=== PATIENT | female | born 1970 | race African-American/Black ===

== ENCOUNTER 2016-05-29 14:20 | Inpatient (IN) | payer OTHER ==
[2016-05-29] VITALS (7 sets, daily range): BP systolic 113–132; BP diastolic 62–68
[~2016-05-29] VITALS: Ht 163.8 cm; Wt 113.4 kg
[~2016-05-29 14:20] MED LIST: BUPIVACAINE 0.25% 50 ML VIAL. ONE; BUSP10TA PO; CIPR500T PO; CIPR500T6 PO; DOCU-27 PO; DOCU100C5 PO; HYDR-2666 PO; HYDR-2672 PO; HYDR-2680 PO; HYDR-2762 PO; HYDR-971 PO; HYDR10SY8 PO; HYDR25TA9 PO; IBUP-1060 PO; LEVO500T38 PO; LIDOCAINE 1% 20 ML VIAL. ONE; LOSA1TAB17 PO; LOSA50TA6 PO; SULF1TAB24 PO; TRAM50TA PO; VANCOMYCIN 1GM IVPB FOR OMNI 250 ML IV PRN
[2016-05-29] MEDS ORDERED: IV RINGERS,LACTATED 1000ML 1,000 ML IV SCH ×2 (14:32→18:07)
[2016-05-29] MEDS ORDERED: MIDAZOLAM HCL 2 MG/2 ML VIAL. IV PRN (14:45)
[2016-05-29] MEDS ORDERED: LIDOCAINE 1% 1 ML SYRINGE. ID PRN ×2 (14:45→18:15)
[2016-05-29] MEDS ORDERED: VANCOMYCIN 1GM IVPB FOR OMNI. ONE (15:00)
[2016-05-29] MEDS ORDERED: VANCOMYCIN 1GM IVPB FOR OMNI 250 ML ONE (15:11)
[2016-05-29] MEDS: FENTANYL PF 100 MCG/2 ML VIAL. IV PRN ×7 (15:36→19:11)
[2016-05-29] MEDS ORDERED: FENTANYL PF 100 MCG/2 ML VIAL. ONE (16:28)
[2016-05-29] MEDS ORDERED: ONDANSETRON PF 4 MG/2 ML VIAL. ONE (17:49)
[2016-05-29] MEDS ORDERED: LIDOCAINE 2% PF Vial for OR 5 ML VIAL. ONE (17:49)
[2016-05-29] MEDS ORDERED: DEXAMETHASONE SOD PHOS 20 MG/5 ML VIAL. ONE (17:49)
[2016-05-29] MEDS ORDERED: SEVOFLURANE 31 TO 60 MINUTES. IH ONE (17:49)
[2016-05-29] MEDS ORDERED: PROPOFOL 20 ML IV ONE (17:49)
[2016-05-29] MEDS ORDERED: SEVOFLURANE 61 TO 120 MINUTES. IH ONE (17:51)
[2016-05-29] MEDS ORDERED: MORPHINE SULFATE 2 MG/ML DISP.SYRIN. ONE (18:06)
[2016-05-29] MEDS: MORPHINE SULFATE 2 MG/ML DISP.SYRIN. IV PRN ×5 (18:11→20:42)
[2016-05-29] MEDS: HYDROMORPHONE 2 MG/ML VIAL. IV PRN ×4 (18:15→19:04)
[2016-05-29] MEDS ORDERED: PROCHLORPERAZINE 10 MG/2 ML VIAL. IV PRN (18:15)
[2016-05-29] MEDS ORDERED: FENTANYL PF 100 MCG/2 ML VIAL. IV PRN (18:15)
[2016-05-29] MEDS ORDERED: ONDANSETRON PF 4 MG/2 ML VIAL. IV PRN ×2 (18:15→18:30)
[2016-05-29] MEDS ORDERED: CALCIUM CARBONATE 500 MG TAB.CHEW PO PRN (18:30)
[2016-05-29] MEDS ORDERED: MAGNESIUM HYDROXIDE 2,400 MG/30 ML ORAL.SUSP. PO PRN (18:30)
[2016-05-29] MEDS ORDERED: DIPHENHYDRAMINE 50 MG/ML VIAL IV PRN (18:30)
[2016-05-29] MEDS ORDERED: 0.9 % SODIUM CHLORIDE 10 ML DISP.SYRIN. IV PRN (18:30)
[2016-05-29] MEDS ORDERED: NALOXONE 0.4 MG/ML VIAL. IV PRN (18:30)
[2016-05-29] MEDS ORDERED: ZOLPIDEM 5 MG TABLET. PO PRN (18:30)
[2016-05-29] MEDS ORDERED: DIPHENHYDRAMINE HCL 25 MG CAPSULE PO PRN (18:30)
[2016-05-29] MEDS ORDERED: MAG HYDROX/ALUMINUM HYDROX/SMC 30 ML ORAL.SUSP PO PRN (18:30)
[2016-05-29] MEDS ORDERED: KETOROLAC TROMETHAMINE 30 MG/ML SYRINGE. ONE (18:53)
[2016-05-29] MEDS ORDERED: ACETAMINOPHEN INTRAVENOUS 100 ML IV ONE ×2 (18:53→19:00)
[2016-05-29] MEDS ORDERED: KETOROLAC 15 MG/ML VIAL. IV ONE (19:00)
[2016-05-29] MEDS ORDERED: BUPIVACAINE MPF 0.5% 30 ML VIAL. ONE (19:06)
[2016-05-29] MEDS: IV 1/2 NORMAL SALINE 1,000 ML IV SCH (20:48)
[2016-05-29] MEDS: OXYCODONE IR 5 MG TABLET. PO PRN (21:49)
--- NOTE | 2016-05-29 23:04 | OP ---
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 INDICATIONS: This is a 45-year-old female who has had a ray amputation for nonhealing ulcer beneath the fifth metatarsal head. This was shown to be a squamous cell cancer. Margins were minimal and the patient was noted to have biopsy proven presence of metastatic squamous cell carcinoma in both the femoral lymph node chain and the external iliac chain. Radiation therapy is pending. Unfortunately, in the interval, the patient developed a recurrent soft tissue mass on the lateral aspect adjacent to the fourth toe. Biopsy of this returned squamous cell carcinoma. She returns today for third and fourth toe amputation in an effort to control local recurrence of this cancer. DESCRIPTION OF PROCEDURE: General anesthetic was administered. The patient was prepped and draped in sterile fashion. The area between the third and fourth toe encompassing the soft tissue and tumor were sharply incised. The dissection was carried down on the medial aspect of the third metatarsal shaft. Third and fourth metatarsal shafts were identified proximal and the incision site transected with a bone cutter and the remainder of the soft tissues were then divided removing the third and fourth toe and the soft tissue tumor. Additional bone was removed with a rongeur. Hemostasis achieved with electrocautery. The wound was closed with a running 2-0 nylon suture. Sterile dressings were applied. The patient moved from the operating room to recovery in satisfactory stable condition. ALMA BUSBY MD DR: IDALIA/derek JOB#: [id number] / [id number]
[2016-05-30] VITALS (7 sets, daily range): BP systolic 115–147; BP diastolic 63–83
[2016-05-30] MEDS: HYDROCODONE/APAP 5/325MG TABLET. PO PRN ×6 (01:13→23:34)
[2016-05-30] MEDS: OXYCODONE IR 5 MG TABLET. PO PRN ×5 (04:03→20:12)
[2016-05-30] MEDS ORDERED: VANCOMYCIN 1 GM in IV NORMAL SALINE 250ML 250 ML IV ONE (05:00)
[2016-05-30] MEDS: IV 1/2 NORMAL SALINE 1,000 ML IV SCH (09:46)
--- NOTE | 2016-05-30 13:01 | PDOC2 ---
JOSUE FIGUEROA GIANT TIRE REPAIRER 05/30/16 1301: CONSULT Date of Consult Date of Consult DATE: 05/30/16 TIME: 12:55 Reason for Consult Reason for Consult: postop pain Referring Physician Referring Physician: Dr Skelton Identification/Chief Complaint Chief Complaint toe amputation Source Source: Chart review, Patient History of Present Illness Reason for Visit: Postop from toe amputation related to her squamous cell cancer. She has been having pain and swelling to right groin. On Apr 25, 2016 she underwent right groin lymph node dissection and right iliac lymph node dissection with Dr Corbin Past Medical History Cardiovascular: HTN Pulmonary: No pertinent hx CENTRAL NERVOUS SYSTEM: Other GI: GERD Heme/Onc: No pertinent hx, Cancer Hepatobiliary: No pertinent hx Psych: Anxiety Rheumatologic: No pertinent hx Infectious disease: No pertinent hx Renal/: No pertinent hx Endocrine: No pertinent hx Past Surgical History Past Surgical History: , Other Family History Family History: Cancer, Diabetes, Hypertension Social History ALCOHOL: none Drugs: None Lives: with Family Current Problem List Problem List Problems Medical Problems: (1) Squamous cell carcinoma of right foot Status: Acute Current Medications Current Medications Current Medications Midazolam HCl (Versed) 2 mg PRN 1X PRN IV PRIOR TO PROCEDURE; Start 05/29/16 at 14:45; Stop 05/29/16 at 18:00; Status DC Fentanyl Citrate (Fentanyl 2ml Vial) 25 mcg PRN Q5MIN PRN IV X 2 DOSES FOR PAIN Last administered on 05/29/16t 16:19; Start 05/29/16 at 14:45; Stop at 18:00; Status DC Fentanyl Citrate 50 mcg 50 mcg PRN Q5MIN PRN IV X 2 DOSES FOR PAIN Last administered on 05/29/16t 18:18; Start 05/29/16 at 14:45; Stop 05/29/16 at 20:00 ; Status DC Lactated Ringer's (Iv Lactated Ringers) 1,000 ml @ 125 mls/hr Q8H IV ; Start at 14:32; Stop 05/30/16 at 02:31; Status DC Lidocaine HCl 2 ml 2 ml 1X PRN PRN ID IV START; Start 05/29/16 at 14:45; Stop 05/29/16 at 18:00; Status DC Vancomycin HCl 250 ml @ 250 mls/hr 1X PREOP PRN IV PER PROTOCOL Last administered on 05/29/16 17:02; Start 05/29/16 at 06:00; Stop 05/30/16 at 05:59 ; Status DC Ondansetron HCl (Zofran) 4 mg PRN Q6HRS PRN IV Nausea; Start 05/29/16 at 18:15 ; Stop 05/30/16 at 18:14 Fentanyl Citrate (Fentanyl 2ml Vial) 25 mcg PRN Q5MIN PRN IV MILD PAIN; Start 05/29/16 at 18:15; Stop 05/30/16 at 18:14 Fentanyl Citrate (Fentanyl 2ml Vial) 50 mcg PRN Q5MIN PRN IV MODERATE PAIN Last administered on 05/29/16 19:11; Start 05/29/16 at 18:15; Stop 05/30/16 at 18:14 Morphine Sulfate 1 mg 1 mg PRN Q10MIN PRN IV SEVERE PAIN Last administered on 19:15; Start 05/29/16 at 18:15; Stop 05/30/16 at 18:14 Lactated Ringer's (Iv Lactated Ringers) 1,000 ml @ 30 mls/hr Q24H IV ; Start at 18:07; Stop 05/30/16 at 06:06; Status DC Lidocaine HCl 2 ml 1X PRN PRN ID IV START; Start 05/29/16 at 18:15; Stop at 18:14 Hydromorphone HCl (Dilaudid) 0.5 mg PRN Q10MIN PRN IV SEV PAIN,Second choice Last administered on 05/29/16 19:04; Start 05/29/16 at 18:15; Stop 05/30/16 at 18:14 Prochlorperazine Edisylate 5 mg 5 mg PACU PRN PRN IV NAUSEA; Start 05/29/16 at 18:15; Stop 05/30/16 at 18:14 Vancomycin HCl/ Sodium Chloride (Iv Sodium Chloride 0.9% 250ml) 250 ml @ 250 mls/hr 1X ONCE IV Last administered on 05/30/16 05:15; Start 05/30/16 at 05: 00; Stop 05/30/16 at 05:59; Status DC Oxycodone HCl (Roxicodone) 5 mg PRN Q3HRS PRN PO PAIN Last administered on 05/30 10:54; Start 05/29/16 at 18:30 Al Hydrox/Mg Hydrox/Simethicone (Mylanta Plus Xs) 30 ml PRN Q3HRS PRN PO HEARTBURN / GAS; Start 05/29/16 at 18:30 Calcium Carbonate/ Glycine (Tums) 500 mg PRN Q3HRS PRN PO INDIGESTION; Start at 18:30 Diphenhydramine HCl (Benadryl) 25 mg PRN Q6HRS PRN PO ITCHING; Start 05/29/16 at 18:30 Diphenhydramine HCl (Benadryl) 25 mg PRN Q6HRS PRN IV ITCHING; Start 05/29/16 at 18:30 Zolpidem Tartrate (Ambien) 5 mg PRN QHS PRN PO INSOMNIA; Start 05/29/16 at 18: 30 Naloxone HCl (Narcan) 0.1 mg PRN Q2MIN PRN IV ADMIN; Start 05/29/16 at 18:30 Sodium Chloride 3 ml 3 ml QSHIFT PRN IV AFTER MEDS AND BLOOD DRAWS; Start 05/29 at 18:30 Sodium Chloride (Iv Sodium Chloride 0.45%) 1,000 ml @ 75 mls/hr [id number] IV Last administered on 05/30/16 09:46; Start 05/29/16 at 18:17 Acetaminophen/ Hydrocodone Bitart (Lortab 5/325) 2 tab PRN Q4HRS PRN PO MODERATE PAIN, SEVERE PAIN Last administered on 05/30/16 09:47; Start 05/29/16 at 18:30 Morphine Sulfate 2 mg PRN Q1HR PRN IV PAIN Last administered on 05/29/16 20:42 ; Start 05/29/16 at 18:30 Magnesium Hydroxide (Milk Of Magnesia) 2,400 mg PRN Q12HR PRN PO CONSTIPATION; Start 05/29/16 at 18:30 Ondansetron HCl (Zofran) 4 mg PRN Q6HRS PRN IV NAUESA, 1ST CHOICE; Start at 18:30 Ketorolac Tromethamine 30 mg 30 mg 1X ONCE IV Last administered on 2/20/17at 18:45; Start 05/29/16 at 19:00; Stop 05/29/16 at 19:05; Status DC Acetaminophen (Ofirmev) 100 ml @ 400 mls/hr 1X ONCE IV Last administered on t 19:00; Start 05/29/16 at 19:00; Stop 05/29/16 at 19:14; Status DC Vancomycin HCl 1 gm STK-MED ONCE .ROUTE ; Start 05/29/16 at 15:00; Stop at 08:45; Status DC Bupivacaine HCl (Marcaine 0.25%) 50 ml STK-MED ONCE .ROUTE ; Start 05/29/16 at 13:38; Stop 05/30/16 at 09:55; Status DC Lidocaine HCl 20 ml 20 ml STK-MED ONCE .ROUTE ; Start 05/29/16 at 13:39; Stop at 09:55; Status DC Vancomycin HCl 250 ml @ As Directed STK-MED ONCE .ROUTE ; Start 05/29/16 at 15: 11; Stop 05/30/16 at 09:56; Status DC Fentanyl Citrate (Fentanyl 2ml Vial) 100 mcg STK-MED ONCE .ROUTE ; Start at 16:28; Stop 05/30/16 at 09:58; Status DC Dexamethasone Sodium Phosphate (Decadron) 20 mg STK-MED ONCE .ROUTE ; Start at 17:49; Stop 05/30/16 at 09:59; Status DC Ondansetron HCl 4 mg 4 mg STK-MED ONCE .ROUTE ; Start 05/29/16 at 17:49; Stop at 09:59; Status DC Propofol (Diprivan) 20 ml @ As Directed STK-MED ONCE IV ; Start 05/29/16 at 17: 49; Stop 05/30/16 at 09:59; Status DC Lidocaine HCl (Lidocaine Pf 2% Vial) 5 ml STK-MED ONCE .ROUTE ; Start 05/29/16 at 17:49; Stop 05/30/16 at 09:59; Status DC Sevoflurane (Ultane) 30 ml STK-MED ONCE IH ; Start 05/29/16 at 17:49; Stop 05/30 at 09:59; Status DC Sevoflurane (Ultane) 60 ml STK-MED ONCE IH ; Start 05/29/16 at 17:51; Stop 05/30 at 09:59; Status DC Morphine Sulfate 2 mg 2 mg STK-MED ONCE .ROUTE ; Start 05/29/16 at 18:06; Stop 05/30/16 at 09:59; Status DC Acetaminophen (Ofirmev) 100 ml @ As Directed STK-MED ONCE IV ; Start 05/29/16 at 18:53; Stop 05/30/16 at 09:59; Status DC Ketorolac Tromethamine (Toradol) 30 mg STK-MED ONCE .ROUTE ; Start 05/29/16 at 18:53; Stop 05/30/16 at 09:59; Status DC Bupivacaine HCl (Sensorcaine Mpf 0.5%) 30 ml STK-MED ONCE .ROUTE ; Start at 19:06; Stop 05/30/16 at 10:00; Status DC Active Scripts Active Reported Lortab 10-325 mg Tablet (Hydrocodone/Acetaminophen) 1 Each Tablet 1 Tab PO PRN Q6HRS PRN Losartan-Hctz 100-25 Mg Tab (Losartan/Hydrochlorothiazide) 1 Each Tablet 1 Tab PO DAILY Docusate Sodium 100 Mg Capsule 1 Cap PO DAILY Ibuprofen 800 Mg Tablet 800 Mg PO TID PRN PRN Allergies Allergies: Coded Allergies: amoxicillin (Verified Adverse Reaction, Intermediate, Nausea, 05/29/16) clavulanic acid (Verified Adverse Reaction, Intermediate, Nausea, 05/29/16) ROS General: No: Chills, Other (fevers) PSYCHOLOGICAL ROS: No: Anxiety, Depression Eyes: No Blurry vision, No Double vision HEENT: No: Heacaches, Sore Throat Hematological and Lymphatic: No: Bleeding Problems, Blood Clots Respiratory: No: Cough, Shortness of breath Cardiovascular: No Chest Pain Gastrointestinal: No Nausea, No Vomiting Genitourinary: No Dysuria, No Hematuria Musculoskeletal: No Joint Pain, No Muscle Pain Neurological: Yes Impaired Coord/balance, Yes Numbness/Tingling Skin: Yes Skin Lesion Changes Physical Exam Physical Exam right groin with fluid collection, incision healed, tender on exam General: Alert, Oriented X3, Cooperative, No acute distress HEENT: PERRLA, Mucous membr. moist/pink Lungs: Clear to auscultation, Normal air movement Heart: Regular rate, Normal S1, Normal S2, No murmurs Abdomen: Soft, No tenderness Extremities: Other (right foot wrapped ) Neuro: Strength at 5/5 X4 ext Psych/Mental Status: Mental status NL, Mood NL Vitals VITALS Vital Signs Date Time Temp Pulse Resp B/P Pulse Ox O2 Delivery O2 Flow Rate FiO2 05/30/16 11:24 98.1 58 18 120/63 98 Room Air 98.1 05/30/16 05:20 2.0 Assessment/Plan Assessment/Plan squamous cell cancer s/p lymph node dissection, now with fluid collection will consult IR for us guided aspiration, culture LATASHA OLVERA MD 05/30/16 1306: CONSULT Allergies Allergies: Coded Allergies: amoxicillin (Verified Adverse Reaction, Intermediate, Nausea, 05/29/16) clavulanic acid (Verified Adverse Reaction, Intermediate, Nausea, 05/29/16) Assessment/Plan Assessment/Plan Ruslan Corbin pt seen, interviewed and examined agree with above will await outcome of aspiration will follow Thanks for consult. JOSUE FIGUEROA APRN May 30, 2016 13:01 LATASHA OLVERA MD May 30, 2016 13:06
[2016-05-30] MEDS ORDERED: POTASSIUM CHLORIDE 20 MEQ TABLET.ER. PO ONE (13:30)
[2016-05-30] MEDS: MAGNESIUM SULFATE 2GM 50 ML IV ONE ×2 (14:07→15:23)
--- NOTE | 2016-05-30 14:08 | PDOC ---
PROGRESS NOTES Subjective Subjective "My foot is hurting and so is my right groin. I can't go home like this." Objective Objective Vascular Surgery - POD#1 Ray amp toes 3-4 right foot O: Sitting up on side of bed. States she has been lying down with foot elevated. Holding right groin area. Rt foot: dressing with blood noted coming through. Removed. Incision intact with slow bloody ooze to upper portion of incision. Pressure held then new dressing applied. Palpable DP pulse. Assessment/Plan: 1. Squamous cell carcinoma of right foot - POD#1 Ray amp of toes 3-4. 2. Right groin pain - IR has been consulted for ultrasound-guided aspiration of fluid. Await results of this. 3. Educated patient on need for her to keep right foot elevated and in non- dependent position to control swelling/pain. 4. Work on pain control prior to discharge. 5. Most likely home tomorrow. Vital Signs Date Time Temp Pulse Resp B/P Pulse Ox O2 Delivery O2 Flow Rate FiO2 05/30/16 11:24 98.1 58 18 120/63 98 Room Air 98.1 05/30/16 05:20 2.0 Intake and Output 05/30/16 07:00 Intake Total 3140 ml Balance 3140 ml Intake Oral 1490 ml IV Total 1650 ml # Voids 2 Assessment Assessment Problems Medical Problems: (1) Squamous cell carcinoma of right foot Status: Acute Comment Review of Relevant I have reviewed the following items niki (where applicable) has been applied. Medications Current Medications Midazolam HCl (Versed) 2 mg PRN 1X PRN IV PRIOR TO PROCEDURE; Start 05/29/16 at 14:45; Stop 05/29/16 at 18:00; Status DC Fentanyl Citrate (Fentanyl 2ml Vial) 25 mcg PRN Q5MIN PRN IV X 2 DOSES FOR PAIN Last administered on 05/29/16 16:19; Start 05/29/16 at 14:45; Stop at 18:00; Status DC Fentanyl Citrate 50 mcg 50 mcg PRN Q5MIN PRN IV X 2 DOSES FOR PAIN Last administered on 05/29/16 18:18; Start 05/29/16 at 14:45; Stop 05/29/16 at 20:00 ; Status DC Lactated Ringer's (Iv Lactated Ringers) 1,000 ml @ 125 mls/hr Q8H IV ; Start at 14:32; Stop 05/30/16 at 02:31; Status DC Lidocaine HCl 2 ml 2 ml 1X PRN PRN ID IV START; Start 05/29/16 at 14:45; Stop 05/29/16 at 18:00; Status DC Vancomycin HCl 250 ml @ 250 mls/hr 1X PREOP PRN IV PER PROTOCOL Last administered on 05/29/16 17:02; Start 05/29/16 at 06:00; Stop 05/30/16 at 05:59 ; Status DC Ondansetron HCl (Zofran) 4 mg PRN Q6HRS PRN IV Nausea; Start 05/29/16 at 18:15 ; Stop 05/30/16 at 13:38; Status DC Fentanyl Citrate (Fentanyl 2ml Vial) 25 mcg PRN Q5MIN PRN IV MILD PAIN; Start 05/29/16 at 18:15; Stop 05/30/16 at 18:14 Fentanyl Citrate (Fentanyl 2ml Vial) 50 mcg PRN Q5MIN PRN IV MODERATE PAIN Last administered on 05/29/16 19:11; Start 05/29/16 at 18:15; Stop 05/30/16 at 13:38; Status DC Morphine Sulfate 1 mg 1 mg PRN Q10MIN PRN IV SEVERE PAIN Last administered on 19:15; Start 05/29/16 at 18:15; Stop 05/30/16 at 13:38; Status DC Lactated Ringer's (Iv Lactated Ringers) 1,000 ml @ 30 mls/hr Q24H IV ; Start at 18:07; Stop 05/30/16 at 06:06; Status DC Lidocaine HCl 2 ml 1X PRN PRN ID IV START; Start 05/29/16 at 18:15; Stop at 13:38; Status DC Hydromorphone HCl (Dilaudid) 0.5 mg PRN Q10MIN PRN IV SEV PAIN,Second choice Last administered on 05/29/16 19:04; Start 05/29/16 at 18:15; Stop 05/30/16 at 18:14 Prochlorperazine Edisylate 5 mg 5 mg PACU PRN PRN IV NAUSEA; Start 05/29/16 at 18:15; Stop 05/30/16 at 18:14 Vancomycin HCl/ Sodium Chloride (Iv Sodium Chloride 0.9% 250ml) 250 ml @ 250 mls/hr 1X ONCE IV Last administered on 05/30/16 05:15; Start 05/30/16 at 05: 00; Stop 05/30/16 at 05:59; Status DC Oxycodone HCl (Roxicodone) 5 mg PRN Q3HRS PRN PO PAIN Last administered on 05/30 10:54; Start 05/29/16 at 18:30 Al Hydrox/Mg Hydrox/Simethicone (Mylanta Plus Xs) 30 ml PRN Q3HRS PRN PO HEARTBURN / GAS; Start 05/29/16 at 18:30 Calcium Carbonate/ Glycine (Tums) 500 mg PRN Q3HRS PRN PO INDIGESTION; Start at 18:30 Diphenhydramine HCl (Benadryl) 25 mg PRN Q6HRS PRN PO ITCHING; Start 05/29/16 at 18:30 Diphenhydramine HCl (Benadryl) 25 mg PRN Q6HRS PRN IV ITCHING; Start 05/29/16 at 18:30 Zolpidem Tartrate (Ambien) 5 mg PRN QHS PRN PO INSOMNIA; Start 05/29/16 at 18: 30 Naloxone HCl (Narcan) 0.1 mg PRN Q2MIN PRN IV ADMIN; Start 05/29/16 at 18:30 Sodium Chloride 3 ml 3 ml QSHIFT PRN IV AFTER MEDS AND BLOOD DRAWS; Start 05/29 at 18:30 Sodium Chloride (Iv Sodium Chloride 0.45%) 1,000 ml @ 75 mls/hr [id number] IV Last administered on 05/30/16 09:46; Start 05/29/16 at 18:17 Acetaminophen/ Hydrocodone Bitart (Lortab 5/325) 2 tab PRN Q4HRS PRN PO MODERATE PAIN, SEVERE PAIN Last administered on 05/30/16 09:47; Start 05/29/16 at 18:30 Morphine Sulfate 2 mg PRN Q1HR PRN IV PAIN Last administered on 05/29/16 20:42 ; Start 05/29/16 at 18:30 Magnesium Hydroxide (Milk Of Magnesia) 2,400 mg PRN Q12HR PRN PO CONSTIPATION; Start 05/29/16 at 18:30 Ondansetron HCl (Zofran) 4 mg PRN Q6HRS PRN IV NAUESA, 1ST CHOICE; Start at 18:30 Ketorolac Tromethamine 30 mg 30 mg 1X ONCE IV Last administered on 05/29/16t 18:45; Start 05/29/16 at 19:00; Stop 05/29/16 at 19:05; Status DC Acetaminophen (Ofirmev) 100 ml @ 400 mls/hr 1X ONCE IV Last administered on t 19:00; Start 05/29/16 at 19:00; Stop 05/29/16 at 19:14; Status DC Vancomycin HCl 1 gm STK-MED ONCE .ROUTE ; Start 05/29/16 at 15:00; Stop at 08:45; Status DC Bupivacaine HCl (Marcaine 0.25%) 50 ml STK-MED ONCE .ROUTE ; Start 05/29/16 at 13:38; Stop 05/30/16 at 09:55; Status DC Lidocaine HCl 20 ml 20 ml STK-MED ONCE .ROUTE ; Start 05/29/16 at 13:39; Stop at 09:55; Status DC Vancomycin HCl 250 ml @ As Directed STK-MED ONCE .ROUTE ; Start 05/29/16 at 15: 11; Stop 05/30/16 at 09:56; Status DC Fentanyl Citrate (Fentanyl 2ml Vial) 100 mcg STK-MED ONCE .ROUTE ; Start at 16:28; Stop 05/30/16 at 09:58; Status DC Dexamethasone Sodium Phosphate (Decadron) 20 mg STK-MED ONCE .ROUTE ; Start at 17:49; Stop 05/30/16 at 09:59; Status DC Ondansetron HCl 4 mg 4 mg STK-MED ONCE .ROUTE ; Start 05/29/16 at 17:49; Stop at 09:59; Status DC Propofol (Diprivan) 20 ml @ As Directed STK-MED ONCE IV ; Start 05/29/16 at 17: 49; Stop 05/30/16 at 09:59; Status DC Lidocaine HCl (Lidocaine Pf 2% Vial) 5 ml STK-MED ONCE .ROUTE ; Start 05/29/16 at 17:49; Stop 05/30/16 at 09:59; Status DC Sevoflurane (Ultane) 30 ml STK-MED ONCE IH ; Start 05/29/16 at 17:49; Stop 05/30 at 09:59; Status DC Sevoflurane (Ultane) 60 ml STK-MED ONCE IH ; Start 05/29/16 at 17:51; Stop 05/30 at 09:59; Status DC Morphine Sulfate 2 mg 2 mg STK-MED ONCE .ROUTE ; Start 05/29/16 at 18:06; Stop 05/30/16 at 09:59; Status DC Acetaminophen (Ofirmev) 100 ml @ As Directed STK-MED ONCE IV ; Start 05/29/16 at 18:53; Stop 05/30/16 at 09:59; Status DC Ketorolac Tromethamine (Toradol) 30 mg STK-MED ONCE .ROUTE ; Start 05/29/16 at 18:53; Stop 05/30/16 at 09:59; Status DC Bupivacaine HCl 30 ml 30 ml STK-MED ONCE .ROUTE ; Start 05/29/16 at 19:06; Stop 05/30/16 at 10:00; Status DC Magnesium Sulfate/ Dextrose (Magnesium Sulfate PREMIX 2GM) 50 ml @ 25 mls/hr 1X ONCE IV ; Start 05/30/16 at 14:00; Stop 05/30/16 at 15:59 Potassium Chloride (Klor-Con) 40 meq 1X ONCE PO ; Start 05/30/16 at 13:30; Stop 05/30/16 at 13:35; Status DC Active Scripts Active Reported Lortab 10-325 mg Tablet (Hydrocodone/Acetaminophen) 1 Each Tablet 1 Tab PO PRN Q6HRS PRN Losartan-Hctz 100-25 Mg Tab (Losartan/Hydrochlorothiazide) 1 Each Tablet 1 Tab PO DAILY Docusate Sodium 100 Mg Capsule 1 Cap PO DAILY Ibuprofen 800 Mg Tablet 800 Mg PO TID PRN PRN Vitals/I & O Vital Sign - Last 24 Hours 05/29/16 05/29/16 05/29/16 05/29/16 14:52 15:36 16:01 16:19 Temp 97.2 97.2 Pulse 77 Resp 16 20 20 20 B/P 107/65 Pulse Ox 98 97 98 O2 Delivery Room Air Room Air Room Air O2 Flow Rate 99.0 05/29/16 05/29/16 05/29/16 05/29/16 17:58 17:58 18:11 18:11 Temp 97.2 97.2 Pulse 95 Resp 15 15 15 B/P 160/73 Pulse Ox 99 100 100 O2 Delivery Room Air Room Air Simple Mask Simple Mask O2 Flow Rate 99.0 99.0 10.0 10.0 05/29/16 05/29/16 05/29/16 05/29/16 18:13 18:15 18:18 18:26 Temp 97.2 97.2 Pulse 90 Resp 15 15 15 15 B/P 122/90 Pulse Ox 96 100 94 100 O2 Delivery Simple Mask Simple Mask Simple Mask Simple Mask O2 Flow Rate 10.0 10.0 10.0 10.0 05/29/16 05/29/16 05/29/16 05/29/16 18:26 18:28 18:43 18:50 Temp 97.2 97.2 97.2 97.2 Pulse 97 82 Resp 15 15 15 15 B/P 157/77 148/88 Pulse Ox 100 99 93 100 O2 Delivery Simple Mask Simple Mask Nasal Cannula Nasal Cannula O2 Flow Rate 10.0 10.0 2 2.0 05/29/16 05/29/16 05/29/16 05/29/16 18:51 18:58 19:00 19:04 Temp 97.2 97.2 Pulse 88 Resp 15 15 15 15 B/P 160/68 Pulse Ox 98 98 100 100 O2 Delivery Nasal Cannula Nasal Cannula Nasal Cannula Nasal Cannula O2 Flow Rate 2.0 2.0 2.0 2.0 05/29/16 05/29/16 05/29/16 05/29/16 19:11 19:13 19:15 19:28 Temp 97.2 97.2 97.2 97.2 Pulse 70 71 Resp 12 15 15 15 B/P 176/91 145/68 Pulse Ox 100 97 100 100 O2 Delivery Nasal Cannula Nasal Cannula Nasal Cannula Nasal Cannula O2 Flow Rate 2.0 2.0 2.0 2.0 05/29/16 05/29/16 05/29/16 05/29/16 20:30 20:42 20:45 21:00 Temp 98.1 98.1 Pulse 81 80 81 Resp 20 B/P 127/68 113/62 129/66 Pulse Ox 98 100 100 99 O2 Delivery Room Air O2 Flow Rate 2.0 05/29/16 05/29/16 05/29/16 05/29/16 21:12 21:15 21:45 22:15 Pulse 72 86 61 B/P 132/65 120/63 117/64 Pulse Ox 100 100 100 100 O2 Delivery Room Air O2 Flow Rate 2.0 05/29/16 05/29/16 05/30/16 05/30/16 22:44 23:15 00:15 01:13 Temp 98.6 98.6 Pulse 63 56 Resp 16 B/P 113/65 147/83 Pulse Ox 100 100 100 O2 Delivery Nasal Cannula Nasal Cannula O2 Flow Rate 2.0 2.0 05/30/16 05/30/16 05/30/16 05/30/16 02:13 03:00 04:03 05:00 Temp 98.6 98.6 Pulse 53 Resp 16 B/P 130/83 Pulse Ox 100 100 100 100 O2 Delivery Nasal Cannula Nasal Cannula Nasal Cannula O2 Flow Rate 2.0 2.0 2.0 05/30/16 05/30/16 05/30/16 05/30/16 05:20 07:15 08:04 11:24 Temp 98.1 98.1 98.1 98.1 Pulse 56 58 Resp 17 18 B/P 124/66 120/63 Pulse Ox 100 98 98 O2 Delivery Nasal Cannula Room Air Room Air Room Air O2 Flow Rate 2.0 Intake and Output 05/29/16 05/29/16 05/30/16 15:00 23:00 07:00 Intake Total 1650 ml 1490 ml Balance 1650 ml 1490 ml DIPAK ARZATE APRN May 30, 2016 14:08
[2016-05-30] MEDS: MORPHINE SULFATE 2 MG/ML DISP.SYRIN. IV PRN ×2 (14:23→21:28)
[2016-05-30] MEDS: NICOTINE 14MG PATCH. TD SCH (15:35)
[2016-05-31] MEDS: OXYCODONE IR 5 MG TABLET. PO PRN ×4 (04:08→20:56)
[2016-05-31 04:37] LABS: MAGNESIUM 1.7 mg/dL (1.8-2.4); POTASSIUM 3.5 mmol/L (3.5-5.1)
[2016-05-31] MEDS: HYDROCODONE/APAP 5/325MG TABLET. PO PRN ×5 (05:53→22:33)
[2016-05-31 07:00] VITALS: BP 137/76
[2016-05-31] MEDS: NICOTINE 14MG PATCH. TD SCH (09:11)
[2016-05-31] MEDS: MORPHINE SULFATE 2 MG/ML DISP.SYRIN. IV PRN (09:20)
--- NOTE | 2016-05-31 10:38 | PDOC ---
SURGICAL PROGRESS NOTE Subjective Pt with c/o right foot pain, groin pain, improved Vital Signs Vital Signs Date Time Temp Pulse Resp B/P Pulse Ox O2 Delivery O2 Flow Rate FiO2 05/31/16 10:34 Room Air 05/31/16 07:00 98.2 68 18 137/76 93 98.2 05/31/16 05:53 2.0 I&O Intake and Output 05/31/16 07:00 Intake Total 2190 ml Output Total 1200 ml Balance 990 ml Intake Oral 2190 ml Output Urine Total 1200 ml # Voids 1 General: Alert, Oriented X3, Cooperative, No acute distress Extremities: Other (right groin incision intact, difficult to palpate seroma secondary to body habitus, no obvious infection, mild TTP, right foot dressing c /d/i) Labs Laboratory Tests Test 05/31/16 04:02 Potassium Level 3.5mmol/L (3.5-5.1) Magnesium Level 1.7mg/dL (1.8-2.4) Laboratory Tests Test 05/31/16 04:02 Potassium Level 3.5mmol/L (3.5-5.1) Magnesium Level 1.7mg/dL (1.8-2.4) Problem List Problems Medical Problems: (1) Squamous cell carcinoma of right foot Status: Acute Assessment/Plan right groin lymphocoele d/w pt R/b/A of drainage vs observation significant risk of middle or intermediate [employer] principal drainage given cancer and lymphocoele, as such pt elects to avoid drainage OK to start rad onc from gen surg POV Problems: JAYLEEN GILES MD May 31, 2016 10:38
[2016-05-31 11:06] VITALS: BP 137/73
--- NOTE | 2016-05-31 12:00 | PDOC ---
Provider Note Provider Note 45 yo woman with regionally advanced squamous cell carcinoma of the right 5th toe with groin and pelvic LN involvement. 03/06/16 Underwent right 5th toe ray amputation Squamous cell carcinoma resected with 1 mm margin. 04/25/2016 Underwent right groin and pelvic resection of adenopathy, 4 x 2.[address] and [address] involved. 05/19/2016 Ulcerative mass right lateral foot incision seen. Bx recurrent squamous cell carcinoma. 05/29/[address] 4 x 4.7 seroma, smaller deep 1.3 cm seroma two other ing LN 3.0 cm and 1.5 [address] ex iliac LN 1.5 cm Underwent right 4th and 3rd ray amputation. Doing well post op with foot pain and resolution of groin pain. Impression: Regionally advanced stIV(T2 N2 M0) squamous cell carcinoma of right 5th toe. s/p initial resection now with recurrence also resected. Also s/p right roderick resection now with CT evidence for roderick relapse. Wait path report from re-resection of foot Plan on simulation for treatment of ipsilateral right groin and pelvic radiation. Given speed of relapse seen I would recommend proceeding with radiation now and not pursue additional inguinal or pelvic resection. Plan on simulation tomorrow with treatment to begin next week. DEV WILSON MD May 31, 2016 12:00
--- NOTE | 2016-05-31 12:05 | PDOC ---
SURGICAL PROGRESS NOTE Subjective no complaints Vital Signs Vital Signs Date Time Temp Pulse Resp B/P Pulse Ox O2 Delivery O2 Flow Rate FiO2 05/31/16 11:53 Room Air 05/31/16 11:06 98.8 70 18 137/73 95 98.8 05/31/16 05:53 2.0 I&O Intake and Output 05/31/16 07:00 Intake Total 2190 ml Output Total 1200 ml Balance 990 ml Intake Oral 2190 ml Output Urine Total 1200 ml # Voids 1 Extremities: Other (right lateral foot incision looks fine. , viable skin edges ) Labs Laboratory Tests Test 05/31/16 04:02 Potassium Level 3.5mmol/L (3.5-5.1) Magnesium Level 1.7mg/dL (1.8-2.4) Laboratory Tests Test 05/31/16 04:02 Potassium Level 3.5mmol/L (3.5-5.1) Magnesium Level 1.7mg/dL (1.8-2.4) Problem List Problems Medical Problems: (1) Squamous cell carcinoma of right foot Status: Acute Problems: ZAMZAM BRUMFIELD II, MD May 31, 2016 12:05
[2016-05-31 15:00] VITALS: BP 135/73
[2016-05-31 19:57] VITALS: BP 130/77
[2016-05-31 23:06] VITALS: BP 151/79
--- NOTE | 2016-06-01 01:52 | ACF ---
Admission Forms Criteria PAIN MANAGEMENT [facility] Clinical Indications for Admission to Inpatient Care (Place 'X' for any and all applicable criteria): Hospital admission is needed for appropriate care of the patient because of ANY ONE of the following are present (1)(2)(3)(4)(5): [X]I. Severe pain requiring acute inpatient management as indicated by ALL of the following (2)(5)(10): [X]a) Continuous or frequent (eg, every 2 to 4 hours) parenteral analgesics required [A] [ ]b) Necessity (ie, alternative approaches not effective) for analgesic regimen that can only be performed or initiated in inpatient setting [ ]II. Pain causing debilitation to the point of inability to function or be supported at any other level of care [ ]III. Severe side effects from pain medications as indicated by ANY ONE of the following (12)(13)(14)(15): [ ]a) Uncontrollable seizures [ ]b) Cardiac arrhythmias [ ]c) Severe volume depletion [ ]d) Vomiting that is uncontrollable at any other level of care [ ]e) Altered mental status ([place] coma scale score less than 13) [ ]f) Obstipation with inadequate GI function to maintain nutrition [ ]g) Dehydration that is severe or persistent The original [employer] content created by [employer] has been revised. The portions of the content which have been revised are identified through the use of italic text or in bold, and [facility] has neither reviewed nor approved the modified material. All other unmodified content is copyright [employer]. Please see references footnoted in the original [facility] edition 2016 Admission Criteria Met?: Yes FADY VERNON Jun 01, 2016 01:52
[2016-06-01] MEDS: HYDROCODONE/APAP 5/325MG TABLET. PO PRN ×2 (02:31→06:34)
[2016-06-01 02:58] VITALS: BP 151/79
[2016-06-01] MEDS: OXYCODONE IR 5 MG TABLET. PO PRN ×2 (05:31→08:07)
[2016-06-01 07:16] VITALS: BP 135/77
[2016-06-01] MEDS: NICOTINE 14MG PATCH. TD SCH (08:08)
[2016-06-01] MEDS: HYDROCODONE/APAP 7.5/325MG TABLET. PO PRN ×2 (10:35→14:14)
[2016-06-01 11:02] VITALS: BP 137/81
--- NOTE | 2016-06-01 11:44 | PDOC ---
HENRYJOSUE Olivo NECK CUTTER 06/01/16 1143: SURGICAL PROGRESS NOTE Subjective pain a little better hoping home today Vital Signs Vital Signs Date Time Temp Pulse Resp B/P Pulse Ox O2 Delivery O2 Flow Rate FiO2 06/01/16 11:02 98.5 74 18 137/81 97 Room Air 98.5 06/01/16 06:34 2.0 I&O Intake and Output 06/01/16 07:00 Intake Total 200 ml Output Total 400 ml Balance -200 ml Intake Oral 200 ml Output Urine Total 400 ml # Voids 6 Labs Laboratory Tests Test 05/31/16 04:02 Potassium Level 3.5mmol/L (3.5-5.1) Magnesium Level 1.7mg/dL (1.8-2.4) Problem List Problems Medical Problems: (1) Squamous cell carcinoma of right foot Status: Acute Assessment/Plan no plans for drainage of fluid collection DC when ready Problems: JAYLEEN GILES MD 06/01/16 5963: SURGICAL PROGRESS NOTE Assessment/Plan Pt seen and examined. Agree with Ms. Acuña's note still with groin pain, will adjust pain meds d/w vascular and rad onc observation of groin fluid OK to start rad tx Problems: JOSUE ACUÑA NECK CUTTER Jun 01, 2016 11:43 JAYLEEN GILES MD Jun 01, 2016 17:43
--- NOTE | 2016-06-02 03:23 | CONS ---
DATE OF CONSULTATION: 06/01/2016 REFERRING DOCTOR: Dayo Corbin MD DIAGNOSIS: Initial regionally advanced squamous cell carcinoma of the right fifth toe associated with ipsilateral inguinal and pelvic adenopathy. She underwent fifth toe ray amputation on 03/06/2016. Following this, she had inguinal and pelvic lymph node dissection on 04/25/2016. She had local recurrence along the incisional resection bed of her foot and now has undergone third and fourth ray amputation on 05/29/2016. We were asked to see her regarding postoperative radiation therapy. The patient is a 45-year-old woman who had a chronic callus-like wart growth on the lateral aspect of her right small toe. In 11/2014, she was seen by Dr. Steven Skelton with a wound on the plantar aspect of her right foot. Following this, she ultimately underwent right fifth toe ray amputation on 03/06/2016. At that time, there was moderate to poorly differentiated squamous cell carcinoma, 5.2 x 3.5 cm with a close surgical margin of 0.1 cm. At that time, she was also found to have progressive mass in her right groin and underwent right inguinal and ipsilateral pelvic lymph node dissection on 04/25/2016. At that time, there was a 4 x 2.8 cm inguinal lymph node and 2 of 7 involved iliac lymph nodes. She was seen in followup by Dr. Steven Skelton on 05/19/2016 at which time there was a mass with ulceration involving the distal aspect of her resection bed around the incision site. Tissue removed from this did confirm recurrent squamous cell carcinoma. CT scan of the abdomen and pelvis just prior to surgery revealed postop seroma in the right groin measuring 4 x 4.7 cm, a second smaller seroma as well. There were inguinal lymph nodes measuring 3 cm and 1.5 cm and external iliac lymph node measuring 1.5 cm on my review all consistent with regional relapse of disease within the ipsilateral inguinal and groin regions. Currently, she is convalescing postoperatively. She has pain in her operative site around the right foot. She has no recurrent groin pain at this timet. Physical examination revealed nontender right groin. No discrete masses or palpable adenopathy were noted on my exam. There was generalized fullness beneath her superior thigh-inguinal incision. Right foot was bandaged and well covered postoperatively. In summary, my impression is that of locally recurrent and regionally recurrent stage 4 (T2N2M0) squamous cell carcinoma of the right foot and ipsilateral inguinal and pelvic region. She has just undergone re-resection for local recurrence in her foot and doing well postoperatively. Pathology from this is still in process. 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 At this time, I recommend engaging in inguinal and pelvic radiation therapy as soon as possible. I did not recommend re-resection of this, given its aggressive behavior. At this time, we do not anticipate treating the foot with this final recommendation dependent on the margin assessment from the pathology review of her second foot surgery. I discussed this with the patient and with Dr. Corbin. We anticipate simulation to occur electively on 06/01 with treatment to occur, beginning Sunday on 06/05/2016. Thank you for allowing us to participate in her evaluation and followup. DEV WILSON MD DR: EDEN/derek JOB#: [id number] / [id number] STEVEN Hastings MD, CAROL APRN MTDD
--- NOTE | 2016-06-02 08:37 | PATHOLOGY ---
PATHOLOGY REPORT * * * * * * * * FINAL DIAGNOSIS: Right foot third and fourth toe ray amputation: - RECURRENT INVASIVE SQUAMOUS CELL CARCINOMA, MODERATELY-WELL TO POORLY DIFFERENTIATED, FORMING AN ULCERATED TUMOR MASS OF THE LATERAL ASPECT OF THE SPECIMEN MEASURING UP TO 4.2 CM IN GREATEST DIMENSION, WITH TUMOR INVASION OF SKIN AND SOFT TISSUES OF PLANTAR ASPECT OF FOURTH AND THIRD TOES. - Proximal skin, soft tissue, and bone amputation margins negative for tumor. - Scarring of previous fifth toe amputation site. (JPM:; d/t: 06/01/16) REPORT ELECTRONICALLY SIGNED BY: Carter Harrison M.D. DATE/TIME: 06/02/2016 08:36 * * * * * * * * GROSS PATHOLOGY: The specimen is received in formalin labeled "Eva Ortez, third and fourth toe ray amputation". Received is a partial forefoot amputation consisting of 2 toes with attached tarsals and soft tissue measuring 10.5 x 4.8 x 4.4 cm in greatest dimensions. Both bone margins are jagged in appearance. Both nails are present displaying a light garcia and thickened appearance. On the lateral aspect of the specimen, there is a well-circumscribed, irregular in contour, friable and sams-garcia to red-brown lesion measuring 4.2 x 4.0 cm, which is 1.2 cm from the closest skin margin and 2.7 cm from the proximal soft tissue margin of the specimen. The lesion is also 2.9 cm from the bone margin of the fourth toe. The remainder of the skin is overall dusky sams-garcia to sams-brown and sloughing in appearance. The bone and soft tissue margins are inked black. The third and fourth toes are to discover gross extension of the lesion into the underlying soft tissue. The soft tissue underlying the fourth toe shows invasion by the lesion, which is approximately 0.1 cm from the underlying bone. The lesion continues to extend into the underlying soft tissue on the plantar aspect of the specimen into the soft tissue underneath the third toe; however, it only extends approximately 0.8 cm into the soft tissue underneath the third toe, and is 1.8 cm from the medial aspect of the specimen. The extension of the lesion is 1.1 cm from the closest bone of the third toe. The gross invasion of the lesion measures approximately 3.2 cm from lateral to medial aspects. A1 most proximal margin from lateral area of specimen closest to lesion, en face A2-A3 motor vehicle field representative section from lesion to closest skin margin and soft tissue margin, and divided it proximal and distal aspects A4 proximal bone margin of third toe, en face, following decalcification A5 proximal bone margin of fourth toe, en face, following decalcification A6-A7 full-thickness cross-section of fourth toe show relationship between lesion and bone, following decalcification A8 most medial aspect/margin of specimen, en face (near the third toe margin) A9 motor vehicle field representative section of gross invasion of lesion that is underlying the third toe. Gross photographs are taken. (CAA; 05/31/2016) INITIAL CPT CODE(S): A; 21966, 04375 Professional services performed [place] [facility] [place] [address] Technical services performed by [facility] at [address] [place] [address], [facility] [address], [place] [address]. SPECIMEN(S) RECEIVED: A.3rd and 4th toe ray amputation CLINICAL HISTORY: Recurrent carcinoma right foot PATIENT: EVA ORTEZ /AGE: 3 1970 (Age: 45) PATIENT #: [id number] ALT CASE #: SPECIMEN COLLECTION DATE: 05/29/2016 SPECIMEN RECEIVED DATE: 05/30/2016 [facility] - [address] [place] [address] - PHONE: [phone] * * * END OF REPORT * * *
== END 2016-06-01 14:38 | disposition home or self-care (01) | DRG 580 ==
LOC: SURG 14:20 → 5 SOUTH 18:17
PROC: 0Y6V0Z0 Detachment at Right 4th Toe, Complete, Open Approach (ICD-10-PCS; 2016-05-29)
PROC: 0Y6T0Z0 Detachment at Right 3rd Toe, Complete, Open Approach (ICD-10-PCS; principal; 2016-05-29 15:45)
DX: C44.722 Squamous cell carcinoma of skin of right lower limb, including hip (principal); Z68.41 Body mass index [BMI] 40.0-44.9, adult; I10 Essential (primary) hypertension; K21.9 Gastro-esophageal reflux disease without esophagitis; F41.9 Anxiety disorder, unspecified; Z83.3 Family history of diabetes mellitus; Z82.49 Family history of ischemic heart disease and other diseases of the circulatory system; Z88.1 Allergy status to other antibiotic agents; Z88.8 Allergy status to other drugs, medicaments and biological substances; I89.8 Other specified noninfective disorders of lymphatic vessels and lymph nodes; E66.9 Obesity, unspecified
CPT/HCPCS: 36415; 77290; 77334; 83735; 84132; 88307; 88311; J0131; J1100; J1170; J1200; J1885; J2270; J2405; J2704; J3010; J3370; J3490; J7050; J7060; J7030

== ENCOUNTER 2016-06-11 13:57 | Inpatient (IN) | payer OTHER ==
[~2016-06-11] VITALS: Ht 162.6 cm; Wt 109.8 kg
[~2016-06-11 13:57] MED LIST changes: -BUPIVACAINE 0.25% 50 ML VIAL. ONE; -LIDOCAINE 1% 20 ML VIAL. ONE; -VANCOMYCIN 1GM IVPB FOR OMNI 250 ML IV PRN
[2016-06-11 17:00] VITALS: BP 113/65
[2016-06-11] MEDS ORDERED: MAGNESIUM CITRATE 296 ML SOLUTION. PO PRN (18:00)
[2016-06-11] MEDS: HYDROCODONE/APAP 10/325 TABLET. PO PRN ×2 (18:09→23:05)
[2016-06-11 18:37] LABS: BASO % 0 % (0-3); EOS % 0 % (0-3); HEMOGLOBIN 10.7 g/dL (12.0-15.5); LYMPH # 0.7 x10^3/uL (1.0-4.8); LYMPH % 4 % (24-48); MEAN CORPUSCULAR HEMOGLOBIN 31 pg (25-35); MEAN CORPUSCULAR HGB CONC 33 g/dL (31-37); MEAN CORPUSCULAR VOLUME 94 fL (79-100); MONO % 5 % (0-9); NEUT % 91 % (31-73); PLATELET COUNT 277 x10^3/uL (140-400); RED BLOOD COUNT 3.41 x10^6/uL (3.50-5.40); RED CELL DISTRIBUTION WIDTH 12.9 % (11.5-14.5); WHITE BLOOD COUNT 16.8 x10^3/uL (4.0-11.0)
[2016-06-11 19:00] VITALS: BP 118/68
[2016-06-11] MEDS: IV NORMAL SALINE 1000ML BAG 1,000 ML IV SCH (19:00)
[2016-06-11 19:03] LABS: ALBUMIN 2.4 g/dL (3.4-5.0); ALBUMIN/GLOBULIN RATIO 0.5 (1.0-1.7); CALCIUM 10.3 mg/dL (8.5-10.1); CREATININE 0.8 mg/dL (0.6-1.0); POTASSIUM 3.5 mmol/L (3.5-5.1); TOTAL BILIRUBIN 0.6 mg/dL (0.2-1.0); TOTAL PROTEIN 6.8 g/dL (6.4-8.2)
[2016-06-11 20:37] LABS: PLT ESTIMATE ADEQUATE (ADEQUATE)
[2016-06-11] MEDS: DOCUSATE SODIUM 100 MG CAPSULE PO SCH (21:27)
[2016-06-11] MEDS: POLYETHYLENE GLYCOL 3350 17 GM PACKET. PO SCH (21:28)
[2016-06-11] MEDS: MEROPENEM 1 GM in IV NORMAL SALINE 100ML 100 ML IV SCH (22:21)
[2016-06-11] MEDS: POTASSIUM CHLORIDE 20 MEQ TABLET.ER. PO SCH (22:22)
[2016-06-11] MEDS: ENOXAPARIN 40 MG/0.4 ML DISP.SYRIN. SQ SCH (22:22)
[2016-06-11] MEDS: MORPHINE SULFATE 4 MG/ML DISP.SYRIN. IV PRN (22:22)
[2016-06-11 22:55] VITALS: BP 124/74
[2016-06-11] MEDS: IBUPROFEN 800 MG TABLET. PO PRN (23:04)
[2016-06-12 03:01] VITALS: BP 102/64
[2016-06-12] MEDS: HYDROCODONE/APAP 10/325 TABLET. PO PRN ×5 (03:14→23:01)
[2016-06-12] MEDS: IV NORMAL SALINE 1000ML BAG 1,000 ML IV SCH ×4 (03:23→20:59)
[2016-06-12] MEDS: MORPHINE SULFATE 4 MG/ML DISP.SYRIN. IV PRN ×4 (03:50→23:54)
[2016-06-12] MEDS: MEROPENEM 1 GM in IV NORMAL SALINE 100ML 100 ML IV SCH ×3 (05:38→23:01)
[2016-06-12 07:00] VITALS: BP 114/70
[2016-06-12] MEDS: DOCUSATE SODIUM 100 MG CAPSULE PO SCH ×2 (09:00→21:00)
[2016-06-12] MEDS: POLYETHYLENE GLYCOL 3350 17 GM PACKET. PO SCH ×2 (09:00→21:00)
[2016-06-12] MEDS: ENOXAPARIN 40 MG/0.4 ML DISP.SYRIN. SQ SCH ×2 (09:23→21:01)
[2016-06-12] MEDS: NICOTINE 21MG PATCH. TD SCH (09:23)
[2016-06-12] MEDS: FUROSEMIDE 40 MG/4 ML VIAL IVP SCH ×2 (09:24→15:04)
[2016-06-12] MEDS: LOSARTAN POTASSIUM 50 MG TABLET. PO SCH (09:24)
[2016-06-12] MEDS: POTASSIUM CHLORIDE 20 MEQ TABLET.ER. PO SCH ×3 (09:25→21:00)
[2016-06-12 11:00] VITALS: BP 124/83
--- NOTE | 2016-06-12 11:38 | PDOC ---
Provider Note Provider Note 45 you woman with agressive squamous cell carcinoma of rt foot now admitted for management of hypercalcemia. 02/22 rt 5th toe ray resection for squamous cell carcinoma of rt 5th toe. 04/25 rt ing and pelvic node dissection for metastatic ing and pelvic adenopathy. 05/26 rt 3rd and 4th toe ray resection for local recurrence at margin of previous resection. 06/05/16 began post op radiation to rt ing and pelvis. 5 treatments received through 06/09/16. Seen by Dr Salmeron on 06/09/16 to address addition of chemotherapy . Noted to be hypercalcemic. Admitted to [facility] with admit Ca level of 13.1 on 06/09/16 Ca level on transfer here 06/11 was 10.8 Notes intermittent rt groin pain and progressive rt leg swelling. CT at [facility] 06/11/16 reviewed here: Stable seroma in ant prox thigh. Progressive deep ing and rt pelvic adenopathy. Most consistent with progressive disease. Doubt abscess. PE diffuse right leg swelling extending to ankle, progressed vs exam last week. min tenderness no wrmth. Impression: Progressive squamous cell carcinoma involving rt ing and plevis from skin primary of rt foot. Para-neoplastic hypercalcemia. Will resume radiation today. Anticipate that Dr Salmeron will add sensitizing CDDP. Await bone scan to be done later today. Discussed in detail with patient. DEV WILSON MD Jun 12, 2016 11:38
--- NOTE | 2016-06-12 11:38 | PDOC ---
Infectious Disease Note Vital Sign Vital Signs Vital Signs Date Time Temp Pulse Resp B/P Pulse Ox O2 Delivery O2 Flow Rate FiO2 06/12/16 11:00 98.6 78 20 124/83 96 Room Air 98.6 Labs Lab Laboratory Tests Test 06/11/16 18:05 White Blood Count 16.8x10^3/uL (4.0-11.0) Red Blood Count 3.41x10^6/uL (3.50-5.40) Hemoglobin 10.7g/dL (12.0-15.5) Hematocrit 32.0% (36.0-47.0) Mean Corpuscular Volume 94fL (79-100) Mean Corpuscular Hemoglobin 31pg (25-35) Mean Corpuscular Hemoglobin Concent 33g/dL (31-37) Red Cell Distribution Width 12.9% (11.5-14.5) Platelet Count 277x10^3/uL (140-400) Neutrophils (%) (Auto) 91% (31-73) Lymphocytes (%) (Auto) 4% (24-48) Monocytes (%) (Auto) 5% (0-9) Eosinophils (%) (Auto) 0% (0-3) Basophils (%) (Auto) 0% (0-3) Neutrophils # (Auto) 15.3x10^3uL (1.8-7.7) Lymphocytes # (Auto) 0.7x10^3/uL (1.0-4.8) Monocytes # (Auto) 0.8x10^3/uL (0.0-1.1) Eosinophils # (Auto) 0.0x10^3/uL (0.0-0.7) Basophils # (Auto) 0.0x10^3/uL (0.0-0.2) Segmented Neutrophils % 89% (35-66) Band Neutrophils % 3% (0-9) Lymphocytes % 6% (24-48) Monocytes % 2% (0-10) Platelet Estimate Adequate (ADEQUATE) Sodium Level 133mmol/L (136-145) Potassium Level 3.5mmol/L (3.5-5.1) Chloride Level 94mmol/L (98-107) Carbon Dioxide Level 31mmol/L (21-32) Anion Gap 8 (6-14) Blood Urea Nitrogen 8mg/dL (7-20) Creatinine 0.8mg/dL (0.6-1.0) Estimated GFR (Cockcroft-Gault) 93.0 BUN/Creatinine Ratio 10 (6-20) Glucose Level 105mg/dL (70-99) Calcium Level 10.3mg/dL (8.5-10.1) Total Bilirubin 0.6mg/dL (0.2-1.0) Aspartate Amino Transf (AST/SGOT) 54U/L (15-37) Alanine Aminotransferase (ALT/SGPT) 78U/L (14-59) Alkaline Phosphatase 130U/L (46-116) Total Protein 6.8g/dL (6.4-8.2) Albumin 2.4g/dL (3.4-5.0) Albumin/Globulin Ratio 0.5 (1.0-1.7) Objective Assessment Fever Metastatic sq cell ca Hypercalcemia Rt groin mass/seroma/ ? infection Plan Plan of Care zyvox and meropenem supportive care GAIL Oneill MD Jun 12, 2016 11:38
[2016-06-12] MEDS ORDERED: MORPHINE SULFATE 2 MG/ML DISP.SYRIN. IV ONE (12:45)
--- NOTE | 2016-06-12 12:49 | PDOC ---
Provider Note Provider Note Med Onc 1. Sq cell ca with rt ing mets. 2. Fever - appreciate ID consult. see dictation GUILLAUME MORAN MD Jun 12, 2016 12:49
[2016-06-12] MEDS ORDERED: HYDROMORPHONE 2 MG/ML VIAL. IV ONE (13:15)
[2016-06-12 15:00] VITALS: BP 123/74
--- NOTE | 2016-06-12 17:20 | RAD ---
Attempted bone scan 06/12/2016 Clinical history: Bone pain. Hypercalcemia. 26.0 mCi of technetium 99m MDP were injected intravenously. When the patient was brought back for imaging using the gamma camera, the patient was unable to lie flat due to pain and refused imaging.
--- NOTE | 2016-06-12 17:44 | HP ---
ADMIT DATE: 06/12/2016 HISTORY OF PRESENT ILLNESS: The patient is a 45-year-old -[place] female patient who apparently was diagnosed with squamous cell carcinoma of her right fifth toe that was amputated. Apparently, the tumor has metastasized to the right groin, and she underwent excision of the right groin lymph node. The tumor has recurred also in her third and fourth toes, and they were amputated also and started treatment with radiation therapy. She has received so far about 5 sessions, and last Gaurang, she had lab work done at [facility] which showed her to have hypercalcemia. She was contacted by her treating oncologist and was advised to come to the Emergency Room as she was found to have extremely high calcium at 13.1, probably higher, corrected for albumin. She was admitted to the Intensive Care Unit at where we started her on normal saline initially, and we added pamidronate 60 mg and 500 mL of normal saline and also Lasix 40 mg IV twice a day, and we stopped her hydrochlorothiazide, and her calcium did come down from 13.1 to 10.9. Unfortunately, her white cell count continued to be elevated and continued to have persistent fever, and I did actually pancultured her on admission and sent blood and urine for culture and sensitivity. We started her empirically on IV Zyvox and meropenem as she is allergic to PENICILLIN. Despite treatment with antibiotic for 2 consecutive days, she continued to spike her temperature, and therefore, I did arrange for her to have a CT scan of the abdomen and pelvis as she has some tenderness in her right lower quadrant and did show that the patient has 7.7 cm fluid collection identified in the right groin region extending into the medial thigh region with surrounding capsule that could be an abscess, hematoma, or seroma. This is grossly similar to prior examination. She has a bilobed density measuring 12.1 cm in the cross sectional dimension, putting the inferior fluid collection extending superiorly demonstrating low density in the central portion with peripheral enhancement and surrounding fat stranding extension, extending into the retroperitoneum around the right iliacus muscle with visibilities including inflamed centrally necrotic large lymph node or less likely an abscess. This is best visualized in some series. This has increased compared to prior exam. There is inflammatory fat stranding identified in the right retroperitoneal region, anterior to the right iliacus muscle. The ultrasound of the right groin and retroperitoneum may be helpful for further evaluation. The patient has also moderately inflammatory fat stranding identified in the right groin with subcutaneous tissue that could be postoperative changes or cellulitis. Given the fact that she has all these changes and the fact that she continued to have leukocytosis and continued to be afebrile, a decision was made to transfer her to [facility] to consult Infectious Disease specialist, probably Dr. Loving to at least aspirate some of these fluid and send it for culture and sensitivity and also to consult Dr. Salmeron and Dr. Han as they follow her for her metastatic squamous cell carcinoma. We will obviously continue with IV fluid and IV Lasix to bring her calcium down further. PAST MEDICAL HISTORY: Significant for hypertension, skin cancer that was diagnosed as squamous cell carcinoma that has metastasized to the right groin and required 3 toe amputations and excision of the right inguinal lymph nodes. PAST SURGICAL HISTORY: Significant for amputation of the right fifth toe done on February 15, 2016. She also has a resection of her right inguinal lymph nodes. The cancer recurred in her right foot toes, and she underwent amputation of her right third and fourth toes about 13 days ago. Given the cancer has recurred in both her foot and her right inguinal area, a decision was made to treat her with radiation treatment, and in fact, she has received so far 5 sessions of radiation treatment. ALLERGIES: She is allergic to AUGMENTIN. MEDICATIONS: Her home medications consist of losartan/hydrochlorothiazide 100/25 one tablet once a day. She was also on ibuprofen 800 mg every 6 hours and hydrocodone/APAP 10/325 one and one half tablets every 4 hours. FAMILY HISTORY: She has one brother older and has hypertension. Her father at the age of 62 because of lung cancer. Mother at age of 67 because of massive myocardial infarction. SOCIAL HISTORY: She is single, never , has 2 daughters. She smokes half pack a day, does drink alcohol occasionally. She does not use any drugs. She is currently on disability. REVIEW OF SYSTEMS: The patient denied any blurring of vision, cataract, glaucoma, or macular degeneration. Denied any earache, tinnitus or sensorineural deafness. Denied any nosebleeds, stuffy nose, or postnasal drip. Denied any sore throat, sore tongue, toothache, hoarseness of voice, or difficulty swallowing. She did complain of nausea but no vomiting. She has severe constipation that was treated aggressively. Denied any dysuria, frequency, or hematuria. She did complain of severe pain in her right groin area and is unable to lie flat because of that. PHYSICAL EXAMINATION: GENERAL: When I examined her today, she was resting slightly propped up in bed, in no apparent respiratory distress. She was pale, but no jaundice, cyanosis, or thyromegaly. No jugular venous distention. No limb edema. VITAL SIGNS: Her heart rate was 78, blood pressure 124/83, temperature was 98.6, respiratory rate 20, and oxygen saturation was 96% on room air. HEAD, EYES, EARS, NOSE, AND THROAT: Showed normocephalic, atraumatic. NECK: Supple. HEART: Showed normal first and second sounds with no gallop, rub, or murmur. CHEST: Clear to auscultation. No crepitation or rhonchi. ABDOMEN: Distended, soft, and nontender. No guarding or rigidity. No organomegaly. All hernial orifices are intact. Bowel sounds are normal. She has tenderness mostly in the right groin area. NEUROLOGIC: She was awake, alert, and responding appropriately. Cranial nerves are intact. She moves her upper extremities and left lower extremity to a much greater extent than her right lower extremity. LABORATORY DATA: This morning showed that her white cell count continued to be high at 16,800, hemoglobin 10.7, hematocrit 32, MCV 94, and platelet count 277,000 with a manual differential showed 91% polymorphs, 4% lymphocytes, and 5% monocytes. Her chemistry showed a serum sodium 133, potassium 3.5, chloride 94, bicarbonate 31, anion gap of 8, BUN 8, creatinine 0.8, estimated GFR was 93 mL per minute. Her glucose was 105, calcium was 7.3. Total bilirubin, AST, ALT, and alkaline phosphatase are elevated. Her total protein was 6.8, albumin was 2.4. ASSESSMENT: 1. Hypercalcemia, responding to IV fluid, IV Lasix, and pamidronate. Her calcium this morning is down to 10.3. 2. Hypokalemia, improved. We would continue with calcium supplementation. 3. Leukocytosis and fever. A CT scan of the abdomen showed finding in the right groin area. PLAN: My plan is to consult Dr. Salmeron and Dr. Han, Infectious Disease specialists; and Dr. Loving to at least get some of the fluid and send it for culture and sensitivity to make sure that it is not infected. EVERT WHITE MD DR: JUANCARLOS/derek JOB#: [id number] / [id number]
[2016-06-12 19:00] VITALS: BP 105/58
[2016-06-12] MEDS: IBUPROFEN 800 MG TABLET. PO PRN (19:48)
[2016-06-12 23:00] VITALS: BP 124/70
[2016-06-13 03:00] VITALS: BP 127/74
[2016-06-13] MEDS: HYDROCODONE/APAP 10/325 TABLET. PO PRN ×5 (03:37→22:00)
[2016-06-13] MEDS: MORPHINE SULFATE 4 MG/ML DISP.SYRIN. IV PRN ×6 (04:40→23:21)
[2016-06-13] MEDS: IV NORMAL SALINE 1000ML BAG 1,000 ML IV SCH ×4 (04:41→23:22)
[2016-06-13] MEDS: MEROPENEM 1 GM in IV NORMAL SALINE 100ML 100 ML IV SCH ×3 (05:47→21:49)
[2016-06-13 07:00] VITALS: BP 142/79
--- NOTE | 2016-06-13 08:40 | CONS ---
DATE OF CONSULTATION: 06/12/2016 CONSULTATION REQUESTED BY: Dr. Peña Caballero. 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 She underwent right fifth toe ray amputation on 03/06/2016. This revealed moderate to poorly differentiated squamous cell carcinoma measuring 5.2 x 3.5 cm with a close surgical margin of 0.1 cm. She was noted to have a progressively worsening mass in the right groin and she underwent right inguinal and ipsilateral pelvic lymph node dissection on 04/25/2016. At that time, there was a 4 x 2.8 cm inguinal lymph node and 2 out of 7 lymph nodes were involved with malignancy. She was seen by Dr. Steven Skelton on 05/19/2016 and at that time, a mass was noted with ulceration involving the distal aspect of resection bed around the incision site of the right fifth toe amputation. Biopsy revealed recurrent squamous cell carcinoma. She underwent further resection on 05/29/2016 and this time, she had a third and fourth toe ray amputation with re-excision of the squamous cell carcinoma of the skin on 05/29/[address] Steven Skelton. She underwent a CT scan just prior to the surgery that revealed postoperative seroma in the right groin measuring 4.7 cm and a second smaller seroma. There were inguinal lymph nodes measuring 3 cm and 1.5 cm and external iliac lymph node measuring 1.5 cm, which were all consistent with regional relapse within the ipsilateral inguinal and groin regions. She was started on radiation to the right inguinal region on 06/05/2016. On 06/09/2016, she was noted to have hypercalcemia with a calcium level of more than 13 and hence, she was advised to go to the Emergency Room. She was admitted to [facility]. The patient reports that she received a dose of Aredia. Her calcium has now come down to 10.3 on 06/11/2016. She was transferred to [facility] for continuation of radiation therapy. PAST MEDICAL HISTORY: Hypertension, squamous cell carcinoma as described above. PAST SURGICAL HISTORY: section. FAMILY HISTORY: Positive for diabetes, hypertension and cancer. SOCIAL HISTORY: No smoking or alcohol abuse. REVIEW OF SYSTEMS: A 12-point review of systems was performed. Pertinent positives are mentioned in the history of present illness. Rest of the system review is negative. PHYSICAL EXAMINATION: GENERAL APPEARANCE: The patient is a 45-year-old -Citizen Of [place] female who is in no acute cardiorespiratory distress. VITAL SIGNS: Blood pressure 114/70, temperature 98.1. HEAD: Atraumatic, normocephalic. EYES: No icterus. NECK: Supple. CHEST: Bilaterally symmetrical. HEART: S1, S2 normal. ABDOMEN: Soft, nontender. Abdominal surgical wound is not completely healed. EXTREMITIES: She has evidence of surgery in the right foot. MUSCULOSKELETAL: No joint effusions. PSYCHOLOGIC: Mood and affect are appropriate. LYMPHATICS: There is fullness in the right inguinal region. LABORATORY DATA: WBC 16.8, hemoglobin 10.7, platelet count 277. Sodium 133, potassium 3.5, creatinine 0.8, calcium 10.3, total bilirubin 0.6, AST 54, ALT 78, alkaline phosphatase 130, total protein 6.8, albumin 2.4. IMPRESSION AND PLAN: 1. Squamous cell carcinoma of the skin involving the right foot, status post amputation of the right fifth toe followed by amputation of the right third and fourth toe. She has also completed right inguinal lymph node dissection on 04/25/2016 along with right pelvic lymph node dissection. Her initial surgery for the right fifth toe amputation was on 03/06/2016 and the followup surgery for right third and fourth toe ray amputation was on 05/29/2016. She was started on radiation therapy on 06/05/2016. She has evidence of right inguinal lymph nodes and external iliac lymph nodes. I would also plan to add chemotherapy once the wounds from the surgery are healed. I would plan to initiate treatment. I would anticipate beginning treatment on the week of 06/19/2016. 2. Hypercalcemia. This is concerning for hypercalcemia due to malignancy as this has been an acute onset of hypercalcemia. I will check bone scan to evaluate for bone metastasis. She has evidence of residual disease in the right inguinal and right pelvic region, which I suspect is the etiology of hypercalcemia. The calcium has now improved to 10.3. The patient received Aredia at [facility]. Her calcium was over 13 at that time on 06/09/2016. 3. Right inguinal and pelvic lymphadenopathy due to metastatic disease from squamous cell carcinoma of the skin. I will consult Dr. Han for continuation of radiation therapy. GUILLAUME MORAN MD DR: ELOISE/nts JOB#: [id number] / [id number] PEÑA Parker MD, JAY MD MTDD
--- NOTE | 2016-06-13 08:51 | PDOC ---
PROGRESS NOTES Subjective Subjective c/c - f/u of Squamous cell carcinoma of the skin ROS - c/o pain and swelling RLE Objective Objective Vital Signs Date Time Temp Pulse Resp B/P Pulse Ox O2 Delivery O2 Flow Rate FiO2 06/13/16 07:00 97.7 79 18 142/79 100 Room Air 97.7 Intake and Output 06/13/16 07:00 Intake Total 2741 ml Output Total 2150 ml Balance 591 ml Intake Oral 980 ml IV Total 1761 ml Output Urine Total 2150 ml # Bowel Movements 2 Physical Exam Heart: Normal S1, Normal S2 General: Alert, Oriented X3 Neuro: Normal speech Psych/Mental Status: Mental status NL Assessment Assessment IMPRESSION AND PLAN: 1. Squamous cell carcinoma of the skin involving the right foot, status post amputation of the right fifth toe followed by amputation of the right third and fourth toe. She has also completed right inguinal lymph node dissection on 04/25/2016 along with right pelvic lymph node dissection. Her initial surgery for the right fifth toe amputation was on 03/06/2016 and the followup surgery for right third and fourth toe ray amputation was on 05/29/2016. She was started on radiation therapy on 06/05/2016. She has evidence of right inguinal lymph nodes and external iliac lymph nodes. I would also plan to add chemotherapy once the wounds from the surgery are healed AND FEVER resolved. I would anticipate beginning treatment on the week of 06/19/2016. 2. Hypercalcemia. This is concerning for hypercalcemia due to malignancy as this has been an acute onset of hypercalcemia. She could not lay flat for bone scan to evaluate for bone metastasis. She has evidence of residual disease in the right inguinal and right pelvic region, which I suspect is the etiology of hypercalcemia. The calcium has now improved to 10.3. The patient mentioned that she received Aredia at [facility]. Her calcium was over 13 at that time on 06/09/2016. 3. Right inguinal and pelvic lymphadenopathy due to metastatic disease from squamous cell carcinoma of the skin. I will consult Dr. Han for continuation of radiation therapy. 4. Pedal edema - RLE venous doppler ordered. Comment Review of Relevant I have reviewed the following items niki (where applicable) has been applied. Labs Laboratory Tests Test 06/11/16 18:05 White Blood Count 16.8x10^3/uL (4.0-11.0) Red Blood Count 3.41x10^6/uL (3.50-5.40) Hemoglobin 10.7g/dL (12.0-15.5) Hematocrit 32.0% (36.0-47.0) Mean Corpuscular Volume 94fL (79-100) Mean Corpuscular Hemoglobin 31pg (25-35) Mean Corpuscular Hemoglobin Concent 33g/dL (31-37) Red Cell Distribution Width 12.9% (11.5-14.5) Platelet Count 277x10^3/uL (140-400) Neutrophils (%) (Auto) 91% (31-73) Lymphocytes (%) (Auto) 4% (24-48) Monocytes (%) (Auto) 5% (0-9) Eosinophils (%) (Auto) 0% (0-3) Basophils (%) (Auto) 0% (0-3) Neutrophils # (Auto) 15.3x10^3uL (1.8-7.7) Lymphocytes # (Auto) 0.7x10^3/uL (1.0-4.8) Monocytes # (Auto) 0.8x10^3/uL (0.0-1.1) Eosinophils # (Auto) 0.0x10^3/uL (0.0-0.7) Basophils # (Auto) 0.0x10^3/uL (0.0-0.2) Segmented Neutrophils % 89% (35-66) Band Neutrophils % 3% (0-9) Lymphocytes % 6% (24-48) Monocytes % 2% (0-10) Platelet Estimate Adequate (ADEQUATE) Sodium Level 133mmol/L (136-145) Potassium Level 3.5mmol/L (3.5-5.1) Chloride Level 94mmol/L (98-107) Carbon Dioxide Level 31mmol/L (21-32) Anion Gap 8 (6-14) Blood Urea Nitrogen 8mg/dL (7-20) Creatinine 0.8mg/dL (0.6-1.0) Estimated GFR (Cockcroft-Gault) 93.0 BUN/Creatinine Ratio 10 (6-20) Glucose Level 105mg/dL (70-99) Calcium Level 10.3mg/dL (8.5-10.1) Total Bilirubin 0.6mg/dL (0.2-1.0) Aspartate Amino Transf (AST/SGOT) 54U/L (15-37) Alanine Aminotransferase (ALT/SGPT) 78U/L (14-59) Alkaline Phosphatase 130U/L (46-116) Total Protein 6.8g/dL (6.4-8.2) Albumin 2.4g/dL (3.4-5.0) Albumin/Globulin Ratio 0.5 (1.0-1.7) Medications Current Medications Sodium Chloride (Iv Sodium Chloride 0.9% 1000ml Bag) 1,000 ml @ 150 mls/hr Q6H40M IV Last administered on 06/13/16 04:41; Start 06/11/16 at 19:00 Docusate Sodium (Colace) 100 mg BID PO Last administered on 06/12/16 21:00; Start 06/11/16 at 21:00 Enoxaparin Sodium (Lovenox 40mg Syringe) 40 mg BID SQ Last administered on 21:01; Start 06/11/16 at 21:00 Acetaminophen/ Hydrocodone Bitart (Lortab 10/325) 1.5 tab PRN Q4HRS PRN PO PAIN Last administered on 06/13/16 07:48; Start 06/11/16 at 17:45 Morphine Sulfate 4 mg PRN Q4HRS PRN IV PAIN Last administered on 06/13/16 04:40 ; Start 06/11/16 at 17:45 Furosemide 40 mg 40 mg [id number] IVP Last administered on 06/12/16 15:04; Start 06/12/16 at 09:00 Linezolid (Zyvox Premix) 300 ml @ 300 mls/hr Q12HR IV Last administered on 06/12 21:00; Start 06/11/16 at 21:00 Losartan Potassium 100 mg 100 mg DAILY PO Last administered on 06/12/16 09:24; Start 06/12/16 at 09:00 Meropenem/Sodium Chloride (Merrem/Iv Sodium Chloride 0.9% 100ml) 100 ml @ 200 mls/hr Q8HRS IV Last administered on 06/13/16 05:47; Start 06/11/16 at 19:00 Nicotine (Nicoderm Cq 21mg) 1 patch DAILY TD Last administered on 06/12/16 09: 23; Start 06/12/16 at 09:00 Polyethylene Glycol (miraLAX PACKET) 17 gm BID PO ; Start 06/11/16 at 21:00 Potassium Chloride (Klor-Con) 20 meq TID PO Last administered on 06/12/16 21:00 ; Start 06/11/16 at 21:00 Magnesium Citrate (Citroma) 296 ml PRN 1X PRN PO CONSTIPATION; Start 06/11/16 at 18:00 Ibuprofen (Motrin) 800 mg PRN Q6HRS PRN PO INFLAMMATION Last administered on 19:48; Start 06/11/16 at 18:15 Morphine Sulfate 2 mg 1X ONCE IV Last administered on 06/12/16 12:46; Start at 12:45; Stop 06/12/16 at 12:46; Status DC Hydromorphone HCl (Dilaudid) 2 mg 1X ONCE IV Last administered on 06/12/16 15: 21; Start 06/12/16 at 13:15; Stop 06/12/16 at 13:16; Status DC Active Scripts Active Reported Lortab 10-325 mg Tablet (Hydrocodone/Acetaminophen) 1 Each Tablet 1 Tab PO PRN Q6HRS PRN Losartan-Hctz 100-25 Mg Tab (Losartan/Hydrochlorothiazide) 1 Each Tablet 1 Tab PO DAILY Docusate Sodium 100 Mg Capsule 1 Cap PO DAILY Ibuprofen 800 Mg Tablet 800 Mg PO TID PRN PRN Vitals/I & O Vital Sign - Last 24 Hours 06/12/16 06/12/16 06/12/16 06/12/16 09:24 11:00 15:00 19:00 Temp 98.6 99.5 101.1 98.6 99.5 101.1 Pulse 74 78 82 99 Resp 20 20 18 B/P 114/70 124/83 123/74 105/58 Pulse Ox 96 93 96 O2 Delivery Room Air Room Air Room Air 06/12/16 06/12/16 06/12/16 06/12/16 19:48 19:48 23:00 23:01 Temp 100.6 100.6 Pulse 90 Resp 18 18 18 B/P 124/70 Pulse Ox 93 97 93 O2 Delivery Room Air Room Air Room Air Room Air 3/606/13/16 06/13/16 06/13/16 23:54 03:00 03:37 04:40 Temp 97.5 97.5 Pulse 71 Resp 18 18 20 19 B/P 127/74 Pulse Ox 93 98 93 93 O2 Delivery Room Air Room Air Room Air Room Air 06/13/16 06/13/16 06/13/16 04:40 05:11 07:00 Temp 97.7 97.7 Pulse 79 Resp 19 18 18 B/P 142/79 Pulse Ox 93 93 100 O2 Delivery Room Air Room Air Room Air Intake and Output 06/12/16 06/12/16 06/13/16 15:00 23:00 07:00 Intake Total 800 ml 1941 ml Output Total 850 ml 1300 ml Balance -50 ml 641 ml Nutrition Consultation Dietary Evaluation: Recommendations by RD: Increase Calorie Intake, Protein supplementation Comments: Boost plus when intake <50% of meal - 360kcal and 14g protein Expected Outcomes/Goals: meet >75% est nutr needs Malnutrition Findings: Malnutrition related to morbid: BMI>or equal to 40 Malnutrition related to morbid: Yes Weight Status: Morbidly Obese Fluid Accumulation (Severe): Moderate Fluid Retention GUILLAUME MORAN MD Jun 13, 2016 08:51
[2016-06-13] MEDS: DOCUSATE SODIUM 100 MG CAPSULE PO SCH ×2 (08:55→19:58)
[2016-06-13] MEDS: POTASSIUM CHLORIDE 20 MEQ TABLET.ER. PO SCH ×3 (08:56→19:59)
[2016-06-13] MEDS: LOSARTAN POTASSIUM 50 MG TABLET. PO SCH (08:56)
[2016-06-13] MEDS: ENOXAPARIN 40 MG/0.4 ML DISP.SYRIN. SQ SCH ×2 (08:57→19:58)
[2016-06-13] MEDS: FUROSEMIDE 40 MG/4 ML VIAL IVP SCH ×2 (08:57→15:21)
[2016-06-13] MEDS: NICOTINE 21MG PATCH. TD SCH (08:59)
[2016-06-13] MEDS: POLYETHYLENE GLYCOL 3350 17 GM PACKET. PO SCH ×2 (09:00→21:00)
[2016-06-13 10:05] LABS: HEMATOCRIT 32.6 % (36.0-47.0); MEAN CORPUSCULAR HEMOGLOBIN 31 pg (25-35); MEAN CORPUSCULAR HGB CONC 34 g/dL (31-37); MEAN CORPUSCULAR VOLUME 92 fL (79-100); PLATELET COUNT 265 x10^3/uL (140-400); RED BLOOD COUNT 3.53 x10^6/uL (3.50-5.40); RED CELL DISTRIBUTION WIDTH 13.4 % (11.5-14.5)
[2016-06-13 10:06] LABS: BASO % 0 % (0-3); EOS % 0 % (0-3); LYMPH # 0.3 x10^3/uL (1.0-4.8); LYMPH % 2 % (24-48); MONO % 5 % (0-9); NEUT % 93 % (31-73)
[2016-06-13] MEDS: IBUPROFEN 800 MG TABLET. PO PRN (10:52)
[2016-06-13 11:13] VITALS: BP 140/75
[2016-06-13 11:26] LABS: ALBUMIN 2.2 g/dL (3.4-5.0); ALBUMIN/GLOBULIN RATIO 0.5 (1.0-1.7); CALCIUM 8.8 mg/dL (8.5-10.1); CREATININE 0.7 mg/dL (0.6-1.0); GFR 108.5; POTASSIUM 3.6 mmol/L (3.5-5.1); TOTAL BILIRUBIN 0.5 mg/dL (0.2-1.0); TOTAL PROTEIN 6.7 g/dL (6.4-8.2)
--- NOTE | 2016-06-13 11:29 | PDOC ---
Infectious Disease Note Subjective Subjective pt with more leg swelling ROS ROS no n/v/d/ a lot of pain , could not do radiation Vital Sign Vital Signs Vital Signs Date Time Temp Pulse Resp B/P Pulse Ox O2 Delivery O2 Flow Rate FiO2 06/13/16 11:13 97.7 80 18 140/75 100 Room Air 97.7 Physical Exam PHYSICAL EXAM GENERAL: NAD, Alert HEENT: PERRL, OC/OP NECK: Supple, no JVD, no LN LUNGS: Clear HEART: S1S2, no gallop, no murmur ABD: Soft, NT, no organomegaly, no rebound EXT: No edema, no cyanosis,, rt leg swollen, tender, INTERACTIVE ART DIRECTOR: Alert, oriented x 3, no focal neurologic deficit SKIN: No rash IV: ok Labs Lab Laboratory Tests Test 06/13/16 09:35 White Blood Count 16.0x10^3/uL (4.0-11.0) Red Blood Count 3.53x10^6/uL (3.50-5.40) Hemoglobin 11.0g/dL (12.0-15.5) Hematocrit 32.6% (36.0-47.0) Mean Corpuscular Volume 92fL (79-100) Mean Corpuscular Hemoglobin 31pg (25-35) Mean Corpuscular Hemoglobin Concent 34g/dL (31-37) Red Cell Distribution Width 13.4% (11.5-14.5) Platelet Count 265x10^3/uL (140-400) Neutrophils (%) (Auto) 93% (31-73) Lymphocytes (%) (Auto) 2% (24-48) Monocytes (%) (Auto) 5% (0-9) Eosinophils (%) (Auto) 0% (0-3) Basophils (%) (Auto) 0% (0-3) Neutrophils # (Auto) 14.9x10^3uL (1.8-7.7) Lymphocytes # (Auto) 0.3x10^3/uL (1.0-4.8) Monocytes # (Auto) 0.7x10^3/uL (0.0-1.1) Eosinophils # (Auto) 0.1x10^3/uL (0.0-0.7) Objective Assessment Fever Metastatic sq cell ca Hypercalcemia Rt groin mass/seroma/ ? infection Plan Plan of Care zyvox and meropenem supportive care bc GAIL WILKS MD Jun 13, 2016 11:29
[2016-06-13 14:45] VITALS: BP 142/78
[2016-06-13] MEDS ORDERED: MAG HYDROX/ALUMINUM HYD/SIMETH 30 ML ORAL.SUSP PO PRN (14:45)
[2016-06-13] MEDS: PANTOPRAZOLE 40 MG TABLET. PO SCH (15:19)
[2016-06-13] MEDS: MORPHINE ER 15 MG TABLET.ER PO SCH ×2 (15:20→21:49)
--- NOTE | 2016-06-13 15:33 | RAD ---
Right lower extremity venous duplex study 06/13/2016 Clinical History: Right leg swelling. Technique: Using a combination of real time ultrasound imaging and color-flow and pulse Doppler imaging techniques along with graded compression and augmentation, duplex evaluation of the deep venous system of the right lower extremity was performed. Multiple images were obtained. Findings: There is no sonographic evidence of deep venous thrombosis involving the visualized deep venous structures of the right lower extremity. Ab oval-shaped fluid collection is seen within the right inguinal region which measures 9.7 cm in greatest diameter. This could reflect a seroma or possible hematoma. An abscess is considered less likely but is not excluded. Impression: There is no sonographic evidence of deep venous thrombosis involving the visualized deep venous structures of the right lower extremity.
[2016-06-13] MEDS: ONDANSETRON PF 4 MG/2 ML VIAL. IV PRN (16:23)
[2016-06-13 19:00] VITALS: BP 112/65
[2016-06-13 23:00] VITALS: BP 108/57
[2016-06-14] MEDS: HYDROCODONE/APAP 10/325 TABLET. PO PRN ×5 (02:04→22:25)
[2016-06-14] MEDS: MORPHINE SULFATE 4 MG/ML DISP.SYRIN. IV PRN ×7 (02:48→23:24)
[2016-06-14 03:00] VITALS: BP 98/60
--- NOTE | 2016-06-14 05:10 | PN ---
DATE: 06/13/2016 SUBJECTIVE: The patient is resting slightly propped up in bed, no apparent respiratory distress. She continued to complain of severe pain in her right groin and right foot. Her right lower extremity is markedly swollen and she was seen by Dr. Salmeron who ordered venous Doppler ultrasound. She also complained of heartburn, but denied any other complaint. PHYSICAL EXAMINATION: GENERAL: When I examined her, she looked well and was clearly in no apparent respiratory distress. No pallor, jaundice, cyanosis. No thyromegaly. No jugular venous distension. No limb edema. VITAL SIGNS: Her heart rate was 80, blood pressure 140/75, temperature was 97.7, respiratory rate was 18, and oxygen saturation was 100% on room air. HEAD, EYES, EARS, NOSE AND THROAT: Showed normocephalic, atraumatic. NECK: Supple. HEART: Showed normal first and second heart sounds, with no gallop, rub or murmur. CHEST: Clear to auscultation. No crepitation or rhonchi. ABDOMEN: Distended, soft, nontender, with tenderness mostly in the right groin area. NEUROLOGIC: She is awake, alert, responding appropriately. Cranial nerves intact. She moves upper extremities without difficulty. She is unable to lie flat or move because of severe pain in her right groin area. Her intake was 2700, output was 2150. LABORATORY DATA: This morning showed serum sodium 136, potassium 3.6, chloride 99, bicarbonate 29, anion gap of 8, BUN 10, creatinine was 0.7, estimated GFR was 108 mL per minute. Her glucose 113, calcium was 8.8. Total bilirubin, AST, ____ were normal. Alkaline phosphatase was slightly elevated. Total protein was 6.7, albumin 2.2. White cell count is trending down; today it is 16,000. Hemoglobin 11, hematocrit 33, MCV 92, and platelet count 265,000. ASSESSMENT AND PLAN: 1. Hypercalcemia due to malignancy has responded with IV normal saline, Lasix, as well as Aredia. Today's calcium is down to 8.8. 2. Squamous cell carcinoma involving her right foot: Status post amputation of the right fifth toe, followed amputation of the right third and fourth toes. She also has completed right inguinal lymph node dissection on 04/25/2016 along with right pelvic lymph node dissection. She was started on radiation therapy on 06/05/2016. She has evidence of right inguinal lymph node and extended iliac lymph node involvement. She had an infection the source of which is not very clear; however, she is afebrile, hemodynamically stable. Her white cell count is trending down. She continues to be on meropenem and Zyvox. 3. She has right inguinal and pelvic lymphadenopathy due to metastatic disease from squamous cell carcinoma of the skin. Attempt was made today for her to have more radiation therapy; however, the patient refused. Right lower extremity swelling is concerning for deep venous thrombosis and Doppler ultrasound was ordered. My plan is to start her on MS Contin 50 mg twice a day, and decrease her morphine 4 mg IV every 3 hours. I will repeat all her lab work tomorrow and decide on further management accordingly. EVERT WHITE MD DR: JUANCARLOS/derek JOB#: [id number] / [id number]
[2016-06-14] MEDS: IV NORMAL SALINE 1000ML BAG 1,000 ML IV SCH ×4 (05:56→23:24)
[2016-06-14] MEDS: MEROPENEM 1 GM in IV NORMAL SALINE 100ML 100 ML IV SCH (05:56)
[2016-06-14 06:19] LABS: HEMATOCRIT 29.6 % (36.0-47.0); HEMOGLOBIN 9.8 g/dL (12.0-15.5); RED BLOOD COUNT 3.13 x10^6/uL (3.50-5.40); WHITE BLOOD COUNT 15.4 x10^3/uL (4.0-11.0)
[2016-06-14 06:35] LABS: ALBUMIN/GLOBULIN RATIO 0.6 (1.0-1.7); CREATININE 0.7 mg/dL (0.6-1.0); GFR 108.5; POTASSIUM 4.2 mmol/L (3.5-5.1); TOTAL BILIRUBIN 0.4 mg/dL (0.2-1.0); TOTAL PROTEIN 5.6 g/dL (6.4-8.2)
[2016-06-14 07:15] VITALS: BP 103/58
--- NOTE | 2016-06-14 09:38 | PDOC ---
Infectious Disease Note Subjective Subjective pt with more leg swelling ROS ROS no n/v/d/fever Vital Sign Vital Signs Vital Signs Date Time Temp Pulse Resp B/P Pulse Ox O2 Delivery O2 Flow Rate FiO2 06/14/16 07:15 97.7 99 0 103/58 98 Room Air 97.7 Physical Exam PHYSICAL EXAM GENERAL: NAD, Alert HEENT: PERRL, OC/OP NECK: Supple, no JVD, no LN LUNGS: Clear HEART: S1S2, no gallop, no murmur ABD: Soft, NT, no organomegaly, no rebound EXT: rt leg edema, no cyanosis CIRCULATION MAN: Alert, oriented x 3, no focal neurologic deficit SKIN: No rash IV: ok Labs Lab Laboratory Tests Test 06/14/16 05:45 White Blood Count 15.4x10^3/uL (4.0-11.0) Red Blood Count 3.13x10^6/uL (3.50-5.40) Hemoglobin 9.8g/dL (12.0-15.5) Hematocrit 29.6% (36.0-47.0) Mean Corpuscular Volume 94fL (79-100) Mean Corpuscular Hemoglobin 31pg (25-35) Mean Corpuscular Hemoglobin Concent 33g/dL (31-37) Red Cell Distribution Width 13.0% (11.5-14.5) Platelet Count 241x10^3/uL (140-400) Sodium Level 133mmol/L (136-145) Potassium Level 4.2mmol/L (3.5-5.1) Chloride Level 100mmol/L (98-107) Carbon Dioxide Level 29mmol/L (21-32) Anion Gap 4 (6-14) Blood Urea Nitrogen 6mg/dL (7-20) Creatinine 0.7mg/dL (0.6-1.0) Estimated GFR (Cockcroft-Gault) 108.5 BUN/Creatinine Ratio 9 (6-20) Glucose Level 97mg/dL (70-99) Calcium Level 8.0mg/dL (8.5-10.1) Total Bilirubin 0.4mg/dL (0.2-1.0) Aspartate Amino Transf (AST/SGOT) 33U/L (15-37) Alanine Aminotransferase (ALT/SGPT) 69U/L (14-59) Alkaline Phosphatase 114U/L (46-116) Total Protein 5.6g/dL (6.4-8.2) Albumin 2.0g/dL (3.4-5.0) Albumin/Globulin Ratio 0.6 (1.0-1.7) Objective Assessment Fever, improved Metastatic sq cell ca Hypercalcemia Rt groin mass/seroma/ ? infection Plan Plan of Care d/c zyvox and meropenem supportive care GAIL WILKS MD Jun 14, 2016 09:38
[2016-06-14] MEDS: LOSARTAN POTASSIUM 50 MG TABLET. PO SCH (09:48)
[2016-06-14] MEDS: PANTOPRAZOLE 40 MG TABLET. PO SCH (09:48)
[2016-06-14] MEDS: MORPHINE ER 15 MG TABLET.ER PO SCH ×2 (09:49→20:28)
[2016-06-14] MEDS: DOCUSATE SODIUM 100 MG CAPSULE PO SCH ×2 (09:49→20:29)
[2016-06-14] MEDS: POTASSIUM CHLORIDE 20 MEQ TABLET.ER. PO SCH ×3 (09:49→20:29)
[2016-06-14] MEDS: NICOTINE 21MG PATCH. TD SCH (09:50)
[2016-06-14] MEDS: FUROSEMIDE 40 MG/4 ML VIAL IVP SCH ×2 (09:50→17:29)
[2016-06-14] MEDS: ENOXAPARIN 40 MG/0.4 ML DISP.SYRIN. SQ SCH ×2 (09:50→20:31)
[2016-06-14] MEDS: POLYETHYLENE GLYCOL 3350 17 GM PACKET. PO SCH ×3 (09:50→21:00)
--- NOTE | 2016-06-14 10:51 | PDOC ---
Provider Note Provider Note 45 yo with squamous cell carcinoma of rt foot s/p [id number], local recurrence resected 05/26 rt ing roderick metastasis s/p ing and pelvic dissection 04/25. Began post op radiation to ing and pelvic region 06/05 with 5 treatments thus far. repeat ct scan showed stable ing seroma with progressive ing and pelvic adenopathy. Rt leg edema. Rt LE u/s and doppler showed no occult DVT. Now more comfortable with improved narcotic coverage by Dr Caballero. She understands the significance of the ct and leg swelling likely reflecting disease progression in the rt ing and pelvic region. We will resume radiation today. Dr Salmeron to consider adding sensitizing chemo next week. Reasonable to add lymphedema evaluation and treatment with physical therapy. DEV WILSON MD Jun 14, 2016 10:51
[2016-06-14 11:07] VITALS: BP 122/72
--- NOTE | 2016-06-14 11:37 | CONS ---
DATE OF CONSULTATION: 06/12/2016 REQUESTING PHYSICIAN: Dr. Peña Caballero. REASON FOR CONSULTATION: Fever. HISTORY OF PRESENT ILLNESS: This is a 45-year-old female with history of a squamous cell carcinoma of the right fifth toe, status post amputation, then she had recurrence on the area, so she had third and fourth ray amputation done. The patient also has been found to have metastasis to right groin and pelvic, resection of adenopathy, which is involved as well as seroma and fluid collection in the groin. The patient has been receiving radiation to the groin. The patient has been called to come into the hospital for hypercalcemia. The patient, also then in the hospital noted to have 100.8 temperature, has been started on Zyvox and meropenem and the patient is ready to go for radiation as she has been getting it for 1 week. The patient denies any nausea, vomiting or diarrhea. She did not feel like had fever at home. She is not able to walk with right leg with the pain and not functioning with swelling, does have some lower abdominal pain. Denies any chest pain or shortness of breath. PAST MEDICAL HISTORY: 1. As I mentioned, squamous cell carcinoma of the right fifth toe status post resection, then recurrence, and then third and fourth toe ray amputation done as well as lymph node dissection in the right groin, which was involved and still appears to have a mass there, getting radiation. 2. Hypercalcemia. 3. Obesity. SOCIAL HISTORY: Negative for smoking, alcohol or illicit drug use. ALLERGIES: ALLERGIC TO AMOXICILLIN. CURRENT MEDICATIONS: Reviewed. REVIEW OF SYSTEMS: As per HPI. All other systems reviewed and are negative. PHYSICAL EXAMINATION: GENERAL: Alert, oriented female, not in distress. VITAL SIGNS: Temperature 98.6 with a T-max of 100.8. HEENT: NAD. NECK: Supple, no JVD, no lymphadenopathy. LUNGS: Clear. CARDIOVASCULAR: S1, S2 regular. ABDOMEN: Benign. EXTREMITIES: The right foot postsurgical dressing not open since she is needing to go to radiation, also has indurated mass-like feeling or scar tissue or seroma in the right groin, which is very tender. There is a small open wound on the lower abdomen. The rest of the skin is unremarkable. NEUROLOGIC: She is able to move all the extremities. LABORATORY DATA: White count is 16.8. BUN and creatinine is normal. Calcium is 10.3. I will check whether blood culture at [facility] is done or not. IMPRESSION: 1. Fever. 2. Metastatic squamous cell carcinoma from the foot into the groin. 3. Hypercalcemia. 4. Right groin mass versus seroma versus infection. RECOMMENDATIONS: Recommend continue Zyvox and meropenem, supportive care. We will check the cultures and continue to follow up. Thank you very much Dr. Caballero for giving me the opportunity to participate in this patient's care. GAIL WILKS MD DR: ALMA/derek JOB#: [id number] / [id number]
[2016-06-14] MEDS: ONDANSETRON PF 4 MG/2 ML VIAL. IV PRN (13:04)
[2016-06-14 15:15] VITALS: BP 136/88
[2016-06-14 19:00] VITALS: BP 108/57
[2016-06-14 23:02] VITALS: BP 133/60
[2016-06-15] VITALS (7 sets, daily range): BP systolic 92–124; BP diastolic 47–72
[2016-06-15] MEDS: MORPHINE SULFATE 4 MG/ML DISP.SYRIN. IV PRN ×6 (02:34→20:45)
--- NOTE | 2016-06-15 03:23 | PN ---
DATE: 06/14/2016 SUBJECTIVE: The patient is sitting comfortably in her wheelchair on her way down to radiation therapy. Finally, her pain is well controlled that she will try and start radiation therapy again. Her venous Doppler ultrasound was negative for DVT. She is actually afebrile today and her white cell count has normalized and in fact that it has not normalized yet, but the Infectious Disease has discontinued her antibiotics. PHYSICAL EXAMINATION: GENERAL: When I examined her, she looked well and was clearly in no apparent respiratory distress, slightly pale, but no jaundice, cyanosis or thyromegaly. No jugular venous distention. No limb edema. VITAL SIGNS: Her heart rate was 88, blood pressure 122/72, temperature was 99.6, respiratory rate 20, and oxygen saturation was 97% on room air. HEAD, EYES, EARS, NOSE AND THROAT: Showed normocephalic, atraumatic. NECK: Supple. HEART: Showed normal first and second heart sounds with no gallop, rub or murmur. CHEST: Clear to auscultation. No crepitation or rhonchi. ABDOMEN: Distended, soft, nontender. No guarding or rigidity. No organomegaly. Hernial orifices intact. Bowel sounds normal. NEUROLOGIC: She is more awake, alert, responding appropriately. Cranial nerves intact. She moves her upper extremities without difficulty. She continued to have severe pain in her right groin, is unable to walk. Her intake over the last 24 hours was 2300, output was 3600. LABORATORY DATA: Her lab work this morning showed a white cell count 15,400, hemoglobin 9.8, hematocrit 29, MCV 94 and platelet count 241,000. Her serum sodium was 133, potassium 4.2, chloride 100, bicarbonate 29, anion gap of 4, BUN 6, creatinine 0.7, estimated GFR was 118 mL per minute. Her glucose was 97. Calcium was 8. Total bilirubin, AST, ALT, alkaline phosphatase were normal. Her total protein was 5.6, albumin was 2. ASSESSMENT: 1. Hypercalcemia, most likely due to malignancy, has responded to IV normal saline, Lasix as well as ____. Her calcium today is only 8 mg/dL. 2. 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 She has also completed the right inguinal lymph node dissection on 04/25/2015 along with right pelvic lymph node dissection and she was started on radiation therapy on 06/05/2016 and in fact she has received a total of 5 sessions. She has evidence of right inguinal lymph node and extended iliac lymph node involvement. 3. She has infection, the source of which is not very clear; however, today she is afebrile and hemodynamically stable, although her white cell count is trending down, but not normal yet. Her meropenem and Zyvox were discontinued. 4. She has a right inguinal and pelvic lymphadenopathy due to metastatic disease from squamous cell carcinoma of the skin for which she is going for radiation therapy today. PLAN: My plan is to continue with IV fluid, continue with pain management and continue with radiation therapy as recommended by the oncologist and radiation oncologist. EVERT WHITE MD DR: JUANCARLOS/derek JOB#: [id number] / [id number]
[2016-06-15] MEDS: HYDROCODONE/APAP 10/325 TABLET. PO PRN ×4 (03:40→23:00)
[2016-06-15 06:09] LABS: BASO # 0.1 x10^3/uL (0.0-0.2); BASO % 1 % (0-3); EOS % 0 % (0-3); HEMATOCRIT 27.9 % (36.0-47.0); HEMOGLOBIN 9.4 g/dL (12.0-15.5); LYMPH # 0.5 x10^3/uL (1.0-4.8); LYMPH % 4 % (24-48); MEAN CORPUSCULAR HEMOGLOBIN 31 pg (25-35); MEAN CORPUSCULAR HGB CONC 34 g/dL (31-37); MEAN CORPUSCULAR VOLUME 92 fL (79-100); MONO % 6 % (0-9); NEUT % 90 % (31-73); PLATELET COUNT 237 x10^3/uL (140-400); RED BLOOD COUNT 3.03 x10^6/uL (3.50-5.40); RED CELL DISTRIBUTION WIDTH 13.3 % (11.5-14.5); WHITE BLOOD COUNT 15.5 x10^3/uL (4.0-11.0)
[2016-06-15 06:36] LABS: ALBUMIN 1.9 g/dL (3.4-5.0); ALBUMIN/GLOBULIN RATIO 0.5 (1.0-1.7); CALCIUM 7.3 mg/dL (8.5-10.1); CREATININE 0.6 mg/dL (0.6-1.0); GFR 129.7; POTASSIUM 4.1 mmol/L (3.5-5.1); TOTAL BILIRUBIN 0.4 mg/dL (0.2-1.0); TOTAL PROTEIN 5.5 g/dL (6.4-8.2)
[2016-06-15] MEDS ORDERED: MORPHINE SULFATE 10 MG/ML VIAL. IV ONE (07:00)
[2016-06-15] MEDS: PANTOPRAZOLE 40 MG TABLET. PO SCH (07:25)
[2016-06-15] MEDS: IBUPROFEN 800 MG TABLET. PO PRN (07:27)
[2016-06-15] MEDS: LOSARTAN POTASSIUM 50 MG TABLET. PO SCH (09:00)
--- NOTE | 2016-06-15 09:22 | PDOC ---
PROGRESS NOTES Subjective Subjective c/c -Squamous cell carcinoma of the skin Objective Objective Vital Signs Date Time Temp Pulse Resp B/P Pulse Ox O2 Delivery O2 Flow Rate FiO2 06/15/16 08:25 96 Room Air 06/15/16 07:19 98.8 83 18 98/61 98.8 Intake and Output 06/15/16 07:00 Intake Total 1380 ml Output Total 1800 ml Balance -420 ml Intake Oral 1380 ml Output Urine Total 1800 ml # Voids 4 Physical Exam Heart: Normal S1, Normal S2 General: Alert, Oriented X3 Lungs: Clear to auscultation Psych/Mental Status: Mental status NL Assessment Assessment IMPRESSION AND PLAN: 1. Squamous cell carcinoma of the skin involving the right foot, status post amputation of the right fifth toe followed by amputation of the right third and fourth toe. She has also completed right inguinal lymph node dissection on 04/25/2016 along with right pelvic lymph node dissection. Her initial surgery for the right fifth toe amputation was on 03/06/2016 and the followup surgery for right third and fourth toe ray amputation was on 05/29/2016. She was started on radiation therapy on 06/05/2016. She has evidence of right inguinal lymph nodes and external iliac lymph nodes. I would also plan to add chemotherapy once the wounds from the surgery are healed AND FEVER resolved. I would anticipate beginning treatment on the week of 06/19/2016. 2. Hypercalcemia. This is concerning for hypercalcemia due to malignancy as this has been an acute onset of hypercalcemia. She could not lay flat for bone scan to evaluate for bone metastasis. She has evidence of residual disease in the right inguinal and right pelvic region, which I suspect is the etiology of hypercalcemia. The calcium has now improved to 10.3. The patient mentioned that she received Aredia at [facility]. Her calcium was over 13 at that time on 06/09/2016. 3. Right inguinal and pelvic lymphadenopathy due to metastatic disease from squamous cell carcinoma of the skin. I will consult Dr. Han for continuation of radiation therapy. 4. Pedal edema - RLE venous doppler neg for DVT 06/13/16. Agree to consult PT for lymphedema management. 5. Fever - appreciate ID management. Comment Review of Relevant I have reviewed the following items niki (where applicable) has been applied. Labs Laboratory Tests Test 06/13/16 09:35 06/14/16 05:45 06/15/16 05:40 White Blood Count 16.0x10^3/uL (4.0-11.0) 15.4x10^3/uL (4.0-11.0) 15.5x10^3/uL (4.0-11.0) Red Blood Count 3.53x10^6/uL (3.50-5.40) 3.13x10^6/uL (3.50-5.40) 3.03x10^6/uL (3.50-5.40) Hemoglobin 11.0g/dL (12.0-15.5) 9.8g/dL (12.0-15.5) 9.4g/dL (12.0-15.5) Hematocrit 32.6% (36.0-47.0) 29.6% (36.0-47.0) 27.9% (36.0-47.0) Mean Corpuscular Volume 92fL (79-100) 94fL (79-100) 92fL (79-100) Mean Corpuscular Hemoglobin 31pg (25-35) 31pg (25-35) 31pg (25-35) Mean Corpuscular Hemoglobin Concent 34g/dL (31-37) 33g/dL (31-37) 34g/dL (31-37) Red Cell Distribution Width 13.4% (11.5-14.5) 13.0% (11.5-14.5) 13.3% (11.5-14.5) Platelet Count 265x10^3/uL (140-400) 241x10^3/uL (140-400) 237x10^3/uL (140-400) Neutrophils (%) (Auto) 93% (31-73) 90% (31-73) Lymphocytes (%) (Auto) 2% (24-48) 4% (24-48) Monocytes (%) (Auto) 5% (0-9) 6% (0-9) Eosinophils (%) (Auto) 0% (0-3) 0% (0-3) Basophils (%) (Auto) 0% (0-3) 1% (0-3) Neutrophils # (Auto) 14.9x10^3uL (1.8-7.7) 14.0x10^3uL (1.8-7.7) Lymphocytes # (Auto) 0.3x10^3/uL (1.0-4.8) 0.5x10^3/uL (1.0-4.8) Monocytes # (Auto) 0.7x10^3/uL (0.0-1.1) 0.8x10^3/uL (0.0-1.1) Eosinophils # (Auto) 0.1x10^3/uL (0.0-0.7) 0.0x10^3/uL (0.0-0.7) Sodium Level 136mmol/L (136-145) 133mmol/L (136-145) 136mmol/L (136-145) Potassium Level 3.6mmol/L (3.5-5.1) 4.2mmol/L (3.5-5.1) 4.1mmol/L (3.5-5.1) Chloride Level 99mmol/L (98-107) 100mmol/L (98-107) 99mmol/L (98-107) Carbon Dioxide Level 29mmol/L (21-32) 29mmol/L (21-32) 27mmol/L (21-32) Anion Gap 8 (6-14) 4 (6-14) 10 (6-14) Blood Urea Nitrogen 10mg/dL (7-20) 6mg/dL (7-20) 7mg/dL (7-20) Creatinine 0.7mg/dL (0.6-1.0) 0.7mg/dL (0.6-1.0) 0.6mg/dL (0.6-1.0) Estimated GFR (Cockcroft-Gault) 108.5 108.5 129.7 BUN/Creatinine Ratio 14 (6-20) 9 (6-20) 12 (6-20) Glucose Level 113mg/dL (70-99) 97mg/dL (70-99) 98mg/dL (70-99) Calcium Level 8.8mg/dL (8.5-10.1) 8.0mg/dL (8.5-10.1) 7.3mg/dL (8.5-10.1) Total Bilirubin 0.5mg/dL (0.2-1.0) 0.4mg/dL (0.2-1.0) 0.4mg/dL (0.2-1.0) Aspartate Amino Transf (AST/SGOT) 32U/L (15-37) 33U/L (15-37) 43U/L (15-37) Alanine Aminotransferase (ALT/SGPT) 68U/L (14-59) 69U/L (14-59) 69U/L (14-59) Alkaline Phosphatase 128U/L (46-116) 114U/L (46-116) 113U/L (46-116) Total Protein 6.7g/dL (6.4-8.2) 5.6g/dL (6.4-8.2) 5.5g/dL (6.4-8.2) Albumin 2.2g/dL (3.4-5.0) 2.0g/dL (3.4-5.0) 1.9g/dL (3.4-5.0) Albumin/Globulin Ratio 0.5 (1.0-1.7) 0.6 (1.0-1.7) 0.5 (1.0-1.7) Basophils # (Auto) 0.1x10^3/uL (0.0-0.2) Laboratory Tests Test 06/15/16 05:40 White Blood Count 15.5x10^3/uL (4.0-11.0) Red Blood Count 3.03x10^6/uL (3.50-5.40) Hemoglobin 9.4g/dL (12.0-15.5) Hematocrit 27.9% (36.0-47.0) Mean Corpuscular Volume 92fL (79-100) Mean Corpuscular Hemoglobin 31pg (25-35) Mean Corpuscular Hemoglobin Concent 34g/dL (31-37) Red Cell Distribution Width 13.3% (11.5-14.5) Platelet Count 237x10^3/uL (140-400) Neutrophils (%) (Auto) 90% (31-73) Lymphocytes (%) (Auto) 4% (24-48) Monocytes (%) (Auto) 6% (0-9) Eosinophils (%) (Auto) 0% (0-3) Basophils (%) (Auto) 1% (0-3) Neutrophils # (Auto) 14.0x10^3uL (1.8-7.7) Lymphocytes # (Auto) 0.5x10^3/uL (1.0-4.8) Monocytes # (Auto) 0.8x10^3/uL (0.0-1.1) Eosinophils # (Auto) 0.0x10^3/uL (0.0-0.7) Basophils # (Auto) 0.1x10^3/uL (0.0-0.2) Sodium Level 136mmol/L (136-145) Potassium Level 4.1mmol/L (3.5-5.1) Chloride Level 99mmol/L (98-107) Carbon Dioxide Level 27mmol/L (21-32) Anion Gap 10 (6-14) Blood Urea Nitrogen 7mg/dL (7-20) Creatinine 0.6mg/dL (0.6-1.0) Estimated GFR (Cockcroft-Gault) 129.7 BUN/Creatinine Ratio 12 (6-20) Glucose Level 98mg/dL (70-99) Calcium Level 7.3mg/dL (8.5-10.1) Total Bilirubin 0.4mg/dL (0.2-1.0) Aspartate Amino Transf (AST/SGOT) 43U/L (15-37) Alanine Aminotransferase (ALT/SGPT) 69U/L (14-59) Alkaline Phosphatase 113U/L (46-116) Total Protein 5.5g/dL (6.4-8.2) Albumin 1.9g/dL (3.4-5.0) Albumin/Globulin Ratio 0.5 (1.0-1.7) Medications Current Medications Sodium Chloride (Iv Sodium Chloride 0.9% 1000ml Bag) 1,000 ml @ 150 mls/hr Q6H40M IV Last administered on 06/14/16 23:24; Start 06/11/16 at 19:00 Docusate Sodium (Colace) 100 mg BID PO Last administered on 06/14/16 20:29; Start 06/11/16 at 21:00 Enoxaparin Sodium (Lovenox 40mg Syringe) 40 mg BID SQ Last administered on 20:31; Start 06/11/16 at 21:00 Acetaminophen/ Hydrocodone Bitart (Lortab 10/325) 1.5 tab PRN Q4HRS PRN PO MODERATE PAIN Last administered on 06/15/16 08:25; Start 06/11/16 at 17:45 Morphine Sulfate 4 mg PRN Q4HRS PRN IV PAIN Last administered on 06/13/16 12:04 ; Start 06/11/16 at 17:45; Stop 06/13/16 at 13:40; Status DC Furosemide 40 mg 40 mg [id number] IVP Last administered on 06/14/16 17:29; Start 06/12/16 at 09:00 Linezolid (Zyvox Premix) 300 ml @ 300 mls/hr Q12HR IV Last administered on 06/13 20:00; Start 06/11/16 at 21:00; Stop 06/14/16 at 09:39; Status DC Losartan Potassium 100 mg 100 mg DAILY PO Last administered on 06/14/16 09:48; Start 06/12/16 at 09:00 Meropenem/Sodium Chloride (Merrem/Iv Sodium Chloride 0.9% 100ml) 100 ml @ 200 mls/hr Q8HRS IV Last administered on 06/14/16 05:56; Start 06/11/16 at 19:00; Stop 06/14/16 at 09:39; Status DC Nicotine (Nicoderm Cq 21mg) 1 patch DAILY TD Last administered on 06/14/16 09: 50; Start 06/12/16 at 09:00 Polyethylene Glycol (miraLAX PACKET) 17 gm BID PO Last administered on 09:50; Start 06/11/16 at 21:00 Potassium Chloride (Klor-Con) 20 meq TID PO Last administered on 06/14/16 20:29 ; Start 06/11/16 at 21:00 Magnesium Citrate (Citroma) 296 ml PRN 1X PRN PO CONSTIPATION; Start 06/11/16 at 18:00 Ibuprofen (Motrin) 800 mg PRN Q6HRS PRN PO INFLAMMATION Last administered on 07:27; Start 06/11/16 at 18:15 Morphine Sulfate 2 mg 1X ONCE IV Last administered on 06/12/16 12:46; Start at 12:45; Stop 06/12/16 at 12:46; Status DC Hydromorphone HCl (Dilaudid) 2 mg 1X ONCE IV Last administered on 06/12/16 15: 21; Start 06/12/16 at 13:15; Stop 06/12/16 at 13:16; Status DC Morphine Sulfate 4 mg PRN Q3HRS PRN IV SEVERE PAIN Last administered on 05:38; Start 06/13/16 at 14:45 Morphine Sulfate (Ms Contin) 15 mg BID PO Last administered on 06/14/16 20:28; Start 06/13/16 at 14:00 Ondansetron HCl (Zofran) 4 mg PRN Q4HRS PRN IV NAUSEA/VOMITING Last administered on 06/14/16 13:04; Start 06/13/16 at 14:45 Al Hydroxide/Mg Hydroxide (Mylanta Plus Xs) 30 ml PRN Q2HR PRN PO HEARTBURN / GAS; Start 06/13/16 at 14:45 Pantoprazole Sodium (Protonix) 40 mg DAILYAC PO Last administered on 06/15/16 07:25; Start 06/13/16 at 15:30 Morphine Sulfate 5 mg 1X ONCE IV ; Start 06/15/16 at 07:00; Stop 06/15/16 at 07: 01; Status DC Active Scripts Active Reported Lortab 10-325 mg Tablet (Hydrocodone/Acetaminophen) 1 Each Tablet 1 Tab PO PRN Q6HRS PRN Losartan-Hctz 100-25 Mg Tab (Losartan/Hydrochlorothiazide) 1 Each Tablet 1 Tab PO DAILY Docusate Sodium 100 Mg Capsule 1 Cap PO DAILY Ibuprofen 800 Mg Tablet 800 Mg PO TID PRN PRN Vitals/I & O Vital Sign - Last 24 Hours 06/14/16 06/14/16 06/14/16 06/14/16 09:48 09:49 09:52 11:07 Temp 99.6 99.6 Pulse 99 88 Resp 20 B/P 103/58 122/72 Pulse Ox 98 98 97 O2 Delivery Room Air Room Air Room Air 06/14/16 06/14/16 06/14/16 06/14/16 11:11 13:05 15:15 16:21 Temp 97.0 97.0 Pulse 104 Resp 18 B/P 136/88 Pulse Ox 97 97 96 O2 Delivery Room Air Room Air Room Air Room Air 06/14/16 06/14/16 06/14/16 06/14/16 17:28 19:00 20:19 20:28 Temp 98.2 98.2 Pulse 87 Resp 17 B/P 108/57 Pulse Ox 96 98 96 96 O2 Delivery Room Air Room Air Room Air Room Air 06/14/16 06/14/16 06/14/16 06/15/16 22:25 23:02 23:24 00:00 Temp 98.6 98.6 Pulse 89 Resp 17 B/P 133/60 Pulse Ox 96 98 98 98 O2 Delivery Room Air Room Air Room Air Room Air 06/15/16 06/15/16 06/15/16 06/15/16 02:34 03:00 03:40 04:49 Temp 99.9 99.9 Pulse 83 Resp 18 19 16 15 B/P 124/70 Pulse Ox 98 98 98 98 O2 Delivery Room Air Room Air Room Air Room Air 06/15/16 06/15/16 06/15/16 06/15/16 05:38 06:10 07:19 08:25 Temp 98.8 98.8 Pulse 83 Resp 15 18 B/P 98/61 Pulse Ox 98 98 96 96 O2 Delivery Room Air Room Air Room Air Room Air Intake and Output 06/14/16 06/14/16 06/15/16 15:00 23:00 07:00 Intake Total 600 ml 280 ml 500 ml Output Total 700 ml 1100 ml Balance -100 ml -820 ml 500 ml Nutrition Consultation Dietary Evaluation: Recommendations by RD: Increase Calorie Intake, Protein supplementation Comments: Boost plus when intake <50% of meal - 360kcal and 14g protein Expected Outcomes/Goals: meet >75% est nutr needs Malnutrition Findings: Malnutrition related to morbid: BMI>or equal to 40 Malnutrition related to morbid: Yes Weight Status: Morbidly Obese Fluid Accumulation (Severe): Severe GUILLAUME MORAN MD Jun 15, 2016 09:22
[2016-06-15] MEDS: NICOTINE 21MG PATCH. TD SCH (09:38)
[2016-06-15] MEDS: POLYETHYLENE GLYCOL 3350 17 GM PACKET. PO SCH ×2 (09:38→20:43)
[2016-06-15] MEDS: DOCUSATE SODIUM 100 MG CAPSULE PO SCH ×2 (09:39→20:43)
[2016-06-15] MEDS: MORPHINE ER 15 MG TABLET.ER PO SCH ×2 (09:39→20:43)
[2016-06-15] MEDS: POTASSIUM CHLORIDE 20 MEQ TABLET.ER. PO SCH ×3 (09:39→20:42)
[2016-06-15] MEDS: FUROSEMIDE 40 MG/4 ML VIAL IVP SCH ×2 (09:40→16:53)
[2016-06-15] MEDS: ENOXAPARIN 40 MG/0.4 ML DISP.SYRIN. SQ SCH ×2 (09:42→20:44)
[2016-06-15] MEDS: IV NORMAL SALINE 1000ML BAG 1,000 ML IV SCH ×3 (09:46→23:40)
--- NOTE | 2016-06-15 10:41 | PDOC ---
Infectious Disease Note Subjective Subjective pt with more leg swelling ROS ROS no fever, no n/v/d/ cont pain Vital Sign Vital Signs Vital Signs Date Time Temp Pulse Resp B/P Pulse Ox O2 Delivery O2 Flow Rate FiO2 06/15/16 09:54 Room Air 06/15/16 08:25 96 06/15/16 07:19 98.8 83 18 98/61 98.8 Physical Exam PHYSICAL EXAM GENERAL: NAD, Alert HEENT: PERRL, OC/OP NECK: Supple, no JVD, no LN LUNGS: Clear HEART: S1S2, no gallop, no murmur ABD: Soft, NT, no organomegaly, no rebound EXT: No edema, no cyanosis,, rt leg swollen ASSET RECOVERY SPECIALIST: Alert, oriented x 3, no focal neurologic deficit SKIN: No rash IV: ok Labs Lab Laboratory Tests Test 06/15/16 05:40 White Blood Count 15.5x10^3/uL (4.0-11.0) Red Blood Count 3.03x10^6/uL (3.50-5.40) Hemoglobin 9.4g/dL (12.0-15.5) Hematocrit 27.9% (36.0-47.0) Mean Corpuscular Volume 92fL (79-100) Mean Corpuscular Hemoglobin 31pg (25-35) Mean Corpuscular Hemoglobin Concent 34g/dL (31-37) Red Cell Distribution Width 13.3% (11.5-14.5) Platelet Count 237x10^3/uL (140-400) Neutrophils (%) (Auto) 90% (31-73) Lymphocytes (%) (Auto) 4% (24-48) Monocytes (%) (Auto) 6% (0-9) Eosinophils (%) (Auto) 0% (0-3) Basophils (%) (Auto) 1% (0-3) Neutrophils # (Auto) 14.0x10^3uL (1.8-7.7) Lymphocytes # (Auto) 0.5x10^3/uL (1.0-4.8) Monocytes # (Auto) 0.8x10^3/uL (0.0-1.1) Eosinophils # (Auto) 0.0x10^3/uL (0.0-0.7) Basophils # (Auto) 0.1x10^3/uL (0.0-0.2) Sodium Level 136mmol/L (136-145) Potassium Level 4.1mmol/L (3.5-5.1) Chloride Level 99mmol/L (98-107) Carbon Dioxide Level 27mmol/L (21-32) Anion Gap 10 (6-14) Blood Urea Nitrogen 7mg/dL (7-20) Creatinine 0.6mg/dL (0.6-1.0) Estimated GFR (Cockcroft-Gault) 129.7 BUN/Creatinine Ratio 12 (6-20) Glucose Level 98mg/dL (70-99) Calcium Level 7.3mg/dL (8.5-10.1) Total Bilirubin 0.4mg/dL (0.2-1.0) Aspartate Amino Transf (AST/SGOT) 43U/L (15-37) Alanine Aminotransferase (ALT/SGPT) 69U/L (14-59) Alkaline Phosphatase 113U/L (46-116) Total Protein 5.5g/dL (6.4-8.2) Albumin 1.9g/dL (3.4-5.0) Albumin/Globulin Ratio 0.5 (1.0-1.7) Objective Assessment Fever, improved Metastatic sq cell ca Hypercalcemia Rt groin mass/seroma/ ? infection Plan Plan of Care if febrile then do bc supportive care will s/o , call if questions GAIL WILKS MD Jun 15, 2016 10:41
--- NOTE | 2016-06-15 14:04 | PDOC ---
Provider Note Provider Note She did not successfully lay supine for radiation treatment despite premedication with 4 mg MS04 Now undergoing lymphedema therapy. Impression: Progressive squamous cell carcinoma of foot with progressive inguinal and pelvic roderick disease. will premedicate with increased dose of MS04 IR prior to treatment and try to treat again tomorrow. Dr Salmeron to consider adding chemo next week. DEV Martinez MD Jun 15, 2016 14:04
--- NOTE | 2016-06-15 14:37 | PDOC ---
PROGRESS NOTES Subjective Subjective rt leg swelling Objective Objective Vital Signs Date Time Temp Pulse Resp B/P Pulse Ox O2 Delivery O2 Flow Rate FiO2 06/15/16 14:11 Room Air 06/15/16 11:14 79 16 92/47 99 06/15/16 07:19 98.8 98.8 Intake and Output 06/15/16 07:00 Intake Total 1380 ml Output Total 1800 ml Balance -420 ml Intake Oral 1380 ml Output Urine Total 1800 ml # Voids 4 Physical Exam Heart: Normal S1, Normal S2 General: Alert, Oriented X3 Lungs: Clear to auscultation MUSCULOSKELETAL: Full range of motion without pain Neuro: Normal speech Psych/Mental Status: Mental status NL Assessment Assessment IMPRESSION AND PLAN: Bone scan pending. wbc 15 down on antibiotics. 1. Squamous cell carcinoma of the skin involving the right foot, status post amputation of the right fifth toe followed by amputation of the right third and fourth toe. 2. Hypercalcemia. This is concerning for hypercalcemia due to malignancy as this has been an acute onset of hypercalcemia. 3. Right inguinal and pelvic lymphadenopathy due to metastatic disease from squamous cell carcinoma of the skin. consult Dr. Han for continuation of radiation therapy. 4. Pedal edema - RLE venous doppler neg for DVT 06/13/16. Agree to consult PT for lymphedema management. 5. Fever - appreciate ID management. Problems: Comment Review of Relevant I have reviewed the following items niki (where applicable) has been applied. Labs Laboratory Tests Test 06/15/16 05:40 White Blood Count 15.5x10^3/uL (4.0-11.0) Red Blood Count 3.03x10^6/uL (3.50-5.40) Hemoglobin 9.4g/dL (12.0-15.5) Hematocrit 27.9% (36.0-47.0) Mean Corpuscular Volume 92fL (79-100) Mean Corpuscular Hemoglobin 31pg (25-35) Mean Corpuscular Hemoglobin Concent 34g/dL (31-37) Red Cell Distribution Width 13.3% (11.5-14.5) Platelet Count 237x10^3/uL (140-400) Neutrophils (%) (Auto) 90% (31-73) Lymphocytes (%) (Auto) 4% (24-48) Monocytes (%) (Auto) 6% (0-9) Eosinophils (%) (Auto) 0% (0-3) Basophils (%) (Auto) 1% (0-3) Neutrophils # (Auto) 14.0x10^3uL (1.8-7.7) Lymphocytes # (Auto) 0.5x10^3/uL (1.0-4.8) Monocytes # (Auto) 0.8x10^3/uL (0.0-1.1) Eosinophils # (Auto) 0.0x10^3/uL (0.0-0.7) Basophils # (Auto) 0.1x10^3/uL (0.0-0.2) Sodium Level 136mmol/L (136-145) Potassium Level 4.1mmol/L (3.5-5.1) Chloride Level 99mmol/L (98-107) Carbon Dioxide Level 27mmol/L (21-32) Anion Gap 10 (6-14) Blood Urea Nitrogen 7mg/dL (7-20) Creatinine 0.6mg/dL (0.6-1.0) Estimated GFR (Cockcroft-Gault) 129.7 BUN/Creatinine Ratio 12 (6-20) Glucose Level 98mg/dL (70-99) Calcium Level 7.3mg/dL (8.5-10.1) Total Bilirubin 0.4mg/dL (0.2-1.0) Aspartate Amino Transf (AST/SGOT) 43U/L (15-37) Alanine Aminotransferase (ALT/SGPT) 69U/L (14-59) Alkaline Phosphatase 113U/L (46-116) Total Protein 5.5g/dL (6.4-8.2) Albumin 1.9g/dL (3.4-5.0) Albumin/Globulin Ratio 0.5 (1.0-1.7) Medications Current Medications Morphine Sulfate 5 mg 1X ONCE IV ; Start 06/15/16 at 07:00; Stop 06/15/16 at 07: 01; Status DC Morphine Sulfate 8 mg PRN Q6HRS PRN IV PAIN; Start 06/15/16 at 14:15 Vitals/I & O Vital Sign - Last 24 Hours 06/14/16 06/14/16 06/14/16 06/14/16 15:15 16:21 17:28 19:00 Temp 97.0 98.2 97.0 98.2 Pulse 104 87 Resp 18 18 B/P 136/88 108/57 Pulse Ox 96 96 98 O2 Delivery Room Air Room Air Room Air Room Air 06/14/16 06/14/16 06/14/16 06/14/16 20:19 20:28 22:25 23:02 Temp 98.6 98.6 Pulse 89 Resp B/P 133/60 Pulse Ox 96 96 96 98 O2 Delivery Room Air Room Air Room Air Room Air 06/14/16 06/15/16 06/15/16 06/15/16 23:24 00:00 02:34 03:00 Temp 99.9 99.9 Pulse 83 Resp B/P 124/70 Pulse Ox 98 98 98 98 O2 Delivery Room Air Room Air Room Air 06/15/16 06/15/16 06/15/16 06/15/16 03:40 04:49 05:38 06:10 Resp 16 15 15 15 Pulse Ox 98 98 98 98 O2 Delivery Room Air Room Air 06/15/16 06/15/16 06/15/16 06/15/16 07:19 08:25 09:36 09:39 Temp 98.8 98.8 Pulse 83 Resp 18 B/P 98/61 Pulse Ox 96 96 O2 Delivery Room Air Room Air Room Air Room Air 06/15/16 06/15/16 06/15/16 06/15/16 09:54 11:14 12:54 13:30 Pulse 79 Resp 16 B/P 92/47 Pulse Ox 99 O2 Delivery Room Air Room Air Room Air Room Air 06/15/16 06/15/16 13:30 14:11 O2 Delivery Room Air Room Air Intake and Output 06/14/16 06/14/16 06/15/16 15:00 23:00 07:00 Intake Total 600 ml 280 ml 500 ml Output Total 700 ml 1100 ml Balance -100 ml -820 ml 500 ml Nutrition Consultation Dietary Evaluation: Recommendations by RD: Increase Calorie Intake, Protein supplementation Comments: Boost plus when intake <50% of meal - 360kcal and 14g protein Expected Outcomes/Goals: meet >75% est nutr needs Malnutrition Findings: Malnutrition related to morbid: BMI>or equal to 40 Malnutrition related to morbid: Yes Weight Status: Morbidly Obese Fluid Accumulation (Severe): Severe KODURI,VINAYA K MD Jun 15, 2016 14:37
[2016-06-15] MEDS: ONDANSETRON PF 4 MG/2 ML VIAL. IV PRN (23:07)
[2016-06-16] MEDS: MORPHINE SULFATE 4 MG/ML DISP.SYRIN. IV PRN ×5 (01:47→20:21)
[2016-06-16 03:00] VITALS: BP 125/73
[2016-06-16] MEDS: IV NORMAL SALINE 1000ML BAG 1,000 ML IV SCH ×3 (05:40→20:22)
[2016-06-16 07:00] VITALS: BP 138/79
[2016-06-16] MEDS: LOSARTAN POTASSIUM 50 MG TABLET. PO SCH (08:07)
[2016-06-16] MEDS: DOCUSATE SODIUM 100 MG CAPSULE PO SCH ×2 (08:07→20:23)
[2016-06-16] MEDS: PANTOPRAZOLE 40 MG TABLET. PO SCH (08:07)
[2016-06-16] MEDS: POTASSIUM CHLORIDE 20 MEQ TABLET.ER. PO SCH ×3 (08:08→20:23)
[2016-06-16] MEDS: HYDROCODONE/APAP 10/325 TABLET. PO PRN ×4 (08:08→21:41)
[2016-06-16] MEDS: ENOXAPARIN 40 MG/0.4 ML DISP.SYRIN. SQ SCH ×2 (08:08→20:23)
[2016-06-16] MEDS: MORPHINE ER 15 MG TABLET.ER PO SCH (08:09)
[2016-06-16] MEDS: NICOTINE 21MG PATCH. TD SCH (08:09)
[2016-06-16] MEDS: FUROSEMIDE 40 MG/4 ML VIAL IVP SCH ×2 (08:09→14:44)
[2016-06-16] MEDS: POLYETHYLENE GLYCOL 3350 17 GM PACKET. PO SCH ×2 (08:10→20:24)
--- NOTE | 2016-06-16 08:38 | PDOC ---
PROGRESS NOTES Subjective Subjective c/c - f/u of Stage IV Squamous cell carcinoma of the skin Objective Objective Vital Signs Date Time Temp Pulse Resp B/P Pulse Ox O2 Delivery O2 Flow Rate FiO2 06/16/16 08:09 97 Room Air 06/16/16 08:07 98 138/79 06/16/16 07:00 101.3 18 101.3 Intake and Output 06/16/16 07:00 Intake Total 2180 ml Output Total 1100 ml Balance 1080 ml Intake Oral 2180 ml Output Urine Total 1100 ml # Voids 8 # Bowel Movements 1 Physical Exam Heart: Normal S1, Normal S2 General: Alert, Oriented X3 Lungs: Clear to auscultation Psych/Mental Status: Mental status NL Assessment Assessment IMPRESSION AND PLAN: 1. 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 She has also completed right inguinal lymph node dissection on 04/25/2016 along with right pelvic lymph node dissection. Her initial surgery for the right fifth toe amputation was on 03/06/2016 and the followup surgery for right third and fourth toe ray amputation was on 05/29/2016. She was started on radiation therapy on 06/05/2016. She has evidence of right inguinal lymph nodes and external iliac lymph nodes. I would also plan to add chemotherapy once the wounds from the surgery are healed AND FEVER resolved. I would anticipate beginning treatment on 06/22/16 as outpatient. 2. Hypercalcemia. This is concerning for hypercalcemia due to malignancy as this has been an acute onset of hypercalcemia. She could not lay flat for bone scan to evaluate for bone metastasis. She has evidence of residual disease in the right inguinal and right pelvic region, which I suspect is the etiology of hypercalcemia. The calcium has now improved to 10.3. The patient mentioned that she received Aredia at [facility]. Her calcium was over 13 at that time on 06/09/2016. 3. Right inguinal and pelvic lymphadenopathy due to metastatic disease from squamous cell carcinoma of the skin. I d/w Dr. Han for continuation of radiation therapy. 4. Pedal edema - RLE venous doppler neg for DVT 06/13/16. Agree to consult PT for lymphedema management. I d/w PT. 5. Fever - appreciate ID management. 101.[address] Ramachandran will f/u on Sunday. Comment Review of Relevant I have reviewed the following items niki (where applicable) has been applied. Labs Laboratory Tests Test 06/15/16 05:40 White Blood Count 15.5x10^3/uL (4.0-11.0) Red Blood Count 3.03x10^6/uL (3.50-5.40) Hemoglobin 9.4g/dL (12.0-15.5) Hematocrit 27.9% (36.0-47.0) Mean Corpuscular Volume 92fL (79-100) Mean Corpuscular Hemoglobin 31pg (25-35) Mean Corpuscular Hemoglobin Concent 34g/dL (31-37) Red Cell Distribution Width 13.3% (11.5-14.5) Platelet Count 237x10^3/uL (140-400) Neutrophils (%) (Auto) 90% (31-73) Lymphocytes (%) (Auto) 4% (24-48) Monocytes (%) (Auto) 6% (0-9) Eosinophils (%) (Auto) 0% (0-3) Basophils (%) (Auto) 1% (0-3) Neutrophils # (Auto) 14.0x10^3uL (1.8-7.7) Lymphocytes # (Auto) 0.5x10^3/uL (1.0-4.8) Monocytes # (Auto) 0.8x10^3/uL (0.0-1.1) Eosinophils # (Auto) 0.0x10^3/uL (0.0-0.7) Basophils # (Auto) 0.1x10^3/uL (0.0-0.2) Sodium Level 136mmol/L (136-145) Potassium Level 4.1mmol/L (3.5-5.1) Chloride Level 99mmol/L (98-107) Carbon Dioxide Level 27mmol/L (21-32) Anion Gap 10 (6-14) Blood Urea Nitrogen 7mg/dL (7-20) Creatinine 0.6mg/dL (0.6-1.0) Estimated GFR (Cockcroft-Gault) 129.7 BUN/Creatinine Ratio 12 (6-20) Glucose Level 98mg/dL (70-99) Calcium Level 7.3mg/dL (8.5-10.1) Total Bilirubin 0.4mg/dL (0.2-1.0) Aspartate Amino Transf (AST/SGOT) 43U/L (15-37) Alanine Aminotransferase (ALT/SGPT) 69U/L (14-59) Alkaline Phosphatase 113U/L (46-116) Total Protein 5.5g/dL (6.4-8.2) Albumin 1.9g/dL (3.4-5.0) Albumin/Globulin Ratio 0.5 (1.0-1.7) Medications Current Medications Sodium Chloride (Iv Sodium Chloride 0.9% 1000ml Bag) 1,000 ml @ 150 mls/hr Q6H40M IV Last administered on 06/16/16 08:13; Start 06/11/16 at 19:00 Docusate Sodium (Colace) 100 mg BID PO Last administered on 06/16/16 08:07; Start 06/11/16 at 21:00 Enoxaparin Sodium (Lovenox 40mg Syringe) 40 mg BID SQ Last administered on 06/16 08:08; Start 06/11/16 at 21:00 Acetaminophen/ Hydrocodone Bitart (Lortab 10/325) 1.5 tab PRN Q4HRS PRN PO MODERATE PAIN Last administered on 06/16/16 08:08; Start 06/11/16 at 17:45 Morphine Sulfate 4 mg PRN Q4HRS PRN IV PAIN Last administered on 06/13/16 12:04 ; Start 06/11/16 at 17:45; Stop 06/13/16 at 13:40; Status DC Furosemide 40 mg 40 mg BID92 IVP Last administered on 06/16/16 08:09; Start at 09:00 Linezolid (Zyvox Premix) 300 ml @ 300 mls/hr Q12HR IV Last administered on 06/13 20:00; Start 06/11/16 at 21:00; Stop 06/14/16 at 09:39; Status DC Losartan Potassium 100 mg 100 mg DAILY PO Last administered on 06/16/16 08:07 ; Start 06/12/16 at 09:00 Meropenem/Sodium Chloride (Merrem/Iv Sodium Chloride 0.9% 100ml) 100 ml @ 200 mls/hr Q8HRS IV Last administered on 06/14/16 05:56; Start 06/11/16 at 19:00; Stop 06/14/16 at 09:39; Status DC Nicotine (Nicoderm Cq 21mg) 1 patch DAILY TD Last administered on 06/16/16 08: 09; Start 06/12/16 at 09:00 Polyethylene Glycol (miraLAX PACKET) 17 gm BID PO Last administered on 09:38; Start 06/11/16 at 21:00 Potassium Chloride (Klor-Con) 20 meq TID PO Last administered on 06/16/16 08: 08; Start 06/11/16 at 21:00 Magnesium Citrate (Citroma) 296 ml PRN 1X PRN PO CONSTIPATION Last administered on 06/16/16 00:17; Start 06/11/16 at 18:00 Ibuprofen (Motrin) 800 mg PRN Q6HRS PRN PO INFLAMMATION Last administered on 07:27; Start 06/11/16 at 18:15 Morphine Sulfate 2 mg 1X ONCE IV Last administered on 06/12/16 12:46; Start at 12:45; Stop 06/12/16 at 12:46; Status DC Hydromorphone HCl (Dilaudid) 2 mg 1X ONCE IV Last administered on 06/12/16 15: 21; Start 06/12/16 at 13:15; Stop 06/12/16 at 13:16; Status DC Morphine Sulfate 4 mg PRN Q3HRS PRN IV SEVERE PAIN Last administered on 04:44; Start 06/13/16 at 14:45 Morphine Sulfate (Ms Contin) 15 mg BID PO Last administered on 06/16/16 08:09 ; Start 06/13/16 at 14:00 Ondansetron HCl (Zofran) 4 mg PRN Q4HRS PRN IV NAUSEA/VOMITING Last administered on 06/15/16 23:07; Start 06/13/16 at 14:45 Al Hydroxide/Mg Hydroxide (Mylanta Plus Xs) 30 ml PRN Q2HR PRN PO HEARTBURN / GAS; Start 06/13/16 at 14:45 Pantoprazole Sodium (Protonix) 40 mg DAILYAC PO Last administered on 3/10/17at 08:07; Start 06/13/16 at 15:30 Morphine Sulfate 5 mg 1X ONCE IV ; Start 06/15/16 at 07:00; Stop 06/15/16 at 07: 01; Status DC Morphine Sulfate 8 mg PRN Q6HRS PRN IV PAIN; Start 06/15/16 at 14:15 Active Scripts Active Reported Lortab 10-325 mg Tablet (Hydrocodone/Acetaminophen) 1 Each Tablet 1 Tab PO PRN Q6HRS PRN Losartan-Hctz 100-25 Mg Tab (Losartan/Hydrochlorothiazide) 1 Each Tablet 1 Tab PO DAILY Docusate Sodium 100 Mg Capsule 1 Cap PO DAILY Ibuprofen 800 Mg Tablet 800 Mg PO TID PRN PRN Vitals/I & O Vital Sign - Last 24 Hours 06/15/16 06/15/16 06/15/16 06/15/16 09:36 09:39 09:54 11:14 Pulse 79 Resp 16 B/P 92/47 Pulse Ox 99 O2 Delivery Room Air Room Air Room Air Room Air 06/15/16 06/15/16 06/15/16 06/15/16 12:54 14:11 14:56 16:51 Temp 98.6 98.6 Pulse 74 Resp 18 B/P 110/64 Pulse Ox 97 O2 Delivery Room Air Room Air Room Air Room Air 06/15/16 06/15/16 06/15/16 06/15/16 18:55 20:43 20:45 23:00 Temp 97.9 97.9 Pulse 75 Resp 18 16 17 17 B/P 112/65 Pulse Ox 97 97 97 97 O2 Delivery Room Air Room Air Room Air 06/15/16 06/16/16 06/16/16 06/16/16 23:00 00:02 00:50 01:47 Temp 101.0 101.0 Pulse 96 Resp 20 17 18 18 B/P 117/72 Pulse Ox 98 97 97 97 O2 Delivery Room Air Room Air Room Air 06/16/16 06/16/16 06/16/16 06/16/16 03:00 04:44 05:15 07:00 Temp 99.4 101.3 99.4 101.3 Pulse 88 98 Resp 20 18 19 18 B/P 125/73 138/79 Pulse Ox 99 99 99 97 O2 Delivery Room Air Room Air Room Air Room Air 06/16/16 06/16/1606/16/17 08:07 08:08 08:09 Pulse 98 B/P 138/79 Pulse Ox 97 97 O2 Delivery Room Air Room Air Intake and Output 06/15/16 06/15/16 06/16/16 15:00 23:00 07:00 Intake Total 140 ml 240 ml 1800 ml Output Total 800 ml 300 ml Balance -660 ml 240 ml 1500 ml Nutrition Consultation Dietary Evaluation: Recommendations by RD: Increase Calorie Intake, Protein supplementation Comments: Boost plus when intake <50% of meal - 360kcal and 14g protein Expected Outcomes/Goals: meet >75% est nutr needs Malnutrition Findings: Malnutrition related to morbid: BMI>or equal to 40 Malnutrition related to morbid: Yes Weight Status: Morbidly Obese Fluid Accumulation (Severe): Severe GUILLAUME MORAN MD Jun 16, 2016 08:38
--- NOTE | 2016-06-16 09:34 | PDOC ---
Infectious Disease Note Subjective Subjective started running fever again ROS ROS GEN: Denies fevers, chills, sweats HEENT: Denies blurred vision, sore throat CV: Denies chest pain RESP: Denies shortness of air, cough GI: Denies n/v/d NEURO: Denies confusion, dizziness Vital Sign Vital Signs Vital Signs Date Time Temp Pulse Resp B/P Pulse Ox O2 Delivery O2 Flow Rate FiO2 06/16/16 08:09 97 Room Air 06/16/16 08:07 98 138/79 06/16/16 07:00 101.3 18 101.3 Physical Exam PHYSICAL EXAM GENERAL: NAD, Alert HEENT: PERRL, OC/OP NECK: Supple, no JVD, no LN LUNGS: Clear HEART: S1S2, no gallop, no murmur ABD: Soft, NT, no organomegaly, no rebound EXT: No edema, no cyanosis, rt leg swollen and ulcer CASING TESTER: Alert, oriented x 3, no focal neurologic deficit SKIN: No rash IV: ok Objective Assessment Fever, Metastatic sq cell ca Hypercalcemia Rt groin mass/seroma/ ? infection Plan Plan of Care bc meropenem supportive care GAIL WILKS MD Jun 16, 2016 09:34
[2016-06-16] MEDS: MORPHINE SULFATE 10 MG/ML VIAL. IV PRN (10:07)
[2016-06-16 10:45] VITALS: BP 119/62
[2016-06-16] MEDS: IBUPROFEN 800 MG TABLET. PO PRN ×2 (12:50→20:23)
[2016-06-16] MEDS: MEROPENEM 500 MG in IV NORMAL SALINE 50ML 50 ML IV SCH ×3 (12:57→21:39)
[2016-06-16] MEDS: ONDANSETRON PF 4 MG/2 ML VIAL. IV PRN (14:45)
[2016-06-16 15:12] VITALS: BP 94/49
--- NOTE | 2016-06-16 15:20 | PDOC ---
Provider Note Provider Note Pain management is still a challenge. Premedicated with doubling of narcotics to 8 mg MSO4 prior to treatment and she still had severe stretching pain in right groin which precluded positioning for radiation treatment. Discussed with Dr Caballero. He will increase base dose of MS Contin from 15 to 30 mg BID. Anticipate resuming radiation on Sunday06/19/2016 along with concurrent chemotherapy at that time. DEV WILSON MD Jun 16, 2016 15:20
[2016-06-16 19:00] VITALS: BP 90/47
[2016-06-16] MEDS: MORPHINE ER 30 MG TABLET.ER PO SCH (20:23)
--- NOTE | 2016-06-16 22:50 | PN ---
DATE: 06/16/2016 SUBJECTIVE: The patient is resting, slightly propped up in bed, in no apparent distress. She is complaining of pain in her right groin and right foot, although her pain is much better controlled according to her. Fortunately, she spiked a temperature this morning up to 101. She was seen in follow up by Dr. aLkhani and he ordered blood cultures and start her on meropenem. She wants to go home, but I advised her that I would not recommend that for ____ time being given that she has fever and she will be back in the hospital ____ PHYSICAL EXAMINATION: GENERAL: When I examined her this morning, she looked well and was clearly in no apparent respiratory distress, pale, but no jaundice, cyanosis, or thyromegaly. No jugular venous distension. No lower limb edema. VITAL SIGNS: Her heart rate was 98, blood pressure 138/79, temperature was 101.3, respiratory rate was 18 and oxygen saturation was 97%. HEAD, EYES, EARS, NOSE AND THROAT: Showed normocephalic, atraumatic. NECK: Supple. HEART: Showed normal first and second sounds. No gallop, rub or murmur. CHEST: Clear to auscultation. No crepitation or rhonchi. ABDOMEN: Distended, soft, nontender, but tenderness mostly in the right lower quadrant and right groin area. NEUROLOGIC: She was awake, alert, responding appropriately. Cranial nerves intact. She moves upper extremities and left lower extremities to much greater extent than the right lower extremities. She has severe pain in the right groin and right foot. Her intake over the last 24 hours was 1400, output was 1800. LABORATORY DATA: Showed a white cell count of 15,500, hemoglobin 9.4, hematocrit 28, MCV 92, and platelet count 237,000. Her chemistry showed a serum sodium 136, potassium 4.1, chloride 99, bicarbonate 27, anion gap of 10, BUN 7, creatinine 0.6, estimated GFR was 129 mL per minute. Her glucose 98, calcium was 7.3. Total bilirubin and alkaline phosphatase normal. AST, ALT slightly elevated. Her total protein was 5.5, albumin was 1.9. ASSESSMENT: 1. Hypercalcemia, most likely due to malignancy has responded to IV normal saline and Lasix as well as pamidronate. Her calcium today is down to 7.3 mg/dL. 2. Squamous cell carcinoma involving the right foot, status post amputation of her third, fourth and fifth toes. She has also completed the right inguinal lymph node dissection on 04/25/2016 along with right pelvic lymph node dissection and she was started on radiation therapy on 06/05/2016. In fact, she has received a total of 8 sessions. She has evidence of right inguinal lymph node and external iliac lymph node involvement. 3. She has spiked a temperature again and she is pancultured, was started again on IV meropenem. I did explain to her that I would not recommend that she should go home and probably she already has fever and was already started on antibiotic again, I would repeat all her lab works tomorrow. EVERT WHITE MD DR: JUANCARLOS/derek JOB#: [id number] / [id number]
[2016-06-16 23:00] VITALS: BP 90/48
[2016-06-17] MEDS: MORPHINE SULFATE 4 MG/ML DISP.SYRIN. IV PRN ×7 (00:54→23:28)
[2016-06-17] MEDS: HYDROCODONE/APAP 10/325 TABLET. PO PRN ×5 (01:57→21:55)
[2016-06-17 03:00] VITALS: BP 94/57
[2016-06-17] MEDS: IBUPROFEN 800 MG TABLET. PO PRN ×4 (04:12→23:01)
[2016-06-17] MEDS: IV NORMAL SALINE 1000ML BAG 1,000 ML IV SCH ×4 (04:12→20:28)
[2016-06-17] MEDS: MEROPENEM 500 MG in IV NORMAL SALINE 50ML 50 ML IV SCH ×3 (06:19→20:26)
[2016-06-17 07:00] VITALS: BP 99/53
[2016-06-17 07:35] LABS: BASO % 0 % (0-3); EOS % 1 % (0-3); HEMATOCRIT 27.3 % (36.0-47.0); HEMOGLOBIN 9.2 g/dL (12.0-15.5); LYMPH # 0.6 x10^3/uL (1.0-4.8); LYMPH % 6 % (24-48); MEAN CORPUSCULAR HEMOGLOBIN 32 pg (25-35); MEAN CORPUSCULAR HGB CONC 34 g/dL (31-37); MEAN CORPUSCULAR VOLUME 95 fL (79-100); MONO % 7 % (0-9); NEUT % 86 % (31-73); PLATELET COUNT 209 x10^3/uL (140-400); RED BLOOD COUNT 2.89 x10^6/uL (3.50-5.40); RED CELL DISTRIBUTION WIDTH 13.5 % (11.5-14.5); WHITE BLOOD COUNT 10.7 x10^3/uL (4.0-11.0)
[2016-06-17 07:52] LABS: ALBUMIN 1.7 g/dL (3.4-5.0); ALBUMIN/GLOBULIN RATIO 0.4 (1.0-1.7); CREATININE 0.6 mg/dL (0.6-1.0); GFR 129.7; POTASSIUM 4.1 mmol/L (3.5-5.1); TOTAL BILIRUBIN 0.3 mg/dL (0.2-1.0); TOTAL PROTEIN 5.8 g/dL (6.4-8.2)
[2016-06-17] MEDS: POTASSIUM CHLORIDE 20 MEQ TABLET.ER. PO SCH ×3 (08:12→20:27)
[2016-06-17] MEDS: PANTOPRAZOLE 40 MG TABLET. PO SCH (08:12)
[2016-06-17] MEDS: POLYETHYLENE GLYCOL 3350 17 GM PACKET. PO SCH ×2 (08:12→20:28)
[2016-06-17] MEDS: DOCUSATE SODIUM 100 MG CAPSULE PO SCH ×2 (08:12→20:27)
[2016-06-17] MEDS: NICOTINE 21MG PATCH. TD SCH (08:13)
[2016-06-17] MEDS: ENOXAPARIN 40 MG/0.4 ML DISP.SYRIN. SQ SCH ×2 (08:13→20:26)
[2016-06-17] MEDS: FUROSEMIDE 40 MG/4 ML VIAL IVP SCH (09:00)
[2016-06-17] MEDS: MORPHINE ER 30 MG TABLET.ER PO SCH ×2 (09:12→20:28)
[2016-06-17] MEDS: LOSARTAN POTASSIUM 50 MG TABLET. PO SCH (09:13)
[2016-06-17 11:00] VITALS: BP 94/61
--- NOTE | 2016-06-17 12:01 | PDOC ---
Infectious Disease Note Subjective Subjective Comfortable at the moment Appetite improved No fever last 24 hours ROS ROS GEN: Denies chills, sweats HEENT: Denies sore throat CV: Denies chest pain RESP: Denies shortness of air, cough GI: Denies n/v/d Vital Sign Vital Signs Vital Signs Date Time Temp Pulse Resp B/P Pulse Ox O2 Delivery O2 Flow Rate FiO2 06/17/16 11:11 18 100 Room Air 06/17/16 09:13 63 99/53 06/17/16 07:00 97.3 97.3 Physical Exam PHYSICAL EXAM GENERAL: In chair, relaxed appearance, NAD HEENT: PERRL, OC/OP clear NECK: Supple, no JVD, no LN LUNGS: Clear HEART: S1S2, no gallop, no murmur ABD: Soft, NT, BS present EXT: BLE trace edema. Right foot bandaged. GENERAL MAINTENANCE MECHANIC: Alert, oriented x 3, no focal neurologic deficit SKIN: No rash. Lower-abdominal dressing dry. IV: ok Labs Lab Laboratory Tests Test 06/17/16 06:51 06/17/16 06:52 Sodium Level 136mmol/L (136-145) Potassium Level 4.1mmol/L (3.5-5.1) Chloride Level 103mmol/L (98-107) Carbon Dioxide Level 27mmol/L (21-32) Anion Gap 6 (6-14) Blood Urea Nitrogen 7mg/dL (7-20) Creatinine 0.6mg/dL (0.6-1.0) Estimated GFR (Cockcroft-Gault) 129.7 BUN/Creatinine Ratio 12 (6-20) Glucose Level 99mg/dL (70-99) Calcium Level 7.0mg/dL (8.5-10.1) Total Bilirubin 0.3mg/dL (0.2-1.0) Aspartate Amino Transf (AST/SGOT) 49U/L (15-37) Alanine Aminotransferase (ALT/SGPT) 78U/L (14-59) Alkaline Phosphatase 108U/L (46-116) Total Protein 5.8g/dL (6.4-8.2) Albumin 1.7g/dL (3.4-5.0) Albumin/Globulin Ratio 0.4 (1.0-1.7) White Blood Count 10.7x10^3/uL (4.0-11.0) Red Blood Count 2.89x10^6/uL (3.50-5.40) Hemoglobin 9.2g/dL (12.0-15.5) Hematocrit 27.3% (36.0-47.0) Mean Corpuscular Volume 95fL (79-100) Mean Corpuscular Hemoglobin 32pg (25-35) Mean Corpuscular Hemoglobin Concent 34g/dL (31-37) Red Cell Distribution Width 13.5% (11.5-14.5) Platelet Count 209x10^3/uL (140-400) Neutrophils (%) (Auto) 86% (31-73) Lymphocytes (%) (Auto) 6% (24-48) Monocytes (%) (Auto) 7% (0-9) Eosinophils (%) (Auto) 1% (0-3) Basophils (%) (Auto) 0% (0-3) Neutrophils # (Auto) 9.2x10^3uL (1.8-7.7) Lymphocytes # (Auto) 0.6x10^3/uL (1.0-4.8) Monocytes # (Auto) 0.8x10^3/uL (0.0-1.1) Eosinophils # (Auto) 0.1x10^3/uL (0.0-0.7) Basophils # (Auto) 0.0x10^3/uL (0.0-0.2) Micro BLOOD CULTURE Preliminary NO GROWTH AFTER 1 DAY Objective Assessment Fever, better ? tumor vs ID Metastatic sq cell ca Hypercalcemia Rt groin mass/seroma/ ? infection Plan Plan of Care Cont meropenem BC NGTD Supportive care Attending Co-Sign Attending Co-Sign The patient was seen and interviewed as well as examined at the bedside. The chart was reviewed. The case was discussed. Agree with the plan of care. SHELBI CAVAZOS APRN Jun 17, 2016 12:01 NANCY LOWERY MD Jun 17, 2016 14:16
[2016-06-17 15:00] VITALS: BP 101/57
[2016-06-17 19:00] VITALS: BP 120/62
[2016-06-17 22:31] VITALS: BP 117/72
--- NOTE | 2016-06-17 23:56 | PN ---
DATE: 06/17/2016 SUBJECTIVE: The patient is resting comfortably in her recliner in no apparent distress. On questioning her, she stated that her pain is much better controlled now. Denied any chills, rigors or fever. PHYSICAL EXAMINATION: GENERAL: When I examined her, she looked well and was clearly in no apparent respiratory distress, pale, but no jaundice, cyanosis or thyromegaly. No jugular venous distention. No limb edema. VITAL SIGNS: Heart rate was 63, blood pressure was 99/50, temperature was 97.3, respiratory rate 20, and oxygen saturation was 100% on room air. The rest of clinical examination is unremarkable, has not really changed. Her intake over the last 24 hours was 2200, output was 1100. LABORATORY DATA: As of this morning showed a serum sodium 136, potassium 4.1, chloride 103, bicarbonate 27, anion gap of 6, BUN 7, creatinine 0.6, estimated GFR was 129 mL per minute. Her glucose was 99, calcium was 7. Total bilirubin, AST, ALT, alkaline phosphatase were normal. Total protein was 5.8, albumin was 1.7. Her white cell count is down to 10,700, hemoglobin 9.2, hematocrit 27.3, MCV 95 and platelet count of 209,000. ASSESSMENT: 1. Hypercalcemia, most likely due to malignancy that has responded very well to IV normal saline, Lasix as well as pamidronate. Her calcium today is down to 7 mg/dL. 2. Squamous cell carcinoma involving the right foot, status post amputation of her third, fourth and fifth toes. She has also completed a right inguinal lymph node dissection on 04/25/2016 along with right pelvic lymph node dissection and she was started on radiation therapy on 06/05/2016. She has so far received 8 sessions of radiation therapy. 3. She has spiked her temperature again and she was pancultured and was started again on IV meropenem. Today her white cell count is down, she is afebrile. PLAN: My plan is to discontinue the IV Lasix. Continue with IV fluids for now, hold her blood pressure medication and I will also cut down her hydrocodone . EVERT WHITE MD DR: JUANCARLOS/derek JOB#: [id number] / [id number]
[2016-06-18 03:00] VITALS: BP 97/49
[2016-06-18] MEDS: HYDROCODONE/APAP 10/325 TABLET. PO PRN ×5 (03:02→22:57)
[2016-06-18] MEDS: MORPHINE SULFATE 4 MG/ML DISP.SYRIN. IV PRN ×6 (03:32→19:54)
[2016-06-18] MEDS: IV NORMAL SALINE 1000ML BAG 1,000 ML IV SCH ×3 (04:20→17:35)
[2016-06-18 05:23] LABS: HEMATOCRIT 27.9 % (36.0-47.0); HEMOGLOBIN 9.2 g/dL (12.0-15.5); RED BLOOD COUNT 2.94 x10^6/uL (3.50-5.40); RED CELL DISTRIBUTION WIDTH 13.5 % (11.5-14.5); WHITE BLOOD COUNT 12.4 x10^3/uL (4.0-11.0)
[2016-06-18 05:44] LABS: CALCIUM 7.2 mg/dL (8.5-10.1); CREATININE 0.5 mg/dL (0.6-1.0); POTASSIUM 4.8 mmol/L (3.5-5.1)
[2016-06-18] MEDS: MEROPENEM 500 MG in IV NORMAL SALINE 50ML 50 ML IV SCH ×3 (06:05→22:56)
[2016-06-18 07:00] VITALS: BP 105/63
[2016-06-18] MEDS: POLYETHYLENE GLYCOL 3350 17 GM PACKET. PO SCH ×2 (08:00→20:49)
[2016-06-18] MEDS: PANTOPRAZOLE 40 MG TABLET. PO SCH (08:01)
[2016-06-18] MEDS: POTASSIUM CHLORIDE 20 MEQ TABLET.ER. PO SCH ×4 (08:01→20:48)
[2016-06-18] MEDS: DOCUSATE SODIUM 100 MG CAPSULE PO SCH ×2 (08:01→20:48)
[2016-06-18] MEDS: ENOXAPARIN 40 MG/0.4 ML DISP.SYRIN. SQ SCH ×2 (08:02→20:49)
[2016-06-18] MEDS: MORPHINE ER 30 MG TABLET.ER PO SCH ×2 (08:02→20:48)
[2016-06-18] MEDS: NICOTINE 21MG PATCH. TD SCH (08:03)
[2016-06-18 11:04] VITALS: BP 109/68
[2016-06-18] MEDS: LORAZEPAM 0.5 MG TABLET. PO PRN ×2 (14:30→20:48)
[2016-06-18] MEDS: ACETAMINOPHEN 325 MG TABLET. PO PRN (14:30)
[2016-06-18 14:55] VITALS: BP 123/68
[2016-06-18 19:00] VITALS: BP 129/74
[2016-06-18] MEDS: IBUPROFEN 800 MG TABLET. PO PRN (21:18)
[2016-06-18 23:00] VITALS: BP 96/58
--- NOTE | 2016-06-18 23:48 | PN ---
DATE: 06/18/2016 SUBJECTIVE: The patient is resting, slightly propped up in her recliner, sleeping comfortably. On questioning her, she continue to complain of pain in her groin and right foot. She continued to have also low-grade fever, spiked her temperature this morning to 100 Fahrenheit. PHYSICAL EXAMINATION: GENERAL: When I examined her, she looked pale, but no jaundice, cyanosis, or thyromegaly. No jugular distension. Right lower extremity more swollen than left. VITAL SIGNS: Her heart rate was 74, blood pressure was 109/68, temperature was 100, respiratory rate was 18 and oxygen saturation was 97% on room air. HEAD, EYES, EARS, NOSE AND THROAT: Showed normocephalic, atraumatic. NECK: Supple. HEART: Showed normal first and second heart sounds with no gallop, rub or murmur. CHEST: Clear to auscultation. No crepitation or rhonchi. ABDOMEN: Distended, soft, nontender. No guarding or rigidity. No organomegaly. Hernial orifices intact. Bowel sounds normal. NEUROLOGIC: She is sleepy, but arousable. Cranial nerves intact. She moves upper extremities and left lower extremities without difficulty. Her intake was 2800, output was 4300. LABORATORY DATA: Serum sodium was 138, potassium 4.8, chloride 104, bicarbonate is 26, anion gap of 8, BUN 6, creatinine 0.5, estimated GFR was 116 mL per minute. Her glucose was 100. Calcium was 7.2. White cell count was 12,400, hemoglobin 9.2, hematocrit 28, MCV 95 and platelet count 248,000. ASSESSMENT: 1. Malignant hypercalcemia responded very well to IV normal saline, Lasix as well as pamidronate. Her calcium is down to 7.2 mg/dL. 2. Squamous cell carcinoma of the right foot, status post amputation of the right third, fourth and fifth toes. 3. She has also completed inguinal lymph node ____ dissection on 04/25/2016 along with right pelvic lymph node dissection. 4. She has started radiation therapy on 06/05/2016 and so far she has received eight session of radiation therapy. 5. She did spike her temperature and was pancultured and was started back on IV meropenem, so far the blood cultures are still negative. PLAN: To continue with IV fluid, IV antibiotic and pain medication as well as DVT prophylaxis. She is scheduled for radiation therapy tomorrow. EVERT WHITE MD DR: JUANCARLOS/derek JOB#: [id number] / [id number]
[2016-06-19] MEDS: IV NORMAL SALINE 1000ML BAG 1,000 ML IV SCH ×4 (00:35→20:20)
[2016-06-19] MEDS: MORPHINE SULFATE 4 MG/ML DISP.SYRIN. IV PRN ×5 (01:02→18:10)
[2016-06-19 03:00] VITALS: BP 118/69
[2016-06-19] MEDS: HYDROCODONE/APAP 10/325 TABLET. PO PRN ×6 (03:33→23:49)
[2016-06-19] MEDS: PANTOPRAZOLE 40 MG TABLET. PO SCH (05:24)
[2016-06-19] MEDS: MEROPENEM 500 MG in IV NORMAL SALINE 50ML 50 ML IV SCH ×2 (05:26→15:08)
[2016-06-19 06:13] LABS: CALCIUM 7.2 mg/dL (8.5-10.1); CREATININE 0.6 mg/dL (0.6-1.0); GFR 129.7; POTASSIUM 4.7 mmol/L (3.5-5.1)
[2016-06-19 07:00] VITALS: BP 121/72
[2016-06-19] MEDS: POLYETHYLENE GLYCOL 3350 17 GM PACKET. PO SCH ×2 (08:09→21:17)
[2016-06-19] MEDS: MORPHINE ER 30 MG TABLET.ER PO SCH ×2 (08:09→21:18)
[2016-06-19] MEDS: ACETAMINOPHEN 325 MG TABLET. PO PRN (08:09)
[2016-06-19] MEDS: DOCUSATE SODIUM 100 MG CAPSULE PO SCH ×2 (08:09→21:17)
[2016-06-19] MEDS: POTASSIUM CHLORIDE 20 MEQ TABLET.ER. PO SCH ×4 (08:09→21:19)
[2016-06-19] MEDS: NICOTINE 21MG PATCH. TD SCH (08:10)
[2016-06-19] MEDS: ENOXAPARIN 40 MG/0.4 ML DISP.SYRIN. SQ SCH ×2 (08:12→21:18)
[2016-06-19] MEDS: LORAZEPAM 0.5 MG TABLET. PO PRN ×2 (09:05→16:10)
--- NOTE | 2016-06-19 09:12 | PDOC ---
Subjective: Subjective: Onc f/u- SCC Pt with ongoing pain but feels she can manage at home. States she anticipates DC tomorrow. Fevers intermittently continue to occur, but not changes overall. No severe SOB, CP. Objective: Vital Signs: Vital Signs Date Time Temp Pulse Resp B/P Pulse Ox O2 Delivery O2 Flow Rate FiO2 06/19/16 09:05 Room Air 06/19/16 07:00 101.1 85 18 121/72 100 101.1 Physical Exam: General: Alert, Oriented X3, Cooperative, No acute distress Lungs: Normal air movement Musculoskeletal: Other (diffuse pain with movement but feels this is stable, manageable) Psych/Mental Status: Mental status NL, Mood NL Labs/Imaging: Cx neg Assessment/Plan A/P: 1. 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 Planning to add chemo later this week. 2. Malignant hypercalcemia s/p IVF, lasix, pamidronate- Resolved 3. Fever- Seems malignant, infectious w/u neg D/W Dr. Han- plan to resume RT this week. Had plans to teach about chemo in clinic on 06/21, and start weekly cisplatin on 06/22. If pt not DC'ed, will attempt to give as inpt but easier if able to give in clinic. Ok to DC from onc standpoint if ok with w/ others. TITI SHERMAN DO Jun 19, 2016 09:12
[2016-06-19 10:57] VITALS: BP 123/63
[2016-06-19] MEDS: IBUPROFEN 800 MG TABLET. PO PRN (10:57)
--- NOTE | 2016-06-19 12:21 | PDOC ---
Infectious Disease Note Subjective Subjective Comfortable at the moment Appetite improved No fever last 24 hours ROS ROS GEN: Denies fevers, chills, sweats HEENT: Denies blurred vision, sore throat CV: Denies chest pain RESP: Denies shortness of air, cough GI: Denies n/v/d NEURO: Denies confusion, dizziness MSK: Denies weakness, joint pain/swelling Vital Sign Vital Signs Vital Signs Date Time Temp Pulse Resp B/P Pulse Ox O2 Delivery O2 Flow Rate FiO2 06/19/16 10:57 101.1 87 18 123/63 100 Room Air 101.1 Physical Exam PHYSICAL EXAM GENERAL: In chair, relaxed appearance, NAD HEENT: PERRL, OC/OP clear NECK: Supple, no JVD, no LN LUNGS: Clear HEART: S1S2, no gallop, no murmur ABD: Soft, NT, BS present EXT: BLE trace edema.right groin with induration/tender. Foot wound with moist with some mild drainage. No warmth REJECT OPENER: Alert, oriented x 3, no focal neurologic deficit SKIN: No rash. IV: ok Labs Lab Laboratory Tests Test 06/19/16 05:25 Sodium Level 138mmol/L (136-145) Potassium Level 4.7mmol/L (3.5-5.1) Chloride Level 105mmol/L (98-107) Carbon Dioxide Level 25mmol/L (21-32) Anion Gap 8 (6-14) Blood Urea Nitrogen 5mg/dL (7-20) Creatinine 0.6mg/dL (0.6-1.0) Estimated GFR (Cockcroft-Gault) 129.7 Glucose Level 91mg/dL (70-99) Calcium Level 7.2mg/dL (8.5-10.1) Objective Assessment Fever, ? tumor vs ID Metastatic sq cell ca Hypercalcemia Rt groin mass/seroma/ ? infection Right foot s/p toe amp Plan Plan of Care Cont meropenem Add fluconazole/Doxy XRT today F/u labs Supportive care NANCY LOWERY MD Jun 19, 2016 12:21
[2016-06-19] MEDS: FLUCONAZOLE 100 MG TABLET. PO SCH (12:27)
[2016-06-19] MEDS: DOXYCYCLINE HYCLATE 100 MG TABLET PO SCH ×2 (12:27→21:17)
[2016-06-19] MEDS: MORPHINE SULFATE 10 MG/ML VIAL. IV PRN (12:34)
[2016-06-19 14:50] VITALS: BP 95/51
[2016-06-19 19:00] VITALS: BP 123/63
[2016-06-19 23:00] VITALS: BP 132/72
--- NOTE | 2016-06-20 01:12 | PN ---
DATE: 06/19/2016 SUBJECTIVE: The patient is resting slightly propped up in bed, in her recliner, in no apparent distress. She denied any complaints; however, her temperature is slightly high up to 101.1. [place] [address]. So far her blood cultures are negative. PHYSICAL EXAMINATION: GENERAL: When I examined her, she looked well and was clearly in no apparent respiratory distress, pale, no jaundice, cyanosis or thyromegaly. No jugular venous distention. No limb edema. VITAL SIGNS: Her heart rate was 87, blood pressure 123/63, temperature 101.1, respiratory rate was 18 and oxygen saturation was 100%. HEAD, EYES, EARS, NOSE AND THROAT: Showed normocephalic, atraumatic. NECK: Supple. HEART: Showed normal first and second sounds. No gallop, rub or murmur. CHEST: Clear to auscultation. No crepitation or rhonchi. ABDOMEN: Distended, tenderness mostly in the right lower quadrant. NEUROLOGIC: She is awake, alert, responding appropriately. Cranial nerves intact. She moves upper extremities and left lower extremity to much great extent than her right lower extremity. Her intake over the last 24 hours was 2550, output was 2100. LABORATORY DATA: White cell count was 12,400, hemoglobin 9.2, hematocrit 27.9, MCV 95 and platelet count 248,000. Her serum sodium was 138, potassium 4.7, chloride 105, bicarbonate 25, anion gap of 8, BUN 5, creatinine 0.6, estimated GFR was 129. Her glucose was 91 and calcium was 7.2. ASSESSMENT AND PLAN: 1. 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 She has right inguinal and pelvic lymph node dissection. She was started on radiation therapy on 06/05/2016 with a plan to start chemotherapy. 2. Malignant hypercalcemia, status post IV fluid, Lasix and pamidronate, this has resolved. 3. Fever, either malignancy of the tumor related or infectious and her blood cultures are so far negative. EVERT WHITE MD DR: JUANCARLOS/derek JOB#: [id number] / [id number]
[2016-06-20] MEDS: IBUPROFEN 800 MG TABLET. PO PRN ×3 (01:47→14:31)
[2016-06-20] MEDS: LORAZEPAM 0.5 MG TABLET. PO PRN ×3 (01:47→14:30)
[2016-06-20] MEDS: MORPHINE SULFATE 4 MG/ML DISP.SYRIN. IV PRN ×5 (02:05→14:31)
[2016-06-20] MEDS: MEROPENEM 500 MG in IV NORMAL SALINE 50ML 50 ML IV SCH ×3 (02:06→08:22)
[2016-06-20 03:00] VITALS: BP 123/49
[2016-06-20] MEDS: IV NORMAL SALINE 1000ML BAG 1,000 ML IV SCH ×2 (04:25→08:23)
[2016-06-20 04:42] LABS: BASO % 0 % (0-3); EOS % 0 % (0-3); HEMATOCRIT 27.1 % (36.0-47.0); HEMOGLOBIN 9.1 g/dL (12.0-15.5); LYMPH # 0.7 x10^3/uL (1.0-4.8); LYMPH % 5 % (24-48); MEAN CORPUSCULAR HEMOGLOBIN 32 pg (25-35); MEAN CORPUSCULAR HGB CONC 34 g/dL (31-37); MEAN CORPUSCULAR VOLUME 94 fL (79-100); MONO % 5 % (0-9); NEUT % 90 % (31-73); PLATELET COUNT 274 x10^3/uL (140-400); RED BLOOD COUNT 2.89 x10^6/uL (3.50-5.40); RED CELL DISTRIBUTION WIDTH 13.6 % (11.5-14.5); WHITE BLOOD COUNT 13.9 x10^3/uL (4.0-11.0)
[2016-06-20 04:50] LABS: CALCIUM 8.1 mg/dL (8.5-10.1); CREATININE 0.5 mg/dL (0.6-1.0); POTASSIUM 4.5 mmol/L (3.5-5.1)
[2016-06-20] MEDS: HYDROCODONE/APAP 10/325 TABLET. PO PRN ×3 (05:36→14:31)
[2016-06-20 07:00] VITALS: BP 114/70
[2016-06-20] MEDS: DOXYCYCLINE HYCLATE 100 MG TABLET PO SCH (08:07)
[2016-06-20] MEDS: FLUCONAZOLE 100 MG TABLET. PO SCH (08:07)
[2016-06-20] MEDS: ENOXAPARIN 40 MG/0.4 ML DISP.SYRIN. SQ SCH (08:07)
[2016-06-20] MEDS: DOCUSATE SODIUM 100 MG CAPSULE PO SCH (08:07)
[2016-06-20] MEDS: MORPHINE ER 30 MG TABLET.ER PO SCH (08:08)
[2016-06-20] MEDS: POTASSIUM CHLORIDE 20 MEQ TABLET.ER. PO SCH ×2 (08:08→14:31)
[2016-06-20] MEDS: PANTOPRAZOLE 40 MG TABLET. PO SCH (08:09)
[2016-06-20] MEDS: NICOTINE 21MG PATCH. TD SCH (08:10)
[2016-06-20] MEDS: POLYETHYLENE GLYCOL 3350 17 GM PACKET. PO SCH (09:00)
--- NOTE | 2016-06-20 10:03 | PDOC ---
Infectious Disease Note Subjective Subjective Comfortable at the moment Appetite improved Wanting to go home ROS ROS GEN: Denies fevers, chills, sweats HEENT: Denies blurred vision, sore throat CV: Denies chest pain RESP: Denies shortness of air, cough GI: Denies n/v/d NEURO: Denies confusion, dizziness MSK: Denies weakness, joint pain/swelling Vital Sign Vital Signs Vital Signs Date Time Temp Pulse Resp B/P Pulse Ox O2 Delivery O2 Flow Rate FiO2 06/20/16 08:47 Room Air 06/20/16 07:00 98.6 78 18 114/70 99 98.6 Physical Exam PHYSICAL EXAM GENERAL: NAD, Alert HEENT: PERRL, OC/OP -clear NECK: Supple, no JVD, no LN LUNGS: Clear HEART: S1S2, no gallop, no murmur ABD: Soft, NT, no organomegaly, no rebound EXT: No edema, no cyanosis. foot dressed RADIO REPORTER: Alert, oriented x 3, no focal neurologic deficit SKIN: No rash IV: ok Labs Lab Laboratory Tests Test 06/20/16 03:15 White Blood Count 13.9x10^3/uL (4.0-11.0) Red Blood Count 2.89x10^6/uL (3.50-5.40) Hemoglobin 9.1g/dL (12.0-15.5) Hematocrit 27.1% (36.0-47.0) Mean Corpuscular Volume 94fL (79-100) Mean Corpuscular Hemoglobin 32pg (25-35) Mean Corpuscular Hemoglobin Concent 34g/dL (31-37) Red Cell Distribution Width 13.6% (11.5-14.5) Platelet Count 274x10^3/uL (140-400) Neutrophils (%) (Auto) 90% (31-73) Lymphocytes (%) (Auto) 5% (24-48) Monocytes (%) (Auto) 5% (0-9) Eosinophils (%) (Auto) 0% (0-3) Basophils (%) (Auto) 0% (0-3) Neutrophils # (Auto) 12.4x10^3uL (1.8-7.7) Lymphocytes # (Auto) 0.7x10^3/uL (1.0-4.8) Monocytes # (Auto) 0.7x10^3/uL (0.0-1.1) Eosinophils # (Auto) 0.1x10^3/uL (0.0-0.7) Basophils # (Auto) 0.0x10^3/uL (0.0-0.2) Sodium Level 134mmol/L (136-145) Potassium Level 4.5mmol/L (3.5-5.1) Chloride Level 100mmol/L (98-107) Carbon Dioxide Level 25mmol/L (21-32) Anion Gap 9 (6-14) Blood Urea Nitrogen 6mg/dL (7-20) Creatinine 0.5mg/dL (0.6-1.0) Estimated GFR (Cockcroft-Gault) 160.0 Glucose Level 95mg/dL (70-99) Calcium Level 8.1mg/dL (8.5-10.1) Objective Assessment Fever, ? tumor vs ID vs post radiation. clinically well aside from fever which she doesn't even feel Metastatic sq cell ca s/p XRT 06/19 Hypercalcemia Rt groin mass/seroma/ ? infection Right foot s/p toe amp wound moist but clean Plan Plan of Care Discont meropenem Ok to d/c home on Flagyl/Levoflox/Doxy/fluconzole for 7 days Can F/u ID office next week NANCY LOWERY MD Jun 20, 2016 10:03
[2016-06-20] MEDS ORDERED: METRONIDAZOLE 500 MG TABLET. PO SCH (10:30)
[2016-06-20] MEDS ORDERED: LEVOFLOXACIN 500 MG TABLET PO SCH (10:30)
--- NOTE | 2016-06-20 10:31 | PDOC ---
Subjective: Subjective: Onc f/u- SCC Pt reports to me that she is to be DC'ed today. D/w Dr. Caballero; she likely cannot manage at home. Ongoing pain is stable. She says she has a lot of family support. Objective: Vital Signs: Vital Signs Date Time Temp Pulse Resp B/P Pulse Ox O2 Delivery O2 Flow Rate FiO2 06/20/16 10:03 Room Air 06/20/16 07:00 98.6 78 18 114/70 99 98.6 Physical Exam: General: Alert, Oriented X3, Cooperative, No acute distress Lungs: Other (no resp distress) Musculoskeletal: Other (LE edema unchanged, dressings in place) Psych/Mental Status: Mental status NL, Mood NL Assessment/Plan A/P: 1. Stage IV Squamous cell carcinoma of the skin involving the right foot s/p amputation, right inguinal and pelvic lymph node dissection, RT started 06/05, restarted yesterday. Orders for cisplatin written for tomorrow and d/w pharmacy. Unsure if can get a chemo-certified nurse. Pt wants to DC, also has appt for chemo scheduled in our clinic later this week. 2. Malignant hypercalcemia s/p IVF, lasix, pamidronate- Resolved 3. Fever, continues- Seems malignant, pt stable. Will Dc on po abx per ID note. D/W Dr. Caballero. If remains admitted will try to give chemo per nursing staffing abilities on Sun/ . Otherwise can receive in clinic. TITI SHERMAN DO Jun 20, 2016 10:31
[2016-06-20 10:49] VITALS: BP 130/57
[2016-06-20] MEDS ORDERED: POLY17PO5 PO (12:11)
[2016-06-20] MEDS ORDERED: LEVO500T38 PO (12:11)
[2016-06-20] MEDS ORDERED: PANT40TA3 PO (12:11)
[2016-06-20] MEDS ORDERED: FLUC200T PO (12:11)
[2016-06-20] MEDS ORDERED: DOXY100C2 PO (12:11)
[2016-06-20] MEDS ORDERED: METR500T PO (12:11)
[2016-06-20 12:18] LABS: PLT ESTIMATE ADEQUATE (ADEQUATE)
[2016-06-20] MEDS: MORPHINE SULFATE 10 MG/ML VIAL. IV PRN (12:37)
[2016-06-20 15:04] VITALS: BP 125/62
--- NOTE | 2016-06-20 21:56 | DS ---
DATE OF DISCHARGE: 06/20/2016 HISTORY OF PRESENT ILLNESS: The patient is a 45-year-old -[place]ian female patient with stage IV squamous cell carcinoma that started in her right foot, whom I have seen initially at [facility] with malignant hypercalcemia treated with IV fluids, Lasix and pamidronate and did very well. However, she continued to spike the temperature and was treated with IV antibiotics. It was difficult to know whether the fever is because of the infection or because of the malignant squamous cell carcinoma and has had received multiple courses of antibiotics. All her cultures are so far negative. She started her radiation therapy on 06/05/2016 and so far received a total of 9 sessions of radiation therapy with a plan to add chemotherapy. The patient is stable to be discharged, her antibiotics were switched to be given orally. PHYSICAL EXAMINATION: GENERAL: When I examined her this afternoon, she looked well and was clearly in no apparent respiratory distress, pale, no jaundice, cyanosis, or thyromegaly. No jugular venous distention. No lower limb edema. FAMILY HISTORY: Also for culture and sensitivity. REVIEW OF SYSTEMS: HDL Kanu distended stool for culture. PHYSICAL EXAMINATION: VITAL SIGNS: Her heart rate was 86, blood pressure 130/57, temperature was 98.8, respiratory rate was 18 and oxygen saturation was 99%. HEAD, EYES, EARS, NOSE AND THROAT: Normocephalic and atraumatic. NECK: Supple. HEART: ____ first and second heart sounds with no gallop, rub or murmur. CHEST: Clear to auscultation. No crepitation or rhonchi. ABDOMEN: Distended, soft with tenderness mostly in the right groin area and no guarding or rigidity. No organomegaly. Hernial orifices intact. Bowel sounds normal. NEUROLOGIC: She is awake, alert, responding appropriately. Cranial nerves are intact. She is able to transfer from bed to wheelchair and vice versa with assistance. She has been recommended home health and/or transfer to a [facility] facility, but she refused and wants to go home. She has a scooter at home and her transportation to and from the clinic is arranged already. LABORATORY DATA: Her lab work this morning showed a white cell count of 13,900, hemoglobin 9.1, hematocrit 27.1, MCV 94 and platelet count 274,000. Her serum sodium was 134, potassium 4.5, chloride 100, bicarbonate 25, anion gap of 9, BUN 6, creatinine 0.5, estimated GFR was 160 mL per minute, glucose was 95 and calcium was 8.1. DISCHARGE MEDICATIONS: The patient will be discharged home to continue on following medications: Levofloxacin 500 mg once a day for 7 days, metronidazole 500 mg twice a day for 7 days, doxycycline 100 mg p.o. b.i.d. for 7 days, and fluconazole 200 mg once a day for 7 days. She will be also on lorazepam 0.5 mg every 6 hours as needed for anxiety, hydrocodone 5/325 one tablet every 4 hours as needed, morphine sulfate extended release 30 mg p.o. b.i.d., Protonix 40 mg once a day, Zofran 4 mg ODT every 4 hours as needed, MiraLax 17 g twice a day, docusate sodium 100 mg p.o. b.i.d., ibuprofen 800 mg every 6 hours, magnesium citrate once every 72 hours. FINAL DISCHARGE DIAGNOSES: 1. 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 2. Right inguinal and pelvic lymph node dissection. 3. Started radiotherapy on 06/05/2016. 4. Malignant hypercalcemia, status post IV fluids, Lasix and pamidronate, resolved. 5. Fever continues most likely due to malignancy, so far all her blood cultures were negative. The patient will be discharged to receive her chemotherapy as an outpatient. EVERT WHITE MD DR: JUANCARLOS/derek JOB#: [id number] / [id number]
[2016-06-21] MEDS ORDERED: ONDA-35 PO (13:14)
== END 2016-06-20 16:05 | disposition home or self-care (01) | DRG 871 ==
LOC: 1 WEST ICU 16:57 → 5 SOUTH 17:01
PROVIDERS: ADMIT Internal Medicine; ATTEND Internal Medicine
DX: A41.9 Sepsis, unspecified organism (principal); E43 Unspecified severe protein-calorie malnutrition; Z68.41 Body mass index [BMI] 40.0-44.9, adult; C77.4 Secondary and unspecified malignant neoplasm of inguinal and lower limb lymph nodes; E83.52 Hypercalcemia; E87.6 Hypokalemia; F17.210 Nicotine dependence, cigarettes, uncomplicated; I10 Essential (primary) hypertension; I89.0 Lymphedema, not elsewhere classified; C44.92 Squamous cell carcinoma of skin, unspecified; E66.9 Obesity, unspecified; Z80.1 Family history of malignant neoplasm of trachea, bronchus and lung; Z82.49 Family history of ischemic heart disease and other diseases of the circulatory system; Z83.3 Family history of diabetes mellitus; Z85.828 Personal history of other malignant neoplasm of skin; Z88.0 Allergy status to penicillin; Z89.421 Acquired absence of other right toe(s); Z88.1 Allergy status to other antibiotic agents; Z88.5 Allergy status to narcotic agent
CPT/HCPCS: 36415; 77412; 80048; 80053; 85007; 85027; 87040; 93971; 96374; A9503; J1170; J1650; J1940; J2020; J2185; J2270; J2405; J7030; 97110; 97530

== ENCOUNTER 2016-06-21 09:10 | Inpatient (IN) | payer OTHER ==
[~2016-06-21] VITALS: Ht 162.6 cm; Wt 121.1 kg
[~2016-06-21 09:10] MED LIST changes: +DOXY100C2 PO; +FLUC200T PO; +METR500T PO; +PANT40TA3 PO; +POLY17PO5 PO
--- NOTE | 2016-06-21 09:26 | PHYS DOC ---
Adult General HPI HPI Patient is a 45 year old female who presents with right leg swelling. She states she has a history of squamous cell cancer in her right leg and just got discharged yesterday and overnight her right leg became swollen and painful. She denies any shortness of breath, nausea vomiting or chest pain. She states she was supposed to set up her first round of chemotherapy today. She presented via EMS. Review of Systems Review of Systems Constitutional: Denies fever or chills [] Eyes: Denies change in visual acuity, redness, or eye pain [] HENT: Denies nasal congestion or sore throat [] Respiratory: Denies cough or shortness of breath [] Cardiovascular: No additional information not addressed in HPI [] GI: Denies abdominal pain, nausea, vomiting, bloody stools or diarrhea [] : Denies dysuria or hematuria [] Musculoskeletal: Denies back pain or joint pain [] Integument: Denies rash or skin lesions [] Neurologic: Denies headache, focal weakness or sensory changes [] Endocrine: Denies polyuria or polydipsia [] Current Medications Current Medications Current Medications Medications (Trade) Dose Ordered Sig/[facility] Start Time Stop Time Status Last Admin Dose Admin Morphine Sulfate 4 mg 1X ONCE 06/21/16 09:45 06/21/16 09:50 DC Allergies Allergies Allergies Coded Allergies Type Severity Reaction Last Updated Verified amoxicillin Adverse Reaction Intermediate Nausea 05/29/16 Yes clavulanic acid Adverse Reaction Intermediate Nausea 05/29/16 Yes Physical Exam Physical Exam Constitutional: Well developed, well nourished, no acute distress, non-toxic appearance. [] HENT: Normocephalic, atraumatic, bilateral external ears normal, oropharynx moist, no oral exudates, nose normal. [] Eyes: PERRLA, EOMI, conjunctiva normal, no discharge. [] Neck: Normal range of motion, no tenderness, supple, no stridor. [] Cardiovascular:Heart rate regular rhythm, no murmur [] Lungs & Thorax: Bilateral breath sounds clear to auscultation [] Abdomen: Bowel sounds normal, soft, no tenderness, no masses, no pulsatile masses. [] Skin: Warm, dry, no erythema, no rash. [] Back: No tenderness, no CVA tenderness. [] Extremities: Tender to palpation throughout the right lower show any, no cyanosis, no clubbing, ROM intact, 3+ edema right lower extremity. [] Neurologic: Alert and oriented X 3, normal motor function, normal sensory function, no focal deficits noted. [] Psychologic: Affect normal, judgement normal, mood normal. [] Current Patient Data Vital Signs Vital Signs Date Time Temp Pulse Resp B/P Pulse Ox O2 Delivery O2 Flow Rate FiO2 06/21/16 10:23 20 98 Room Air 06/21/16 09:13 98.5 75 136/61 98.5 Lab Values Laboratory Tests Test 06/21/16 10:05 White Blood Count 16.5x10^3/uL (4.0-11.0) H Red Blood Count 3.14x10^6/uL (3.50-5.40) L Hemoglobin 9.7g/dL (12.0-15.5) L Hematocrit 28.8% (36.0-47.0) L Mean Corpuscular Volume 92fL (79-100) Mean Corpuscular Hemoglobin 31pg (25-35) Mean Corpuscular Hemoglobin Concent 34g/dL (31-37) Red Cell Distribution Width 13.5% (11.5-14.5) Platelet Count 347x10^3/uL (140-400) Neutrophils (%) (Auto) 91% (31-73) H Lymphocytes (%) (Auto) 3% (24-48) L Monocytes (%) (Auto) 5% (0-9) Eosinophils (%) (Auto) 0% (0-3) Basophils (%) (Auto) 1% (0-3) Neutrophils # (Auto) 15.1x10^3uL (1.8-7.7) H Lymphocytes # (Auto) 0.5x10^3/uL (1.0-4.8) L Monocytes # (Auto) 0.8x10^3/uL (0.0-1.1) Eosinophils # (Auto) 0.0x10^3/uL (0.0-0.7) Basophils # (Auto) 0.1x10^3/uL (0.0-0.2) Platelet Estimate Pending Prothrombin Time 15.1SEC (11.7-14.0) H Prothrombin Time INR 1.3 (0.8-1.1) H PTT 34SEC (24-38) Sodium Level 143mmol/L (136-145) Potassium Level 3.9mmol/L (3.5-5.1) Chloride Level 104mmol/L (98-107) Carbon Dioxide Level 27mmol/L (21-32) Anion Gap 12 (6-14) Blood Urea Nitrogen 27mg/dL (7-20) H Creatinine 1.1mg/dL (0.6-1.0) H Estimated GFR (Cockcroft-Gault) 64.4 BUN/Creatinine Ratio 25 (6-20) H Glucose Level 123mg/dL (70-99) H Calcium Level 9.1mg/dL (8.5-10.1) Total Bilirubin 0.5mg/dL (0.2-1.0) Aspartate Amino Transferase (AST) 22U/L (15-37) Alanine Aminotransferase (ALT) 29U/L (14-59) Alkaline Phosphatase 71U/L (46-116) Total Protein 7.2g/dL (6.4-8.2) Albumin 3.8g/dL (3.4-5.0) Albumin/Globulin Ratio 1.1 (1.0-1.7) Laboratory Tests 06/21/16 10:05 Laboratory Tests 06/21/16 10:05 EKG EKG [] Radiology/Procedures Radiology/Procedures [] Impressions: Right lower show any swelling Course & Med Decision Making Course & Med Decision Making Pertinent Labs and Imaging studies reviewed. (See chart for details) Patient presents with worsening swelling of the right leg she does have dorsal pedis pulses are intact by Doppler. During the course of her being evaluated in the emergency department Dr. Andres wanted her to be directly readmitted to his service. I did speak with Dr. Viveros with vascular surgery regarding the ultrasound/DVT/arterial studies. He recommended Dr. Obrien the consult in addition. Patient is in stable condition this time and agreed with the plan. Dragon Disclaimer Dragon Disclaimer This electronic medical record was generated, in whole or in part, using a voice recognition dictation system. Departure Departure Impression: Primary Impression: Leg swelling Disposition: ADMITTED INPATIENT Admitting Physician: Peña Caballero Referrals: ADIS HARDIN APRN (PCP) LANE MERLOS MD Jun 21, 2016 09:26
[2016-06-21] MEDS ORDERED: MORPHINE SULFATE 4 MG/ML DISP.SYRIN. IV ONE (09:30)
[2016-06-21] MEDS ORDERED: MORPHINE SULFATE 4 MG/ML DISP.SYRIN. IM ONE (09:45)
[2016-06-21 10:23] LABS: HEMOGLOBIN 9.7 g/dL (12.0-15.5); RED BLOOD COUNT 3.14 x10^6/uL (3.50-5.40); WHITE BLOOD COUNT 16.5 x10^3/uL (4.0-11.0)
[2016-06-21 10:24] LABS: BASO # 0.1 x10^3/uL (0.0-0.2); BASO % 1 % (0-3); EOS % 0 % (0-3); HEMATOCRIT 28.8 % (36.0-47.0); LYMPH # 0.5 x10^3/uL (1.0-4.8); LYMPH % 3 % (24-48); MEAN CORPUSCULAR HEMOGLOBIN 31 pg (25-35); MEAN CORPUSCULAR HGB CONC 34 g/dL (31-37); MEAN CORPUSCULAR VOLUME 92 fL (79-100); MONO % 5 % (0-9); NEUT % 91 % (31-73); PLATELET COUNT 347 x10^3/uL (140-400); RED CELL DISTRIBUTION WIDTH 13.5 % (11.5-14.5)
[2016-06-21 10:34] LABS: INR 1.3 (0.8-1.1); PROTHROMBIN TIME PATIENT 15.1 SEC (11.7-14.0)
[2016-06-21 10:50] LABS: CALCIUM 9.1 mg/dL (8.5-10.1); CREATININE 1.1 mg/dL (0.6-1.0); GFR 64.4; POTASSIUM 3.9 mmol/L (3.5-5.1)
[2016-06-21 10:58] LABS: ALBUMIN 3.8 g/dL (3.4-5.0); ALBUMIN/GLOBULIN RATIO 1.1 (1.0-1.7); TOTAL BILIRUBIN 0.5 mg/dL (0.2-1.0); TOTAL PROTEIN 7.2 g/dL (6.4-8.2)
--- NOTE | 2016-06-21 11:25 | RAD ---
Right lower extremity venous ultrasound, 06/21/2016: History: Leg edema, tenderness Duplex evaluation of the major veins in the right lower extremity was attempted including grayscale, color-flow and spectral Doppler analysis. The exam was limited by the size of the patient's leg and the patient's inability to tolerate compression maneuvers. At the right groin level there is a 10 x 9 x 4 cm mass demonstrating sonographic characteristics suggestive of a cystic structure containing a small amount of debris. This is likely a postsurgical seroma or hematoma. A similar appearance was present on the study of 06/13/2016. There is an adjacent heterogeneous mass measuring approximately 6 cm in diameter. This mass demonstrates solid, vascular components. Given the patient's history this probably represents residual or recurrent tumor. A hematoma or partially thrombosed pseudoaneurysm or less likely possibilities. Color flow could not be demonstrated within the right femoral vein at the groin level. The patient could not tolerate compression of this vein or good distal augmentation. Venous thrombosis at this level is suspected. There is demonstrable blood flow in the femoral vein in the inferior aspect of the right thigh and in the popliteal vein. Patent posterior tibial veins are evident in the right calf. IMPRESSION: 1. Suboptimal exam as described above. Lack of blood flow in the right common femoral vein suggests thrombosis, although this could be on a technical basis. 2. Unchanged cystic-appearing mass at the right groin compatible with a seroma or hematoma. 3. Adjacent heterogeneous right groin mass raising the possibility of residual or recurrent tumor.
[2016-06-21 12:06] LABS: PLT ESTIMATE ADEQUATE (ADEQUATE)
[2016-06-21] MEDS ORDERED: MORPHINE SULFATE 10 MG/ML VIAL. IV ONE (12:30)
[2016-06-21] MEDS ORDERED: ONDA-35 PO (13:14)
[2016-06-21] MEDS: DOCUSATE SODIUM 100 MG CAPSULE PO SCH (14:00)
--- NOTE | 2016-06-21 14:04 | ACF ---
Admission Forms Criteria PAIN MANAGEMENT [facility] Clinical Indications for Admission to Inpatient Care (Place 'X' for any and all applicable criteria): Hospital admission is needed for appropriate care of the patient because of ANY ONE of the following are present (1)(2)(3)(4)(5): [X]I. Severe pain requiring acute inpatient management as indicated by ALL of the following (2)(5)(10): [X]a) Continuous or frequent (eg, every 2 to 4 hours) parenteral analgesics required [A] [X]b) Necessity (ie, alternative approaches not effective) for analgesic regimen that can only be performed or initiated in inpatient setting [ ]II. Pain causing debilitation to the point of inability to function or be supported at any other level of care [ ]III. Severe side effects from pain medications as indicated by ANY ONE of the following (12)(13)(14)(15): [ ]a) Uncontrollable seizures [ ]b) Cardiac arrhythmias [ ]c) Severe volume depletion [ ]d) Vomiting that is uncontrollable at any other level of care [ ]e) Altered mental status (Dominique coma scale score less than 13) [ ]f) Obstipation with inadequate GI function to maintain nutrition [ ]g) Dehydration that is severe or persistent The original [employer] content created by [employer] has been revised. The portions of the content which have been revised are identified through the use of italic text or in bold, and [employer] has neither reviewed nor approved the modified material. All other unmodified content is copyright [employer]. Please see references footnoted in the original [employer] edition 2016 Admission Criteria Met?: Yes LONDON LOYD Jun 21, 2016 14:04
[2016-06-21] MEDS: POLYETHYLENE GLYCOL 3350 17 GM PACKET. PO SCH ×2 (14:09→21:20)
[2016-06-21] MEDS: HYDROCODONE/APAP 10/325 TABLET. PO PRN ×3 (14:10→22:44)
[2016-06-21] MEDS: MORPHINE ER 30 MG TABLET.ER PO SCH ×2 (14:10→21:22)
[2016-06-21] MEDS: LEVOFLOXACIN 500 MG TABLET PO SCH (14:10)
[2016-06-21] MEDS: PANTOPRAZOLE 40 MG TABLET. PO SCH (14:11)
[2016-06-21] MEDS: DOXYCYCLINE HYCLATE 100 MG TABLET PO SCH ×2 (14:11→21:20)
[2016-06-21] MEDS: METRONIDAZOLE 500 MG TABLET. PO SCH ×2 (14:11→21:20)
[2016-06-21] MEDS: FLUCONAZOLE 100 MG TABLET. PO SCH (14:11)
--- NOTE | 2016-06-21 14:56 | PDOC ---
Provider Note Provider Note Onc consult dictated- [id number] SCC of skin with pelvic recurrence- On RT, will add weekly cisplatin which was planned as outpt. Port requested. D/W charge nurse so chemo-certified nurse can be obtained. Hope to begin tomorrow PM. RLE swelling, cannot r/o thrombus. Heparin gtt ordered for before procedure tomorrow. Can transition to po anticoagulants afterwards if remains stable. TITI SHERMAN DO Jun 21, 2016 14:56
[2016-06-21] MEDS ORDERED: HEPARIN 25,000UTS/500ML PREMIX 500 ML IV PRN (15:00)
[2016-06-21] MEDS ORDERED: HEPARIN for IV BOLUS 10,000 UNIT/10 ML VIAL. IV PRN (15:45)
[2016-06-21] MEDS: MORPHINE SULFATE 4 MG/ML DISP.SYRIN. IV PRN ×4 (15:55→22:43)
[2016-06-21] MEDS: NICOTINE 14MG PATCH. TD SCH (16:33)
[2016-06-21] MEDS: HEPARIN 25,000UTS/500ML PREMIX 500 ML IV PRN (16:55)
[2016-06-21 19:00] VITALS: BP 105/52
--- NOTE | 2016-06-21 21:04 | HP ---
ADMIT DATE: 06/21/2016 HISTORY OF PRESENT ILLNESS: The patient is a 45-year-old -[place] female patient who was discharged yesterday after a prolonged stay in [facility] and eventually [facility]. 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 Apparently, the tumor spread to the right inguinal lymph nodes, and she underwent resection of the right inguinal lymph node and eventually amputation of her third and fourth right toes. She started radiation therapy on 06/05/2016, and she was admitted to [facility] after lab work done here at [facility] showed that she has marked hypercalcemia of malignancy that we treated with IV fluid, Lasix, and pamidronate. She was treated with radiation therapy, and she spiked a temperature, so she was treated with multiple antibiotics, and as of yesterday, she was discharged home to continue on doxycycline, fluconazole, levofloxacin, and Flagyl. This morning, she called me from home stating that her right leg is more swollen and more painful today, and she will not be able to stay at home, and she came back here and was admitted through the Emergency Room where she was evaluated. Doppler ultrasound was inconclusive; however, arterial Doppler ultrasound showed that there is suboptimal exam as described, lack of blood flow in the right common femoral vein suggestive of thrombosis. This could be on technical basis, unchanged cystic-appearing mass in the right groin compatible with a seroma or hematoma, adjacent heterogenous right groin mass raising the possibility of residual or recurrent tumor. There was also monophasic flow in the right lower extremity arteries, and we consulted the vascular surgeon for evaluation and treatment. PAST MEDICAL HISTORY: Significant for hypertension, skin cancer that was diagnosed as squamous cell carcinoma that metastasized to the right groin and required 3 toe amputations and excision of the right inguinal lymph node. PAST SURGICAL HISTORY: Significant for amputation of the right fifth toe done on 02/15/2016. She also had resection of her right inguinal lymph nodes. The cancer recurred in her right foot toes, and she underwent amputation of the right third and fourth toes about 13 days prior to admission to [facility]. Given the cancer has recurred in her foot and her right inguinal area, decision was made to treat her with radiation treatment, and she has received a total of about 8 to 9 radiation treatments so far. She was supposed to get her chemotherapy today for the first time. ALLERGIES: She is allergic to AUGMENTIN. MEDICATIONS: She was discharged yesterday on Flagyl 500 mg twice a day, fluconazole 200 mg once a day, doxycycline 100 mg twice a day for 7 days, and levofloxacin 500 mg once a day for 7 days. She was also discharged on MS Contin 30 mg p.o. twice a day, hydrocodone 10/325 one tablet every 4 hours as well as MiraLax and Colace. FAMILY HISTORY: She has one brother older, and has hypertension. Her father at the age of 62 because of lung cancer. Mother at age of 67 because of massive myocardial infarction. SOCIAL HISTORY: She is single, never , has 2 daughters. She smokes half a pack a day. She drinks alcohol occasionally. She does not use any drugs. She is currently on disability. REVIEW OF SYSTEMS: As per history of present illness. PHYSICAL EXAMINATION: GENERAL: On examining her, she looked well and was clearly in no apparent respiratory distress. Slightly pale, but no jaundiced, cyanosis, or thyromegaly. No jugular venous distention. No limb edema. VITAL SIGNS: Her heart rate was 75, blood pressure 136/61, temperature was 98.5, respiratory rate was 20, and oxygen saturation was 98%. HEAD, EYES, EARS, NOSE, AND THROAT: Showed normocephalic, atraumatic. NECK: Supple. HEART: Showed normal first and second heart sounds with no gallop, rub, or murmur. CHEST: Clear to auscultation. No crepitation or rhonchi. ABDOMEN: Distended, soft, and nontender. No guarding or rigidity. No organomegaly. Hernial orifices are intact. Bowel sounds are normal. NEUROLOGIC: She was awake, alert, and responding appropriately. Cranial nerves are intact. She moves upper extremities without difficulty as well as left lower extremity. Her right lower extremity is markedly swollen. She has wounds in her right foot and also marked tenderness in the right inguinal area. LABORATORY DATA: Today showed a white cell count of 16,500, hemoglobin 10, hematocrit 30, MCV 92, and platelet count of 347,000 with normal manual differential. Serum sodium was 143, potassium 3.9, chloride 104, bicarbonate 27, and anion gap of 12. Her BUN was 27, creatinine 1.1, and estimated GFR was 64 mL per minute, her glucose was 123, and calcium was 9.1. Total bilirubin, AST, ALT, alkaline phosphatase were normal. Her total protein was 7.2, albumin was 3.8. Her prothrombin time was 15.1, INR 1.3, and PTT was 34. IMPRESSION: 1. 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 2. She has inguinal and pelvic lymph node dissection. 3. She is status post radiotherapy that was started on 06/05/2016. 4. Malignant hypercalcemia. It has resolved after treatment with IV fluids, Lasix, and pamidronate. She has fever that continues most likely due to malignancy. So far, all her blood cultures are negative. She was discharged on 4 antibiotics yesterday. She is back now because of severe swelling and worsening pain in her right leg. We will consult Dr. Bueno, the vascular surgeon, Dr. Han, and Dr. Argelia Ramachandran. EVERT WHITE MD DR: JUANCARLOS/derek JOB#: [id number] / [id number]
[2016-06-21] MEDS: NYSTATIN TOPICAL POWDER 15GM BOTTLE. TP SCH (21:22)
[2016-06-21 23:00] VITALS: BP 120/63
[2016-06-21] MEDS: HEPARIN for IV BOLUS 10,000 UNIT/10 ML VIAL. IV PRN (23:38)
[2016-06-22] VITALS (13 sets, daily range): BP systolic 109–150; BP diastolic 52–71
[2016-06-22] MEDS: MORPHINE SULFATE 4 MG/ML DISP.SYRIN. IV PRN ×3 (02:22→07:59)
--- NOTE | 2016-06-22 04:18 | CONS ---
DATE OF CONSULTATION: 06/21/2016 ONCOLOGY CONSULT NOTE REFERRING PROVIDER: Peña Caballero M.D. REASON FOR CONSULTATION: Squamous cell carcinoma. HISTORY OF PRESENT ILLNESS: The patient is a 45-year-old female who has been found to have squamous cell carcinoma of the skin involving the right fifth toe with ipsilateral inguinal and pelvic adenopathy. She has undergone toe amputation followed by worsening adenopathy in her right groin with a pelvic lymph node dissection in 04/2016. At that time, 2/7 lymph nodes were involved by malignancy. She was found to have recurrence at the resection bed in her foot. She underwent re-resection with additional toe amputations at that time again confirming recurrent squamous cell carcinoma. She continues to have adenopathy confirming recurrent inguinal disease as well. She was started on radiation 06/05, but on 06/09/2016, found to have hypercalcemia with the calcium of 13, with medical treatment for that, calcium did improve. She has been admitted for reinitiation of the radiation and we had planned to add weekly cisplatin chemotherapy as well. Yesterday, she was very insistent on returning home and we would have done outpatient chemotherapy; however, she returned overnight with worsening right lower extremity swelling and pain. She has also had uncontrolled pain. PAST MEDICAL HISTORY: Hypertension, squamous cell carcinoma as above. PAST SURGICAL HISTORY: , toe amputations, pelvic lymph node dissections. FAMILY HISTORY: Positive for diabetes, hypertension and some cancers. SOCIAL HISTORY: No tobacco or alcohol. She does have some supportive family members as well. ALLERGIES: AUGMENTIN. CURRENT MEDICATIONS: Fluconazole, doxycycline, MiraLax, Protonix, Flagyl, Levaquin, Colace, MS Contin, ibuprofen, Lortab. REVIEW OF SYSTEMS: Ten point review of systems completed and unremarkable with the exception of fatigue, constipation, right lower extremity swelling and associated increased pain. PHYSICAL EXAMINATION: VITAL SIGNS: Temperature 98.6, pulse 80, respiratory rate 20, blood pressure 131/67 and 98% O2 on room air. GENERAL: She is alert and oriented. She is fatigued. Her performance status is very poor, but it was at the admission as well. She is not in any distress. HEENT: Extraocular muscles are intact. Sclerae are without icterus. Mucous membranes are moist. CARDIOVASCULAR: Heart is regular in rhythm and rate. LUNGS: Clear to auscultation bilaterally. ABDOMEN: Obese, soft, no tenderness. EXTREMITIES: 3+ lower extremity edema in her right lower extremity, 1+ in the left lower extremity, status post multiple toe amputations on the right side as well. IMAGING AND LABORATORY DATA: CBC, CMP are unchanged from yesterday, WBC 16.5 with neutrophil predominance, hemoglobin 9.7, platelets 347, creatinine 1.1. Duplex scan of the right lower extremity followed by right lower extremity ultrasound cannot definitively rule out a lower extremity thrombus, but the study was technically limited. ASSESSMENT AND PLAN: The patient is a 45-year-old female with the following medical problems: 1. Recurrent squamous cell carcinoma of the skin of her foot with pelvic adenopathy confirmed also to be cancer. She has been restarted on radiation and we will now add concurrent weekly cisplatin to boost the fact that the radiation as well. I have written chemotherapy orders and discussed this with the nursing education consultant. I discussed with the patient potential side effects including but not limited to fatigue, nausea, vomiting, diarrhea, constipation, myelosuppression, increasing her risk for infection and potential need for transfusion, ototoxicity, nephropathy even involving potential renal failure, and neuropathy. We will need a port for safe chemotherapy administration and I have requested this as well. 2. Possible right lower extremity blood clot. Some of her swelling could certainly be related to the significant cancer associated adenopathy; however, as we cannot definitively rule out a blood clot, her swelling is acute, and she is at high risk for clots with obesity, immobility, and active malignancy, I think we need to start anticoagulation. I have ordered a heparin drip, which can be safely discontinued just before her port placement and then restart it afterwards. If she remains stable, we can transition her to some anticoagulants after procedures are completed. Thank you again for alerting us of her admission. I have discussed this with Dr. Han as well. TITI SHERMAN DO DR: SHEELA/derek JOB#: [id number] / [id number]
[2016-06-22] MEDS: HEPARIN 25,000UTS/500ML PREMIX 500 ML IV PRN ×2 (05:40→21:20)
[2016-06-22 05:55] LABS: BASO # 0.1 x10^3/uL (0.0-0.2); BASO % 0 % (0-3); EOS % 0 % (0-3); HEMATOCRIT 28.4 % (36.0-47.0); HEMOGLOBIN 9.5 g/dL (12.0-15.5); LYMPH # 0.8 x10^3/uL (1.0-4.8); LYMPH % 4 % (24-48); MEAN CORPUSCULAR HEMOGLOBIN 31 pg (25-35); MEAN CORPUSCULAR HGB CONC 34 g/dL (31-37); MEAN CORPUSCULAR VOLUME 91 fL (79-100); MONO % 6 % (0-9); NEUT % 90 % (31-73); PLATELET COUNT 375 x10^3/uL (140-400); RED BLOOD COUNT 3.12 x10^6/uL (3.50-5.40); RED CELL DISTRIBUTION WIDTH 13.5 % (11.5-14.5); WHITE BLOOD COUNT 18.4 x10^3/uL (4.0-11.0)
[2016-06-22] MEDS: HYDROCODONE/APAP 10/325 TABLET. PO PRN ×4 (06:05→22:44)
[2016-06-22] MEDS: HEPARIN for IV BOLUS 10,000 UNIT/10 ML VIAL. IV PRN (06:39)
--- NOTE | 2016-06-22 07:31 | PDOC ---
Provider Note Provider Note Vascular Surgery Consult 45 year old female with a history of squamous cell cancer who recently underwent partial right foot amputation and right groin lymph node resection. She has right leg swelling which is likely in part secondary to lymphedema from the lymph node dissection. Also the right leg venous duplex can't rule out a DVT. With her history of active cancer, recent surgery and symptoms of right leg swelling I agree with full anticoagulation. Recommend compression therapy with stockings to the right leg in the future when the foot is healed. ANA BOYER MD Jun 22, 2016 07:31
[2016-06-22] MEDS: NICOTINE 14MG PATCH. TD SCH (07:53)
[2016-06-22] MEDS: MORPHINE ER 30 MG TABLET.ER PO SCH ×2 (07:54→21:07)
[2016-06-22] MEDS: NYSTATIN TOPICAL POWDER 15GM BOTTLE. TP SCH ×2 (07:59→22:10)
[2016-06-22] MEDS: POLYETHYLENE GLYCOL 3350 17 GM PACKET. PO SCH ×3 (09:00→21:07)
[2016-06-22] MEDS: DOXYCYCLINE HYCLATE 100 MG TABLET PO SCH ×2 (09:00→21:06)
[2016-06-22] MEDS: PANTOPRAZOLE 40 MG TABLET. PO SCH (09:00)
[2016-06-22] MEDS ORDERED: MORPHINE SULFATE 10 MG/ML VIAL. IV ONE (09:00)
--- NOTE | 2016-06-22 10:33 | PDOC ---
Subjective: Subjective: Onc f/u- SCC, Possible DVT RLE Pt with no changes overnight. Still with RLE swelling and pain. Planning for port today. Objective: Vital Signs: Vital Signs Date Time Temp Pulse Resp B/P Pulse Ox O2 Delivery O2 Flow Rate FiO2 06/22/16 09:45 16 94 Room Air 06/22/16 03:00 101.8 85 109/52 101.8 Physical Exam: Extremities: Other (3+ RLE edmea, surgical dressings in place.) General: Alert, Oriented X3, Cooperative, No acute distress Lungs: Other (no resp distress) Psych/Mental Status: Mental status NL, Mood NL Assessment/Plan A/P: 1. 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 Planning to add weekly cisplatin to boost radiation. Port to be placed today; will give chemo tomorrow AM. 2. Possible RLE DVT- High risk due to cancer, obesity, immobility. On heparin gtt; can be transitioned to eliquis tomorrow after procedures are completed. 3. Recent fevers- Thought to be malignant in nature; infectious w/u has been neg. TITI SHERMAN DO Jun 22, 2016 10:33
[2016-06-22] MEDS ORDERED: HEPARIN PF 500 UNIT/5 ML DISP.SYRIN. IV ONE ×2 (10:42→12:15)
[2016-06-22] MEDS ORDERED: VANCOMYCIN 1GM IVPB FOR OMNI 250 ML ONE (10:43)
[2016-06-22] MEDS ORDERED: LIDOCAINE 1%/EPI 1:100,000 20 ML VIAL. ONE ×2 (10:43→11:53)
[2016-06-22] MEDS ORDERED: FENTANYL PF 250 MCG/5 ML VIAL. ONE (11:20)
[2016-06-22] MEDS ORDERED: MIDAZOLAM HCL/PF 5 MG/5 ML VIAL ONE (11:20)
[2016-06-22] MEDS ORDERED: CLINDAMYCIN 600MG PREMIX 50 ML IV ONE ×2 (11:30→12:15)
[2016-06-22] MEDS ORDERED: FENTANYL PF 100 MCG/2 ML VIAL. ONE (11:54)
[2016-06-22] MEDS ORDERED: VANCOMYCIN 1GM IVPB FOR OMNI 250 ML IRR ONE (12:15)
[2016-06-22] MEDS ORDERED: FENTANYL PF 250 MCG/5 ML VIAL. IV ONE (12:15)
[2016-06-22] MEDS ORDERED: LIDOCAINE 1%/EPI 1:100,000 20 ML VIAL. IJ ONE (12:15)
[2016-06-22] MEDS ORDERED: MIDAZOLAM HCL/PF 5 MG/5 ML VIAL IV ONE (12:15)
[2016-06-22] MEDS ORDERED: FENTANYL PF 100 MCG/2 ML VIAL. IV ONE (12:15)
--- NOTE | 2016-06-22 12:23 | PDOC ---
MODERATE SEDATION ASSESSMENT RISKS/ALTERNATIVES Risks/Alternatives Risks and alternatives of this type of sedation and procedure discussed with: RISK/ALTERNATIVES: Patient H & P ON CHART H & P H & P on chart and reviewed for co-morbid conditions and appropriate labs. H&P ON CHART: Yes STATUS PREG STATUS ASSESSED: Yes MEDS/ALLERGIES REVIEWED Meds/Allergies Reviewed Medications and Allergies including time and route of recently administered narcotics and sedatives. MEDS/ALLERGIES REVIEWED: Yes ASA RATING ASA RATING: III AIRWAY ASSESSMENT Airway Assessment Airway patency, oral function limitations, presence of caps, crowns, dentures, partials, and ability to extend neck assessed. AIRWAY ASSESSMENT: Yes MALLAMPATI SCORE MALLAMPATI SCORE: III PRE-SEDATION ASSESSMENT PRE-SEDATION ASSESSMENT: Yes SHOSHANA CARLTON MD Jun 22, 2016 12:23
--- NOTE | 2016-06-22 12:27 | PDOC ---
Exam Community Development Aide Community Development Aide Fabienne Packer Operator Automatic Packer Operator Automatic B Cates Pre-Procedure Diagnosis Pre-Procedure Diagnosis 45 YO female with rt foot squamous cell carcinoma, metastatic to right inguinal/ external iliac nodes. Power Port insertion requested for chemotx by oncology. Post-Procedure Diagnosis Post-Procedure Diagnosis Same Procedure Performed Procedure Performed Sono/fluoro guided Power Port insertion Type of Anesthesia Type of Anesthesia Local + Mod sedation Estimated Blood Loss EBL: Minimal Drain/Tubes Drains/Tubes Right IJ 8F tunneled Power Port. Condition of Patient Condition of Patient Stable. No apparent complication. Disposition Disposition From IR return to [facility] for recovery. F/u with Dr Caballero and Dr Ramachandran. OK to use Power Port. Full report to follow. SHOSHANA CARLTON MD Jun 22, 2016 12:27
[2016-06-22] MEDS: METRONIDAZOLE 500 MG TABLET. PO SCH ×2 (13:08→21:06)
[2016-06-22] MEDS: LEVOFLOXACIN 500 MG TABLET PO SCH (13:08)
[2016-06-22] MEDS: FLUCONAZOLE 100 MG TABLET. PO SCH (13:08)
[2016-06-22] MEDS: DOCUSATE SODIUM 100 MG CAPSULE PO SCH (13:08)
[2016-06-22] MEDS: MORPHINE SULFATE 2 MG/ML DISP.SYRIN. IV PRN ×4 (15:08→22:07)
[2016-06-22] MEDS ORDERED: WARFARIN 7.5 MG TABLET. PO ONE (19:13)
[2016-06-22] MEDS ORDERED: HEPARIN for IV BOLUS 10,000 UNIT/10 ML VIAL. IV PRN ×2 (19:15)
[2016-06-22] MEDS ORDERED: HEPARIN 25,000UTS/500ML PREMIX 500 ML IV PRN (19:15)
[2016-06-22] MEDS: IBUPROFEN 800 MG TABLET. PO PRN (21:10)
[2016-06-23] VITALS (8 sets, daily range): BP systolic 103–127; BP diastolic 49–92
--- NOTE | 2016-06-23 00:40 | CONS ---
DATE OF CONSULTATION: 06/22/2016 REFERRING PHYSICIAN: Dr. Caballero. HISTORY OF PRESENT ILLNESS: The patient is known to us and she was initially seen in consultation on 04/07/2016. The patient is 45 years old now. She gives a history of noticing a growth on the lateral aspect of the toes on the right foot. This was all diagnosed almost a year and then the patient was finally seen by Dr. Steven Skelton when she had presented with a wound on the plantar aspect of the right foot. She was initially under the care of guest experience representative, Dr. Anne. She was under the wound care program at that time. The patient finally underwent resection on 03/06/2016, by Dr. Skelton at [facility]. The final pathology of this resection was squamous cell carcinoma. This was moderately well to poorly differentiated. The lesion was ulcerated and measured 5.2 x 3.5 cm initially and as per pathology, there was a 0.1 cm clean margin. The patient also had noticed some nodule from the right inguinal region. This was subsequently diagnosed with a CT scan, which revealed a right inguinal and right pelvic and iliac lymphadenopathy. The iliac lymph nodes were positive 2/5 lymph node and the inguinal was 1/1 positive. The rest of the lymph node did show reactive lymphoid hyperplasia. The pathology finally was a [id number] squamous cell carcinoma of the right fifth toe. She was subsequently seen in this department for adjuvant radiation treatment. She subsequently also had a recurrence in the right plantar area laterally, which was biopsied on 05/19/2016 and revealed a recurrent lesion of squamous cell carcinoma. PAST MEDICAL AND FAMILY HISTORY: Unchanged. On presentation for the initial palliative radiation, the patient was quite awake, oriented x 3, very pleasant. She weighed 250 pounds. Blood pressure and pulse within normal limits. Oxygen saturation at room air was 98%. The examination of the extremities revealed edema of the right foot and ankle. The right groin wound was well healing on this presentation. She was having some induration and pain in the right groin area. There were no masses felt on this consultation, which was on 05/26/2016. IMPRESSION: A 45-year-old lady with a [id number] differentiated squamous cell carcinoma of the right lateral aspect of the foot, status post excision followed by workup for the inguinal and pelvic lymphadenopathy and they were found positive as stated above. The patient elected to undergo adjuvant radiation treatment. The patient was simulated on 06/05/2016 up with a plan to deliver 4000 cGy in 20 fractions at a daily rate of 200 cGy per fraction and followed by ____ boost. The patient was initiated on treatment and has been not very regular in attending the treatment. She had been admitted to the [facility] for pain control, wound care and lymphedema of the right lower extremity. Other than that, the patient has been made to understand that this adjuvant radiation treatment is very necessary to prevent a local recurrence. The patient was also seen by the medical oncologist, Dr. Salmeron. The patient has a plan for putting a port for chemo today. IDALIA BOWLES MD DR: ROOSEVELT/derek JOB#: [id number] / [id number] STEVEN Hastings MD, AHMED MD
--- NOTE | 2016-06-23 00:52 | PN ---
DATE: 06/22/2016 SUBJECTIVE: The patient is resting slightly propped up in bed, in no apparent distress. On questioning her, she continued to complain of pain in her right groin and right foot. She has had radiation treatment done today and has had a Port-A-Cath placed by Dr. Loving. She was seen apparently by the Vascular Surgery team and they recommended full anticoagulation. PHYSICAL EXAMINATION: GENERAL: When I examined her this afternoon, she looked well and was clearly in no apparent respiratory distress ____ pale, jaundice, cyanosis, or thyromegaly. No jugular venous distention. No limb edema. VITAL SIGNS: Her heart rate was 95, blood pressure 133/67, temperature was 98.6, respiratory rate was 16 and oxygen saturation was 100% on 2 liters of oxygen. The rest of clinical examination is still stable, has not really changed. LABORATORY DATA: Her lab work this morning showed a white cell count of 18,400, hemoglobin 9.5, hematocrit 28, MCV 91, and platelet count of 375,000. Her chemistry showed that her serum sodium was 143, potassium 3.9, chloride 104, bicarbonate 27, anion gap of 1, estimated GFR was 64 mL per minute. Her glucose 123, calcium was 9.1. Total bilirubin, AST, ALT, alkaline phosphatase were normal. Total protein 7.2, albumin 3.8. PLAN: My plan is to continue with her current plan of management, continue with antibiotics orally as recommended by Infectious Disease specialist, continue with pain management and we will decide on further management accordingly. I will consult physical and occupational therapy. She would receive her first dose of chemotherapy tomorrow. EVERT WHITE MD DR: JUANCARLOS/derek JOB#: [id number] / [id number]
[2016-06-23] MEDS: MORPHINE SULFATE 2 MG/ML DISP.SYRIN. IV PRN ×6 (00:53→22:28)
[2016-06-23] MEDS: HYDROCODONE/APAP 10/325 TABLET. PO PRN ×4 (03:59→19:47)
[2016-06-23 04:33] LABS: INR 1.5 (0.8-1.1); PROTHROMBIN TIME PATIENT 16.8 SEC (11.7-14.0)
--- NOTE | 2016-06-23 04:39 | PN ---
DATE: The patient is a 45-year-old lady with a diagnosis of moderately to poorly differentiated squamous cell carcinoma of the lateral aspect of the right foot ____ status post resection and now she is also status post inguinal and pelvic lymph node dissection. The inguinal and iliac lymph nodes were positive. The patient was further ____ for the control of the local disease. She was started on treatment planning on 05/26/2016. As of now, she received treatment on a very irregular basis and this was secondary to her increased pain when lying down on the treatment table in our department. She was in the hospital and was discharged on 06/19/2016 and was readmitted through the Emergency Room on 06/20/2016 with a complaint of increasing edema of the right lower extremity and also pain. She is currently in room [address] Caballero. Attempts were made to start the treatment again and she was brought down on 06/21/2016 after receiving 8 mg of morphine sulfate prior to the treatment. Despite this medication, the patient had severe pain and had to return to her room 508 because of the pain and did not receive the treatment. Subsequently, the IV morphine today was increased to 10 mg and she was brought down and received her treatment and she has been made aware that she is not receiving regular treatment and it is very important for the control of the local disease and the patient will try her best. So, the current plan is to give 10 mg of IV morphine sulfate for the treatment followed by radiation. IDALIA BOWLES MD DR: ROOSEVELT/derek JOB#: [id number] / [id number]
[2016-06-23 05:00] LABS: ALBUMIN 1.7 g/dL (3.4-5.0); ALBUMIN/GLOBULIN RATIO 0.4 (1.0-1.7); CALCIUM 9.2 mg/dL (8.5-10.1); CREATININE 0.5 mg/dL (0.6-1.0); POTASSIUM 4.2 mmol/L (3.5-5.1); TOTAL BILIRUBIN 0.6 mg/dL (0.2-1.0); TOTAL PROTEIN 6.2 g/dL (6.4-8.2)
--- NOTE | 2016-06-23 07:31 | RAD ---
Ultrasound and fluoroscopy guided right IJ power port insertion Indication: 45-year-old female with metastatic squamous cell carcinoma. Power Port insertion has been requested by oncology for chemotherapy. Fluoroscopy time: 1.1 minutes Kerma-area product: 3 Gycm2 Moderate sedation: 62 minutes moderate sedation was provided utilizing a total of 5 mg Versed and 300 mcg fentanyl, IV. The patient was appropriately monitored by a qualified independent observer throughout the course of moderate sedation. Antibiotic: A single dose of Clindamycin was administered within 1 hour of the procedure start time. Cephalosporin was withheld due to allergy. Sterility: All elements of maximal sterile barrier technique, including the use of a cap, mask, sterile gown, sterile gloves, large sterile sheet, appropriate hand hygiene, and 2% chlorhexidine for cutaneous antisepsis (or acceptable alternative antiseptic per current guidelines) were utilized. Procedure: Informed consent was obtained from the patient. He was placed supine on the angiography table. Preliminary ultrasound examination of right neck revealed wide patency of right internal jugular vein, which was documented with a single hard copy ultrasound image. Right neck and upper chest were then prepped and draped in the usual sterile fashion, utilizing all elements of maximal sterile barrier technique, as described above. Moderate sedation was provided with IV Versed and fentanyl. 600 mg clindamycin was given IV, prophylactically. Using aseptic technique and local anesthesia, a small skin incision was made lateral to right internal jugular vein, just above clavicle. Using aseptic technique, local anesthesia, direct ultrasound guidance, and the micropuncture system, successful percutaneous entry was achieved into right internal jugular vein. The right IJ venostomy tract was then dilated and the 8 Macedonian catheter from a Bard power port system was easily advanced centrally through an 8.5 Macedonian peel-away sheath, and was positioned with this tip at the level of upper right atrium utilizing fluoroscopic guidance. A skin site suitable for placement of the power port body was then selected and marked along upper anterior aspect of right chest, overlying anterior aspect of right second rib. Using aseptic technique and local anesthesia, a horizontally oriented skin incision was made in this location. A subcutaneous chest wall pocket was then created and was packed with vancomycin soaked gauze. A subcutaneous tunnel was then fashioned between the chest wall pocket and the initial supraclavicular incision. The 8 Macedonian power port catheter was then pulled through the subcutaneous tunnel from superior to inferior, utilizing the tunneling device provided. The catheter was then trimmed to an appropriate length and was connected to the power port body, which had been previously flushed with, and soaked in, vancomycin solution. The vancomycin soaked gauze was then removed from the chest wall pocket, which was then copiously irrigated with vancomycin solution. The power port body was then easily introduced into the chest wall pocket and was secured in place utilizing two 2-0 Vicryl sutures. The power port was then accessed utilizing a Helms needle, was documented to flush and aspirate normally, and was packed with heparinized saline. The chest incision was then closed with 2-0 Vicryl, 4-0 Vicryl, Steri-Strips, and sterile dressing. The small supraclavicular incision was closed with 4-0 Vicryl, Steri-Strips, and sterile dressing. Patient tolerated the procedure well without apparent complication. Satisfactory position of the power port was confirmed with a single fluoroscopic spot image. Impression: Successful, uneventful ultrasound and fluoroscopy guided placement of right IJ 8 Macedonian tunneled power port, as described.
[2016-06-23] MEDS ORDERED: MORPHINE SULFATE 10 MG/ML VIAL. IV ONE (09:00)
[2016-06-23] MEDS ORDERED: CISPLATIN IV ONE (09:30)
[2016-06-23] MEDS ORDERED: NORMAL SALINE IV ONE (09:30)
[2016-06-23] MEDS: POLYETHYLENE GLYCOL 3350 17 GM PACKET. PO SCH ×2 (09:42→21:00)
[2016-06-23] MEDS: NICOTINE 14MG PATCH. TD SCH (09:42)
[2016-06-23] MEDS: MORPHINE ER 30 MG TABLET.ER PO SCH ×2 (09:42→21:55)
[2016-06-23] MEDS: DOXYCYCLINE HYCLATE 100 MG TABLET PO SCH ×2 (09:43→21:54)
[2016-06-23] MEDS: PANTOPRAZOLE 40 MG TABLET. PO SCH (09:43)
[2016-06-23] MEDS: FLUCONAZOLE 100 MG TABLET. PO SCH (09:43)
[2016-06-23] MEDS: LEVOFLOXACIN 500 MG TABLET PO SCH (09:43)
[2016-06-23] MEDS: NYSTATIN TOPICAL POWDER 15GM BOTTLE. TP SCH ×2 (09:43→21:55)
[2016-06-23] MEDS: METRONIDAZOLE 500 MG TABLET. PO SCH ×2 (09:43→21:54)
[2016-06-23] MEDS: DOCUSATE SODIUM 100 MG CAPSULE PO SCH (09:43)
[2016-06-23] MEDS: HEPARIN 25,000UTS/500ML PREMIX 500 ML IV PRN (10:08)
[2016-06-23] MEDS ORDERED: IV NORMAL SALINE 1000ML BAG 1,000 ML IV SCH ×2 (11:00→14:30)
--- NOTE | 2016-06-23 12:30 | PDOC ---
Subjective: Subjective: Onc f/u- SCC foot, pelvic nodes No changed. Anxious for chemo. RLE Pain controlled. RLE swelling better. Objective: Vital Signs: Vital Signs Date Time Temp Pulse Resp B/P Pulse Ox O2 Delivery O2 Flow Rate FiO2 06/23/16 12:01 Room Air 06/23/16 11:00 98.4 86 18 103/57 97 98.4 06/23/16 04:59 2.0 Physical Exam: Extremities: Other (2+ RLE swelling, improved) General: Alert, Oriented X3, Cooperative, No acute distress Musculoskeletal: Other (RLE dressings C/D/I) Psych/Mental Status: Mental status NL, Mood NL Assessment/Plan A/P: 1. 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 Planning to add weekly cisplatin to boost radiation, beginning this PM. Antiemetics will be given with chemo, also prn meds added. 2. Possible RLE DVT- High risk due to cancer, obesity, immobility, smoking. DC' ed heparin gtt. Started eliquis 10 mg bid x 1 wk then 5 mg bid likely indefinitely with ongoing malignancy. 3. Fevers- Thought to be malignant in nature; infectious w/u has been neg. They continue but she does not look ill. If she is DC'ed to SNF, Dr. Salmeron will f/u with weekly chemo again next Sun. Dr. Joel is covering this weekend if any acute issues arise. Dr. Salmeron will return Sunday. TITI SHERMAN DO Jun 23, 2016 12:30
--- NOTE | 2016-06-23 14:59 | PDOC2 ---
PALLIATIVE CARE Palliative Care Note Palliative Care Consult requested by Dr. Caballero to address goals of care/pain control Patient alert. Sitting up in chair. Chemotherapy just finished. Pain rated 3 mostly groin area. Increased pain in foot and groin with movement Diagnosis: SCC of foot with recurrent pelvic adenopathy--receiving radiation and chemotherapy Patient is followed by [facility] at home; Patient's goal is to continue with aggressive treatment. Discussed option of palliative home health in place of [facility] with hope of improved pain management. She is in agreement if insurance will pay for those services. Patient receiving MS Contin 30mg po BID with Loritab 10mg/325 for breakthrough pain. Patient may benefit more from short acting (Roxonal) since pain increase primarily from movement. Patient states she is anxious/ Ativan may be beneficial Discussed Hospice-- may be appropriate for her when the goal is comfort care and no longer seeking aggressive treatment. Patient has received 7 doses of 2mg each of IV Morphine since admission last pm. MS Contin could be increased to 45mg BID with Roxonal 5 mg po for breakthrough pain. Ativan 0.5mg po every 6 hours prn for anxiety. Kobe CEDILLO informed of patient wishes for Palliative Home Health if insurance would pay for this. LEYLA STOKES Jun 23, 2016 14:58
[2016-06-23] MEDS ORDERED: ANTI-COAG MONITOR BY PHARMACY. MC PRN (15:00)
[2016-06-23] MEDS: ONDANSETRON PF 4 MG/2 ML VIAL. IV PRN ×2 (16:24→22:28)
[2016-06-23] MEDS: APIXABAN 5 MG TABLET. PO SCH ×2 (16:30→21:54)
[2016-06-23] MEDS: PROCHLORPERAZINE 5 MG TABLET. PO PRN (19:47)
[2016-06-24] MEDS: MORPHINE SULFATE 2 MG/ML DISP.SYRIN. IV PRN ×5 (01:11→14:59)
[2016-06-24 03:00] VITALS: BP 123/70
[2016-06-24] MEDS: PROCHLORPERAZINE 5 MG TABLET. PO PRN (03:28)
[2016-06-24] MEDS: IBUPROFEN 800 MG TABLET. PO PRN ×2 (03:29→12:05)
--- NOTE | 2016-06-24 06:55 | PN ---
DATE: 06/23/2016 SUBJECTIVE: The patient is resting, slightly propped up in her recliner in no apparent distress and apparently, she went down today for radiation therapy, but the machine broke and therefore, the plan is for her to have chemotherapy today. When I had questioned her, she is still continuing to complain of pain in her right lower extremity with swelling as well as constipation. According to her, she is able to move around and will be able to go home. Stated that she was seen by the physical and occupational therapist, although I did not see any notes here. PHYSICAL EXAMINATION: GENERAL: When I examined her, she looked well and was clearly in no apparent respiratory distress, pale, but no jaundice, cyanosis or thyromegaly. No jugular venous distention. No limb edema. VITAL SIGNS: Her heart rate was 86, blood pressure 103/57, temperature was 98.4, respiratory rate was 18 and oxygen saturation was 97%. The rest of clinical examination is stable. EXTREMITIES: She has the wounds in her right foot and her right lower extremity is markedly swollen. Her intake over the last 24 hours was 1800, output was 1600. LABORATORY DATA: As of this morning, her white cell count was 18,400, hemoglobin 9.5, hematocrit 28, MCV 91 and platelet count 375,000. Her chemistry showed serum sodium 134, potassium 4.2, chloride 97, bicarbonate 29, anion gap of 8, BUN 8, creatinine 0.5, estimated GFR was 160 mL per minute. Her glucose was 107, calcium was 9.2. Total bilirubin, AST, ALT, alkaline phosphatase were normal. Her total protein was 6.2, albumin was 1.7. Her prothrombin time was 16.8, INR 1.5. ASSESSMENT AND PLAN: She is now on apixaban 10 mg twice a day. We will continue with antibiotic treatment as recommended by the Infectious Disease specialist, continue with anticoagulation, continue with physical and occupational therapy. The patient will be either discharged home with home health and/or go to an inpatient rehab center. EVERT WHITE MD DR: JUANCARLOS/derek JOB#: [id number] / [id number]
[2016-06-24 07:00] VITALS: BP 120/63
[2016-06-24] MEDS: ONDANSETRON PF 4 MG/2 ML VIAL. IV PRN (08:29)
[2016-06-24] MEDS: PANTOPRAZOLE 40 MG TABLET. PO SCH (08:30)
[2016-06-24] MEDS: NICOTINE 14MG PATCH. TD SCH (08:30)
[2016-06-24] MEDS: LEVOFLOXACIN 500 MG TABLET PO SCH (08:30)
[2016-06-24] MEDS: FLUCONAZOLE 100 MG TABLET. PO SCH (08:30)
[2016-06-24] MEDS: DOCUSATE SODIUM 100 MG CAPSULE PO SCH (08:30)
[2016-06-24] MEDS: DOXYCYCLINE HYCLATE 100 MG TABLET PO SCH (08:30)
[2016-06-24] MEDS: APIXABAN 5 MG TABLET. PO SCH (08:30)
[2016-06-24] MEDS: METRONIDAZOLE 500 MG TABLET. PO SCH (08:30)
[2016-06-24] MEDS: MORPHINE ER 30 MG TABLET.ER PO SCH (08:31)
[2016-06-24] MEDS: HYDROCODONE/APAP 10/325 TABLET. PO PRN ×2 (08:57→16:00)
[2016-06-24] MEDS: POLYETHYLENE GLYCOL 3350 17 GM PACKET. PO SCH (09:00)
[2016-06-24] MEDS: NYSTATIN TOPICAL POWDER 15GM BOTTLE. TP SCH (09:00)
[2016-06-24 09:26] LABS: INR 2.5 (0.8-1.1); PROTHROMBIN TIME PATIENT 25.4 SEC (11.7-14.0)
[2016-06-24 11:00] VITALS: BP 107/65
[2016-06-24] MEDS ORDERED: HEPARIN PF 500 UNIT/5 ML DISP.SYRIN. IV ONE (14:00)
[2016-06-24 15:00] VITALS: BP 112/71
--- NOTE | 2016-06-24 21:17 | DS ---
DATE OF DISCHARGE: 06/24/2016 HOSPITAL COURSE: The patient is a 45-year-old -[place] female patient, who was admitted with a complaint of marked pain and swelling of her right lower extremity. She did have Doppler ultrasound of the right lower extremity, which showed that there is a poor blood flow and she was treated basically prophylactically started on apixaban. She received her chemotherapy and received also radiation treatment and a decision was made to discharge her home with home health. PHYSICAL EXAMINATION: GENERAL: When I examined her today, she looked well and was clearly in no apparent respiratory distress, pale, but no jaundice, cyanosis, or thyromegaly. No jugular venous distention. No limb edema. VITAL SIGNS: Her heart rate was 93, blood pressure was 123/70, temperature was 102.2, respiratory rate was 18 and oxygen saturation was 99%. HEAD, EYES, EARS, NOSE AND THROAT: Showed normocephalic, atraumatic. NECK: Supple. HEART: Showed normal first and second heart sounds with no gallop, rub or murmur. CHEST: Clear to auscultation. No crepitation or rhonchi. ABDOMEN: Distended, soft, nontender. No guarding or rigidity. No organomegaly. Hernial orifices intact. Bowel sounds normal. NEUROLOGIC: She is awake, alert, responding appropriately. Cranial nerves intact. She moves extremities without difficulty. She ambulates without assistance or assistive devices. LABORATORY DATA: Her chemistry showed that her serum sodium was 134, potassium 4.2, chloride 97, bicarbonate 29, anion gap of 8, BUN 8, creatinine 0.5, estimated GFR was 160 mL per minute. Her glucose was 107, calcium was 9.2. Total bilirubin, AST, ALT, alkaline phosphatase were normal. Her total protein was 6.2, albumin was 1.7. ____ showed a white cell count of 18,000, hemoglobin 9.5, hematocrit 28, MCV 91, and platelet count of 375,000. FINAL DISCHARGE DIAGNOSES: 1. Squamous cell carcinoma of the right foot with recurrent pelvic adenopathy on radiation. She did receive cisplatin to postradiation started yesterday. 2. Possible right lower extremity deep venous thrombosis. HISTORY OF PRESENT ILLNESS: The patient is at high risk due to cancer, obesity, immobility, smoking. Her heparin drip was discontinued. She was started on Eliquis 10 mg b.i.d. for 1 week, then 5 mg b.i.d., likely indefinitely with ongoing malignancy, fever thought to be due to malignancy in nature as infectious workup has so far been negative. She continued to be febrile. However, she does not look ill. She is hemodynamically stable and she continues to be on 4 antibiotics as prescribed by the Infectious Disease including fluconazole 200 mg once a day, doxycycline 100 mg p.o. b.i.d., metronidazole 500 mg p.o. b.i.d. and levofloxacin 500 mg once a day. MEDICATIONS: She will be discharged on the following medications: Colace 100 mg once a day, doxycycline 100 mg twice a day for 7 days, fluconazole 200 mg once a day, ibuprofen 800 mg 3 times a day as needed, levofloxacin 500 mg once a day for 7 days, Flagyl 500 mg twice a day, Zofran 4 mg tablet every 4 hours as needed for nausea and vomiting, Protonix 40 mg once a day, polyethylene glycol 17 grams twice a day. She was discharged also on morphine sulfate extended release 30 mg twice a day. She was also on oxycodone 10 mg every 4 hours. EVERT WHITE MD DR: JUANCARLOS/derek JOB#: [id number] / [id number]
[2016-06-26] MEDS ORDERED: MORPHINE SULFATE 10 MG/ML VIAL. IV SCH (09:00)
== END 2016-06-24 17:53 | disposition home health service (06) | DRG 287 ==
LOC: ER 09:10 → 5 NORTH 10:40
PROVIDERS: ADMIT Internal Medicine; ATTEND Internal Medicine
PROC: B2141ZZ Fluoroscopy of Right Heart using Low Osmolar Contrast (ICD-10-PCS; principal; 2016-06-23)
PROC: 02H633Z Insertion of Infusion Device into Right Atrium, Percutaneous Approach (ICD-10-PCS; 2016-06-23)
PROC: B244YZZ Ultrasonography of Right Heart using Other Contrast (ICD-10-PCS; 2016-06-23)
DX: I82.401 Acute embolism and thrombosis of unspecified deep veins of right lower extremity (principal); Z68.42 Body mass index [BMI] 45.0-49.9, adult; Z79.82 Long term (current) use of aspirin; C44.92 Squamous cell carcinoma of skin, unspecified; E83.52 Hypercalcemia; F17.210 Nicotine dependence, cigarettes, uncomplicated; F41.9 Anxiety disorder, unspecified; I10 Essential (primary) hypertension; I89.0 Lymphedema, not elsewhere classified; K59.00 Constipation, unspecified; Z51.5 Encounter for palliative care; Z79.01 Long term (current) use of anticoagulants; Z80.1 Family history of malignant neoplasm of trachea, bronchus and lung; Z82.49 Family history of ischemic heart disease and other diseases of the circulatory system; Z83.3 Family history of diabetes mellitus; Z85.828 Personal history of other malignant neoplasm of skin; Z89.429 Acquired absence of other toe(s), unspecified side; Z92.3 Personal history of irradiation; Z88.1 Allergy status to other antibiotic agents; Z88.0 Allergy status to penicillin; Z79.899 Other long term (current) drug therapy
CPT/HCPCS: 36415; 36561; 76937; 77001; 77412; 80053; 83880; 85007; 85027; 85520; 85610; 85730; 93926; 93971; 96374; 99406; C1751; C1892; J2250; J2270; J2405; J3010; J3370; J3490; J7030; J7050; Q0164; 99285-25

== ENCOUNTER → 2016-08-08 | Outpatient (CLI) | payer OTHER ==
[~2016-08-08] MED LIST changes: +CONTRAST GIVEN MC PRN; +HEPARIN PF 500 UNIT/5 ML DISP.SYRIN. IV ONE; +IOHEXOL 240 MG/ML 50ML VIAL. PO ONE; +IOHEXOL 300 MG/ML 75 ML VIAL IV ONE; +ONDA-35 PO; +POLY17PO29 PO; -POLY17PO5 PO
--- NOTE | 2016-08-08 13:21 | RAD ---
Indication pelvic adenopathy. Right groin pain. Axial images to the abdomen and pelvis were obtained. Both IV and oral contrast were administered. Approximately 75 cc of Omnipaque 300 was administered intravenously. Note is made of a previous examination 03/31/2016. The history of squamous cell carcinoma involving the right foot has been provided. Imaging through the lung bases demonstrates a 3 to 4 mm pulmonary nodule in the right lower lobe, new relative to the scan 03/31/2016. This would be very suspect for metastatic disease given the clinical history. The liver and spleen appear unremarkable and the gallbladder appears grossly normal. The adrenal glands and kidneys appear normal. No pancreatic abnormality is seen. There is no significant adenopathy seen in the abdomen. In the pelvis there is a soft tissue mass, probably reflecting adenopathy, anterior to the right psoas muscle and invading the muscle. There are enlarged necrotic nodes seen along the external iliac chain. The largest in the pelvis measures approximately 4 cm. Additional significant adenopathy is seen in the right groin. Again these nodes are likely necrotic. The largest measures 5.3 cm. Adenopathy has progressed relative to the referenced CT examination several months ago. There is diffuse soft tissue swelling of the soft tissues of the visualized right pelvis and upper leg compatible with some obstructive component. IMPRESSION: New nodule, highly suspect for metastatic disease, at the right lung base. Marked adenopathy in the right upper pelvis, adjacent to the psoas muscle and incorporating same.. Marked adenopathy in the right pelvis and groin with an associated obstructive component PQRS Compliance Statement: One or more of the following individualized dose reduction techniques were utilized for this examination: 1. Automated exposure control 2. Adjustment of the mA and/or kV according to patient size 3. Use of iterative reconstruction technique
== END | disposition home or self-care (01) ==
LOC: CT 10:50
PROVIDERS: ATTEND Radiology Radiation Oncology
DX: R59.0 Localized enlarged lymph nodes (principal); R10.31 Right lower quadrant pain
CPT/HCPCS: 74177; Q9966; Q9967

== ENCOUNTER 2016-08-29 16:58 | Inpatient (IN) | payer MEDICARE, OTHER ==
[~2016-08-29] VITALS: Ht 162.6 cm; Wt 112.9 kg
[~2016-08-29 16:58] MED LIST changes: +APIX2.5T PO; -CONTRAST GIVEN MC PRN; +DOCU-109 PO; -DOCU-27 PO; +DOCU100C28 PO; -DOCU100C5 PO; -HEPARIN PF 500 UNIT/5 ML DISP.SYRIN. IV ONE; -HYDR-2666 PO; -HYDR-2672 PO; +HYDR-2758 PO; +HYDR-2766 PO; +HYDR10SY16 PO; -HYDR10SY8 PO; -IOHEXOL 240 MG/ML 50ML VIAL. PO ONE; -IOHEXOL 300 MG/ML 75 ML VIAL IV ONE; -LEVO500T38 PO; +LEVO500T59 PO; +LORA0.5T PO; +MAGN400T3 PO; +MORP100S3 PO; +MORP15TA3 PO; +MORP30CA14 PO; -ONDA-35 PO; +ONDA4TAB11 PO; +PROC10TA2 PO
[2016-08-29] MEDS ORDERED: IV NORMAL SALINE 1000ML BAG 1,000 ML IV SCH (17:33)
[2016-08-29] MEDS ORDERED: ONDANSETRON PF 4 MG/2 ML VIAL. IV ONE (17:45)
[2016-08-29] MEDS ORDERED: FAMOTIDINE 20 MG/2 ML VIAL IVP ONE (17:45)
--- NOTE | 2016-08-29 17:58 | EKG ---
[facility] [address] [place] [address] Test Date: 2016-08-29 Test Time: 17:18:14 Pat Name: MELONIE ORTEZ Department: Room: Gender: Female Mental Health Clinician: : [id number] Requested By: CHRIS SANCHEZ Order Number: [id number] Reading MD: Jolene Luevano Measurements Intervals [place] Rate: 91 P: 44 MO: 180 QRS: 9 QRSD: 74 T: 11 QT: 312 QTc: 385 Interpretive Statements SINUS RHYTHM LEFT ATRIAL ABNORMALITY Electronically Signed On 09-03-2016 14:18:51 CDT by Jolene Luevano
[2016-08-29 18:05] LABS: BASO # 0.1 x10^3/uL (0.0-0.2); BASO % 1 % (0-3); EOS % 0 % (0-3); HEMATOCRIT 24.5 % (36.0-47.0); HEMOGLOBIN 8.6 g/dL (12.0-15.5); LYMPH # 0.6 x10^3/uL (1.0-4.8); LYMPH % 4 % (24-48); MEAN CORPUSCULAR HEMOGLOBIN 31 pg (25-35); MEAN CORPUSCULAR HGB CONC 35 g/dL (31-37); MEAN CORPUSCULAR VOLUME 89 fL (79-100); MONO % 4 % (0-9); NEUT % 91 % (31-73); PLATELET COUNT 252 x10^3/uL (140-400); RED BLOOD COUNT 2.74 x10^6/uL (3.50-5.40); RED CELL DISTRIBUTION WIDTH 19.1 % (11.5-14.5); WHITE BLOOD COUNT 17.8 x10^3/uL (4.0-11.0)
[2016-08-29] MEDS: HYDROmorphone 2 MG/ML VIAL IV/SQ PRN ×3 (18:10→21:47)
[2016-08-29 18:26] LABS: ANISOCYTOSIS SLIGHT; PLT ESTIMATE ADEQUATE (ADEQUATE); TOXIC GRANULATION MOD
[2016-08-29 18:31] LABS: ALBUMIN 2.5 g/dL (3.4-5.0); ALBUMIN/GLOBULIN RATIO 0.5 (1.0-1.7); CREATININE 1.7 mg/dL (0.6-1.0); GFR 38.8; MAGNESIUM 1.9 mg/dL (1.8-2.4); POTASSIUM 4.3 mmol/L (3.5-5.1); TOTAL BILIRUBIN 0.7 mg/dL (0.2-1.0); TOTAL PROTEIN 7.2 g/dL (6.4-8.2)
[2016-08-29 18:33] LABS: CALCIUM 13.3 mg/dL (8.5-10.1)
--- NOTE | 2016-08-29 18:43 | PHYS DOC ---
Past Medical History Past Medical History: Hypertension, Other Additional Past Medical Histor: CA R)foot Past Surgical History: , Other Additional Past Surgical Histo: R)3,4,&5th toes amputated ,Ovarian cyst and Cyst removed from tailbone. Alcohol Use: None Drug Use: None Adult General Chief Complaint Chief Complaint: GROIN PAIN HPI HPI Patient is a 46 year old female who presents with complaint of groin and back pain. Patient however was sent to the emergency department from the office of Dr. Salmeron due to abnormal blood work. Patient has history of metastatic squamous cell cancer currently undergoing chemotherapy treatment under the care of Dr. Salmeron. Patient also has received radiation treatment with Dr. Han. Patient states her last chemotherapy treatment was on August 04, 2016. The patient states that while having routine blood work done she was found to have a critically low sodium level and a critically high calcium level. The patient was thus sent here for further evaluation. Patient does admit that she has been having increasing lethargy and decreased energy. Patient has not displayed any altered mental status and family states that she has not had any witnessed seizures at home. Patient states that her pain is currently 7 out of 10. Patient has been dealing with this pain for the past few weeks and she states that Dr. Salmeron is concerned that there has been spread of cancer cells to this area and thus causing her pain. Review of Systems Review of Systems Constitutional: Generalized weakness, denies fevers [] Eyes: Denies change in visual acuity, redness, or eye pain [] HENT: Denies nasal congestion or sore throat [] Respiratory: Shortness of breath [] Cardiovascular: Denies chest pain [] GI: Denies abdominal pain, nausea, vomiting, bloody stools or diarrhea [] : Groin pain [] Musculoskeletal: Back pain [] Integument: Denies rash or skin lesions [] Neurologic: Denies headache, focal weakness or sensory changes [] Current Medications Current Medications Current Medications Medications (Trade) Dose Ordered Sig/Lilliana Start Time Stop Time Status Last Admin Dose Admin Famotidine (Pepcid) 20 mg 1X ONCE 08/29/16 17:45 08/29/16 17:46 DC 08/29/16 18:10 20 MG Hydromorphone HCl (Dilaudid) 1 mg PRN Q15MIN PRN 08/29/16 17:45 08/30/16 17:44 08/29/16 19:53 1 MG Ondansetron HCl (Zofran) 4 mg 1X ONCE 08/29/16 17:45 08/29/16 17:46 DC 08/29/16 18:09 4 MG Pamidronate Disodium 60 mg/ Sodium Chloride 250 ml @ 83.333 mls/ hr 1X ONCE 08/29/16 19:30 08/29/16 22:29 Sodium Chloride 1,000 ml @ 150 mls/hr [id number] 08/29/16 19:30 Allergies Allergies Allergies Coded Allergies Type Severity Reaction Last Updated Verified No Known Medication Allergies Allergy Unknown 08/29/16 Yes amoxicillin Adverse Reaction Intermediate Nausea 08/29/16 Yes clavulanic acid Adverse Reaction Intermediate Nausea 08/29/16 Yes Physical Exam Physical Exam Constitutional: Alert, afebrile, appears in mild to moderate discomfort. [] HENT: Normocephalic, atraumatic, bilateral external ears normal, oropharynx moist, no oral exudates, nose normal. [] Eyes: PERRLA, EOMI, conjunctiva normal, no discharge. [] Neck: Normal range of motion, no tenderness, supple, no stridor. [] Cardiovascular:Heart rate regular rhythm, no murmur [] Lungs & Thorax: Bilateral breath sounds clear to auscultation [] Abdomen: Bowel sounds normal, soft, no tenderness, no masses, no pulsatile masses. [] Skin: Warm, dry, no erythema, no rash. [] Back: Right lower lumbar paraspinous muscle tenderness to palpation, no CVA tenderness. [] Extremities: Right foot dressings clean and dry and intact, no cyanosis, no clubbing, ROM intact, 2+ pedal edema bilaterally. [] Neurologic: Alert and oriented X 3, normal motor function, normal sensory function, no focal deficits noted. [] Current Patient Data Vital Signs Vital Signs Date Time Temp Pulse Resp B/P (MAP) Pulse Ox O2 Delivery O2 Flow Rate FiO2 08/29/16 19:53 16 Room Air 08/29/16 18:16 86 193/88 (123) 97 08/29/16 17:15 98.9 98.9 Lab Values Laboratory Tests Test 08/29/16 17:55 08/29/16 18:55 White Blood Count 17.8 x10^3/uL (4.0-11.0) H Red Blood Count 2.74 x10^6/uL (3.50-5.40) L Hemoglobin 8.6 g/dL (12.0-15.5) L Hematocrit 24.5 % (36.0-47.0) L Mean Corpuscular Volume 89 fL (79-100) Mean Corpuscular Hemoglobin 31 pg (25-35) Mean Corpuscular Hemoglobin Concent 35 g/dL (31-37) Red Cell Distribution Width 19.1 % (11.5-14.5) H Platelet Count 252 x10^3/uL (140-400) Neutrophils (%) (Auto) 91 % (31-73) H Lymphocytes (%) (Auto) 4 % (24-48) L Monocytes (%) (Auto) 4 % (0-9) Eosinophils (%) (Auto) 0 % (0-3) Basophils (%) (Auto) 1 % (0-3) Neutrophils # (Auto) 16.3 x10^3uL (1.8-7.7) H Lymphocytes # (Auto) 0.6 x10^3/uL (1.0-4.8) L Monocytes # (Auto) 0.8 x10^3/uL (0.0-1.1) Eosinophils # (Auto) 0.0 x10^3/uL (0.0-0.7) Basophils # (Auto) 0.1 x10^3/uL (0.0-0.2) Segmented Neutrophils % 84 % (35-66) H Band Neutrophils % 7 % (0-9) Lymphocytes % 5 % (24-48) L Monocytes % 4 % (0-10) Toxic Granulation Mod Platelet Estimate Adequate (ADEQUATE) Anisocytosis Slight Sodium Level 121 mmol/L (136-145) L Potassium Level 4.3 mmol/L (3.5-5.1) Chloride Level 84 mmol/L (98-107) L Carbon Dioxide Level 31 mmol/L (21-32) Anion Gap 6 (6-14) Blood Urea Nitrogen 20 mg/dL (7-20) Creatinine 1.7 mg/dL (0.6-1.0) H Estimated GFR (Cockcroft-Gault) 38.8 BUN/Creatinine Ratio 12 (6-20) Glucose Level 91 mg/dL (70-99) Calcium Level 13.3 mg/dL (8.5-10.1) *H Magnesium Level 1.9 mg/dL (1.8-2.4) Total Bilirubin 0.7 mg/dL (0.2-1.0) Aspartate Amino Transferase (AST) 36 U/L (15-37) Alanine Aminotransferase (ALT) 63 U/L (14-59) H Alkaline Phosphatase 157 U/L (46-116) H Total Protein 7.2 g/dL (6.4-8.2) Albumin 2.5 g/dL (3.4-5.0) L Albumin/Globulin Ratio 0.5 (1.0-1.7) L Urine Collection Type Unknown Urine Color Yellow Urine Clarity Clear Urine pH 7.5 Urine Specific [place] 1.010 Urine Protein Negative mg/dL (NEG-TRACE) Urine Glucose (UA) Negative mg/dL (NEG) Urine Ketones (Stick) Negative mg/dL (NEG) Urine Blood Trace (NEG) Urine Nitrite Negative (NEG) Urine Bilirubin Negative (NEG) Urine Urobilinogen Dipstick 0.2 mg/dL (0.2 mg/dL) Urine Leukocyte Esterase Moderate (NEG) Urine RBC Rare /HPF (0-2) Urine WBC 11-20 /HPF (0-4) Urine Squamous Epithelial Cells Mod /LPF Urine Bacteria Few /HPF (0-FEW) Laboratory Tests 08/29/16 17:55 Laboratory Tests 08/29/16 17:55 EKG EKG Interpreted by me: Heart rate 91, sinus rhythm, normal intervals, normal axis, nonspecific T-wave inversion in lead 3, no acute ST elevations or depressions [] Radiology/Procedures Radiology/Procedures Not performed [] Course & Med Decision Making Course & Med Decision Making Pertinent Labs and Imaging studies reviewed. (See chart for details) Patient's lab work confirmed critically high potassium level and significantly decreased sodium level. Patient's pain was treated with IV Dilaudid. I spoke with Dr. Joel who is on-call for Dr. Salmeron. He agreed with initiation of pamidronate for treatment of hypercalcemia which appears to be due to malignancy. Patient will continue on IV fluids for treatment of hyponatremia and renal insufficiency. I spoke with Dr. Lemus who accepted care patient in hospital. Dragon Disclaimer Dragon Disclaimer This electronic medical record was generated, in whole or in part, using a voice recognition dictation system. Departure Departure Impression: Primary Impression: Hypercalcemia Additional Impressions: Hyponatremia Metastatic squamous cell carcinoma Renal insufficiency Severe protein-calorie malnutrition Disposition: 09 ADMITTED INPATIENT Admitting Physician: Susan Lemus Condition: GUARDED Referrals: ADIS HARDIN APRN (PCP) Problem Qualifiers CHRIS SANCHEZ MD August 29, 2016 18:43
[2016-08-29 19:04] LABS: BILIRUBIN,URINE NEGATIVE (NEG); GLUCOSE,URINE NEGATIVE (NEG); NITRITE,URINE NEGATIVE (NEG); PH,URINE 7.5; PROTEIN,URINE NEGATIVE (NEG-TRACE); UROBILINOGEN,URINE 0.2 mg/dL (0.2 mg/dL)
[2016-08-29 19:13] LABS: BACTERIA,URINE FEW /HPF (0-FEW); RBC,URINE RARE /HPF (0-2); SQUAMOUS EPITHELIAL CELL,UR MOD /LPF
[2016-08-29] MEDS ORDERED: PAMIDRONATE 60 MG in IV NORMAL SALINE 250ML 250 ML IV ONE (19:30)
[2016-08-29] MEDS ORDERED: ONDANSETRON PF 4 MG/2 ML VIAL. IV PRN (20:30)
[2016-08-29] MEDS ORDERED: ACETAMINOPHEN 325 MG TABLET. PO PRN (20:30)
[2016-08-29] MEDS: IV NORMAL SALINE 1000ML BAG 1,000 ML IV SCH ×2 (21:36→23:41)
--- NOTE | 2016-08-29 23:11 | ACF ---
Admission Forms Criteria HYPONATREMIA; HYPERNATREMIA; HYPOKALEMIA; HYPERKALEMIA; HYPOCALCEMIA; HYPERCALCEMIA Clinical Indications for Inpatient Care (Place 'X' for any and all applicable criteria): Ongoing inpatient care may be indicated for ANY ONE of the following [G](1)(2)(3 )(5): [X]I. Hyponatremia with ANY ONE of the following: [X ]a) Sodium less than 130 mEq/L (mmol/L) (new) (6)(22) [ ]b) Sodium less than 135 mEq/L (mmol/L) with ANY ONE of the following: [ ]i) Severe medical etiology requiring inpatient management (eg, heart failure, hypovolemia) [ ]ii) Altered mental status [ ]iii) Seizures [ ]II. Hypernatremia with ANY ONE of the following: [ ]a) Sodium greater than 155 mEq/L (mmol/L) [ ]b) Sodium greater than 150 mEq/L (mmol/L) with ANY ONE of the following: [ ] i) Altered mental status [ ]ii) Seizures [ ]iii) Severe medical etiology (eg, hypovolemia, diabetes insipidus) [ ]iv) Severe weakness [ ]v) Severe medical etiology (eg, hemolysis, infection, drug overdose) [ ]III. Hypokalemia with ANY ONE of the following: [ ]a) Potassium less than 2.5 mEq/L (mmol/L) despite outpatient and emergency treatment [ ]b) Potassium less than 3.0 mEq/L (mmol/L) with ANY ONE of the following: [ ]i) Weakness [ ]ii) Cardiac abnormality (eg, arrhythmia, conduction disturbance) [ ]iii) Cardiac ischemia [ ]iv) Ileus [ ]v) Ongoing medical cause requiring inpatient management. ( e.g., acute renal wasting, SIADH) [ ]vi) Other severe symptoms [ ] IV. Hyperkalemia with ANY ONE of the following: [ ]a) Potassium greater than 6.5 mEq/L (mmol/L) [ ]b) Potassium greater than 5 mEq/L (mmol/L) with ANY ONE of the following: [ ]i) Severe ECG findings [H] [ ]ii) Acute worsening of renal failure (creatinine greater than 2.5 mg/dL (221 micromoles/L) or significant elevation for age and size) [ ] V. Hypocalcemia with ANY ONE of the following: [ ]a) Calcium less than 7 mg/dL (1.75 mmol/L) despite outpatient and emergency treatment(19) [ ]b) Calcium less than 8 mg/dL (2 mmol/L) with significant symptoms or findings; examples include: [ ]i) Cardiac abnormality (eg, arrhythmia or conduction disturbance) [ ]ii) Altered mental status [ ]iii) Seizures [ ]iv) Breathing difficulty [ ]v) Muscle spasms [ ]. Hypercalcemia with ANY ONE of the following: [ ]a) Calcium greater than 14 mg/dL (3.5 mmol/L) [ ]b) Calcium greater than 12 mg/dL (3 mmol/L) with ANY ONE of the following: [ ]i) Significant dehydration or hypovolemia as indicated by ANY ONE of the following(2): [ ]1. Clinically significant dehydration as indicated by ANY ONE of the following: [ ]A. Acute loss of weight from baseline (5% of body weight in adults, 9% in pediatric patients) [ ]B. Hemodynamic instability [ ]C. Acute renal failure [ ]D. Serum sodium greater than 150 mEq/L (mmol/L) [ ]2) Dehydration that is persistent indicated by ALL of the following: [ ]A. Oral rehydration therapy not tolerated or insufficient to adequately correct dehydration [ ]B. Appropriate intravenous treatment (eg, fluids ) does not readily correct dehydration ie, after 12 to 24 hours of treatment) [ ]ii) Significant symptoms or findings; examples include: [ ]1) Altered mental status [ ]2) Cardiac abnormality (eg, arrhythmia, conduction disturbance) [ ]3) Cardiac abnormality (eg, arrhythmia, conduction disturbance) The original [facility] content created by [facility] has been revised. The portions of the content which have been revised are identified through the use of italic text or in bold, and [facility] has neither reviewed nor approved the modified material. All other unmodified content is copyright [facility] Please see references footnoted in the original [facility] edition 2016 Admission Criteria Met?: Yes JACQUELINE BURLESON August 29, 2016 23:11
[2016-08-29 23:49] VITALS: BP 199/90
[2016-08-29 23:50] VITALS: BP 199/90
[2016-08-29] MEDS: MORPHINE ER 15 MG TABLET.ER PO SCH (23:58)
[2016-08-29] MEDS: HYDROcodone/APAP 7.5/325MG 1 TAB TABLET PO PRN (23:58)
[2016-08-29] MEDS: MORPHINE ER 30 MG TABLET.ER PO SCH (23:59)
[2016-08-30] VITALS (7 sets, daily range): BP systolic 173–192; BP diastolic 81–94
[2016-08-30] MEDS ORDERED: MORPHINE ER 30 MG TABLET.ER PO SCH
[2016-08-30] MEDS: MORPHINE SULFATE 20 MG/ML CONC SOLUTION. SL PRN ×6 (02:36→23:15)
[2016-08-30] MEDS: IV NORMAL SALINE 1000ML BAG 1,000 ML IV SCH ×3 (05:06→21:10)
[2016-08-30 05:12] LABS: BASO % 0 % (0-3); EOS % 0 % (0-3); HEMATOCRIT 23.1 % (36.0-47.0); HEMOGLOBIN 8.1 g/dL (12.0-15.5); LYMPH # 0.6 x10^3/uL (1.0-4.8); LYMPH % 3 % (24-48); MEAN CORPUSCULAR HEMOGLOBIN 31 pg (25-35); MEAN CORPUSCULAR HGB CONC 35 g/dL (31-37); MEAN CORPUSCULAR VOLUME 89 fL (79-100); MONO % 5 % (0-9); NEUT % 92 % (31-73); PLATELET COUNT 235 x10^3/uL (140-400); RED BLOOD COUNT 2.59 x10^6/uL (3.50-5.40); RED CELL DISTRIBUTION WIDTH 19.1 % (11.5-14.5); WHITE BLOOD COUNT 17.5 x10^3/uL (4.0-11.0)
[2016-08-30 05:14] LABS: CREATININE 1.7 mg/dL (0.6-1.0); GFR 38.8; POTASSIUM 4.3 mmol/L (3.5-5.1)
[2016-08-30 05:23] LABS: CALCIUM 12.1 mg/dL (8.5-10.1)
[2016-08-30] MEDS: HYDROcodone/APAP 7.5/325MG 1 TAB TABLET PO PRN ×5 (05:57→21:17)
[2016-08-30] MEDS: NICOTINE 21MG PATCH. TD SCH (07:51)
[2016-08-30] MEDS: MORPHINE ER 15 MG TABLET.ER PO SCH ×2 (07:51→12:03)
[2016-08-30] MEDS ORDERED: FURO40TA4 PO (08:50)
[2016-08-30] MEDS ORDERED: POTA20TA84 PO (08:50)
[2016-08-30] MEDS ORDERED: ONDA8TAB14 PO (08:50)
--- NOTE | 2016-08-30 08:55 | PDOC ---
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 Hoping to give keytruda in future as outpt, approval pending. Malignant hypercalcemia- Bone scan ordered if able to lay flat. S/p LAKESHA gonzalez. Dr. Salmeron will return tomorrow. TITI SHERMAN DO August 30, 2016 08:54
[2016-08-30] MEDS ORDERED: MORPHINE SULFATE 30 MG PO SCH (09:00)
[2016-08-30] MEDS ORDERED: MORPHINE ER 15 MG TABLET.ER PO SCH (09:00)
[2016-08-30] MEDS: METOPROLOL TART IMMED RELEASE 25 MG TABLET. PO SCH ×2 (10:13→21:13)
[2016-08-30] MEDS: MORPHINE ER 30 MG TABLET.ER PO SCH (12:00)
--- NOTE | 2016-08-30 14:50 | RAD ---
Radionuclide bone scan, canceled study, 08/30/2016: History: Squamous cell cancer The patient was injected IV with 20 mCi of technetium 99m MDP. She was unable to tolerate laying on the table for imaging due to severe pain. The exam therefore could not be performed at this time.
[2016-08-30] MEDS: amLODIPine BESYLATE 10 MG TABLET PO SCH (17:45)
--- NOTE | 2016-08-30 17:49 | HP ---
ADMIT DATE: 08/30/2016 CHIEF COMPLAINT: Groin pain. HISTORY OF PRESENT ILLNESS: The patient is a pleasant 46-year-old female who presents with groin pain. It radiates to the back. She also has pain in her foot. Apparently, she has had a partial foot amputation for squamous cell carcinoma. She does follow up with Dr. Salmeron. She apparently saw Dr. Salmeron and had some abnormal blood work. It should be noted that her squamous cell carcinoma is metastatic to the groin. She has been undergoing chemotherapy. Her last chemotherapy was in July of this year. Today, her sodium was quite low at 121, and she has leukocytosis. I have discussed the case with the ER physician. We are going to admit the patient, give her some IV normal saline, antibiotics, and wound care, and consult her oncologist and surgeon. PAST MEDICAL HISTORY: Squamous cell carcinoma of the foot. She has had a partial foot amputation, hypertension, , and ovarian cyst. ALLERGIES: AUGMENTIN. FAMILY HISTORY: Coronary artery disease. SOCIAL HISTORY: She does not drink, smoke, or take drugs. MEDICATIONS: Reviewed. Please refer to the MRAD. REVIEW OF SYSTEMS: GENERAL: No history of weight change, weakness, or fevers. SKIN: No bruising, hair changes, or rashes. EYES: No blurred, double, or loss of vision. NOSE AND THROAT: No history of nosebleeds, hoarseness, or sore throat. HEART: No history of palpitations, chest pain, or shortness of breath on exertion. LUNGS: Denies cough, hemoptysis, wheezing, or shortness of breath. GASTROINTESTINAL: Denies changes in appetite, nausea, vomiting, diarrhea, or constipation. GENITOURINARY: No history of frequency, urgency, hesitancy, or nocturia. NEUROLOGIC: Denies history of numbness, tingling, tremor, or weakness. PSYCHIATRIC: No history of panic, anxiety, or depression. ENDOCRINE: No history of heat or cold intolerance, polyuria, or polydipsia. EXTREMITIES: She complains of groin pain. PHYSICAL EXAMINATION: VITAL SIGNS: Temperature afebrile, pulse 67, respirations 18, and blood pressure 144/90. GENERAL: She is alert, cooperative. HEART: Normal S1, S2. LUNGS: Clear. ABDOMEN: Soft, positive bowel sounds, slightly tender. EXTREMITIES: The right foot has impressive open wound. Please see the pictures. She basically has a partial foot amputation. ENDOCRINE: No thyromegaly. LYMPHATICS: No cervical nodes. HEMATOPOIETIC: No bruising. LABORATORY DATA: White count 17, hemoglobin 8, and platelets 252. Electrolytes: Sodium 121, potassium 4.3, chloride 84, bicarbonate 31, BUN 20, creatinine 1.7, glucose 91, and her calcium is critically high at 13.3. ASSESSMENT AND PLAN: Critical hyperkalemia in a middle-aged female who has hyponatremia, leukocytosis, anemia, and severe metastatic squamous cell cancer from the foot to the groin. She received a recent chemotherapy as well. The patient has been admitted. We will give her IV antibiotics, IV normal saline, and IV Aredia. Wound Care nurse to evaluate and treat. Physical Therapy and Occupational Therapy. Resume home medicines, frequent labs. We consulted Vascular Surgery as well. PROGNOSIS: Guarded. DAVIDE WILLAMS DO DR: ELISSA/derek JOB#: [id number] / [id number]
[2016-08-30] MEDS: DOCUSATE SODIUM 100 MG CAPSULE. PO SCH (18:17)
--- NOTE | 2016-08-30 19:07 | PDOC2 ---
CONSULT Date of Consult Date of Consult DATE: 08/30/16 TIME: 19:04 Past Medical History Cardiovascular: HTN Pulmonary: No pertinent hx CENTRAL NERVOUS SYSTEM: Other GI: GERD Heme/Onc: No pertinent hx, Cancer Hepatobiliary: No pertinent hx Psych: Anxiety Musculoskeletal: Other Rheumatologic: No pertinent hx Infectious disease: No pertinent hx Renal/: No pertinent hx Endocrine: No pertinent hx Past Surgical History Past Surgical History: , Other Family History Family History: Cancer, Diabetes, Hypertension Social History ALCOHOL: none Drugs: None Lives: with Family Current Problem List Problem List Problems Medical Problems: (1) Metastatic squamous cell carcinoma Status: Acute (2) Renal insufficiency Status: Acute (3) Severe protein-calorie malnutrition Status: Acute Current Medications Current Medications Current Medications Hydromorphone HCl (Dilaudid) 1 mg PRN Q15MIN PRN IV/SQ PAIN GREATER THAN 3/10 Last administered on 08/29/16 21:47; Start 08/29/16 at 17:45; Stop 08/30/16 at 17:44; Status DC Sodium Chloride 1,000 ml @ 1,000 mls/hr Q1H IV Last administered on 08/29/16 18:09; Start 08/29/16 at 17:33; Stop 08/29/16 at 18:32; Status DC Ondansetron HCl (Zofran) 4 mg 1X ONCE IV Last administered on 08/29/16 18:09 ; Start 08/29/16 at 17:45; Stop 08/29/16 at 17:46; Status DC Famotidine (Pepcid) 20 mg 1X ONCE IVP Last administered on 08/29/16 18:10; Start 08/29/16 at 17:45; Stop 08/29/16 at 17:46; Status DC Pamidronate Disodium 60 mg/ Sodium Chloride 250 ml @ 83.333 mls/ hr 1X ONCE IV Last administered on 08/29/16 21:37; Start 08/29/16 at 19:30; Stop at 22:29; Status DC Sodium Chloride 1,000 ml @ 150 mls/hr Q6H40M IV Last administered on 10:07; Start 08/29/16 at 19:30 Ondansetron HCl (Zofran) 4 mg PRN Q8HRS PRN IV NAUSEA/VOMITING; Start 08/29/16 at 20:30; Stop 08/30/16 at 20:29 Acetaminophen (Tylenol) 650 mg PRN Q4HRS PRN PO FEVER; Start 08/29/16 at 20:30 ; Stop 08/30/16 at 20:29 Acetaminophen/ Hydrocodone Bitart (Lortab 7.5/325) 1 tab PRN Q6HRS PRN PO PAIN Last administered on 08/30/16 05:57; Start 08/29/16 at 23:45; Stop 08/30/16 at 07:08; Status DC Morphine Sulfate (Roxanol Conc) 10 mg PRN Q2HRS PRN SL MODERATE PAIN WHILE AWAKE Last administered on 08/30/16 14:25; Start 08/29/16 at 23:45 Morphine Sulfate (Ms Contin) 15 mg BID PO ; Start 08/30/16 at 09:00; Stop at 09:00; Status DC Non-Formulary Medication 30 mg Q12HR PO ; Start 08/30/16 at 09:00; Stop at 09:00; Status DC Morphine Sulfate (Ms Contin) 15 mg BID PO Last administered on 08/30/16 12:03 ; Start 08/30/16 at 00:00 Morphine Sulfate (Ms Contin) 30 mg Q12HR PO ; Start 08/30/16 at 00:00; Stop at 00:00; Status DC Morphine Sulfate (Ms Contin) 30 mg Q12H PO Last administered on 08/30/16 12:00 ; Start 08/30/16 at 00:00 Acetaminophen/ Hydrocodone Bitart (Lortab 7.5/325) 1 tab PRN Q4HRS PRN PO PAIN Last administered on 08/30/16 16:44; Start 08/30/16 at 07:07 Nicotine (Nicoderm Cq 21mg) 1 patch DAILY TD Last administered on 08/30/16 07: 51; Start 08/30/16 at 09:00 Levofloxacin/ Dextrose 50 ml @ 50 mls/hr Q24H IV Last administered on 10:13; Start 08/30/16 at 10:00 Metoprolol Tartrate (Lopressor) 25 mg BID PO Last administered on 08/30/16 10: 13; Start 08/30/16 at 10:00 Amlodipine Besylate (Norvasc) 10 mg DAILY PO Last administered on 08/30/16 17: 45; Start 08/30/16 at 16:30 Docusate Sodium (Colace) 100 mg DAILY PO ; Start 08/31/16 at 09:00; Stop at 09:00; Status DC Docusate Sodium (Colace) 100 mg DAILY PO Last administered on 08/30/16 18:17; Start 08/30/16 at 18:15 Apixaban (Eliquis) 2.5 mg BID PO ; Start 08/30/16 at 21:00 Lorazepam (Ativan) 0.5 mg PRN Q6HRS PRN PO ANXIETY; Start 08/30/16 at 18:45 Magnesium Oxide (Magnesium Oxide) 400 mg TID PO ; Start 08/30/16 at 21:00 Pantoprazole Sodium (Protonix) 40 mg DAILYAC PO ; Start 08/31/16 at 07:30 Ondansetron HCl (Zofran Odt) 4 mg PRN Q8HRS PRN PO NAUSEA/VOMITING; Start 08/30 at 18:45 Prochlorperazine Maleate (Compazine) 10 mg PRN Q6HRS PRN PO NAUSEA; Start 08/30 at 18:45 Losartan Potassium (Cozaar) 100 mg DAILY PO ; Start 08/31/16 at 09:00 Active Scripts Active Protonix (Pantoprazole Sodium) 40 Mg Tablet.dr 1 Tab PO DAILY Reported K-Tab ER (Potassium Chloride) 20 Meq Tablet.er 20 Meq PO DAILY Furosemide 40 Mg Tablet 40 Mg PO DAILY Ondansetron Hcl 8 Mg Tablet 8 Mg PO PRN Q8HRS PRN Lorazepam 0.5 Mg Tablet 1 Tab PO PRN Q6HRS PRN Prochlorperazine Maleate 10 Mg Tablet 10 Mg PO PRN Q6-8HRS PRN Magnesium Oxide 400 Mg Tablet 400 Mg PO TID Morphine Sulfate Er (Morphine Sulfate) 15 Mg Tablet.er 1 Tab PO BID Morphine Sulfate Er (Morphine Sulfate) 30 Mg Cap.er.pel 30 Mg PO Q12HR Morphine Sulfate 100 Mg/5 Ml Solution 10 Mg PO PRN Q2-4HRS PRN Eliquis (Apixaban) 2.5 Mg Tablet 2.5 Mg PO BIDAFTMEAL Hydrocodone-Apap 7.5-325 (Hydrocodone Bit/Acetaminophen) 1 Each Tablet 1 Tab PO PRN Q6HRS PRN Losartan-Hctz 100-25 Mg Tab (Losartan/Hydrochlorothiazide) 1 Each Tablet 1 Tab PO DAILY Docusate Sodium 100 Mg Capsule 1 Cap PO DAILY Allergies Allergies: Coded Allergies: amoxicillin (Verified Adverse Reaction, Intermediate, Nausea, 08/29/16) clavulanic acid (Verified Adverse Reaction, Intermediate, Nausea, 08/29/16) Vitals VITALS Vital Signs Date Time Temp Pulse Resp B/P (MAP) Pulse Ox O2 Delivery O2 Flow Rate FiO2 08/30/16 17:45 72 179/81 08/30/16 17:44 18 98 Room Air 08/30/16 15:23 98.1 98.1 Labs Labs Laboratory Tests Test 08/29/16 17:55 08/29/16 18:55 08/30/16 02:40 08/30/16 04:12 White Blood Count 17.8 x10^3/uL (4.0-11.0) 17.5 x10^3/uL (4.0-11.0) Red Blood Count 2.74 x10^6/uL (3.50-5.40) 2.59 x10^6/uL (3.50-5.40) Hemoglobin 8.6 g/dL (12.0-15.5) 8.1 g/dL (12.0-15.5) Hematocrit 24.5 % (36.0-47.0) 23.1 % (36.0-47.0) Mean Corpuscular Volume 89 fL (79-100) 89 fL (79-100) Mean Corpuscular Hemoglobin 31 pg (25-35) 31 pg (25-35) Mean Corpuscular Hemoglobin Concent 35 g/dL (31-37) 35 g/dL (31-37) Red Cell Distribution Width 19.1 % (11.5-14.5) 19.1 % (11.5-14.5) Platelet Count 252 x10^3/uL (140-400) 235 x10^3/uL (140-400) Neutrophils (%) (Auto) 91 % (31-73) 92 % (31-73) Lymphocytes (%) (Auto) 4 % (24-48) 3 % (24-48) Monocytes (%) (Auto) 4 % (0-9) 5 % (0-9) Eosinophils (%) (Auto) 0 % (0-3) 0 % (0-3) Basophils (%) (Auto) 1 % (0-3) 0 % (0-3) Neutrophils # (Auto) 16.3 x10^3uL (1.8-7.7) 16.0 x10^3uL (1.8-7.7) Lymphocytes # (Auto) 0.6 x10^3/uL (1.0-4.8) 0.6 x10^3/uL (1.0-4.8) Monocytes # (Auto) 0.8 x10^3/uL (0.0-1.1) 0.9 x10^3/uL (0.0-1.1) Eosinophils # (Auto) 0.0 x10^3/uL (0.0-0.7) 0.0 x10^3/uL (0.0-0.7) Basophils # (Auto) 0.1 x10^3/uL (0.0-0.2) 0.0 x10^3/uL (0.0-0.2) Segmented Neutrophils % 84 % (35-66) Band Neutrophils % 7 % (0-9) Lymphocytes % 5 % (24-48) Monocytes % 4 % (0-10) Toxic Granulation Mod Platelet Estimate Adequate (ADEQUATE) Anisocytosis Slight Sodium Level 121 mmol/L (136-145) 124 mmol/L (136-145) Potassium Level 4.3 mmol/L (3.5-5.1) 4.3 mmol/L (3.5-5.1) Chloride Level 84 mmol/L (98-107) 88 mmol/L (98-107) Carbon Dioxide Level 31 mmol/L (21-32) 28 mmol/L (21-32) Anion Gap 6 (6-14) 8 (6-14) Blood Urea Nitrogen 20 mg/dL (7-20) 19 mg/dL (7-20) Creatinine 1.7 mg/dL (0.6-1.0) 1.7 mg/dL (0.6-1.0) Estimated GFR (Cockcroft-Gault) 38.8 38.8 BUN/Creatinine Ratio 12 (6-20) Glucose Level 91 mg/dL (70-99) 84 mg/dL (70-99) Calcium Level 13.3 mg/dL (8.5-10.1) 12.1 mg/dL (8.5-10.1) Magnesium Level 1.9 mg/dL (1.8-2.4) Total Bilirubin 0.7 mg/dL (0.2-1.0) Aspartate Amino Transf (AST/SGOT) 36 U/L (15-37) Alanine Aminotransferase (ALT/SGPT) 63 U/L (14-59) Alkaline Phosphatase 157 U/L (46-116) Total Protein 7.2 g/dL (6.4-8.2) Albumin 2.5 g/dL (3.4-5.0) Albumin/Globulin Ratio 0.5 (1.0-1.7) Urine Collection Type Unknown Urine Color Yellow Urine Clarity Clear Urine pH 7.5 Urine Specific Toney 1.010 Urine Protein Negative mg/dL (NEG-TRACE) Urine Glucose (UA) Negative mg/dL (NEG) Urine Ketones (Stick) Negative mg/dL (NEG) Urine Blood Trace (NEG) Urine Nitrite Negative (NEG) Urine Bilirubin Negative (NEG) Urine Urobilinogen Dipstick 0.2 mg/dL (0.2 mg/dL) Urine Leukocyte Esterase Moderate (NEG) Urine RBC Rare /HPF (0-2) Urine WBC 11-20 /HPF (0-4) Urine Squamous Epithelial Cells Mod /LPF Urine Bacteria Few /HPF (0-FEW) Nasal Screen MRSA (PCR) Negative (Negative) Laboratory Tests Test 08/30/16 02:40 08/30/16 04:12 Nasal Screen MRSA (PCR) Negative (Negative) White Blood Count 17.5 x10^3/uL (4.0-11.0) Red Blood Count 2.59 x10^6/uL (3.50-5.40) Hemoglobin 8.1 g/dL (12.0-15.5) Hematocrit 23.1 % (36.0-47.0) Mean Corpuscular Volume 89 fL (79-100) Mean Corpuscular Hemoglobin 31 pg (25-35) Mean Corpuscular Hemoglobin Concent 35 g/dL (31-37) Red Cell Distribution Width 19.1 % (11.5-14.5) Platelet Count 235 x10^3/uL (140-400) Neutrophils (%) (Auto) 92 % (31-73) Lymphocytes (%) (Auto) 3 % (24-48) Monocytes (%) (Auto) 5 % (0-9) Eosinophils (%) (Auto) 0 % (0-3) Basophils (%) (Auto) 0 % (0-3) Neutrophils # (Auto) 16.0 x10^3uL (1.8-7.7) Lymphocytes # (Auto) 0.6 x10^3/uL (1.0-4.8) Monocytes # (Auto) 0.9 x10^3/uL (0.0-1.1) Eosinophils # (Auto) 0.0 x10^3/uL (0.0-0.7) Basophils # (Auto) 0.0 x10^3/uL (0.0-0.2) Sodium Level 124 mmol/L (136-145) Potassium Level 4.3 mmol/L (3.5-5.1) Chloride Level 88 mmol/L (98-107) Carbon Dioxide Level 28 mmol/L (21-32) Anion Gap 8 (6-14) Blood Urea Nitrogen 19 mg/dL (7-20) Creatinine 1.7 mg/dL (0.6-1.0) Estimated GFR (Cockcroft-Gault) 38.8 Glucose Level 84 mg/dL (70-99) Calcium Level 12.1 mg/dL (8.5-10.1) Assessment/Plan Assessment/Plan Vascular consult dictated Imp: 1. wound right lateral foot status post lateral foot amputation 2. squamous cancer with metastasis to groin 3. bilateral lower extremity edema Pt receiving eloquis. Rec: debridement of right lateral foot wound tomorrow in the O.R. Pt is opposed to further amputation. ZAMZAM BRUMFIELD II, MD August 30, 2016 19:07
[2016-08-30] MEDS: APIXABAN 2.5 MG TABLET. PO SCH (21:00)
[2016-08-30] MEDS: MAGNESIUM OXIDE 400 MG TABLET PO SCH (21:11)
[2016-08-30] MEDS: LORazepam 0.5 MG TABLET PO PRN (22:22)
[2016-08-31] VITALS (10 sets, daily range): BP systolic 139–214; BP diastolic 72–103
[2016-08-31] MEDS: MORPHINE ER 30 MG TABLET.ER PO SCH ×2 (00:13→12:00)
--- NOTE | 2016-08-31 03:45 | CONS ---
DATE OF CONSULTATION: 08/30/2016 REFERRING PROVIDER: Matilda Lemus M.D. REASON FOR CONSULTATION: Squamous cell carcinoma of the foot. HISTORY OF PRESENT ILLNESS: The patient is a 46-year-old female who is treated by my colleague, Dr. 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 However, on scans on 08/08/2016, she was found to have progressive disease. Dr. Salmeron had hoped to start her on pembrolizumab; however, we are waiting for approval for this and she has not yet received it. She has had ongoing electrolyte issues, managed as an outpatient, but yesterday, her sodium was noticed to have dropped to 121, calcium 13.3. Her creatinine and CBC remained relatively unchanged. She has ongoing neutrophilia with WBC of 17.5, increased ANC, hemoglobin remains around 8, baseline creatinine of 1.6. She said she was having some fatigue and constipation, but otherwise, no symptoms. She does have ongoing pain in her right groin where the cancer is known to have reoccurred. Overall, she believes her pain is managed well at home. She has had transportation issues, and therefore, a requested bone scan has not yet been completed. PAST MEDICAL HISTORY: Hypertension, squamous cell carcinoma. PAST SURGICAL HISTORY: , toe amputations, pelvic lymph node dissection. FAMILY HISTORY: Diabetes, hypertension, some malignancies. SOCIAL HISTORY: No tobacco or alcohol. She has supportive family members as well, but has transportation issues. REVIEW OF SYSTEMS: Ten-point review of systems completed and unremarkable with the exception of fatigue, constipation and ongoing pain in her groin and foot. PHYSICAL EXAMINATION: VITAL SIGNS: Temperature 98.7, pulse 102, respiratory rate 18, blood pressure 192/88, O2 97% on room air. GENERAL: She is alert and oriented, in no distress, appears to be at her baseline functional status at this time. HEENT: Extraocular muscles are intact. Mucous membranes are moist. CARDIOVASCULAR: Heart is regular in rhythm and rate. LUNGS: Clear to auscultation bilaterally. ABDOMEN: Soft, nontender, obese. EXTREMITIES: Chronic 2+ edema in the left lower extremity, 3+ chronically in the right lower extremity. She has pain with any palpation of her right leg chronically as well. NEUROLOGIC: No focal deficits. IMAGING AND LABORATORY DATA: Pertinent findings reviewed as above. I have reviewed outside oncology note, CT of abdomen/pelvis and outside labs as well. ASSESSMENT AND PLAN: The patient is a 46-year-old female with the following medical problems: 1. 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 No further radiation is possible. Dr. Salmeron would like to start pembrolizumab with her as an outpatient as soon as we can obtain approval. I will order a bone scan as we had planned as an outpatient. Hopefully, she is able to lay flat and have adequate pain control for this. 2. Hypercalcemia, malignant, an ongoing issue for her as well. Aredia was given in the Emergency Room. She remains on aggressive fluids as well. Thank you for allowing us to participate in her care. Dr. Salmeron will return tomorrow. TITI SHERMAN DO DR: SHEELA/derek JOB#: [id number] / [id number] I
[2016-08-31] MEDS: IV NORMAL SALINE 1000ML BAG 1,000 ML IV SCH ×3 (03:55→18:10)
[2016-08-31] MEDS: HYDROcodone/APAP 7.5/325MG 1 TAB TABLET PO PRN ×4 (05:54→21:05)
[2016-08-31] MEDS: APIXABAN 2.5 MG TABLET. PO SCH ×2 (09:00→21:00)
[2016-08-31] MEDS ORDERED: DOCUSATE SODIUM 100 MG CAPSULE. PO SCH (09:00)
[2016-08-31] MEDS: METOPROLOL TART IMMED RELEASE 25 MG TABLET. PO SCH ×2 (09:00→17:35)
[2016-08-31] MEDS: MORPHINE ER 15 MG TABLET.ER PO SCH ×2 (09:00→20:57)
[2016-08-31] MEDS: MAGNESIUM OXIDE 400 MG TABLET PO SCH ×3 (09:00→20:57)
[2016-08-31] MEDS ORDERED: IV RINGERS,LACTATED 1000ML 1,000 ML IV SCH (09:48)
[2016-08-31] MEDS ORDERED: LIDOCAINE 1% 1 ML SYRINGE. ID PRN (10:00)
[2016-08-31] MEDS ORDERED: fentaNYL PF VIAL 100 MCG/2 ML VIAL IV PRN (10:00)
[2016-08-31] MEDS ORDERED: PROCHLORPERAZINE 10 MG/2 ML VIAL. IV PRN (10:00)
[2016-08-31] MEDS ORDERED: HYDROmorphone 2 MG/ML VIAL IV PRN (10:00)
[2016-08-31] MEDS: NICOTINE 21MG PATCH. TD SCH (10:49)
--- NOTE | 2016-08-31 12:38 | PDOC ---
PROGRESS NOTES Chief Complaint Chief Complaint 1. 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 Hypercalcemia of malignancy 3. Hyponatremia 4. Anemia of CKD 5. Leukocytosis 6. GNR UTI History of Present Illness History of Present Illness Still no appetite CA remains at 12 NA 124, no signif change from admit IVF NS at 150cc.hr Urine cx shows GNR WBC 17 PLAN: cont rocephin, Await sensitivities Involve renal re hyponat and hypercalcemia BMP and ca again matthew, Nutrition on board Monitor leukocytosis, (17), no fevers - cbc matthew Vitals Vitals Vital Signs Date Time Temp Pulse Resp B/P (MAP) Pulse Ox O2 Delivery O2 Flow Rate FiO2 08/31/16 11:00 99.1 82 18 139/72 (94) 96 Room Air 99.1 Physical Exam General: Oriented X3, Cooperative, Other (weak looking) Heart: Regular rate, Normal S1 Lungs: Clear Abdomen: Normal bowel sounds, Soft Extremities: No clubbing, No cyanosis Skin: No rashes, No breakdown Review of Systems Review of Systems weak, no appetite, no cp, soa Assessment and Plan Assessmemt and Plan Problems Medical Problems: (1) Metastatic squamous cell carcinoma Status: Acute (2) Renal insufficiency Status: Acute (3) Severe protein-calorie malnutrition Status: Acute Problems: Comment Review of Relevant I have reviewed the following items niki (where applicable) has been applied. Labs Laboratory Tests Test 08/29/16 17:55 08/29/16 18:55 08/30/16 02:40 08/30/16 04:12 White Blood Count 17.8 x10^3/uL (4.0-11.0) 17.5 x10^3/uL (4.0-11.0) Red Blood Count 2.74 x10^6/uL (3.50-5.40) 2.59 x10^6/uL (3.50-5.40) Hemoglobin 8.6 g/dL (12.0-15.5) 8.1 g/dL (12.0-15.5) Hematocrit 24.5 % (36.0-47.0) 23.1 % (36.0-47.0) Mean Corpuscular Volume 89 fL (79-100) 89 fL (79-100) Mean Corpuscular Hemoglobin 31 pg (25-35) 31 pg (25-35) Mean Corpuscular Hemoglobin Concent 35 g/dL (31-37) 35 g/dL (31-37) Red Cell Distribution Width 19.1 % (11.5-14.5) 19.1 % (11.5-14.5) Platelet Count 252 x10^3/uL (140-400) 235 x10^3/uL (140-400) Neutrophils (%) (Auto) 91 % (31-73) 92 % (31-73) Lymphocytes (%) (Auto) 4 % (24-48) 3 % (24-48) Monocytes (%) (Auto) 4 % (0-9) 5 % (0-9) Eosinophils (%) (Auto) 0 % (0-3) 0 % (0-3) Basophils (%) (Auto) 1 % (0-3) 0 % (0-3) Neutrophils # (Auto) 16.3 x10^3uL (1.8-7.7) 16.0 x10^3uL (1.8-7.7) Lymphocytes # (Auto) 0.6 x10^3/uL (1.0-4.8) 0.6 x10^3/uL (1.0-4.8) Monocytes # (Auto) 0.8 x10^3/uL (0.0-1.1) 0.9 x10^3/uL (0.0-1.1) Eosinophils # (Auto) 0.0 x10^3/uL (0.0-0.7) 0.0 x10^3/uL (0.0-0.7) Basophils # (Auto) 0.1 x10^3/uL (0.0-0.2) 0.0 x10^3/uL (0.0-0.2) Segmented Neutrophils % 84 % (35-66) Band Neutrophils % 7 % (0-9) Lymphocytes % 5 % (24-48) Monocytes % 4 % (0-10) Toxic Granulation Mod Platelet Estimate Adequate (ADEQUATE) Anisocytosis Slight Sodium Level 121 mmol/L (136-145) 124 mmol/L (136-145) Potassium Level 4.3 mmol/L (3.5-5.1) 4.3 mmol/L (3.5-5.1) Chloride Level 84 mmol/L (98-107) 88 mmol/L (98-107) Carbon Dioxide Level 31 mmol/L (21-32) 28 mmol/L (21-32) Anion Gap 6 (6-14) 8 (6-14) Blood Urea Nitrogen 20 mg/dL (7-20) 19 mg/dL (7-20) Creatinine 1.7 mg/dL (0.6-1.0) 1.7 mg/dL (0.6-1.0) Estimated GFR (Cockcroft-Gault) 38.8 38.8 BUN/Creatinine Ratio 12 (6-20) Glucose Level 91 mg/dL (70-99) 84 mg/dL (70-99) Calcium Level 13.3 mg/dL (8.5-10.1) 12.1 mg/dL (8.5-10.1) Magnesium Level 1.9 mg/dL (1.8-2.4) Total Bilirubin 0.7 mg/dL (0.2-1.0) Aspartate Amino Transf (AST/SGOT) 36 U/L (15-37) Alanine Aminotransferase (ALT/SGPT) 63 U/L (14-59) Alkaline Phosphatase 157 U/L (46-116) Total Protein 7.2 g/dL (6.4-8.2) Albumin 2.5 g/dL (3.4-5.0) Albumin/Globulin Ratio 0.5 (1.0-1.7) Urine Collection Type Unknown Urine Color Yellow Urine Clarity Clear Urine pH 7.5 Urine Specific [place] 1.010 Urine Protein Negative mg/dL (NEG-TRACE) Urine Glucose (UA) Negative mg/dL (NEG) Urine Ketones (Stick) Negative mg/dL (NEG) Urine Blood Trace (NEG) Urine Nitrite Negative (NEG) Urine Bilirubin Negative (NEG) Urine Urobilinogen Dipstick 0.2 mg/dL (0.2 mg/dL) Urine Leukocyte Esterase Moderate (NEG) Urine RBC Rare /HPF (0-2) Urine WBC 11-20 /HPF (0-4) Urine Squamous Epithelial Cells Mod /LPF Urine Bacteria Few /HPF (0-FEW) Nasal Screen MRSA (PCR) Negative (Negative) Microbiology 08/29/16 Urine Culture - Preliminary, Resulted 08/29/16 Urine Culture Result 1 (KEVIN) - Preliminary, Resulted Medications Current Medications Hydromorphone HCl (Dilaudid) 1 mg PRN Q15MIN PRN IV/SQ PAIN GREATER THAN 3/10 Last administered on 08/29/16 21:47; Start 08/29/16 at 17:45; Stop 08/30/16 at 17:44; Status DC Sodium Chloride 1,000 ml @ 1,000 mls/hr Q1H IV Last administered on 08/29/16 18:09; Start 08/29/16 at 17:33; Stop 08/29/16 at 18:32; Status DC Ondansetron HCl (Zofran) 4 mg 1X ONCE IV Last administered on 08/29/16 18:09 ; Start 08/29/16 at 17:45; Stop 08/29/16 at 17:46; Status DC Famotidine (Pepcid) 20 mg 1X ONCE IVP Last administered on 08/29/16 18:10; Start 08/29/16 at 17:45; Stop 08/29/16 at 17:46; Status DC Pamidronate Disodium 60 mg/ Sodium Chloride 250 ml @ 83.333 mls/ hr 1X ONCE IV Last administered on 08/29/16 21:37; Start 08/29/16 at 19:30; Stop at 22:29; Status DC Sodium Chloride 1,000 ml @ 150 mls/hr Q6H40M IV Last administered on 03:55; Start 08/29/16 at 19:30 Ondansetron HCl (Zofran) 4 mg PRN Q8HRS PRN IV NAUSEA/VOMITING; Start 08/29/16 at 20:30; Stop 08/30/16 at 20:29; Status DC Acetaminophen (Tylenol) 650 mg PRN Q4HRS PRN PO FEVER; Start 08/29/16 at 20:30 ; Stop 08/30/16 at 20:29; Status DC Acetaminophen/ Hydrocodone Bitart (Lortab 7.5/325) 1 tab PRN Q6HRS PRN PO PAIN Last administered on 08/30/16 05:57; Start 08/29/16 at 23:45; Stop 08/30/16 at 07:08; Status DC Morphine Sulfate (Roxanol Conc) 10 mg PRN Q2HRS PRN SL MODERATE PAIN WHILE AWAKE Last administered on 08/30/16 23:15; Start 08/29/16 at 23:45 Morphine Sulfate (Ms Contin) 15 mg BID PO ; Start 08/30/16 at 09:00; Stop at 09:00; Status DC Non-Formulary Medication 30 mg Q12HR PO ; Start 08/30/16 at 09:00; Stop at 09:00; Status DC Morphine Sulfate (Ms Contin) 15 mg BID PO Last administered on 08/30/16 12:03 ; Start 08/30/16 at 00:00 Morphine Sulfate (Ms Contin) 30 mg Q12HR PO ; Start 08/30/16 at 00:00; Stop at 00:00; Status DC Morphine Sulfate (Ms Contin) 30 mg Q12H PO Last administered on 08/31/16 00:13 ; Start 08/30/16 at 00:00 Acetaminophen/ Hydrocodone Bitart (Lortab 7.5/325) 1 tab PRN Q4HRS PRN PO PAIN Last administered on 08/31/16 10:40; Start 08/30/16 at 07:07 Nicotine (Nicoderm Cq 21mg) 1 patch DAILY TD Last administered on 08/31/16 10: 49; Start 08/30/16 at 09:00 Levofloxacin/ Dextrose 50 ml @ 50 mls/hr Q24H IV Last administered on 10:13; Start 08/30/16 at 10:00 Metoprolol Tartrate (Lopressor) 25 mg BID PO Last administered on 08/30/16 21: 13; Start 08/30/16 at 10:00 Amlodipine Besylate (Norvasc) 10 mg DAILY PO Last administered on 08/30/16 17: 45; Start 08/30/16 at 16:30 Docusate Sodium (Colace) 100 mg DAILY PO ; Start 08/31/16 at 09:00; Stop at 09:00; Status DC Docusate Sodium (Colace) 100 mg DAILY PO Last administered on 08/30/16 18:17; Start 08/30/16 at 18:15 Apixaban (Eliquis) 2.5 mg BID PO ; Start 08/30/16 at 21:00 Lorazepam (Ativan) 0.5 mg PRN Q6HRS PRN PO ANXIETY Last administered on 22:22; Start 08/30/16 at 18:45 Magnesium Oxide (Magnesium Oxide) 400 mg TID PO Last administered on 08/30/16 21:11; Start 08/30/16 at 21:00 Pantoprazole Sodium (Protonix) 40 mg DAILYAC PO ; Start 08/31/16 at 07:30 Ondansetron HCl (Zofran Odt) 4 mg PRN Q8HRS PRN PO NAUSEA/VOMITING; Start 08/30 at 18:45 Prochlorperazine Maleate (Compazine) 10 mg PRN Q6HRS PRN PO NAUSEA; Start 08/30 at 18:45 Losartan Potassium (Cozaar) 100 mg DAILY PO ; Start 08/31/16 at 09:00 Fentanyl Citrate (Fentanyl 2ml Vial) 25 mcg PRN Q5MIN PRN IV MILD PAIN; Start 08/31/16 at 10:00; Stop 09/01/16 at 09:59 Fentanyl Citrate (Fentanyl 2ml Vial) 50 mcg PRN Q5MIN PRN IV MODERATE PAIN; Start 08/31/16 at 10:00; Stop 09/01/16 at 09:59 Morphine Sulfate 1 mg PRN Q10MIN PRN IV SEVERE PAIN; Start 08/31/16 at 10:00; Stop 09/01/16 at 09:59 Ringer's Solution 1,000 ml @ 30 mls/hr Q24H IV ; Start 08/31/16 at 09:48; Stop 08/31/16 at 21:47 Lidocaine HCl 2 ml PRN 1X PRN ID PRIOR TO IV START; Start 08/31/16 at 10:00; Stop 09/01/16 at 09:59 Hydromorphone HCl (Dilaudid) 0.5 mg PRN Q10MIN PRN IV SEV PAIN, Second choice; Start 08/31/16 at 10:00; Stop 09/01/16 at 09:59 Prochlorperazine Edisylate (Compazine) 5 mg PACU PRN PRN IV NAUSEA, MRX1; Start 08/31/16 at 10:00; Stop 09/01/16 at 09:59 Active Scripts Active Protonix (Pantoprazole Sodium) 40 Mg Tablet.dr 1 Tab PO DAILY Reported K-Tab ER (Potassium Chloride) 20 Meq Tablet.er 20 Meq PO DAILY Furosemide 40 Mg Tablet 40 Mg PO DAILY Ondansetron Hcl 8 Mg Tablet 8 Mg PO PRN Q8HRS PRN Lorazepam 0.5 Mg Tablet 1 Tab PO PRN Q6HRS PRN Prochlorperazine Maleate 10 Mg Tablet 10 Mg PO PRN Q6-8HRS PRN Magnesium Oxide 400 Mg Tablet 400 Mg PO TID Morphine Sulfate Er (Morphine Sulfate) 15 Mg Tablet.er 1 Tab PO BID Morphine Sulfate Er (Morphine Sulfate) 30 Mg Cap.er.pel 30 Mg PO Q12HR Morphine Sulfate 100 Mg/5 Ml Solution 10 Mg PO PRN Q2-4HRS PRN Eliquis (Apixaban) 2.5 Mg Tablet 2.5 Mg PO BIDAFTMEAL Hydrocodone-Apap 7.5-325 (Hydrocodone Bit/Acetaminophen) 1 Each Tablet 1 Tab PO PRN Q6HRS PRN Losartan-Hctz 100-25 Mg Tab (Losartan/Hydrochlorothiazide) 1 Each Tablet 1 Tab PO DAILY Docusate Sodium 100 Mg Capsule 1 Cap PO DAILY Vitals/I & O Vital Sign - Last 24 Hours 08/30/16 08/30/16 08/30/16 08/30/16 14:25 15:23 16:00 16:44 Temp 98.1 98.1 Pulse 72 Resp 16 20 18 18 B/P (MAP) 179/81 (113) Pulse Ox 97 98 98 98 O2 Delivery Room Air Room Air Room Air Room Air 08/30/16 08/30/16 08/30/16 08/30/16 17:45 19:00 19:00 20:00 Temp 98.1 98.1 Pulse 72 80 Resp 18 20 B/P (MAP) 179/81 181/85 (117) Pulse Ox 98 98 96 O2 Delivery Room Air Room Air Room Air 08/30/16 08/30/16 08/30/16 08/30/16 20:00 21:13 21:17 23:00 Temp 98.1 98.1 Pulse 82 87 Resp 20 18 B/P (MAP) 182/83 187/93 (124) Pulse Ox 98 96 O2 Delivery Room Air Room Air Room Air 08/30/16 08/31/16 08/31/16 08/31/16 23:15 00:13 00:15 03:00 Temp 97.9 97.9 Pulse 77 Resp 20 20 20 18 B/P (MAP) 182/89 (120) Pulse Ox 98 98 96 O2 Delivery Room Air Room Air Room Air 08/31/16 08/31/16 08/31/16 08/31/16 04:13 05:54 06:54 07:00 Temp 99.3 99.3 Resp 18 18 20 Pulse Ox 96 96 96 O2 Delivery Room Air Room Air Room Air 08/31/16 08/31/16 08/31/16 08/31/16 07:00 08:05 10:40 11:00 Temp 99.1 99.1 99.1 99.1 Pulse 79 82 Resp 19 20 18 B/P (MAP) 168/87 (114) 139/72 (94) Pulse Ox 97 93 96 O2 Delivery Room Air Room Air Room Air Room Air Intake and Output 08/30/16 08/30/16 08/31/16 15:00 23:00 07:00 Intake Total 1000 ml Output Total 1650 ml 2350 ml Balance -1650 ml -1350 ml JIGAR RICO MD August 31, 2016 12:38
[2016-08-31] MEDS ORDERED: MIDAZOLAM HCL/PF 2 MG/2 ML VIAL. ONE (13:14)
[2016-08-31] MEDS ORDERED: SEVOFLURANE 61 TO 120 MINUTES. IH ONE (13:14)
[2016-08-31] MEDS ORDERED: fentaNYL PF VIAL 100 MCG/2 ML VIAL ONE (13:14)
[2016-08-31] MEDS ORDERED: DEXAMETHASONE SOD PHOS 20 MG/5 ML VIAL. ONE (13:18)
[2016-08-31] MEDS ORDERED: ONDANSETRON PF 4 MG/2 ML VIAL. ONE (13:18)
[2016-08-31] MEDS ORDERED: PROPOFOL 20 ML IV ONE (13:18)
[2016-08-31] MEDS ORDERED: LIDOCAINE 2% PF Vial for OR 5 ML VIAL. ONE (13:19)
[2016-08-31] MEDS: ANTI-COAG MONITOR BY PHARMACY. MC PRN (14:22)
--- NOTE | 2016-08-31 15:00 | PDOC ---
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 ROS - no fever Objective Objective Vital Signs Date Time Temp Pulse Resp B/P (MAP) Pulse Ox O2 Delivery O2 Flow Rate FiO2 08/31/16 13:30 98.1 92 12 178/84 97 Room Air 98.1 Intake and Output 08/31/16 07:00 Intake Total 1000 ml Output Total 4000 ml Balance -3000 ml IV Total 1000 ml Output Urine Total 4000 ml # Voids 1 Physical Exam Heart: Normal S1, Normal S2 General: Alert, Oriented X3 Lungs: Clear to auscultation Assessment Assessment Problems Medical Problems: (1) Metastatic squamous cell carcinoma Status: Acute (2) Renal insufficiency Status: Acute (3) Severe protein-calorie malnutrition Status: Acute ASSESSMENT AND PLAN: The patient is a 46-year-old female with the following medical problems: 1. 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 No further radiation is possible. I would like to start pembrolizumab as an outpatient as soon as we can obtain approval. She could not tolerate a bone scan. 2. Hypercalcemia, malignant, an ongoing issue for her as well. Aredia was given in the Emergency Room. She remains on aggressive fluids as well. Consult nephrology. 3. Hyponatremia - consult nephrology. 4. Renal failure Comment Review of Relevant I have reviewed the following items niki (where applicable) has been applied. Labs Laboratory Tests Test 08/29/16 17:55 08/29/16 18:55 08/30/16 02:40 08/30/16 04:12 White Blood Count 17.8 x10^3/uL (4.0-11.0) 17.5 x10^3/uL (4.0-11.0) Red Blood Count 2.74 x10^6/uL (3.50-5.40) 2.59 x10^6/uL (3.50-5.40) Hemoglobin 8.6 g/dL (12.0-15.5) 8.1 g/dL (12.0-15.5) Hematocrit 24.5 % (36.0-47.0) 23.1 % (36.0-47.0) Mean Corpuscular Volume 89 fL (79-100) 89 fL (79-100) Mean Corpuscular Hemoglobin 31 pg (25-35) 31 pg (25-35) Mean Corpuscular Hemoglobin Concent 35 g/dL (31-37) 35 g/dL (31-37) Red Cell Distribution Width 19.1 % (11.5-14.5) 19.1 % (11.5-14.5) Platelet Count 252 x10^3/uL (140-400) 235 x10^3/uL (140-400) Neutrophils (%) (Auto) 91 % (31-73) 92 % (31-73) Lymphocytes (%) (Auto) 4 % (24-48) 3 % (24-48) Monocytes (%) (Auto) 4 % (0-9) 5 % (0-9) Eosinophils (%) (Auto) 0 % (0-3) 0 % (0-3) Basophils (%) (Auto) 1 % (0-3) 0 % (0-3) Neutrophils # (Auto) 16.3 x10^3uL (1.8-7.7) 16.0 x10^3uL (1.8-7.7) Lymphocytes # (Auto) 0.6 x10^3/uL (1.0-4.8) 0.6 x10^3/uL (1.0-4.8) Monocytes # (Auto) 0.8 x10^3/uL (0.0-1.1) 0.9 x10^3/uL (0.0-1.1) Eosinophils # (Auto) 0.0 x10^3/uL (0.0-0.7) 0.0 x10^3/uL (0.0-0.7) Basophils # (Auto) 0.1 x10^3/uL (0.0-0.2) 0.0 x10^3/uL (0.0-0.2) Segmented Neutrophils % 84 % (35-66) Band Neutrophils % 7 % (0-9) Lymphocytes % 5 % (24-48) Monocytes % 4 % (0-10) Toxic Granulation Mod Platelet Estimate Adequate (ADEQUATE) Anisocytosis Slight Sodium Level 121 mmol/L (136-145) 124 mmol/L (136-145) Potassium Level 4.3 mmol/L (3.5-5.1) 4.3 mmol/L (3.5-5.1) Chloride Level 84 mmol/L (98-107) 88 mmol/L (98-107) Carbon Dioxide Level 31 mmol/L (21-32) 28 mmol/L (21-32) Anion Gap 6 (6-14) 8 (6-14) Blood Urea Nitrogen 20 mg/dL (7-20) 19 mg/dL (7-20) Creatinine 1.7 mg/dL (0.6-1.0) 1.7 mg/dL (0.6-1.0) Estimated GFR (Cockcroft-Gault) 38.8 38.8 BUN/Creatinine Ratio 12 (6-20) Glucose Level 91 mg/dL (70-99) 84 mg/dL (70-99) Calcium Level 13.3 mg/dL (8.5-10.1) 12.1 mg/dL (8.5-10.1) Magnesium Level 1.9 mg/dL (1.8-2.4) Total Bilirubin 0.7 mg/dL (0.2-1.0) Aspartate Amino Transf (AST/SGOT) 36 U/L (15-37) Alanine Aminotransferase (ALT/SGPT) 63 U/L (14-59) Alkaline Phosphatase 157 U/L (46-116) Total Protein 7.2 g/dL (6.4-8.2) Albumin 2.5 g/dL (3.4-5.0) Albumin/Globulin Ratio 0.5 (1.0-1.7) Urine Collection Type Unknown Urine Color Yellow Urine Clarity Clear Urine pH 7.5 Urine Specific [place] 1.010 Urine Protein Negative mg/dL (NEG-TRACE) Urine Glucose (UA) Negative mg/dL (NEG) Urine Ketones (Stick) Negative mg/dL (NEG) Urine Blood Trace (NEG) Urine Nitrite Negative (NEG) Urine Bilirubin Negative (NEG) Urine Urobilinogen Dipstick 0.2 mg/dL (0.2 mg/dL) Urine Leukocyte Esterase Moderate (NEG) Urine RBC Rare /HPF (0-2) Urine WBC 11-20 /HPF (0-4) Urine Squamous Epithelial Cells Mod /LPF Urine Bacteria Few /HPF (0-FEW) Nasal Screen MRSA (PCR) Negative (Negative) Microbiology 08/29/16 Urine Culture - Final, Complete 08/29/16 Urine Culture Result 1 (EKVIN) - Final, Complete 08/29/16 Antimicrobic Susceptibility - Final, Complete Medications Current Medications Hydromorphone HCl (Dilaudid) 1 mg PRN Q15MIN PRN IV/SQ PAIN GREATER THAN 3/10 Last administered on 08/29/16 21:47; Start 08/29/16 at 17:45; Stop 08/30/16 at 17:44; Status DC Sodium Chloride 1,000 ml @ 1,000 mls/hr Q1H IV Last administered on 08/29/16 18:09; Start 08/29/16 at 17:33; Stop 08/29/16 at 18:32; Status DC Ondansetron HCl (Zofran) 4 mg 1X ONCE IV Last administered on 08/29/16 18:09 ; Start 08/29/16 at 17:45; Stop 08/29/16 at 17:46; Status DC Famotidine (Pepcid) 20 mg 1X ONCE IVP Last administered on 08/29/16 18:10; Start 08/29/16 at 17:45; Stop 08/29/16 at 17:46; Status DC Pamidronate Disodium 60 mg/ Sodium Chloride 250 ml @ 83.333 mls/ hr 1X ONCE IV Last administered on 08/29/16 21:37; Start 08/29/16 at 19:30; Stop at 22:29; Status DC Sodium Chloride 1,000 ml @ 150 mls/hr Q6H40M IV Last administered on 03:55; Start 08/29/16 at 19:30 Ondansetron HCl (Zofran) 4 mg PRN Q8HRS PRN IV NAUSEA/VOMITING; Start 08/29/16 at 20:30; Stop 08/30/16 at 20:29; Status DC Acetaminophen (Tylenol) 650 mg PRN Q4HRS PRN PO FEVER; Start 08/29/16 at 20:30 ; Stop 08/30/16 at 20:29; Status DC Acetaminophen/ Hydrocodone Bitart (Lortab 7.5/325) 1 tab PRN Q6HRS PRN PO PAIN Last administered on 08/30/16 05:57; Start 08/29/16 at 23:45; Stop 08/30/16 at 07:08; Status DC Morphine Sulfate (Roxanol Conc) 10 mg PRN Q2HRS PRN SL MODERATE PAIN WHILE AWAKE Last administered on 08/30/16 23:15; Start 08/29/16 at 23:45 Morphine Sulfate (Ms Contin) 15 mg BID PO ; Start 08/30/16 at 09:00; Stop at 09:00; Status DC Non-Formulary Medication 30 mg Q12HR PO ; Start 08/30/16 at 09:00; Stop at 09:00; Status DC Morphine Sulfate (Ms Contin) 15 mg BID PO Last administered on 08/30/16 12:03 ; Start 08/30/16 at 00:00 Morphine Sulfate (Ms Contin) 30 mg Q12HR PO ; Start 08/30/16 at 00:00; Stop at 00:00; Status DC Morphine Sulfate (Ms Contin) 30 mg Q12H PO Last administered on 08/31/16 00:13 ; Start 08/30/16 at 00:00 Acetaminophen/ Hydrocodone Bitart (Lortab 7.5/325) 1 tab PRN Q4HRS PRN PO PAIN Last administered on 08/31/16 10:40; Start 08/30/16 at 07:07 Nicotine (Nicoderm Cq 21mg) 1 patch DAILY TD Last administered on 08/31/16 10: 49; Start 08/30/16 at 09:00 Levofloxacin/ Dextrose 50 ml @ 50 mls/hr Q24H IV Last administered on 10:13; Start 08/30/16 at 10:00; Stop 08/31/16 at 13:47; Status DC Metoprolol Tartrate (Lopressor) 25 mg BID PO Last administered on 08/30/16 21: 13; Start 08/30/16 at 10:00 Amlodipine Besylate (Norvasc) 10 mg DAILY PO Last administered on 08/30/16 17: 45; Start 08/30/16 at 16:30 Docusate Sodium (Colace) 100 mg DAILY PO ; Start 08/31/16 at 09:00; Stop at 09:00; Status DC Docusate Sodium (Colace) 100 mg DAILY PO Last administered on 08/30/16 18:17; Start 08/30/16 at 18:15 Apixaban (Eliquis) 2.5 mg BID PO ; Start 08/30/16 at 21:00 Lorazepam (Ativan) 0.5 mg PRN Q6HRS PRN PO ANXIETY Last administered on 22:22; Start 08/30/16 at 18:45 Magnesium Oxide (Magnesium Oxide) 400 mg TID PO Last administered on 08/30/16 21:11; Start 08/30/16 at 21:00 Pantoprazole Sodium (Protonix) 40 mg DAILYAC PO ; Start 08/31/16 at 07:30 Ondansetron HCl (Zofran Odt) 4 mg PRN Q8HRS PRN PO NAUSEA/VOMITING; Start 08/30 at 18:45 Prochlorperazine Maleate (Compazine) 10 mg PRN Q6HRS PRN PO NAUSEA; Start 08/30 at 18:45 Losartan Potassium (Cozaar) 100 mg DAILY PO ; Start 08/31/16 at 09:00 Fentanyl Citrate (Fentanyl 2ml Vial) 25 mcg PRN Q5MIN PRN IV MILD PAIN; Start 08/31/16 at 10:00; Stop 09/01/16 at 09:59 Fentanyl Citrate (Fentanyl 2ml Vial) 50 mcg PRN Q5MIN PRN IV MODERATE PAIN; Start 08/31/16 at 10:00; Stop 09/01/16 at 09:59 Morphine Sulfate 1 mg PRN Q10MIN PRN IV SEVERE PAIN; Start 08/31/16 at 10:00; Stop 09/01/16 at 09:59 Ringer's Solution 1,000 ml @ 30 mls/hr Q24H IV Last administered on 08/31/16 13:33; Start 08/31/16 at 09:48; Stop 08/31/16 at 21:47 Lidocaine HCl 2 ml PRN 1X PRN ID PRIOR TO IV START; Start 08/31/16 at 10:00; Stop 09/01/16 at 09:59 Hydromorphone HCl (Dilaudid) 0.5 mg PRN Q10MIN PRN IV SEV PAIN, Second choice; Start 08/31/16 at 10:00; Stop 09/01/16 at 09:59 Prochlorperazine Edisylate (Compazine) 5 mg PACU PRN PRN IV NAUSEA, MRX1; Start 08/31/16 at 10:00; Stop 09/01/16 at 09:59 Sevoflurane (Ultane) 60 ml STK-MED ONCE IH ; Start 08/31/16 at 13:14; Stop 08/31 at 13:15; Status DC Midazolam HCl (Versed) 2 mg STK-MED ONCE .ROUTE ; Start 08/31/16 at 13:14; Stop 08/31/16 at 13:15; Status DC Fentanyl Citrate (Fentanyl 2ml Vial) 100 mcg STK-MED ONCE .ROUTE ; Start at 13:14; Stop 08/31/16 at 13:15; Status DC Propofol 20 ml @ As Directed STK-MED ONCE IV ; Start 08/31/16 at 13:18; Stop at 13:19; Status DC Ondansetron HCl (Zofran) 4 mg STK-MED ONCE .ROUTE ; Start 08/31/16 at 13:18; Stop 08/31/16 at 13:19; Status DC Dexamethasone Sodium Phosphate (Decadron) 20 mg STK-MED ONCE .ROUTE ; Start at 13:18; Stop 08/31/16 at 13:19; Status DC Lidocaine HCl (Lidocaine Pf 2% Vial) 5 ml STK-MED ONCE .ROUTE ; Start 08/31/16 at 13:19; Stop 08/31/16 at 13:20; Status DC Info (Anti-Coagulation Monitoring By Pharmacy) 1 each PRN DAILY PRN MC SEE COMMENTS Last administered on 08/31/16t 14:22; Start 08/31/16 at 13:45 Ceftriaxone Sodium 1 gm/ Sodium Chloride 50 ml @ 100 mls/hr Q24H IV ; Start at 14:00 Ceftriaxone Sodium 50 ml @ As Directed STK-MED ONCE IV ; Start 08/31/16 at 14:20 ; Stop 08/31/16 at 14:21; Status DC Active Scripts Active Protonix (Pantoprazole Sodium) 40 Mg Tablet. 1 Tab PO DAILY Reported K-Tab ER (Potassium Chloride) 20 Meq Tablet.er 20 Meq PO DAILY Furosemide 40 Mg Tablet 40 Mg PO DAILY Ondansetron Hcl 8 Mg Tablet 8 Mg PO PRN Q8HRS PRN Lorazepam 0.5 Mg Tablet 1 Tab PO PRN Q6HRS PRN Prochlorperazine Maleate 10 Mg Tablet 10 Mg PO PRN Q6-8HRS PRN Magnesium Oxide 400 Mg Tablet 400 Mg PO TID Morphine Sulfate Er (Morphine Sulfate) 15 Mg Tablet.er 1 Tab PO BID Morphine Sulfate Er (Morphine Sulfate) 30 Mg Cap.er.pel 30 Mg PO Q12HR Morphine Sulfate 100 Mg/5 Ml Solution 10 Mg PO PRN Q2-4HRS PRN Eliquis (Apixaban) 2.5 Mg Tablet 2.5 Mg PO BIDAFTMEAL Hydrocodone-Apap 7.5-325 (Hydrocodone Bit/Acetaminophen) 1 Each Tablet 1 Tab PO PRN Q6HRS PRN Losartan-Hctz 100-25 Mg Tab (Losartan/Hydrochlorothiazide) 1 Each Tablet 1 Tab PO DAILY Docusate Sodium 100 Mg Capsule 1 Cap PO DAILY Vitals/I & O Vital Sign - Last 24 Hours 08/30/16 08/30/16 08/30/16 08/30/16 15:23 16:00 16:44 17:45 Temp 98.1 98.1 Pulse 72 72 Resp 20 18 18 B/P (MAP) 179/81 (113) 179/81 Pulse Ox 98 98 98 O2 Delivery Room Air Room Air Room Air 08/30/16 08/30/16 08/30/16 08/30/16 19:00 19:00 20:00 20:00 Temp 98.1 98.1 Pulse 80 Resp 18 20 B/P (MAP) 181/85 (117) Pulse Ox 98 98 96 O2 Delivery Room Air Room Air Room Air Room Air 08/30/16 08/30/16 08/30/16 08/30/16 21:13 21:17 23:00 23:15 Temp 98.1 98.1 Pulse 82 87 Resp 20 18 20 B/P (MAP) 182/83 187/93 (124) Pulse Ox 98 96 98 O2 Delivery Room Air Room Air Room Air 08/31/16 08/31/16 08/31/16 08/31/16 00:13 00:15 03:00 04:13 Temp 97.9 97.9 Pulse 77 Resp 20 20 18 18 B/P (MAP) 182/89 (120) Pulse Ox 98 96 96 O2 Delivery Room Air Room Air Room Air 08/31/16 08/31/16 08/31/16 08/31/16 05:54 06:54 07:00 07:00 Temp 99.3 99.1 99.3 99.1 Pulse 79 Resp 18 20 19 B/P (MAP) 168/87 (114) Pulse Ox 96 96 97 O2 Delivery Room Air Room Air Room Air 08/31/16 08/31/16 08/31/16 08/31/16 08:05 10:40 11:00 13:30 Temp 99.1 98.1 99.1 98.1 Pulse 82 92 Resp 20 18 12 B/P (MAP) 139/72 (94) 178/84 Pulse Ox 93 96 97 O2 Delivery Room Air Room Air Room Air Room Air Intake and Output 08/30/16 08/30/16 08/31/16 15:00 23:00 07:00 Intake Total 1000 ml Output Total 1650 ml 2350 ml Balance -1650 ml -1350 ml GULILAUME MORAN MD August 31, 2016 15:00
[2016-08-31] MEDS ORDERED: LIDOCAINE 1%/EPI 1:100,000 20 ML VIAL. ONE (15:14)
--- NOTE | 2016-08-31 15:25 | PDOC ---
BRIEF OPERATIVE NOTE Date: August 31, 2016 Pre-Op Diagnosis Wound right lateral foot, s/p amputation Post-Op Diagnosis same Procedure Performed Debridement right lateral foot wound Surgeon Dr. [employer] Margarito Sullivan Anesthesia Type: General Blood Loss 5cc Findings Wound [id number] Complications none MARGARITO SULLIVAN [employer] August 31, 2016 15:25
[2016-08-31] MEDS: fentaNYL PF VIAL 100 MCG/2 ML VIAL IV PRN ×4 (15:42→16:21)
[2016-08-31] MEDS: MORPHINE SULFATE 2 MG/ML DISP.SYRIN. IV PRN ×2 (15:54→16:07)
[2016-08-31] MEDS: LOSARTAN POTASSIUM 50 MG TABLET. PO SCH (17:34)
[2016-08-31] MEDS: amLODIPine BESYLATE 10 MG TABLET PO SCH (17:34)
[2016-08-31] MEDS: DOCUSATE SODIUM 100 MG CAPSULE. PO SCH (17:35)
[2016-08-31] MEDS: PANTOPRAZOLE 40 MG TABLET.DR. PO SCH (17:35)
--- NOTE | 2016-08-31 18:16 | CONS ---
DATE OF CONSULTATION: 08/30/2016 VASCULAR SURGERY CONSULT CLINICAL HISTORY: This is a 46-year-old female who was admitted for evaluation of pain in the right leg with radiation to the back. 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 She has undergone some biopsy of this and subsequently underwent radiation and chemotherapy. She has a wound over the lateral aspect of the right foot, which has been managed by [facility]. He saw her last and thought things look pretty good. 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 She has a history of hypertension and ovarian cyst. ALLERGIES: AUGMENTIN. SOCIAL HISTORY: She is a nonsmoker. MEDICATIONS: Reviewed. REVIEW OF SYSTEMS: A 12-point review of systems is negative other than what was mentioned in the history. PHYSICAL EXAMINATION: The patient has bilateral edematous lower extremities with some induration in the right calf. She has amputation of the lateral 3 toes, which is open. There is some granulation tissue present, but there is fair amount of yellow exudate. There does not appear to be an abscess and there does not appear to be any deep tracts. She has arterial flow by Doppler in the right foot. IMPRESSION: 1. Squamous cancer of the foot with metastasis to the groin. 2. Arterial insufficiency of the right leg, but with Doppler flow. PLAN: Discussed options with the patient. I recommend surgical debridement in the operating room, as I do not think she would tolerate it at the bedside. She has a vehement way opposed to further amputation of the forefoot; therefore, we will do a conservative, but rather aggressive local debridement of the tissues. The operation risks and benefits were explained. ZAMZAM BRUMFIELD MD DR: SAMUEL/derek JOB#: [id number] / [id number]
--- NOTE | 2016-08-31 21:30 | OP ---
DATE OF SURGERY: 08/30/2016 PREOPERATIVE DIAGNOSIS: Right plantar wound with exudate. POSTOPERATIVE DIAGNOSIS: Right plantar wound with exudate. OPERATION PERFORMED: Full-thickness debridement of the right plantar wound measuring 5 x 15 cm, excisional subcutaneous only. SURGEON: Zamzam Alicia M.D. RN COMPLEX CARE: [facility] [place] ANESTHESIA: General. DESCRIPTION OF PROCEDURE: The right foot was prepped and draped. There she had a previous amputation of her lateral three toes and a plantar wound. [facility] and is healing fairly well, but there is a fair amount of adherent exudate, which needs to be creamed off in the operating room. After prep and drape, a rongeur was used to excise the wound exudate and areas of necrotic tissue. The wound bled extremely well. A moistened plain 4 x 4 with 1% lidocaine with epinephrine ____ was used to cover the wound, covered by Xeroform gauze, dry 4 x 4s, Kerlix and an Patrice wrap. The patient tolerated the procedure well and was taken to the recovery room in satisfactory condition. ZAMZAM ALICIA MD DR: SAMUEL/derek JOB#: [id number] / [id number]
[2016-08-31] MEDS: MORPHINE SULFATE 20 MG/ML CONC SOLUTION. SL PRN (22:45)
[2016-09-01] MEDS: IV NORMAL SALINE 1000ML BAG 1,000 ML IV SCH ×4 (00:50→23:00)
[2016-09-01] MEDS: HYDROcodone/APAP 7.5/325MG 1 TAB TABLET PO PRN ×6 (02:22→23:00)
[2016-09-01] MEDS: MORPHINE SULFATE 20 MG/ML CONC SOLUTION. SL PRN ×5 (03:45→20:57)
[2016-09-01 05:51] LABS: CALCIUM 10.5 mg/dL (8.5-10.1); CREATININE 1.5 mg/dL (0.6-1.0); GFR 44.8; POTASSIUM 4.1 mmol/L (3.5-5.1)
[2016-09-01 07:00] VITALS: BP 178/86
[2016-09-01] MEDS ORDERED: DOCUSATE SODIUM 100 MG CAPSULE. PO PRN (07:30)
[2016-09-01] MEDS ORDERED: POLYETHYLENE GLYCOL 3350 17 GM PACKET. PO PRN (07:30)
[2016-09-01] MEDS ORDERED: MAGNESIUM HYDROXIDE 2,400 MG/30 ML ORAL.SUSP. PO PRN (07:30)
[2016-09-01] MEDS: NICOTINE 21MG PATCH. TD SCH (07:42)
[2016-09-01] MEDS: ONDANSETRON ODT 4 MG TAB.RAPDIS. PO PRN (07:43)
[2016-09-01] MEDS: PANTOPRAZOLE 40 MG TABLET.DR. PO SCH (07:52)
[2016-09-01] MEDS: MORPHINE ER 15 MG TABLET.ER PO SCH ×2 (07:53→20:53)
[2016-09-01] MEDS: MAGNESIUM OXIDE 400 MG TABLET PO SCH ×3 (09:18→20:51)
[2016-09-01] MEDS: amLODIPine BESYLATE 10 MG TABLET PO SCH (09:19)
[2016-09-01] MEDS: DOCUSATE SODIUM 100 MG CAPSULE. PO SCH (09:19)
[2016-09-01] MEDS: LOSARTAN POTASSIUM 50 MG TABLET. PO SCH (09:19)
[2016-09-01] MEDS: APIXABAN 2.5 MG TABLET. PO SCH ×2 (09:19→20:51)
[2016-09-01] MEDS: METOPROLOL TART IMMED RELEASE 25 MG TABLET. PO SCH ×2 (09:20→20:51)
[2016-09-01 11:00] VITALS: BP 157/90
--- NOTE | 2016-09-01 11:28 | PDOC ---
PROGRESS NOTES Chief Complaint Chief Complaint 1. 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 Hypercalcemia of malignancy 3. Hyponatremia 4. Anemia of CKD 5. Leukocytosis 6. GNR UTI History of Present Illness History of Present Illness Still no appetite CA better now 10 (was 12)- NS at 150cc Unable to do bone scan - so much pain HAd I and D yesterday by vasc sx - thoughts about Wound vac NA 120s, better Urine cx shows GNR WBC 17 PLAN: RE do bone scan (I re ordered) Add morphine IV and ativan IV Conscious sedation if needed to get bone scan done Recheck CBC - no labs today (WBC 17) Dw RN and vasc sx Thoughts of wound vac - will hold off pending bone scan COnt iVF Nutrition consult REnal panel daily Vitals Vitals Vital Signs Date Time Temp Pulse Resp B/P (MAP) Pulse Ox O2 Delivery O2 Flow Rate FiO2 09/01/16 11:07 97 Room Air 2.0 09/01/16 11:00 98.2 79 16 157/90 (112) 98.2 Physical Exam General: Alert, Oriented X3 Heart: Normal S1, Normal S2 Lungs: Clear Abdomen: Normal bowel sounds, Soft Extremities: No clubbing, No cyanosis Skin: No rashes, No breakdown Labs LABS Laboratory Tests Test 09/01/16 04:25 Sodium Level 128 mmol/L (136-145) Potassium Level 4.1 mmol/L (3.5-5.1) Chloride Level 91 mmol/L (98-107) Carbon Dioxide Level 28 mmol/L (21-32) Anion Gap 9 (6-14) Blood Urea Nitrogen 16 mg/dL (7-20) Creatinine 1.5 mg/dL (0.6-1.0) Estimated GFR (Cockcroft-Gault) 44.8 Glucose Level 86 mg/dL (70-99) Calcium Level 10.5 mg/dL (8.5-10.1) Review of Systems Review of Systems weak, pain, no cp, soa, diarrhea Assessment and Plan Assessmemt and Plan Problems Medical Problems: (1) Metastatic squamous cell carcinoma Status: Acute (2) Renal insufficiency Status: Acute (3) Severe protein-calorie malnutrition Status: Acute Problems: Comment Review of Relevant I have reviewed the following items niki (where applicable) has been applied. Labs Laboratory Tests Test 09/01/16 04:25 Sodium Level 128 mmol/L (136-145) Potassium Level 4.1 mmol/L (3.5-5.1) Chloride Level 91 mmol/L (98-107) Carbon Dioxide Level 28 mmol/L (21-32) Anion Gap 9 (6-14) Blood Urea Nitrogen 16 mg/dL (7-20) Creatinine 1.5 mg/dL (0.6-1.0) Estimated GFR (Cockcroft-Gault) 44.8 Glucose Level 86 mg/dL (70-99) Calcium Level 10.5 mg/dL (8.5-10.1) Laboratory Tests Test 09/01/16 04:25 Sodium Level 128 mmol/L (136-145) Potassium Level 4.1 mmol/L (3.5-5.1) Chloride Level 91 mmol/L (98-107) Carbon Dioxide Level 28 mmol/L (21-32) Anion Gap 9 (6-14) Blood Urea Nitrogen 16 mg/dL (7-20) Creatinine 1.5 mg/dL (0.6-1.0) Estimated GFR (Cockcroft-Gault) 44.8 Glucose Level 86 mg/dL (70-99) Calcium Level 10.5 mg/dL (8.5-10.1) Microbiology 08/29/16 Urine Culture - Final, Complete 08/29/16 Urine Culture Result 1 (KEVIN) - Final, Complete 08/29/16 Antimicrobic Susceptibility - Final, Complete Medications Current Medications Hydromorphone HCl (Dilaudid) 1 mg PRN Q15MIN PRN IV/SQ PAIN GREATER THAN 3/10 Last administered on 08/29/16 21:47; Start 08/29/16 at 17:45; Stop 08/30/16 at 17:44; Status DC Sodium Chloride 1,000 ml @ 1,000 mls/hr Q1H IV Last administered on 08/29/16 18:09; Start 08/29/16 at 17:33; Stop 08/29/16 at 18:32; Status DC Ondansetron HCl (Zofran) 4 mg 1X ONCE IV Last administered on 08/29/16 18:09 ; Start 08/29/16 at 17:45; Stop 08/29/16 at 17:46; Status DC Famotidine (Pepcid) 20 mg 1X ONCE IVP Last administered on 08/29/16 18:10; Start 08/29/16 at 17:45; Stop 08/29/16 at 17:46; Status DC Pamidronate Disodium 60 mg/ Sodium Chloride 250 ml @ 83.333 mls/ hr 1X ONCE IV Last administered on 08/29/16 21:37; Start 08/29/16 at 19:30; Stop at 22:29; Status DC Sodium Chloride 1,000 ml @ 150 mls/hr Q6H40M IV Last administered on 10:09; Start 08/29/16 at 19:30 Ondansetron HCl (Zofran) 4 mg PRN Q8HRS PRN IV NAUSEA/VOMITING; Start 08/29/16 at 20:30; Stop 08/30/16 at 20:29; Status DC Acetaminophen (Tylenol) 650 mg PRN Q4HRS PRN PO FEVER; Start 08/29/16 at 20:30 ; Stop 08/30/16 at 20:29; Status DC Acetaminophen/ Hydrocodone Bitart (Lortab 7.5/325) 1 tab PRN Q6HRS PRN PO PAIN Last administered on 08/30/16 05:57; Start 08/29/16 at 23:45; Stop 08/30/16 at 07:08; Status DC Morphine Sulfate (Roxanol Conc) 10 mg PRN Q2HRS PRN SL MODERATE PAIN WHILE AWAKE Last administered on 09/01/16 09:36; Start 08/29/16 at 23:45 Morphine Sulfate (Ms Contin) 15 mg BID PO ; Start 08/30/16 at 09:00; Stop at 09:00; Status DC Non-Formulary Medication 30 mg Q12HR PO ; Start 08/30/16 at 09:00; Stop at 09:00; Status DC Morphine Sulfate (Ms Contin) 15 mg BID PO Last administered on 09/01/16 07:53 ; Start 08/30/16 at 00:00 Morphine Sulfate (Ms Contin) 30 mg Q12HR PO ; Start 08/30/16 at 00:00; Stop at 00:00; Status DC Morphine Sulfate (Ms Contin) 30 mg Q12H PO Last administered on 08/31/16 00:13 ; Start 08/30/16 at 00:00 Acetaminophen/ Hydrocodone Bitart (Lortab 7.5/325) 1 tab PRN Q4HRS PRN PO PAIN Last administered on 09/01/16 10:07; Start 08/30/16 at 07:07 Nicotine (Nicoderm Cq 21mg) 1 patch DAILY TD Last administered on 09/01/16 07: 42; Start 08/30/16 at 09:00 Levofloxacin/ Dextrose 50 ml @ 50 mls/hr Q24H IV Last administered on 10:13; Start 08/30/16 at 10:00; Stop 08/31/16 at 13:47; Status DC Metoprolol Tartrate (Lopressor) 25 mg BID PO Last administered on 09/01/16 09: 20; Start 08/30/16 at 10:00 Amlodipine Besylate (Norvasc) 10 mg DAILY PO Last administered on 09/01/16 09: 19; Start 08/30/16 at 16:30 Docusate Sodium (Colace) 100 mg DAILY PO ; Start 08/31/16 at 09:00; Stop at 09:00; Status DC Docusate Sodium (Colace) 100 mg DAILY PO Last administered on 09/01/16 09:19; Start 08/30/16 at 18:15 Apixaban (Eliquis) 2.5 mg BID PO Last administered on 09/01/16 09:19; Start at 21:00 Lorazepam (Ativan) 0.5 mg PRN Q6HRS PRN PO ANXIETY Last administered on 22:22; Start 08/30/16 at 18:45 Magnesium Oxide (Magnesium Oxide) 400 mg TID PO Last administered on 09/01/16 09:18; Start 08/30/16 at 21:00 Pantoprazole Sodium (Protonix) 40 mg DAILYAC PO Last administered on 09/01/16 07:52; Start 08/31/16 at 07:30 Ondansetron HCl (Zofran Odt) 4 mg PRN Q8HRS PRN PO NAUSEA/VOMITING Last administered on 09/01/16 07:43; Start 08/30/16 at 18:45 Prochlorperazine Maleate (Compazine) 10 mg PRN Q6HRS PRN PO NAUSEA; Start 08/30 at 18:45 Losartan Potassium (Cozaar) 100 mg DAILY PO Last administered on 09/01/16 09: 19; Start 08/31/16 at 09:00 Fentanyl Citrate (Fentanyl 2ml Vial) 25 mcg PRN Q5MIN PRN IV MILD PAIN; Start 08/31/16 at 10:00; Stop 09/01/16 at 09:37; Status DC Fentanyl Citrate (Fentanyl 2ml Vial) 50 mcg PRN Q5MIN PRN IV MODERATE PAIN Last administered on 08/31/16 16:21; Start 08/31/16 at 10:00; Stop 09/01/16 at 09:37; Status DC Morphine Sulfate 1 mg PRN Q10MIN PRN IV SEVERE PAIN Last administered on 16:07; Start 08/31/16 at 10:00; Stop 09/01/16 at 09:37; Status DC Ringer's Solution 1,000 ml @ 30 mls/hr Q24H IV Last administered on 08/31/16 13:33; Start 08/31/16 at 09:48; Stop 08/31/16 at 21:47; Status DC Lidocaine HCl 2 ml PRN 1X PRN ID PRIOR TO IV START; Start 08/31/16 at 10:00; Stop 09/01/16 at 09:59; Status DC Hydromorphone HCl (Dilaudid) 0.5 mg PRN Q10MIN PRN IV SEV PAIN, Second choice Last administered on 08/31/16 16:26; Start 08/31/16 at 10:00; Stop 09/01/16 at 09:37; Status DC Prochlorperazine Edisylate (Compazine) 5 mg PACU PRN PRN IV NAUSEA, MRX1; Start 08/31/16 at 10:00; Stop 09/01/16 at 09:37; Status DC Sevoflurane (Ultane) 60 ml STK-MED ONCE IH ; Start 08/31/16 at 13:14; Stop 08/31 at 13:15; Status DC Midazolam HCl (Versed) 2 mg STK-MED ONCE .ROUTE ; Start 08/31/16 at 13:14; Stop 08/31/16 at 13:15; Status DC Fentanyl Citrate (Fentanyl 2ml Vial) 100 mcg STK-MED ONCE .ROUTE ; Start at 13:14; Stop 08/31/16 at 13:15; Status DC Propofol 20 ml @ As Directed STK-MED ONCE IV ; Start 08/31/16 at 13:18; Stop at 13:19; Status DC Ondansetron HCl (Zofran) 4 mg STK-MED ONCE .ROUTE ; Start 08/31/16 at 13:18; Stop 08/31/16 at 13:19; Status DC Dexamethasone Sodium Phosphate (Decadron) 20 mg STK-MED ONCE .ROUTE ; Start at 13:18; Stop 08/31/16 at 13:19; Status DC Lidocaine HCl (Lidocaine Pf 2% Vial) 5 ml STK-MED ONCE .ROUTE ; Start 08/31/16 at 13:19; Stop 08/31/16 at 13:20; Status DC Info (Anti-Coagulation Monitoring By Pharmacy) 1 each PRN DAILY PRN MC SEE COMMENTS Last administered on 08/31/16 14:22; Start 08/31/16 at 13:45 Ceftriaxone Sodium 1 gm/ Sodium Chloride 50 ml @ 100 mls/hr Q24H IV Last administered on 08/31/16 17:35; Start 08/31/16 at 14:00 Ceftriaxone Sodium 50 ml @ As Directed STK-MED ONCE IV ; Start 08/31/16 at 14:20 ; Stop 08/31/16 at 14:21; Status DC Lidocaine/ Epinephrine (Xylocaine 1%-Epi 1:100,000) 20 ml STK-MED ONCE .ROUTE Last administered on 08/31/16 15:18; Start 08/31/16 at 15:14; Stop 08/31/16 at 15:15; Status DC Magnesium Hydroxide (Milk Of Magnesia) 2,400 mg PRN DAILY PRN PO CONSTIPATION Last administered on 09/01/16 07:43; Start 09/01/16 at 07:30 Polyethylene Glycol (miraLAX PACKET) 17 gm PRN BID PRN PO CONSTIPATION Last administered on 09/01/16 07:43; Start 09/01/16 at 07:30 Docusate Sodium (Colace) 100 mg PRN DAILY PRN PO CONSTIPATION; Start 09/01/16 at 07:30 Active Scripts Active Protonix (Pantoprazole Sodium) 40 Mg Tablet. 1 Tab PO DAILY Reported K-Tab ER (Potassium Chloride) 20 Meq Tablet.er 20 Meq PO DAILY Furosemide 40 Mg Tablet 40 Mg PO DAILY Ondansetron Hcl 8 Mg Tablet 8 Mg PO PRN Q8HRS PRN Lorazepam 0.5 Mg Tablet 1 Tab PO PRN Q6HRS PRN Prochlorperazine Maleate 10 Mg Tablet 10 Mg PO PRN Q6-8HRS PRN Magnesium Oxide 400 Mg Tablet 400 Mg PO TID Morphine Sulfate Er (Morphine Sulfate) 15 Mg Tablet.er 1 Tab PO BID Morphine Sulfate Er (Morphine Sulfate) 30 Mg Cap.er.pel 30 Mg PO Q12HR Morphine Sulfate 100 Mg/5 Ml Solution 10 Mg PO PRN Q2-4HRS PRN Eliquis (Apixaban) 2.5 Mg Tablet 2.5 Mg PO BIDAFTMEAL Hydrocodone-Apap 7.5-325 (Hydrocodone Bit/Acetaminophen) 1 Each Tablet 1 Tab PO PRN Q6HRS PRN Losartan-Hctz 100-25 Mg Tab (Losartan/Hydrochlorothiazide) 1 Each Tablet 1 Tab PO DAILY Docusate Sodium 100 Mg Capsule 1 Cap PO DAILY Vitals/I & O Vital Sign - Last 24 Hours 08/31/16 08/31/16 08/31/16 08/31/16 13:30 15:26 15:41 15:42 Temp 98.1 100.4 98.1 100.4 Pulse 92 89 91 Resp 12 16 21 16 B/P (MAP) 178/84 178/93 174/88 Pulse Ox 97 98 93 96 O2 Delivery Room Air Simple Mask Room Air Simple Mask O2 Flow Rate 10 10.0 08/31/16 08/31/16 08/31/16 08/31/16 15:54 15:56 16:00 16:02 Pulse 90 Resp 16 18 20 B/P (MAP) 182/88 Pulse Ox 96 96 O2 Delivery Room Air Nasal Cannula Nasal Cannula Room Air O2 Flow Rate 2 2 08/31/16 08/31/16 08/31/16 08/31/16 16:07 16:11 16:16 16:21 Pulse 90 Resp 13 18 18 18 B/P (MAP) 182/88 Pulse Ox 96 97 97 O2 Delivery Nasal Cannula Nasal Cannula Nasal Cannula Nasal Cannula O2 Flow Rate 2 2.0 2.0 08/31/16 08/31/16 08/31/16 08/31/16 16:26 16:26 16:41 17:00 Temp 98.8 98.8 Pulse 88 87 93 Resp 18 18 19 B/P (MAP) 180/92 173/82 194/91 (125) Pulse Ox 97 97 98 96 O2 Delivery Nasal Cannula Nasal Cannula Nasal Cannula Room Air O2 Flow Rate 2.0 2.0 2 08/31/16 08/31/16 08/31/16 08/31/16 17:15 17:30 17:33 17:34 Temp 98.8 98.8 Pulse 89 87 87 Resp 19 18 20 B/P (MAP) 202/93 (129) 193/96 (128) 173/82 Pulse Ox 96 92 94 O2 Delivery Room Air Room Air Room Air 08/31/16 08/31/16 08/31/16 08/31/16 17:34 17:35 17:45 18:15 Pulse 87 87 84 90 Resp 18 9 B/P (MAP) 173/82 173/82 200/95 (130) 214/103 (140) Pulse Ox 97 97 O2 Delivery Room Air Room Air 08/31/16 08/31/16 08/31/16 08/31/16 18:45 20:57 21:05 22:30 Temp 98.8 98.8 Pulse 76 Resp 9 20 20 20 B/P (MAP) 184/85 (118) Pulse Ox 99 O2 Delivery Room Air 08/31/16 08/31/16 09/01/16 09/01/16 22:45 23:00 02:22 03:45 Temp 100.4 100.4 Pulse 76 Resp 20 18 20 20 B/P (MAP) 161/84 (109) Pulse Ox 97 O2 Delivery Room Air Room Air Room Air 09/01/16 09/01/16 09/01/16 09/01/16 04:45 05:49 07:00 07:41 Temp 100.4 100.4 Pulse 88 Resp 20 20 18 14 B/P (MAP) 178/86 (116) Pulse Ox 96 O2 Delivery Room Air Room Air 09/01/16 09/01/16 09/01/16 09/01/16 07:50 07:51 07:51 07:53 Pulse Ox 97 97 97 97 O2 Delivery Nasal Cannula Nasal Cannula Nasal Cannula Nasal Cannula O2 Flow Rate 2.0 2.0 2.0 2.0 09/01/16 09/01/16 09/01/16 09/01/16 08:00 09:19 09:19 09:20 Pulse 88 88 88 B/P (MAP) 178/86 178/86 178/86 O2 Delivery Room Air O2 Flow Rate 2.0 09/01/16 09/01/16 09/01/16 09/01/16 09:36 10:07 10:36 11:00 Temp 98.2 98.2 Pulse 79 Resp 16 B/P (MAP) 157/90 (112) Pulse Ox 97 97 97 98 O2 Delivery Nasal Cannula Nasal Cannula Room Air Room Air O2 Flow Rate 2.0 2.0 2.0 09/01/16 11:07 Pulse Ox 97 O2 Delivery Room Air O2 Flow Rate 2.0 Intake and Output 08/31/16 08/31/16 09/01/16 15:00 23:00 07:00 Intake Total 250 ml Output Total 700 ml 800 ml Balance -700 ml 250 ml -800 ml JIGAR RICO MD September 01, 2016 11:28
--- NOTE | 2016-09-01 11:41 | PDOC2 ---
CONSULT Date of Consult Date of Consult DATE: 09/01/16 TIME: 11:35 Reason for Consult Reason for Consult: HIGH CA, LOW NA AND JUSTIN Referring Physician Referring Physician: NIMISHA Identification/Chief Complaint Chief Complaint RIGHT FOOT PAIN Source Source: Chart review, Patient History of Present Illness Reason for Visit: THIS IS A 46 YR OLD WITH RIGHT FOOT PAIN. SHE HAS A KNOW DX OF RIGHT FOOT SQUAMOUS CELL CANCER WITH METS. SHE IS NOTED TO HAVE HYPONATREMIA, HYPERCALCEMIA AND JUSTIN WITH A CR OF 1.5. STATES HER APPETITE HAS BEEN POOR WELL. NO NSAID. NO FREQUENT UTI HX. NO HX OF ANY KIDNEY OR BLADDER SURGERIES HEMATURIA DYSURIA OR FREQUENCY NOTED Past Medical History Cardiovascular: HTN Pulmonary: No pertinent hx CENTRAL NERVOUS SYSTEM: Other GI: GERD Heme/Onc: No pertinent hx, Cancer Hepatobiliary: No pertinent hx Psych: Anxiety Musculoskeletal: Other Rheumatologic: No pertinent hx Infectious disease: No pertinent hx Renal/: No pertinent hx Endocrine: No pertinent hx Past Surgical History Past Surgical History: , Other Family History Family History: Cancer, Diabetes, Hypertension Social History ALCOHOL: none Drugs: None Lives: with Family Current Problem List Problem List Problems Medical Problems: (1) Metastatic squamous cell carcinoma Status: Acute (2) Renal insufficiency Status: Acute (3) Severe protein-calorie malnutrition Status: Acute Current Medications Current Medications Current Medications Hydromorphone HCl (Dilaudid) 1 mg PRN Q15MIN PRN IV/SQ PAIN GREATER THAN 3/10 Last administered on 08/29/16 21:47; Start 08/29/16 at 17:45; Stop 08/30/16 at 17:44; Status DC Sodium Chloride 1,000 ml @ 1,000 mls/hr Q1H IV Last administered on 08/29/16 18:09; Start 08/29/16 at 17:33; Stop 08/29/16 at 18:32; Status DC Ondansetron HCl (Zofran) 4 mg 1X ONCE IV Last administered on 08/29/16 18:09 ; Start 08/29/16 at 17:45; Stop 08/29/16 at 17:46; Status DC Famotidine (Pepcid) 20 mg 1X ONCE IVP Last administered on 08/29/16 18:10; Start 08/29/16 at 17:45; Stop 08/29/16 at 17:46; Status DC Pamidronate Disodium 60 mg/ Sodium Chloride 250 ml @ 83.333 mls/ hr 1X ONCE IV Last administered on 08/29/16 21:37; Start 08/29/16 at 19:30; Stop at 22:29; Status DC Sodium Chloride 1,000 ml @ 150 mls/hr Q6H40M IV Last administered on 10:09; Start 08/29/16 at 19:30 Ondansetron HCl (Zofran) 4 mg PRN Q8HRS PRN IV NAUSEA/VOMITING; Start 08/29/16 at 20:30; Stop 08/30/16 at 20:29; Status DC Acetaminophen (Tylenol) 650 mg PRN Q4HRS PRN PO FEVER; Start 08/29/16 at 20:30 ; Stop 08/30/16 at 20:29; Status DC Acetaminophen/ Hydrocodone Bitart (Lortab 7.5/325) 1 tab PRN Q6HRS PRN PO PAIN Last administered on 08/30/16 05:57; Start 08/29/16 at 23:45; Stop 08/30/16 at 07:08; Status DC Morphine Sulfate (Roxanol Conc) 10 mg PRN Q2HRS PRN SL MODERATE PAIN WHILE AWAKE Last administered on 09/01/16 09:36; Start 08/29/16 at 23:45 Morphine Sulfate (Ms Contin) 15 mg BID PO ; Start 08/30/16 at 09:00; Stop at 09:00; Status DC Non-Formulary Medication 30 mg Q12HR PO ; Start 08/30/16 at 09:00; Stop at 09:00; Status DC Morphine Sulfate (Ms Contin) 15 mg BID PO Last administered on 09/01/16 07:53 ; Start 08/30/16 at 00:00 Morphine Sulfate (Ms Contin) 30 mg Q12HR PO ; Start 08/30/16 at 00:00; Stop at 00:00; Status DC Morphine Sulfate (Ms Contin) 30 mg Q12H PO Last administered on 08/31/16 00:13 ; Start 08/30/16 at 00:00 Acetaminophen/ Hydrocodone Bitart (Lortab 7.5/325) 1 tab PRN Q4HRS PRN PO PAIN Last administered on 09/01/16 10:07; Start 08/30/16 at 07:07 Nicotine (Nicoderm Cq 21mg) 1 patch DAILY TD Last administered on 09/01/16 07: 42; Start 08/30/16 at 09:00 Levofloxacin/ Dextrose 50 ml @ 50 mls/hr Q24H IV Last administered on 10:13; Start 08/30/16 at 10:00; Stop 08/31/16 at 13:47; Status DC Metoprolol Tartrate (Lopressor) 25 mg BID PO Last administered on 09/01/16 09: 20; Start 08/30/16 at 10:00 Amlodipine Besylate (Norvasc) 10 mg DAILY PO Last administered on 09/01/16 09: 19; Start 08/30/16 at 16:30 Docusate Sodium (Colace) 100 mg DAILY PO ; Start 08/31/16 at 09:00; Stop at 09:00; Status DC Docusate Sodium (Colace) 100 mg DAILY PO Last administered on 09/01/16 09:19; Start 08/30/16 at 18:15 Apixaban (Eliquis) 2.5 mg BID PO Last administered on 09/01/16 09:19; Start at 21:00 Lorazepam (Ativan) 0.5 mg PRN Q6HRS PRN PO ANXIETY Last administered on 22:22; Start 08/30/16 at 18:45 Magnesium Oxide (Magnesium Oxide) 400 mg TID PO Last administered on 09/01/16 09:18; Start 08/30/16 at 21:00 Pantoprazole Sodium (Protonix) 40 mg DAILYAC PO Last administered on 09/01/16 07:52; Start 08/31/16 at 07:30 Ondansetron HCl (Zofran Odt) 4 mg PRN Q8HRS PRN PO NAUSEA/VOMITING Last administered on 09/01/16 07:43; Start 08/30/16 at 18:45 Prochlorperazine Maleate (Compazine) 10 mg PRN Q6HRS PRN PO NAUSEA; Start 08/30 at 18:45 Losartan Potassium (Cozaar) 100 mg DAILY PO Last administered on 09/01/16 09: 19; Start 08/31/16 at 09:00 Fentanyl Citrate (Fentanyl 2ml Vial) 25 mcg PRN Q5MIN PRN IV MILD PAIN; Start 08/31/16 at 10:00; Stop 09/01/16 at 09:37; Status DC Fentanyl Citrate (Fentanyl 2ml Vial) 50 mcg PRN Q5MIN PRN IV MODERATE PAIN Last administered on 08/31/16 16:21; Start 08/31/16 at 10:00; Stop 09/01/16 at 09:37; Status DC Morphine Sulfate 1 mg PRN Q10MIN PRN IV SEVERE PAIN Last administered on 16:07; Start 08/31/16 at 10:00; Stop 09/01/16 at 09:37; Status DC Ringer's Solution 1,000 ml @ 30 mls/hr Q24H IV Last administered on 08/31/16 13:33; Start 08/31/16 at 09:48; Stop 08/31/16 at 21:47; Status DC Lidocaine HCl 2 ml PRN 1X PRN ID PRIOR TO IV START; Start 08/31/16 at 10:00; Stop 09/01/16 at 09:59; Status DC Hydromorphone HCl (Dilaudid) 0.5 mg PRN Q10MIN PRN IV SEV PAIN, Second choice Last administered on 08/31/16 16:26; Start 08/31/16 at 10:00; Stop 09/01/16 at 09:37; Status DC Prochlorperazine Edisylate (Compazine) 5 mg PACU PRN PRN IV NAUSEA, MRX1; Start 08/31/16 at 10:00; Stop 09/01/16 at 09:37; Status DC Sevoflurane (Ultane) 60 ml STK-MED ONCE IH ; Start 08/31/16 at 13:14; Stop 08/31 at 13:15; Status DC Midazolam HCl (Versed) 2 mg STK-MED ONCE .ROUTE ; Start 08/31/16 at 13:14; Stop 08/31/16 at 13:15; Status DC Fentanyl Citrate (Fentanyl 2ml Vial) 100 mcg STK-MED ONCE .ROUTE ; Start at 13:14; Stop 08/31/16 at 13:15; Status DC Propofol 20 ml @ As Directed STK-MED ONCE IV ; Start 08/31/16 at 13:18; Stop at 13:19; Status DC Ondansetron HCl (Zofran) 4 mg STK-MED ONCE .ROUTE ; Start 08/31/16 at 13:18; Stop 08/31/16 at 13:19; Status DC Dexamethasone Sodium Phosphate (Decadron) 20 mg STK-MED ONCE .ROUTE ; Start at 13:18; Stop 08/31/16 at 13:19; Status DC Lidocaine HCl (Lidocaine Pf 2% Vial) 5 ml STK-MED ONCE .ROUTE ; Start 08/31/16 at 13:19; Stop 08/31/16 at 13:20; Status DC Info (Anti-Coagulation Monitoring By Pharmacy) 1 each PRN DAILY PRN MC SEE COMMENTS Last administered on 08/31/16 14:22; Start 08/31/16 at 13:45 Ceftriaxone Sodium 1 gm/ Sodium Chloride 50 ml @ 100 mls/hr Q24H IV Last administered on 08/31/16 17:35; Start 08/31/16 at 14:00 Ceftriaxone Sodium 50 ml @ As Directed STK-MED ONCE IV ; Start 08/31/16 at 14:20 ; Stop 08/31/16 at 14:21; Status DC Lidocaine/ Epinephrine (Xylocaine 1%-Epi 1:100,000) 20 ml STK-MED ONCE .ROUTE Last administered on 08/31/16 15:18; Start 08/31/16 at 15:14; Stop 08/31/16 at 15:15; Status DC Magnesium Hydroxide (Milk Of Magnesia) 2,400 mg PRN DAILY PRN PO CONSTIPATION Last administered on 09/01/16 07:43; Start 09/01/16 at 07:30 Polyethylene Glycol (miraLAX PACKET) 17 gm PRN BID PRN PO CONSTIPATION Last administered on 09/01/16 07:43; Start 09/01/16 at 07:30 Docusate Sodium (Colace) 100 mg PRN DAILY PRN PO CONSTIPATION; Start 09/01/16 at 07:30 Morphine Sulfate 2 mg PRN Q2HR PRN IV PAIN; Start 09/01/16 at 11:30 Lorazepam (Ativan) 2 mg PRN Q4HRS PRN IV ANXIETY / AGITATION; Start 09/01/16 at 11:30 Active Scripts Active Protonix (Pantoprazole Sodium) 40 Mg Tablet.dr 1 Tab PO DAILY Reported K-Tab ER (Potassium Chloride) 20 Meq Tablet.er 20 Meq PO DAILY Furosemide 40 Mg Tablet 40 Mg PO DAILY Ondansetron Hcl 8 Mg Tablet 8 Mg PO PRN Q8HRS PRN Lorazepam 0.5 Mg Tablet 1 Tab PO PRN Q6HRS PRN Prochlorperazine Maleate 10 Mg Tablet 10 Mg PO PRN Q6-8HRS PRN Magnesium Oxide 400 Mg Tablet 400 Mg PO TID Morphine Sulfate Er (Morphine Sulfate) 15 Mg Tablet.er 1 Tab PO BID Morphine Sulfate Er (Morphine Sulfate) 30 Mg Cap.er.pel 30 Mg PO Q12HR Morphine Sulfate 100 Mg/5 Ml Solution 10 Mg PO PRN Q2-4HRS PRN Eliquis (Apixaban) 2.5 Mg Tablet 2.5 Mg PO BIDAFTMEAL Hydrocodone-Apap 7.5-325 (Hydrocodone Bit/Acetaminophen) 1 Each Tablet 1 Tab PO PRN Q6HRS PRN Losartan-Hctz 100-25 Mg Tab (Losartan/Hydrochlorothiazide) 1 Each Tablet 1 Tab PO DAILY Docusate Sodium 100 Mg Capsule 1 Cap PO DAILY Allergies Allergies: Coded Allergies: amoxicillin (Verified Adverse Reaction, Intermediate, Nausea, 08/31/16) clavulanic acid (Verified Adverse Reaction, Intermediate, Nausea, 08/31/16) ROS General: YES: Fatigue, Malaise, Appetite PSYCHOLOGICAL ROS: YES: Anxiety, Depression Eyes: Yes Decreased vision HEENT: YES: Heacaches Respiratory: YES: Cough Musculoskeletal: Yes Joint Stiffness, Yes Muscle Pain, Yes Muscular Weakness Neurological: Yes Weakness Skin: Yes Dry Skin Physical Exam General: Alert, Oriented X3, Cooperative, No acute distress HEENT: Atraumatic, PERRLA Lungs: Clear to auscultation, Normal air movement Heart: Regular rate, Normal S1, Normal S2, No murmurs Abdomen: Normal bowel sounds, Soft, No tenderness Extremities: No edema, Other (RIGHT FOOT WOUND WITH DRESSING AND MINIMAL DRAINAGE) Neuro: Normal speech, Cranial nerves 3-12 NL Psych/Mental Status: Mental status NL, Mood NL MUSCULOSKELETAL: No swelling Vitals VITALS Vital Signs Date Time Temp Pulse Resp B/P (MAP) Pulse Ox O2 Delivery O2 Flow Rate FiO2 09/01/16 11:07 97 Room Air 2.0 09/01/16 11:00 98.2 79 16 157/90 (112) 98.2 Labs Labs Laboratory Tests Test 09/01/16 04:25 Sodium Level 128 mmol/L (136-145) Potassium Level 4.1 mmol/L (3.5-5.1) Chloride Level 91 mmol/L (98-107) Carbon Dioxide Level 28 mmol/L (21-32) Anion Gap 9 (6-14) Blood Urea Nitrogen 16 mg/dL (7-20) Creatinine 1.5 mg/dL (0.6-1.0) Estimated GFR (Cockcroft-Gault) 44.8 Glucose Level 86 mg/dL (70-99) Calcium Level 10.5 mg/dL (8.5-10.1) Laboratory Tests Test 09/01/16 04:25 Sodium Level 128 mmol/L (136-145) Potassium Level 4.1 mmol/L (3.5-5.1) Chloride Level 91 mmol/L (98-107) Carbon Dioxide Level 28 mmol/L (21-32) Anion Gap 9 (6-14) Blood Urea Nitrogen 16 mg/dL (7-20) Creatinine 1.5 mg/dL (0.6-1.0) Estimated GFR (Cockcroft-Gault) 44.8 Glucose Level 86 mg/dL (70-99) Calcium Level 10.5 mg/dL (8.5-10.1) Assessment/Plan Assessment/Plan IMP JUSTIN DEHYDRATION HYPERCALCEMIA OF MALIGNANCY HYPONATREMIA-MOST PROB DUE TO THIAZIDE PLAN CONT WITH IVF - ISOTONIC SALINE WOUND CARE LABS IN [facility] YANEZ MD September 01, 2016 11:41
--- NOTE | 2016-09-01 11:45 | PDOC ---
PROGRESS NOTES Subjective Subjective "My foot doesn't hurt at all because my groin hurts so bad." Objective Objective Vascular Surgery - POD#1 Right foot wound debridement O: Patient lying in bed. Grimacing in pain. Right foot: Dressing dry, intact and without any drainage visible. Wound vac dressing has not been applied. Assessment/Plan: 1. Severe right groin pain. Dr. Fraga present and working on pain medication adjustments. 2. Possible mets? Patient has not been able to tolerate a bone scan, which has been ordered but she cannot sit still due to pain. Dr. Fraga is ordering total body bone scan with conscious sedation for clarification. Await results of bone scan before reapplying wound vac therapy. 3. Right foot wound - POD#1 Right foot wound debridement. No specimen were sent for pathology as only debrided slough material. Patient was adamant that this debridement would only be slough material. Due to questionable progression of cancer, will hold on replacing wound vac therapy to right foot at this time. Will wait for bone scan results to determine next steps. Patient is scheduled with Dr. Skelton in [facility] next September 07 at 0845. Vital Signs Date Time Temp Pulse Resp B/P (MAP) Pulse Ox O2 Delivery O2 Flow Rate FiO2 09/01/16 11:07 97 Room Air 2.0 09/01/16 11:00 98.2 79 16 157/90 (112) 98.2 Intake and Output 09/01/16 07:00 Intake Total 250 ml Output Total 1500 ml Balance -1250 ml Intake Oral 250 ml Output Urine Total 1500 ml # Voids 2 Assessment Assessment Problems Medical Problems: (1) Metastatic squamous cell carcinoma Status: Acute (2) Renal insufficiency Status: Acute (3) Severe protein-calorie malnutrition Status: Acute Comment Review of Relevant I have reviewed the following items niki (where applicable) has been applied. Labs Laboratory Tests Test 09/01/16 04:25 Sodium Level 128 mmol/L (136-145) Potassium Level 4.1 mmol/L (3.5-5.1) Chloride Level 91 mmol/L (98-107) Carbon Dioxide Level 28 mmol/L (21-32) Anion Gap 9 (6-14) Blood Urea Nitrogen 16 mg/dL (7-20) Creatinine 1.5 mg/dL (0.6-1.0) Estimated GFR (Cockcroft-Gault) 44.8 Glucose Level 86 mg/dL (70-99) Calcium Level 10.5 mg/dL (8.5-10.1) Laboratory Tests Test 09/01/16 04:25 Sodium Level 128 mmol/L (136-145) Potassium Level 4.1 mmol/L (3.5-5.1) Chloride Level 91 mmol/L (98-107) Carbon Dioxide Level 28 mmol/L (21-32) Anion Gap 9 (6-14) Blood Urea Nitrogen 16 mg/dL (7-20) Creatinine 1.5 mg/dL (0.6-1.0) Estimated GFR (Cockcroft-Gault) 44.8 Glucose Level 86 mg/dL (70-99) Calcium Level 10.5 mg/dL (8.5-10.1) Microbiology 08/29/16 Urine Culture - Final, Complete 08/29/16 Urine Culture Result 1 (KEVIN) - Final, Complete 08/29/16 Antimicrobic Susceptibility - Final, Complete Medications Current Medications Hydromorphone HCl (Dilaudid) 1 mg PRN Q15MIN PRN IV/SQ PAIN GREATER THAN 3/10 Last administered on 08/29/16 21:47; Start 08/29/16 at 17:45; Stop 08/30/16 at 17:44; Status DC Sodium Chloride 1,000 ml @ 1,000 mls/hr Q1H IV Last administered on 08/29/16 18:09; Start 08/29/16 at 17:33; Stop 08/29/16 at 18:32; Status DC Ondansetron HCl (Zofran) 4 mg 1X ONCE IV Last administered on 08/29/16 18:09 ; Start 08/29/16 at 17:45; Stop 08/29/16 at 17:46; Status DC Famotidine (Pepcid) 20 mg 1X ONCE IVP Last administered on 08/29/16 18:10; Start 08/29/16 at 17:45; Stop 08/29/16 at 17:46; Status DC Pamidronate Disodium 60 mg/ Sodium Chloride 250 ml @ 83.333 mls/ hr 1X ONCE IV Last administered on 08/29/16 21:37; Start 08/29/16 at 19:30; Stop at 22:29; Status DC Sodium Chloride 1,000 ml @ 150 mls/hr Q6H40M IV Last administered on 10:09; Start 08/29/16 at 19:30 Ondansetron HCl (Zofran) 4 mg PRN Q8HRS PRN IV NAUSEA/VOMITING; Start 08/29/16 at 20:30; Stop 08/30/16 at 20:29; Status DC Acetaminophen (Tylenol) 650 mg PRN Q4HRS PRN PO FEVER; Start 08/29/16 at 20:30 ; Stop 08/30/16 at 20:29; Status DC Acetaminophen/ Hydrocodone Bitart (Lortab 7.5/325) 1 tab PRN Q6HRS PRN PO PAIN Last administered on 08/30/16 05:57; Start 08/29/16 at 23:45; Stop 08/30/16 at 07:08; Status DC Morphine Sulfate (Roxanol Conc) 10 mg PRN Q2HRS PRN SL MODERATE PAIN WHILE AWAKE Last administered on 09/01/16 09:36; Start 08/29/16 at 23:45 Morphine Sulfate (Ms Contin) 15 mg BID PO ; Start 08/30/16 at 09:00; Stop at 09:00; Status DC Non-Formulary Medication 30 mg Q12HR PO ; Start 08/30/16 at 09:00; Stop at 09:00; Status DC Morphine Sulfate (Ms Contin) 15 mg BID PO Last administered on 09/01/16 07:53 ; Start 08/30/16 at 00:00 Morphine Sulfate (Ms Contin) 30 mg Q12HR PO ; Start 08/30/16 at 00:00; Stop at 00:00; Status DC Morphine Sulfate (Ms Contin) 30 mg Q12H PO Last administered on 08/31/16 00:13 ; Start 08/30/16 at 00:00 Acetaminophen/ Hydrocodone Bitart (Lortab 7.5/325) 1 tab PRN Q4HRS PRN PO PAIN Last administered on 09/01/16 10:07; Start 08/30/16 at 07:07 Nicotine (Nicoderm Cq 21mg) 1 patch DAILY TD Last administered on 09/01/16 07: 42; Start 08/30/16 at 09:00 Levofloxacin/ Dextrose 50 ml @ 50 mls/hr Q24H IV Last administered on 10:13; Start 08/30/16 at 10:00; Stop 08/31/16 at 13:47; Status DC Metoprolol Tartrate (Lopressor) 25 mg BID PO Last administered on 09/01/16 09: 20; Start 08/30/16 at 10:00 Amlodipine Besylate (Norvasc) 10 mg DAILY PO Last administered on 09/01/16 09: 19; Start 08/30/16 at 16:30 Docusate Sodium (Colace) 100 mg DAILY PO ; Start 08/31/16 at 09:00; Stop at 09:00; Status DC Docusate Sodium (Colace) 100 mg DAILY PO Last administered on 09/01/16 09:19; Start 08/30/16 at 18:15 Apixaban (Eliquis) 2.5 mg BID PO Last administered on 09/01/16 09:19; Start at 21:00 Lorazepam (Ativan) 0.5 mg PRN Q6HRS PRN PO ANXIETY Last administered on 22:22; Start 08/30/16 at 18:45 Magnesium Oxide (Magnesium Oxide) 400 mg TID PO Last administered on 09/01/16 09:18; Start 08/30/16 at 21:00 Pantoprazole Sodium (Protonix) 40 mg DAILYAC PO Last administered on 09/01/16 07:52; Start 08/31/16 at 07:30 Ondansetron HCl (Zofran Odt) 4 mg PRN Q8HRS PRN PO NAUSEA/VOMITING Last administered on 09/01/16 07:43; Start 08/30/16 at 18:45 Prochlorperazine Maleate (Compazine) 10 mg PRN Q6HRS PRN PO NAUSEA; Start 08/30 at 18:45 Losartan Potassium (Cozaar) 100 mg DAILY PO Last administered on 09/01/16 09: 19; Start 08/31/16 at 09:00 Fentanyl Citrate (Fentanyl 2ml Vial) 25 mcg PRN Q5MIN PRN IV MILD PAIN; Start 08/31/16 at 10:00; Stop 09/01/16 at 09:37; Status DC Fentanyl Citrate (Fentanyl 2ml Vial) 50 mcg PRN Q5MIN PRN IV MODERATE PAIN Last administered on 08/31/16 16:21; Start 08/31/16 at 10:00; Stop 09/01/16 at 09:37; Status DC Morphine Sulfate 1 mg PRN Q10MIN PRN IV SEVERE PAIN Last administered on 16:07; Start 08/31/16 at 10:00; Stop 09/01/16 at 09:37; Status DC Ringer's Solution 1,000 ml @ 30 mls/hr Q24H IV Last administered on 08/31/16 13:33; Start 08/31/16 at 09:48; Stop 08/31/16 at 21:47; Status DC Lidocaine HCl 2 ml PRN 1X PRN ID PRIOR TO IV START; Start 08/31/16 at 10:00; Stop 09/01/16 at 09:59; Status DC Hydromorphone HCl (Dilaudid) 0.5 mg PRN Q10MIN PRN IV SEV PAIN, Second choice Last administered on 08/31/16 16:26; Start 08/31/16 at 10:00; Stop 09/01/16 at 09:37; Status DC Prochlorperazine Edisylate (Compazine) 5 mg PACU PRN PRN IV NAUSEA, MRX1; Start 08/31/16 at 10:00; Stop 09/01/16 at 09:37; Status DC Sevoflurane (Ultane) 60 ml STK-MED ONCE IH ; Start 08/31/16 at 13:14; Stop 08/31 at 13:15; Status DC Midazolam HCl (Versed) 2 mg STK-MED ONCE .ROUTE ; Start 08/31/16 at 13:14; Stop 08/31/16 at 13:15; Status DC Fentanyl Citrate (Fentanyl 2ml Vial) 100 mcg STK-MED ONCE .ROUTE ; Start at 13:14; Stop 08/31/16 at 13:15; Status DC Propofol 20 ml @ As Directed STK-MED ONCE IV ; Start 08/31/16 at 13:18; Stop at 13:19; Status DC Ondansetron HCl (Zofran) 4 mg STK-MED ONCE .ROUTE ; Start 08/31/16 at 13:18; Stop 08/31/16 at 13:19; Status DC Dexamethasone Sodium Phosphate (Decadron) 20 mg STK-MED ONCE .ROUTE ; Start at 13:18; Stop 08/31/16 at 13:19; Status DC Lidocaine HCl (Lidocaine Pf 2% Vial) 5 ml STK-MED ONCE .ROUTE ; Start 08/31/16 at 13:19; Stop 08/31/16 at 13:20; Status DC Info (Anti-Coagulation Monitoring By Pharmacy) 1 each PRN DAILY PRN MC SEE COMMENTS Last administered on 08/31/16 14:22; Start 08/31/16 at 13:45 Ceftriaxone Sodium 1 gm/ Sodium Chloride 50 ml @ 100 mls/hr Q24H IV Last administered on 08/31/16 17:35; Start 08/31/16 at 14:00 Ceftriaxone Sodium 50 ml @ As Directed STK-MED ONCE IV ; Start 08/31/16 at 14:20 ; Stop 08/31/16 at 14:21; Status DC Lidocaine/ Epinephrine (Xylocaine 1%-Epi 1:100,000) 20 ml STK-MED ONCE .ROUTE Last administered on 08/31/16 15:18; Start 08/31/16 at 15:14; Stop 08/31/16 at 15:15; Status DC Magnesium Hydroxide (Milk Of Magnesia) 2,400 mg PRN DAILY PRN PO CONSTIPATION Last administered on 09/01/16 07:43; Start 09/01/16 at 07:30 Polyethylene Glycol (miraLAX PACKET) 17 gm PRN BID PRN PO CONSTIPATION Last administered on 09/01/16 07:43; Start 09/01/16 at 07:30 Docusate Sodium (Colace) 100 mg PRN DAILY PRN PO CONSTIPATION; Start 09/01/16 at 07:30 Morphine Sulfate 2 mg PRN Q2HR PRN IV PAIN; Start 09/01/16 at 11:30 Lorazepam (Ativan) 2 mg PRN Q4HRS PRN IV ANXIETY / AGITATION; Start 09/01/16 at 11:30 Active Scripts Active Protonix (Pantoprazole Sodium) 40 Mg Tablet.dr 1 Tab PO DAILY Reported K-Tab ER (Potassium Chloride) 20 Meq Tablet.er 20 Meq PO DAILY Furosemide 40 Mg Tablet 40 Mg PO DAILY Ondansetron Hcl 8 Mg Tablet 8 Mg PO PRN Q8HRS PRN Lorazepam 0.5 Mg Tablet 1 Tab PO PRN Q6HRS PRN Prochlorperazine Maleate 10 Mg Tablet 10 Mg PO PRN Q6-8HRS PRN Magnesium Oxide 400 Mg Tablet 400 Mg PO TID Morphine Sulfate Er (Morphine Sulfate) 15 Mg Tablet.er 1 Tab PO BID Morphine Sulfate Er (Morphine Sulfate) 30 Mg Cap.er.pel 30 Mg PO Q12HR Morphine Sulfate 100 Mg/5 Ml Solution 10 Mg PO PRN Q2-4HRS PRN Eliquis (Apixaban) 2.5 Mg Tablet 2.5 Mg PO BIDAFTMEAL Hydrocodone-Apap 7.5-325 (Hydrocodone Bit/Acetaminophen) 1 Each Tablet 1 Tab PO PRN Q6HRS PRN Losartan-Hctz 100-25 Mg Tab (Losartan/Hydrochlorothiazide) 1 Each Tablet 1 Tab PO DAILY Docusate Sodium 100 Mg Capsule 1 Cap PO DAILY Vitals/I & O Vital Sign - Last 24 Hours 08/31/16 08/31/16 08/31/16 08/31/16 13:30 15:26 15:41 15:42 Temp 98.1 100.4 98.1 100.4 Pulse 92 89 91 Resp 12 16 21 16 B/P (MAP) 178/84 178/93 174/88 Pulse Ox 97 98 93 96 O2 Delivery Room Air Simple Mask Room Air Simple Mask O2 Flow Rate 10 10.0 08/31/16 08/31/16 08/31/16 08/31/16 15:54 15:56 16:00 16:02 Pulse 90 Resp 16 18 20 B/P (MAP) 182/88 Pulse Ox 96 96 O2 Delivery Room Air Nasal Cannula Nasal Cannula Room Air O2 Flow Rate 2 2 08/31/16 08/31/16 08/31/16 08/31/16 16:07 16:11 16:16 16:21 Pulse 90 Resp 13 18 18 18 B/P (MAP) 182/88 Pulse Ox 96 97 97 O2 Delivery Nasal Cannula Nasal Cannula Nasal Cannula Nasal Cannula O2 Flow Rate 2 2.0 2.0 08/31/16 08/31/16 08/31/16 08/31/16 16:26 16:26 16:41 17:00 Temp 98.8 98.8 Pulse 88 87 93 Resp 18 18 19 B/P (MAP) 180/92 173/82 194/91 (125) Pulse Ox 97 97 98 96 O2 Delivery Nasal Cannula Nasal Cannula Nasal Cannula Room Air O2 Flow Rate 2.0 2.0 2 08/31/16 08/31/16 08/31/16 08/31/16 17:15 17:30 17:33 17:34 Temp 98.8 98.8 Pulse 89 87 87 Resp 19 18 20 B/P (MAP) 202/93 (129) 193/96 (128) 173/82 Pulse Ox 96 92 94 O2 Delivery Room Air Room Air Room Air 08/31/16 08/31/16 08/31/16 08/31/16 17:34 17:35 17:45 18:15 Pulse 87 87 84 90 Resp 18 9 B/P (MAP) 173/82 173/82 200/95 (130) 214/103 (140) Pulse Ox 97 97 O2 Delivery Room Air Room Air 08/31/16 08/31/16 08/31/16 08/31/16 18:45 20:57 21:05 22:30 Temp 98.8 98.8 Pulse 76 Resp 9 20 20 20 B/P (MAP) 184/85 (118) Pulse Ox 99 O2 Delivery Room Air 08/31/16 08/31/16 09/01/16 09/01/16 22:45 23:00 02:22 03:45 Temp 100.4 100.4 Pulse 76 Resp 20 18 20 20 B/P (MAP) 161/84 (109) Pulse Ox 97 O2 Delivery Room Air Room Air Room Air 09/01/16 09/01/16 09/01/16 09/01/16 04:45 05:49 07:00 07:41 Temp 100.4 100.4 Pulse 88 Resp 20 20 18 14 B/P (MAP) 178/86 (116) Pulse Ox 96 O2 Delivery Room Air Room Air 09/01/16 09/01/16 09/01/16 09/01/16 07:50 07:51 07:51 07:53 Pulse Ox 97 97 97 97 O2 Delivery Nasal Cannula Nasal Cannula Nasal Cannula Nasal Cannula O2 Flow Rate 2.0 2.0 2.0 2.0 5/09/01/16 09/01/16 09/01/16 08:00 09:19 09:19 09:20 Pulse 88 88 88 B/P (MAP) 178/86 178/86 178/86 O2 Delivery Room Air O2 Flow Rate 2.0 09/01/16 09/01/16 09/01/16 09/01/16 09:36 10:07 10:36 11:00 Temp 98.2 98.2 Pulse 79 Resp 16 B/P (MAP) 157/90 (112) Pulse Ox 97 97 97 98 O2 Delivery Nasal Cannula Nasal Cannula Room Air Room Air O2 Flow Rate 2.0 2.0 2.0 09/01/16 11:07 Pulse Ox 97 O2 Delivery Room Air O2 Flow Rate 2.0 Intake and Output 08/31/16 08/31/16 09/01/16 15:00 23:00 07:00 Intake Total 250 ml Output Total 700 ml 800 ml Balance -700 ml 250 ml -800 ml DIPAK ARZATE APRN September 01, 2016 11:45
[2016-09-01] MEDS: PROCHLORPERAZINE 5 MG TABLET. PO PRN (12:22)
[2016-09-01] MEDS: MORPHINE ER 30 MG TABLET.ER PO SCH ×3 (12:24→23:01)
--- NOTE | 2016-09-01 14:06 | PDOC ---
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 Objective Objective Vital Signs Date Time Temp Pulse Resp B/P (MAP) Pulse Ox O2 Delivery O2 Flow Rate FiO2 09/01/16 12:24 97 Room Air 2.0 09/01/16 11:00 98.2 79 16 157/90 (112) 98.2 Intake and Output 09/01/16 07:00 Intake Total 250 ml Output Total 1500 ml Balance -1250 ml Intake Oral 250 ml Output Urine Total 1500 ml # Voids 2 Physical Exam Heart: Normal S1, Normal S2 General: Alert, Oriented X3 Lungs: Clear to auscultation Neuro: Normal speech Skin: No rashes Assessment Assessment Problems Medical Problems: (1) Metastatic squamous cell carcinoma Status: Acute (2) Renal insufficiency Status: Acute (3) Severe protein-calorie malnutrition Status: Acute ASSESSMENT AND PLAN: The patient is a 46-year-old female with the following medical problems: 1. 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 No further radiation is possible. I would like to start pembrolizumab as an outpatient if MSI is high (PD-L1 negative). She could not tolerate a bone scan. I d/w DR Fraga who has reordered bone scan and I agree. I d/w Dr Harrison and ordered MSI testing on the tumor. I d/w DR Han. I have advised pt to f/u with me upon discharge. 2. Hypercalcemia, malignant, an ongoing issue for her as well. Aredia was given in the Emergency Room. She remains on aggressive fluids as well. Consulted nephrology. 3. Hyponatremia - consult nephrology. 4. Renal failure Comment Review of Relevant I have reviewed the following items niki (where applicable) has been applied. Labs Laboratory Tests Test 09/01/16 04:25 Sodium Level 128 mmol/L (136-145) Potassium Level 4.1 mmol/L (3.5-5.1) Chloride Level 91 mmol/L (98-107) Carbon Dioxide Level 28 mmol/L (21-32) Anion Gap 9 (6-14) Blood Urea Nitrogen 16 mg/dL (7-20) Creatinine 1.5 mg/dL (0.6-1.0) Estimated GFR (Cockcroft-Gault) 44.8 Glucose Level 86 mg/dL (70-99) Calcium Level 10.5 mg/dL (8.5-10.1) Laboratory Tests Test 09/01/16 04:25 Sodium Level 128 mmol/L (136-145) Potassium Level 4.1 mmol/L (3.5-5.1) Chloride Level 91 mmol/L (98-107) Carbon Dioxide Level 28 mmol/L (21-32) Anion Gap 9 (6-14) Blood Urea Nitrogen 16 mg/dL (7-20) Creatinine 1.5 mg/dL (0.6-1.0) Estimated GFR (Cockcroft-Gault) 44.8 Glucose Level 86 mg/dL (70-99) Calcium Level 10.5 mg/dL (8.5-10.1) Microbiology 08/29/16 Urine Culture - Final, Complete 08/29/16 Urine Culture Result 1 (KEVIN) - Final, Complete 08/29/16 Antimicrobic Susceptibility - Final, Complete Medications Current Medications Hydromorphone HCl (Dilaudid) 1 mg PRN Q15MIN PRN IV/SQ PAIN GREATER THAN 3/10 Last administered on 08/29/16 21:47; Start 08/29/16 at 17:45; Stop 08/30/16 at 17:44; Status DC Sodium Chloride 1,000 ml @ 1,000 mls/hr Q1H IV Last administered on 08/29/16 18:09; Start 08/29/16 at 17:33; Stop 08/29/16 at 18:32; Status DC Ondansetron HCl (Zofran) 4 mg 1X ONCE IV Last administered on 08/29/16 18:09 ; Start 08/29/16 at 17:45; Stop 08/29/16 at 17:46; Status DC Famotidine (Pepcid) 20 mg 1X ONCE IVP Last administered on 08/29/16 18:10; Start 08/29/16 at 17:45; Stop 08/29/16 at 17:46; Status DC Pamidronate Disodium 60 mg/ Sodium Chloride 250 ml @ 83.333 mls/ hr 1X ONCE IV Last administered on 08/29/16 21:37; Start 08/29/16 at 19:30; Stop at 22:29; Status DC Sodium Chloride 1,000 ml @ 150 mls/hr Q6H40M IV Last administered on 10:09; Start 08/29/16 at 19:30 Ondansetron HCl (Zofran) 4 mg PRN Q8HRS PRN IV NAUSEA/VOMITING; Start 08/29/16 at 20:30; Stop 08/30/16 at 20:29; Status DC Acetaminophen (Tylenol) 650 mg PRN Q4HRS PRN PO FEVER; Start 08/29/16 at 20:30 ; Stop 08/30/16 at 20:29; Status DC Acetaminophen/ Hydrocodone Bitart (Lortab 7.5/325) 1 tab PRN Q6HRS PRN PO PAIN Last administered on 08/30/16 05:57; Start 08/29/16 at 23:45; Stop 08/30/16 at 07:08; Status DC Morphine Sulfate (Roxanol Conc) 10 mg PRN Q2HRS PRN SL MODERATE PAIN WHILE AWAKE Last administered on 09/01/16 09:36; Start 08/29/16 at 23:45 Morphine Sulfate (Ms Contin) 15 mg BID PO ; Start 08/30/16 at 09:00; Stop at 09:00; Status DC Non-Formulary Medication 30 mg Q12HR PO ; Start 08/30/16 at 09:00; Stop at 09:00; Status DC Morphine Sulfate (Ms Contin) 15 mg BID PO Last administered on 09/01/16 07:53 ; Start 08/30/16 at 00:00 Morphine Sulfate (Ms Contin) 30 mg Q12HR PO ; Start 08/30/16 at 00:00; Stop at 00:00; Status DC Morphine Sulfate (Ms Contin) 30 mg Q12H PO Last administered on 09/01/16 12:24 ; Start 08/30/16 at 00:00 Acetaminophen/ Hydrocodone Bitart (Lortab 7.5/325) 1 tab PRN Q4HRS PRN PO PAIN Last administered on 09/01/16 10:07; Start 08/30/16 at 07:07 Nicotine (Nicoderm Cq 21mg) 1 patch DAILY TD Last administered on 09/01/16 07: 42; Start 08/30/16 at 09:00 Levofloxacin/ Dextrose 50 ml @ 50 mls/hr Q24H IV Last administered on 10:13; Start 08/30/16 at 10:00; Stop 08/31/16 at 13:47; Status DC Metoprolol Tartrate (Lopressor) 25 mg BID PO Last administered on 09/01/16 09: 20; Start 08/30/16 at 10:00 Amlodipine Besylate (Norvasc) 10 mg DAILY PO Last administered on 09/01/16 09: 19; Start 08/30/16 at 16:30 Docusate Sodium (Colace) 100 mg DAILY PO ; Start 08/31/16 at 09:00; Stop at 09:00; Status DC Docusate Sodium (Colace) 100 mg DAILY PO Last administered on 09/01/16 09:19; Start 08/30/16 at 18:15 Apixaban (Eliquis) 2.5 mg BID PO Last administered on 09/01/16 09:19; Start at 21:00 Lorazepam (Ativan) 0.5 mg PRN Q6HRS PRN PO ANXIETY Last administered on 22:22; Start 08/30/16 at 18:45 Magnesium Oxide (Magnesium Oxide) 400 mg TID PO Last administered on 09/01/16 09:18; Start 08/30/16 at 21:00 Pantoprazole Sodium (Protonix) 40 mg DAILYAC PO Last administered on 09/01/16 07:52; Start 08/31/16 at 07:30 Ondansetron HCl (Zofran Odt) 4 mg PRN Q8HRS PRN PO NAUSEA/VOMITING Last administered on 09/01/16 07:43; Start 08/30/16 at 18:45 Prochlorperazine Maleate (Compazine) 10 mg PRN Q6HRS PRN PO NAUSEA Last administered on 09/01/16 12:22; Start 08/30/16 at 18:45 Losartan Potassium (Cozaar) 100 mg DAILY PO Last administered on 09/01/16 09: 19; Start 08/31/16 at 09:00 Fentanyl Citrate (Fentanyl 2ml Vial) 25 mcg PRN Q5MIN PRN IV MILD PAIN; Start 08/31/16 at 10:00; Stop 09/01/16 at 09:37; Status DC Fentanyl Citrate (Fentanyl 2ml Vial) 50 mcg PRN Q5MIN PRN IV MODERATE PAIN Last administered on 08/31/16 16:21; Start 08/31/16 at 10:00; Stop 09/01/16 at 09:37; Status DC Morphine Sulfate 1 mg PRN Q10MIN PRN IV SEVERE PAIN Last administered on 16:07; Start 08/31/16 at 10:00; Stop 09/01/16 at 09:37; Status DC Ringer's Solution 1,000 ml @ 30 mls/hr Q24H IV Last administered on 08/31/16 13:33; Start 08/31/16 at 09:48; Stop 08/31/16 at 21:47; Status DC Lidocaine HCl 2 ml PRN 1X PRN ID PRIOR TO IV START; Start 08/31/16 at 10:00; Stop 09/01/16 at 09:59; Status DC Hydromorphone HCl (Dilaudid) 0.5 mg PRN Q10MIN PRN IV SEV PAIN, Second choice Last administered on 08/31/16 16:26; Start 08/31/16 at 10:00; Stop 09/01/16 at 09:37; Status DC Prochlorperazine Edisylate (Compazine) 5 mg PACU PRN PRN IV NAUSEA, MRX1; Start 08/31/16 at 10:00; Stop 09/01/16 at 09:37; Status DC Sevoflurane (Ultane) 60 ml STK-MED ONCE IH ; Start 08/31/16 at 13:14; Stop 08/31 at 13:15; Status DC Midazolam HCl (Versed) 2 mg STK-MED ONCE .ROUTE ; Start 08/31/16 at 13:14; Stop 08/31/16 at 13:15; Status DC Fentanyl Citrate (Fentanyl 2ml Vial) 100 mcg STK-MED ONCE .ROUTE ; Start at 13:14; Stop 08/31/16 at 13:15; Status DC Propofol 20 ml @ As Directed STK-MED ONCE IV ; Start 08/31/16 at 13:18; Stop at 13:19; Status DC Ondansetron HCl (Zofran) 4 mg STK-MED ONCE .ROUTE ; Start 08/31/16 at 13:18; Stop 08/31/16 at 13:19; Status DC Dexamethasone Sodium Phosphate (Decadron) 20 mg STK-MED ONCE .ROUTE ; Start at 13:18; Stop 08/31/16 at 13:19; Status DC Lidocaine HCl (Lidocaine Pf 2% Vial) 5 ml STK-MED ONCE .ROUTE ; Start 08/31/16 at 13:19; Stop 08/31/16 at 13:20; Status DC Info (Anti-Coagulation Monitoring By Pharmacy) 1 each PRN DAILY PRN MC SEE COMMENTS Last administered on 08/31/16 14:22; Start 08/31/16 at 13:45 Ceftriaxone Sodium 1 gm/ Sodium Chloride 50 ml @ 100 mls/hr Q24H IV Last administered on 08/31/16 17:35; Start 08/31/16 at 14:00 Ceftriaxone Sodium 50 ml @ As Directed STK-MED ONCE IV ; Start 08/31/16 at 14:20 ; Stop 08/31/16 at 14:21; Status DC Lidocaine/ Epinephrine (Xylocaine 1%-Epi 1:100,000) 20 ml STK-MED ONCE .ROUTE Last administered on 08/31/16 15:18; Start 08/31/16 at 15:14; Stop 08/31/16 at 15:15; Status DC Magnesium Hydroxide (Milk Of Magnesia) 2,400 mg PRN DAILY PRN PO CONSTIPATION Last administered on 09/01/16 07:43; Start 09/01/16 at 07:30 Polyethylene Glycol (miraLAX PACKET) 17 gm PRN BID PRN PO CONSTIPATION Last administered on 09/01/16 07:43; Start 09/01/16 at 07:30 Docusate Sodium (Colace) 100 mg PRN DAILY PRN PO CONSTIPATION; Start 09/01/16 at 07:30 Morphine Sulfate 2 mg PRN Q2HR PRN IV PAIN; Start 09/01/16 at 11:30 Lorazepam (Ativan) 2 mg PRN Q4HRS PRN IV ANXIETY / AGITATION; Start 09/01/16 at 11:30 Active Scripts Active Protonix (Pantoprazole Sodium) 40 Mg Tablet. 1 Tab PO DAILY Reported K-Tab ER (Potassium Chloride) 20 Meq Tablet.er 20 Meq PO DAILY Furosemide 40 Mg Tablet 40 Mg PO DAILY Ondansetron Hcl 8 Mg Tablet 8 Mg PO PRN Q8HRS PRN Lorazepam 0.5 Mg Tablet 1 Tab PO PRN Q6HRS PRN Prochlorperazine Maleate 10 Mg Tablet 10 Mg PO PRN Q6-8HRS PRN Magnesium Oxide 400 Mg Tablet 400 Mg PO TID Morphine Sulfate Er (Morphine Sulfate) 15 Mg Tablet.er 1 Tab PO BID Morphine Sulfate Er (Morphine Sulfate) 30 Mg Cap.er.pel 30 Mg PO Q12HR Morphine Sulfate 100 Mg/5 Ml Solution 10 Mg PO PRN Q2-4HRS PRN Eliquis (Apixaban) 2.5 Mg Tablet 2.5 Mg PO BIDAFTMEAL Hydrocodone-Apap 7.5-325 (Hydrocodone Bit/Acetaminophen) 1 Each Tablet 1 Tab PO PRN Q6HRS PRN Losartan-Hctz 100-25 Mg Tab (Losartan/Hydrochlorothiazide) 1 Each Tablet 1 Tab PO DAILY Docusate Sodium 100 Mg Capsule 1 Cap PO DAILY Vitals/I & O Vital Sign - Last 24 Hours 08/31/16 08/31/16 08/31/16 08/31/16 15:26 15:41 15:42 15:54 Temp 100.4 100.4 Pulse 89 91 Resp 16 21 16 16 B/P (MAP) 178/93 174/88 Pulse Ox 98 93 96 96 O2 Delivery Simple Mask Room Air Simple Mask Room Air O2 Flow Rate 10 10.0 08/31/16 08/31/16 08/31/16 08/31/16 15:56 16:00 16:02 16:07 Pulse 90 Resp 18 20 13 B/P (MAP) 182/88 Pulse Ox 96 O2 Delivery Nasal Cannula Nasal Cannula Room Air Nasal Cannula O2 Flow Rate 2 2 08/31/16 08/31/16 08/31/16 08/31/16 16:11 16:16 16:21 16:26 Pulse 90 Resp 18 18 18 18 B/P (MAP) 182/88 Pulse Ox 96 97 97 97 O2 Delivery Nasal Cannula Nasal Cannula Nasal Cannula Nasal Cannula O2 Flow Rate 2 2.0 2.0 2.0 08/31/16 08/31/16 08/31/16/25/17 16:26 16:41 17:00 17:15 Temp 98.8 98.8 98.8 98.8 Pulse 88 87 93 89 Resp 18 19 19 B/P (MAP) 180/92 173/82 194/91 (125) 202/93 (129) Pulse Ox 97 98 96 96 O2 Delivery Nasal Cannula Nasal Cannula Room Air Room Air O2 Flow Rate 2.0 2 08/31/16 08/31/16 08/31/16 08/31/16 17:30 17:33 17:34 17:34 Pulse 87 87 87 Resp 18 20 B/P (MAP) 193/96 (128) 173/82 173/82 Pulse Ox 92 94 O2 Delivery Room Air Room Air 08/31/16 08/31/16 08/31/16 08/31/16 17:35 17:45 18:15 18:45 Temp 98.8 98.8 Pulse 87 84 90 76 Resp 18 9 9 B/P (MAP) 173/82 200/95 (130) 214/103 (140) 184/85 (118) Pulse Ox 97 97 99 O2 Delivery Room Air Room Air Room Air 08/31/16 08/31/16 08/31/16 08/31/16 20:57 21:05 22:30 22:45 Resp 20 20 20 20 08/31/16 09/01/16 09/01/16 09/01/16 23:00 02:22 03:45 04:45 Temp 100.4 100.4 Pulse 76 Resp 18 20 20 20 B/P (MAP) 161/84 (109) Pulse Ox 97 O2 Delivery Room Air Room Air Room Air 09/01/16 09/01/16 09/01/16 09/01/16 05:49 07:00 07:41 07:50 Temp 100.4 100.4 Pulse 88 Resp 20 18 14 B/P (MAP) 178/86 (116) Pulse Ox 96 97 O2 Delivery Room Air Room Air Nasal Cannula O2 Flow Rate 2.0 09/01/16 09/01/16 09/01/16 09/01/16 07:51 07:51 07:53 08:00 Pulse Ox 97 97 97 O2 Delivery Nasal Cannula Nasal Cannula Nasal Cannula Room Air O2 Flow Rate 2.0 2.0 2.0 2.0 5/2609/01/16 09/01/16 09/01/16 09:19 09:19 09:20 09:36 Pulse 88 88 88 B/P (MAP) 178/86 178/86 178/86 Pulse Ox 97 O2 Delivery Nasal Cannula O2 Flow Rate 2.0 09/01/16 09/01/16 09/01/16 09/01/16 10:07 10:36 11:00 11:07 Temp 98.2 98.2 Pulse 79 Resp 16 B/P (MAP) 157/90 (112) Pulse Ox 97 97 98 97 O2 Delivery Nasal Cannula Room Air Room Air Room Air O2 Flow Rate 2.0 2.0 2.0 09/01/16 09/01/16 11:53 12:24 Pulse Ox 97 97 O2 Delivery Room Air Room Air O2 Flow Rate 2.0 2.0 Intake and Output 08/31/16 08/31/16 09/01/16 15:00 23:00 07:00 Intake Total 250 ml Output Total 700 ml 800 ml Balance -700 ml 250 ml -800 ml GUILLAUME MORAN MD September 01, 2016 14:06
[2016-09-01] MEDS: MORPHINE SULFATE 2 MG/ML DISP.SYRIN. IV PRN (14:27)
[2016-09-01 14:49] VITALS: BP 182/94
--- NOTE | 2016-09-01 15:23 | RAD ---
Radionuclide bone scan, canceled study, 09/01/2016: History: Squamous cell cancer The patient was injected IV with 24 mCi of technetium 99m MDP. Despite having received morphine and Ativan she was unable to tolerate laying on the table for subsequent scanning. The exam therefore could not be performed at this time.
[2016-09-01 19:00] VITALS: BP 144/70
[2016-09-01 23:00] VITALS: BP 169/93
[2016-09-02] MEDS: MORPHINE SULFATE 20 MG/ML CONC SOLUTION. SL PRN ×3 (00:38→22:39)
[2016-09-02] MEDS: HYDROcodone/APAP 7.5/325MG 1 TAB TABLET PO PRN ×4 (02:58→21:10)
[2016-09-02 03:00] VITALS: BP 168/91
[2016-09-02] MEDS: MORPHINE SULFATE 2 MG/ML DISP.SYRIN. IV PRN ×4 (03:49→21:10)
[2016-09-02] MEDS: IV NORMAL SALINE 1000ML BAG 1,000 ML IV SCH ×3 (05:20→17:58)
[2016-09-02] MEDS: LORazepam 0.5 MG TABLET PO PRN (05:23)
[2016-09-02 07:00] VITALS: BP 168/91
[2016-09-02] MEDS: ANTI-COAG MONITOR BY PHARMACY. MC PRN (07:35)
[2016-09-02 08:01] LABS: BASO % 0 % (0-3); EOS % 0 % (0-3); HEMATOCRIT 23.9 % (36.0-47.0); HEMOGLOBIN 7.8 g/dL (12.0-15.5); LYMPH # 0.7 x10^3/uL (1.0-4.8); LYMPH % 3 % (24-48); MEAN CORPUSCULAR HEMOGLOBIN 30 pg (25-35); MEAN CORPUSCULAR HGB CONC 33 g/dL (31-37); MEAN CORPUSCULAR VOLUME 92 fL (79-100); MONO % 4 % (0-9); NEUT % 93 % (31-73); PLATELET COUNT 207 x10^3/uL (140-400); RED BLOOD COUNT 2.59 x10^6/uL (3.50-5.40); RED CELL DISTRIBUTION WIDTH 19.4 % (11.5-14.5); WHITE BLOOD COUNT 22.3 x10^3/uL (4.0-11.0)
[2016-09-02 08:03] LABS: CALCIUM 9.1 mg/dL (8.5-10.1); CREATININE 1.4 mg/dL (0.6-1.0); GFR 48.6; MAGNESIUM 1.5 mg/dL (1.8-2.4); PHOSPHORUS 2.4 mg/dL (2.6-4.7); POTASSIUM 3.9 mmol/L (3.5-5.1)
[2016-09-02] MEDS: PANTOPRAZOLE 40 MG TABLET.DR. PO SCH (08:15)
[2016-09-02] MEDS: MORPHINE ER 15 MG TABLET.ER PO SCH ×2 (08:15→21:09)
[2016-09-02] MEDS: MAGNESIUM OXIDE 400 MG TABLET PO SCH ×3 (08:16→21:09)
[2016-09-02] MEDS: amLODIPine BESYLATE 10 MG TABLET PO SCH (08:16)
[2016-09-02] MEDS: LOSARTAN POTASSIUM 50 MG TABLET. PO SCH (08:16)
[2016-09-02] MEDS: APIXABAN 2.5 MG TABLET. PO SCH ×2 (08:16→21:08)
[2016-09-02] MEDS: DOCUSATE SODIUM 100 MG CAPSULE. PO SCH ×2 (08:17→21:09)
[2016-09-02] MEDS: NICOTINE 21MG PATCH. TD SCH (08:19)
[2016-09-02] MEDS: METOPROLOL TART IMMED RELEASE 25 MG TABLET. PO SCH ×2 (08:22→21:09)
[2016-09-02] MEDS ORDERED: MAGNESIUM SULFATE 2GM 50 ML IV ONE (10:00)
[2016-09-02] MEDS ORDERED: MAGNESIUM HYDROXIDE 2,400 MG/30 ML ORAL.SUSP. PO PRN (10:15)
[2016-09-02 11:00] VITALS: BP 158/88
[2016-09-02] MEDS: SENNOSIDES/DOCUSATE 8.6/50MG TABLET. PO SCH ×2 (11:20→21:09)
[2016-09-02] MEDS: MORPHINE ER 30 MG TABLET.ER PO SCH ×2 (11:20→22:38)
--- NOTE | 2016-09-02 12:47 | PDOC ---
PROGRESS NOTES Chief Complaint Chief Complaint 1. 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 Hypercalcemia of malignancy 3. Hyponatremia 4. Anemia of CKD 5. Leukocytosis 6. GNR UTI 7. intractable back and hip , groin pain, 2/2 bone mets? 8. constipatin 9. hypolmagnesemia plan failed bone scan 2 times 2/2 cannot lie flat with back pain on morphine high dose, refuse to increase pain meds today since slightly better refuse to do bone scan again unless sedation cont ivf replete Mag labs tmr ptot fu with id, onco, vascular, local wound care add stool softner dvt ppx History of Present Illness History of Present Illness back pain, bl hip, right groin pain started to be better today 09/16, in the past 3 days, / failed bone scan 2 times 2/2 pain and cannot lie flat constipation 6ds vomited 09/01, low Mag 09/02 Vitals Vitals Vital Signs Date Time Temp Pulse Resp B/P (MAP) Pulse Ox O2 Delivery O2 Flow Rate FiO2 09/02/16 11:58 96 Room Air 2.0 09/02/16 11:00 98.6 84 20 158/88 (111) 98.6 Physical Exam General: Alert, Oriented X3 Heart: Normal S1, Normal S2 Lungs: Clear Abdomen: Normal bowel sounds, Soft, No tenderness Extremities: No edema, Other (RIGHT FOOT WOUND WITH DRESSING AND MINIMAL DRAINAGE) Skin: No rashes Labs LABS Laboratory Tests Test 09/02/16 07:40 White Blood Count 22.3 x10^3/uL (4.0-11.0) Red Blood Count 2.59 x10^6/uL (3.50-5.40) Hemoglobin 7.8 g/dL (12.0-15.5) Hematocrit 23.9 % (36.0-47.0) Mean Corpuscular Volume 92 fL (79-100) Mean Corpuscular Hemoglobin 30 pg (25-35) Mean Corpuscular Hemoglobin Concent 33 g/dL (31-37) Red Cell Distribution Width 19.4 % (11.5-14.5) Platelet Count 207 x10^3/uL (140-400) Neutrophils (%) (Auto) 93 % (31-73) Lymphocytes (%) (Auto) 3 % (24-48) Monocytes (%) (Auto) 4 % (0-9) Eosinophils (%) (Auto) 0 % (0-3) Basophils (%) (Auto) 0 % (0-3) Neutrophils # (Auto) 20.7 x10^3uL (1.8-7.7) Lymphocytes # (Auto) 0.7 x10^3/uL (1.0-4.8) Monocytes # (Auto) 0.9 x10^3/uL (0.0-1.1) Eosinophils # (Auto) 0.0 x10^3/uL (0.0-0.7) Basophils # (Auto) 0.0 x10^3/uL (0.0-0.2) Sodium Level 131 mmol/L (136-145) Potassium Level 3.9 mmol/L (3.5-5.1) Chloride Level 94 mmol/L (98-107) Carbon Dioxide Level 26 mmol/L (21-32) Anion Gap 11 (6-14) Blood Urea Nitrogen 14 mg/dL (7-20) Creatinine 1.4 mg/dL (0.6-1.0) Estimated GFR (Cockcroft-Gault) 48.6 Glucose Level 95 mg/dL (70-99) Calcium Level 9.1 mg/dL (8.5-10.1) Phosphorus Level 2.4 mg/dL (2.6-4.7) Magnesium Level 1.5 mg/dL (1.8-2.4) Review of Systems Review of Systems no fever, chills, sob or chest pain Assessment and Plan Assessmemt and Plan Problems Medical Problems: (1) Metastatic squamous cell carcinoma Status: Acute (2) Renal insufficiency Status: Acute (3) Severe protein-calorie malnutrition Status: Acute Problems: Comment Review of Relevant I have reviewed the following items niki (where applicable) has been applied. Labs Laboratory Tests Test 09/01/16 04:25 09/02/16 07:40 Sodium Level 128 mmol/L (136-145) 131 mmol/L (136-145) Potassium Level 4.1 mmol/L (3.5-5.1) 3.9 mmol/L (3.5-5.1) Chloride Level 91 mmol/L (98-107) 94 mmol/L (98-107) Carbon Dioxide Level 28 mmol/L (21-32) 26 mmol/L (21-32) Anion Gap 9 (6-14) 11 (6-14) Blood Urea Nitrogen 16 mg/dL (7-20) 14 mg/dL (7-20) Creatinine 1.5 mg/dL (0.6-1.0) 1.4 mg/dL (0.6-1.0) Estimated GFR (Cockcroft-Gault) 44.8 48.6 Glucose Level 86 mg/dL (70-99) 95 mg/dL (70-99) Calcium Level 10.5 mg/dL (8.5-10.1) 9.1 mg/dL (8.5-10.1) White Blood Count 22.3 x10^3/uL (4.0-11.0) Red Blood Count 2.59 x10^6/uL (3.50-5.40) Hemoglobin 7.8 g/dL (12.0-15.5) Hematocrit 23.9 % (36.0-47.0) Mean Corpuscular Volume 92 fL (79-100) Mean Corpuscular Hemoglobin 30 pg (25-35) Mean Corpuscular Hemoglobin Concent 33 g/dL (31-37) Red Cell Distribution Width 19.4 % (11.5-14.5) Platelet Count 207 x10^3/uL (140-400) Neutrophils (%) (Auto) 93 % (31-73) Lymphocytes (%) (Auto) 3 % (24-48) Monocytes (%) (Auto) 4 % (0-9) Eosinophils (%) (Auto) 0 % (0-3) Basophils (%) (Auto) 0 % (0-3) Neutrophils # (Auto) 20.7 x10^3uL (1.8-7.7) Lymphocytes # (Auto) 0.7 x10^3/uL (1.0-4.8) Monocytes # (Auto) 0.9 x10^3/uL (0.0-1.1) Eosinophils # (Auto) 0.0 x10^3/uL (0.0-0.7) Basophils # (Auto) 0.0 x10^3/uL (0.0-0.2) Phosphorus Level 2.4 mg/dL (2.6-4.7) Magnesium Level 1.5 mg/dL (1.8-2.4) Laboratory Tests Test 09/02/16 07:40 White Blood Count 22.3 x10^3/uL (4.0-11.0) Red Blood Count 2.59 x10^6/uL (3.50-5.40) Hemoglobin 7.8 g/dL (12.0-15.5) Hematocrit 23.9 % (36.0-47.0) Mean Corpuscular Volume 92 fL (79-100) Mean Corpuscular Hemoglobin 30 pg (25-35) Mean Corpuscular Hemoglobin Concent 33 g/dL (31-37) Red Cell Distribution Width 19.4 % (11.5-14.5) Platelet Count 207 x10^3/uL (140-400) Neutrophils (%) (Auto) 93 % (31-73) Lymphocytes (%) (Auto) 3 % (24-48) Monocytes (%) (Auto) 4 % (0-9) Eosinophils (%) (Auto) 0 % (0-3) Basophils (%) (Auto) 0 % (0-3) Neutrophils # (Auto) 20.7 x10^3uL (1.8-7.7) Lymphocytes # (Auto) 0.7 x10^3/uL (1.0-4.8) Monocytes # (Auto) 0.9 x10^3/uL (0.0-1.1) Eosinophils # (Auto) 0.0 x10^3/uL (0.0-0.7) Basophils # (Auto) 0.0 x10^3/uL (0.0-0.2) Sodium Level 131 mmol/L (136-145) Potassium Level 3.9 mmol/L (3.5-5.1) Chloride Level 94 mmol/L (98-107) Carbon Dioxide Level 26 mmol/L (21-32) Anion Gap 11 (6-14) Blood Urea Nitrogen 14 mg/dL (7-20) Creatinine 1.4 mg/dL (0.6-1.0) Estimated GFR (Cockcroft-Gault) 48.6 Glucose Level 95 mg/dL (70-99) Calcium Level 9.1 mg/dL (8.5-10.1) Phosphorus Level 2.4 mg/dL (2.6-4.7) Magnesium Level 1.5 mg/dL (1.8-2.4) Microbiology 08/29/16 Urine Culture - Final, Complete 08/29/16 Urine Culture Result 1 (KEVIN) - Final, Complete 08/29/16 Antimicrobic Susceptibility - Final, Complete Medications Current Medications Hydromorphone HCl (Dilaudid) 1 mg PRN Q15MIN PRN IV/SQ PAIN GREATER THAN 3/10 Last administered on 08/29/16 21:47; Start 08/29/16 at 17:45; Stop 08/30/16 at 17:44; Status DC Sodium Chloride 1,000 ml @ 1,000 mls/hr Q1H IV Last administered on 08/29/16 18:09; Start 08/29/16 at 17:33; Stop 08/29/16 at 18:32; Status DC Ondansetron HCl (Zofran) 4 mg 1X ONCE IV Last administered on 08/29/16 18:09 ; Start 08/29/16 at 17:45; Stop 08/29/16 at 17:46; Status DC Famotidine (Pepcid) 20 mg 1X ONCE IVP Last administered on 08/29/16 18:10; Start 08/29/16 at 17:45; Stop 08/29/16 at 17:46; Status DC Pamidronate Disodium 60 mg/ Sodium Chloride 250 ml @ 83.333 mls/ hr 1X ONCE IV Last administered on 08/29/16 21:37; Start 08/29/16 at 19:30; Stop at 22:29; Status DC Sodium Chloride 1,000 ml @ 150 mls/hr Q6H40M IV Last administered on 11:21; Start 08/29/16 at 19:30 Ondansetron HCl (Zofran) 4 mg PRN Q8HRS PRN IV NAUSEA/VOMITING; Start 08/29/16 at 20:30; Stop 08/30/16 at 20:29; Status DC Acetaminophen (Tylenol) 650 mg PRN Q4HRS PRN PO FEVER; Start 08/29/16 at 20:30 ; Stop 08/30/16 at 20:29; Status DC Acetaminophen/ Hydrocodone Bitart (Lortab 7.5/325) 1 tab PRN Q6HRS PRN PO PAIN Last administered on 08/30/16 05:57; Start 08/29/16 at 23:45; Stop 08/30/16 at 07:08; Status DC Morphine Sulfate (Roxanol Conc) 10 mg PRN Q2HRS PRN SL MODERATE PAIN WHILE AWAKE Last administered on 09/02/16 05:23; Start 08/29/16 at 23:45 Morphine Sulfate (Ms Contin) 15 mg BID PO ; Start 08/30/16 at 09:00; Stop at 09:00; Status DC Non-Formulary Medication 30 mg Q12HR PO ; Start 08/30/16 at 09:00; Stop at 09:00; Status DC Morphine Sulfate (Ms Contin) 15 mg BID PO Last administered on 09/02/16 08:15 ; Start 08/30/16 at 00:00 Morphine Sulfate (Ms Contin) 30 mg Q12HR PO ; Start 08/30/16 at 00:00; Stop at 00:00; Status DC Morphine Sulfate (Ms Contin) 30 mg Q12H PO Last administered on 09/02/16 11:20 ; Start 08/30/16 at 00:00 Acetaminophen/ Hydrocodone Bitart (Lortab 7.5/325) 1 tab PRN Q4HRS PRN PO PAIN Last administered on 09/02/16 08:16; Start 08/30/16 at 07:07 Nicotine (Nicoderm Cq 21mg) 1 patch DAILY TD Last administered on 09/02/16 08: 19; Start 08/30/16 at 09:00 Levofloxacin/ Dextrose 50 ml @ 50 mls/hr Q24H IV Last administered on 10:13; Start 08/30/16 at 10:00; Stop 08/31/16 at 13:47; Status DC Metoprolol Tartrate (Lopressor) 25 mg BID PO Last administered on 09/02/16 08: 22; Start 08/30/16 at 10:00 Amlodipine Besylate (Norvasc) 10 mg DAILY PO Last administered on 09/02/16 08: 16; Start 08/30/16 at 16:30 Docusate Sodium (Colace) 100 mg DAILY PO ; Start 08/31/16 at 09:00; Stop at 09:00; Status DC Docusate Sodium (Colace) 100 mg DAILY PO Last administered on 09/02/16 08:17; Start 08/30/16 at 18:15; Stop 09/02/16 at 10:02; Status DC Apixaban (Eliquis) 2.5 mg BID PO Last administered on 09/02/16 08:16; Start at 21:00 Lorazepam (Ativan) 0.5 mg PRN Q6HRS PRN PO ANXIETY Last administered on 05:23; Start 08/30/16 at 18:45 Magnesium Oxide (Magnesium Oxide) 400 mg TID PO Last administered on 09/02/16 08:16; Start 08/30/16 at 21:00 Pantoprazole Sodium (Protonix) 40 mg DAILYAC PO Last administered on 09/02/16 08:15; Start 08/31/16 at 07:30 Ondansetron HCl (Zofran Odt) 4 mg PRN Q8HRS PRN PO NAUSEA/VOMITING Last administered on 09/01/16 07:43; Start 08/30/16 at 18:45 Prochlorperazine Maleate (Compazine) 10 mg PRN Q6HRS PRN PO NAUSEA Last administered on 09/01/16 12:22; Start 08/30/16 at 18:45 Losartan Potassium (Cozaar) 100 mg DAILY PO Last administered on 09/02/16 08: 16; Start 08/31/16 at 09:00 Fentanyl Citrate (Fentanyl 2ml Vial) 25 mcg PRN Q5MIN PRN IV MILD PAIN; Start 08/31/16 at 10:00; Stop 09/01/16 at 09:37; Status DC Fentanyl Citrate (Fentanyl 2ml Vial) 50 mcg PRN Q5MIN PRN IV MODERATE PAIN Last administered on 08/31/16 16:21; Start 08/31/16 at 10:00; Stop 09/01/16 at 09:37; Status DC Morphine Sulfate 1 mg PRN Q10MIN PRN IV SEVERE PAIN Last administered on 16:07; Start 08/31/16 at 10:00; Stop 09/01/16 at 09:37; Status DC Ringer's Solution 1,000 ml @ 30 mls/hr Q24H IV Last administered on 08/31/16 13:33; Start 08/31/16 at 09:48; Stop 08/31/16 at 21:47; Status DC Lidocaine HCl 2 ml PRN 1X PRN ID PRIOR TO IV START; Start 08/31/16 at 10:00; Stop 09/01/16 at 09:59; Status DC Hydromorphone HCl (Dilaudid) 0.5 mg PRN Q10MIN PRN IV SEV PAIN, Second choice Last administered on 08/31/16 16:26; Start 08/31/16 at 10:00; Stop 09/01/16 at 09:37; Status DC Prochlorperazine Edisylate (Compazine) 5 mg PACU PRN PRN IV NAUSEA, MRX1; Start 08/31/16 at 10:00; Stop 09/01/16 at 09:37; Status DC Sevoflurane (Ultane) 60 ml STK-MED ONCE IH ; Start 08/31/16 at 13:14; Stop 08/31 at 13:15; Status DC Midazolam HCl (Versed) 2 mg STK-MED ONCE .ROUTE ; Start 08/31/16 at 13:14; Stop 08/31/16 at 13:15; Status DC Fentanyl Citrate (Fentanyl 2ml Vial) 100 mcg STK-MED ONCE .ROUTE ; Start at 13:14; Stop 08/31/16 at 13:15; Status DC Propofol 20 ml @ As Directed STK-MED ONCE IV ; Start 08/31/16 at 13:18; Stop at 13:19; Status DC Ondansetron HCl (Zofran) 4 mg STK-MED ONCE .ROUTE ; Start 08/31/16 at 13:18; Stop 08/31/16 at 13:19; Status DC Dexamethasone Sodium Phosphate (Decadron) 20 mg STK-MED ONCE .ROUTE ; Start at 13:18; Stop 08/31/16 at 13:19; Status DC Lidocaine HCl (Lidocaine Pf 2% Vial) 5 ml STK-MED ONCE .ROUTE ; Start 08/31/16 at 13:19; Stop 08/31/16 at 13:20; Status DC Info (Anti-Coagulation Monitoring By Pharmacy) 1 each PRN DAILY PRN MC SEE COMMENTS Last administered on 09/02/16 07:35; Start 08/31/16 at 13:45 Ceftriaxone Sodium 1 gm/ Sodium Chloride 50 ml @ 100 mls/hr Q24H IV Last administered on 09/01/16 14:37; Start 08/31/16 at 14:00 Ceftriaxone Sodium 50 ml @ As Directed STK-MED ONCE IV ; Start 08/31/16 at 14:20 ; Stop 08/31/16 at 14:21; Status DC Lidocaine/ Epinephrine (Xylocaine 1%-Epi 1:100,000) 20 ml STK-MED ONCE .ROUTE Last administered on 08/31/16 15:18; Start 08/31/16 at 15:14; Stop 08/31/16 at 15:15; Status DC Magnesium Hydroxide (Milk Of Magnesia) 2,400 mg PRN DAILY PRN PO CONSTIPATION Last administered on 09/01/16 07:43; Start 09/01/16 at 07:30 Polyethylene Glycol (miraLAX PACKET) 17 gm PRN BID PRN PO CONSTIPATION Last administered on 09/01/16 07:43; Start 09/01/16 at 07:30 Docusate Sodium (Colace) 100 mg PRN DAILY PRN PO CONSTIPATION; Start 09/01/16 at 07:30 Morphine Sulfate 2 mg PRN Q2HR PRN IV PAIN Last administered on 09/02/16 11:28 ; Start 09/01/16 at 11:30 Lorazepam (Ativan) 2 mg PRN Q4HRS PRN IV ANXIETY / AGITATION Last administered on 09/01/16 14:27; Start 09/01/16 at 11:30 Magnesium Sulfate/ Dextrose 50 ml @ 25 mls/hr 1X ONCE IV Last administered on 09/02/16 11:21; Start 09/02/16 at 10:00; Stop 09/02/16 at 12:05; Status DC Senna/Docusate Sodium (Senna Plus) 1 tab BID PO Last administered on 09/02/16 11:20; Start 09/02/16 at 11:00 Docusate Sodium (Colace) 100 mg BID PO ; Start 09/02/16 at 21:00 Magnesium Hydroxide (Milk Of Magnesia) 2,400 mg PRN Q12HR PRN PO CONSTIPATION; Start 09/02/16 at 10:15 Active Scripts Active Protonix (Pantoprazole Sodium) 40 Mg Tablet. 1 Tab PO DAILY Reported K-Tab ER (Potassium Chloride) 20 Meq Tablet.er 20 Meq PO DAILY Furosemide 40 Mg Tablet 40 Mg PO DAILY Ondansetron Hcl 8 Mg Tablet 8 Mg PO PRN Q8HRS PRN Lorazepam 0.5 Mg Tablet 1 Tab PO PRN Q6HRS PRN Prochlorperazine Maleate 10 Mg Tablet 10 Mg PO PRN Q6-8HRS PRN Magnesium Oxide 400 Mg Tablet 400 Mg PO TID Morphine Sulfate Er (Morphine Sulfate) 15 Mg Tablet.er 1 Tab PO BID Morphine Sulfate Er (Morphine Sulfate) 30 Mg Cap.er.pel 30 Mg PO Q12HR Morphine Sulfate 100 Mg/5 Ml Solution 10 Mg PO PRN Q2-4HRS PRN Eliquis (Apixaban) 2.5 Mg Tablet 2.5 Mg PO BIDAFTMEAL Hydrocodone-Apap 7.5-325 (Hydrocodone Bit/Acetaminophen) 1 Each Tablet 1 Tab PO PRN Q6HRS PRN Losartan-Hctz 100-25 Mg Tab (Losartan/Hydrochlorothiazide) 1 Each Tablet 1 Tab PO DAILY Docusate Sodium 100 Mg Capsule 1 Cap PO DAILY Vitals/I & O Vital Sign - Last 24 Hours 09/01/16 09/01/16 09/01/16 09/01/16 14:27 14:27 14:49 16:24 Temp 97.9 97.9 Pulse 90 Resp 18 B/P (MAP) 182/94 (123) Pulse Ox 97 97 96 O2 Delivery Room Air Room Air Room Air O2 Flow Rate 2.0 2.0 2.0 09/01/16 09/01/16 09/01/16 09/01/16 19:00 19:02 19:05 20:51 Temp 98.6 98.6 Pulse 77 77 Resp 20 B/P (MAP) 144/70 (94) 144/70 Pulse Ox 97 96 O2 Delivery Room Air Room Air Room Air O2 Flow Rate 2.0 09/01/16 09/01/16 09/01/16 09/01/16 20:53 20:57 23:00 23:00 Temp 99.3 99.3 Pulse 96 Resp 16 16 16 20 B/P (MAP) 169/93 (118) Pulse Ox 96 96 96 97 O2 Delivery Room Air Room Air Room Air Room Air 09/01/16 09/02/16 09/02/16 09/02/16 23:01 00:38 00:40 02:49 Resp 16 16 16 16 Pulse Ox 96 96 96 O2 Delivery Room Air Room Air Room Air 09/02/16 09/02/16 09/02/16 09/02/16 02:58 03:00 03:49 03:58 Temp 99.3 99.3 Pulse 94 Resp 16 20 16 16 B/P (MAP) 168/91 (116) Pulse Ox 96 98 96 O2 Delivery Room Air Room Air Room Air 09/02/16 09/02/16 09/02/16 09/02/16 04:15 05:23 06:13 07:00 Temp 99.9 99.9 Pulse 87 Resp 14 16 16 18 B/P (MAP) 168/91 (116) Pulse Ox 96 96 97 O2 Delivery Room Air Room Air Room Air 09/02/16 09/02/16 09/02/16 09/02/16 08:00 08:15 08:16 08:16 Pulse 94 B/P (MAP) 168/91 Pulse Ox 96 96 O2 Delivery Room Air Room Air Room Air O2 Flow Rate 2.0 2.0 09/02/16 09/02/16 09/02/16 09/02/16 08:16 08:22 09:16 11:00 Temp 98.6 98.6 Pulse 94 94 84 Resp 20 B/P (MAP) 168/91 168/91 158/88 (111) Pulse Ox 96 95 O2 Delivery Room Air Room Air O2 Flow Rate 2.0 09/02/16 09/02/16 09/02/16 09/02/16 11:20 11:28 11:58 11:58 Pulse Ox 96 96 96 96 O2 Delivery Room Air Room Air Room Air Room Air O2 Flow Rate 2.0 2.0 2.0 2.0 Intake and Output 09/01/16 09/01/16 09/02/16 15:00 23:00 07:00 Intake Total 550 ml 2750 ml 1240 ml Balance 550 ml 2750 ml 1240 ml TAWANA BANSAL MD September 02, 2016 12:47
[2016-09-02] MEDS: POLYETHYLENE GLYCOL 3350 17 GM PACKET. PO SCH (14:00)
[2016-09-02] MEDS ORDERED: SODIUM PHOSPHATE 40 MMOL in IV DEXTROSE 5% 250 ML IV ONE (14:30)
[2016-09-02] MEDS ORDERED: MAGNESIUM SULFATE 2GM 50 ML IV PRN (14:30)
--- NOTE | 2016-09-02 14:33 | PDOC ---
SUBJECTIVE ROS elyte ABN doign better OBJECTIVE Vital Signs Vital Signs Date Time Temp Pulse Resp B/P (MAP) Pulse Ox O2 Delivery O2 Flow Rate FiO2 09/02/16 11:58 96 Room Air 2.0 09/02/16 11:00 98.6 84 20 158/88 (111) 98.6 I & 0 Intake and Output 09/02/16 07:00 Intake Total 4540 ml Balance 4540 ml Intake Oral 1490 ml IV Total 3050 ml # Voids 5 PHYSICAL EXAM Physical Exam General Appearance: Awake Alert Oriented x 3 In no Distress Eyes: VIsion Unchanged Conjunctiva Normal EN: No EN Drainage Mucous Memb. moist Neck: no JVD min JVP Supple no Thyromegaly CVS: S1 S2 ? Murmur No Gallop No Rub + Edema on the Rt Resp: no Rales no Rhonchi no Acc. Muscle use GI: BAS +ve NO Bruit Non Tender Non Distended : no CVA tenderness; no Suprapubic Tenderness DIAGNOSIS/ASSESSMENT Assessment & Plan JUSTIN - dehydrtaion - better ^ Nomi - better Low Mag - replace as ordered Low Phos - replace as ordered Low Na - Bettew ith IV NS Problems: COMMENT/RELEVANT DATA Meds Current Medications Medications (Trade) Dose Ordered Sig/Lilliana Start Time Stop Time Status Last Admin Dose Admin Acetaminophen (Tylenol) 650 mg PRN Q4HRS PRN 08/29/16 20:30 08/30/16 20:29 DC Acetaminophen/ Hydrocodone Bitart (Lortab 7.5/325) 1 tab PRN Q4HRS PRN 08/30/16 07:07 09/02/16 08:16 1 TAB Amlodipine Besylate (Norvasc) 10 mg DAILY 08/30/16 16:30 09/02/16 08:16 10 MG Apixaban (Eliquis) 2.5 mg BID 08/30/16 21:00 09/02/16 08:16 2.5 MG Ceftriaxone Sodium 1 gm/ Sodium Chloride 50 ml @ 100 mls/hr Q24H 08/31/16 14:00 09/01/16 14:37 100 MLS/HR Ceftriaxone Sodium 50 ml @ As Directed STK-MED ONCE 08/31/16 14:20 08/31/16 14:21 DC Dexamethasone Sodium Phosphate (Decadron) 20 mg STK-MED ONCE 08/31/16 13:18 08/31/16 13:19 DC Docusate Sodium (Colace) 100 mg BID 09/02/16 21:00 Famotidine (Pepcid) 20 mg 1X ONCE 08/29/16 17:45 08/29/16 17:46 DC 08/29/16 18:10 20 MG Fentanyl Citrate (Fentanyl 2ml Vial) 100 mcg STK-MED ONCE 08/31/16 13:14 08/31/16 13:15 DC Hydromorphone HCl (Dilaudid) 0.5 mg PRN Q10MIN PRN 08/31/16 10:00 09/01/16 09:37 DC 08/31/16 16:26 0.5 MG Info (Anti-Coagulation Monitoring By Pharmacy) 1 each PRN DAILY PRN 08/31/16 13:45 09/02/16 07:35 1 EACH Levofloxacin/ Dextrose 50 ml @ 50 mls/hr Q24H 08/30/16 10:00 08/31/16 13:47 DC 08/30/16 10:13 50 MLS/HR Lidocaine HCl (Lidocaine Pf 2% Vial) 5 ml STK-MED ONCE 08/31/16 13:19 08/31/16 13:20 DC Lidocaine/ Epinephrine (Xylocaine 1%-Epi 1:100,000) 20 ml STK-MED ONCE 08/31/16 15:14 08/31/16 15:15 DC 08/31/16 15:18 20 ML Lorazepam (Ativan) 2 mg PRN Q4HRS PRN 09/01/16 11:30 09/01/16 14:27 2 MG Losartan Potassium (Cozaar) 100 mg DAILY 08/31/16 09:00 09/02/16 08:16 100 MG Magnesium Hydroxide (Milk Of Magnesia) 2,400 mg PRN Q12HR PRN 09/02/16 10:15 Magnesium Oxide (Magnesium Oxide) 400 mg TID 08/30/16 21:00 09/02/16 08:16 400 MG Magnesium Sulfate/ Dextrose 50 ml @ 25 mls/hr 1X ONCE 09/02/16 10:00 09/02/16 12:05 DC 09/02/16 11:21 25 MLS/HR Metoprolol Tartrate (Lopressor) 25 mg BID 08/30/16 10:00 09/02/16 08:22 25 MG Midazolam HCl (Versed) 2 mg STK-MED ONCE 08/31/16 13:14 08/31/16 13:15 DC Morphine Sulfate 2 mg PRN Q2HR PRN 09/01/16 11:30 09/02/16 11:28 2 MG Morphine Sulfate (Ms Contin) 30 mg Q12H 08/30/16 00:00 09/02/16 11:20 30 MG Morphine Sulfate (Roxanol Conc) 10 mg PRN Q2HRS PRN 08/29/16 23:45 09/02/16 05:23 10 MG Nicotine (Nicoderm Cq 21mg) 1 patch DAILY 08/30/16 09:00 09/02/16 08:19 1 PATCH Non-Formulary Medication 30 mg Q12HR 08/30/16 09:00 08/30/16 09:00 DC Ondansetron HCl (Zofran Odt) 4 mg PRN Q8HRS PRN 08/30/16 18:45 09/01/16 07:43 4 MG Ondansetron HCl (Zofran) 4 mg STK-MED ONCE 08/31/16 13:18 08/31/16 13:19 DC Pamidronate Disodium 60 mg/ Sodium Chloride 250 ml @ 83.333 mls/ hr 1X ONCE 08/29/16 19:30 08/29/16 22:29 DC 08/29/16 21:37 83.333 MLS/HR Pantoprazole Sodium (Protonix) 40 mg DAILYAC 08/31/16 07:30 09/02/16 08:15 40 MG Polyethylene Glycol (miraLAX PACKET) 17 gm DAILY 09/02/16 14:00 Prochlorperazine Edisylate (Compazine) 5 mg PACU PRN PRN 08/31/16 10:00 09/01/16 09:37 DC Prochlorperazine Maleate (Compazine) 10 mg PRN Q6HRS PRN 08/30/16 18:45 09/01/16 12:22 10 MG Propofol 20 ml @ As Directed STK-MED ONCE 08/31/16 13:18 08/31/16 13:19 DC Ringer's Solution 1,000 ml @ 30 mls/hr Q24H 08/31/16 09:48 08/31/16 21:47 DC 08/31/16 13:33 30 MLS/HR Senna/Docusate Sodium (Senna Plus) 1 tab BID 09/02/16 11:00 09/02/16 11:20 1 TAB Sevoflurane (Ultane) 60 ml STK-MED ONCE 08/31/16 13:14 08/31/16 13:15 DC Sodium Chloride 1,000 ml @ 150 mls/hr Q6H40M 08/29/16 19:30 09/02/16 11:21 150 MLS/HR Lab Laboratory Tests Test 09/02/16 07:40 White Blood Count 22.3 x10^3/uL (4.0-11.0) Red Blood Count 2.59 x10^6/uL (3.50-5.40) Hemoglobin 7.8 g/dL (12.0-15.5) Hematocrit 23.9 % (36.0-47.0) Mean Corpuscular Volume 92 fL (79-100) Mean Corpuscular Hemoglobin 30 pg (25-35) Mean Corpuscular Hemoglobin Concent 33 g/dL (31-37) Red Cell Distribution Width 19.4 % (11.5-14.5) Platelet Count 207 x10^3/uL (140-400) Neutrophils (%) (Auto) 93 % (31-73) Lymphocytes (%) (Auto) 3 % (24-48) Monocytes (%) (Auto) 4 % (0-9) Eosinophils (%) (Auto) 0 % (0-3) Basophils (%) (Auto) 0 % (0-3) Neutrophils # (Auto) 20.7 x10^3uL (1.8-7.7) Lymphocytes # (Auto) 0.7 x10^3/uL (1.0-4.8) Monocytes # (Auto) 0.9 x10^3/uL (0.0-1.1) Eosinophils # (Auto) 0.0 x10^3/uL (0.0-0.7) Basophils # (Auto) 0.0 x10^3/uL (0.0-0.2) Sodium Level 131 mmol/L (136-145) Potassium Level 3.9 mmol/L (3.5-5.1) Chloride Level 94 mmol/L (98-107) Carbon Dioxide Level 26 mmol/L (21-32) Anion Gap 11 (6-14) Blood Urea Nitrogen 14 mg/dL (7-20) Creatinine 1.4 mg/dL (0.6-1.0) Estimated GFR (Cockcroft-Gault) 48.6 Glucose Level 95 mg/dL (70-99) Calcium Level 9.1 mg/dL (8.5-10.1) Phosphorus Level 2.4 mg/dL (2.6-4.7) Magnesium Level 1.5 mg/dL (1.8-2.4) AVERY WILKS MD September 02, 2016 14:33
[2016-09-02 15:53] VITALS: BP 174/88
[2016-09-02 19:00] VITALS: BP 152/82
[2016-09-02 23:00] VITALS: BP 161/83
[2016-09-03] MEDS: MORPHINE SULFATE 20 MG/ML CONC SOLUTION. SL PRN ×5 (00:41→23:53)
[2016-09-03] MEDS: IV NORMAL SALINE 1000ML BAG 1,000 ML IV SCH ×2 (00:48→10:36)
[2016-09-03 02:59] VITALS: BP 185/99
[2016-09-03 04:28] LABS: BASO % 0 % (0-3); EOS % 0 % (0-3); HEMOGLOBIN 8.2 g/dL (12.0-15.5); LYMPH # 0.7 x10^3/uL (1.0-4.8); LYMPH % 3 % (24-48); MEAN CORPUSCULAR HEMOGLOBIN 30 pg (25-35); MEAN CORPUSCULAR HGB CONC 33 g/dL (31-37); MEAN CORPUSCULAR VOLUME 93 fL (79-100); MONO % 4 % (0-9); NEUT % 92 % (31-73); PLATELET COUNT 204 x10^3/uL (140-400); RED BLOOD COUNT 2.71 x10^6/uL (3.50-5.40); RED CELL DISTRIBUTION WIDTH 19.6 % (11.5-14.5); WHITE BLOOD COUNT 22.4 x10^3/uL (4.0-11.0)
[2016-09-03 04:33] LABS: CALCIUM 8.7 mg/dL (8.5-10.1); CREATININE 1.3 mg/dL (0.6-1.0); GFR 52.9; POTASSIUM 3.6 mmol/L (3.5-5.1)
[2016-09-03 07:00] VITALS: BP 177/90
[2016-09-03] MEDS: LOSARTAN POTASSIUM 50 MG TABLET. PO SCH (07:43)
[2016-09-03] MEDS: APIXABAN 2.5 MG TABLET. PO SCH ×2 (07:43→20:23)
[2016-09-03] MEDS: amLODIPine BESYLATE 10 MG TABLET PO SCH (07:43)
[2016-09-03] MEDS: MAGNESIUM OXIDE 400 MG TABLET PO SCH ×3 (07:43→20:23)
[2016-09-03] MEDS: PANTOPRAZOLE 40 MG TABLET.DR. PO SCH (07:43)
[2016-09-03] MEDS: MORPHINE ER 15 MG TABLET.ER PO SCH ×2 (07:44→20:24)
[2016-09-03] MEDS: DOCUSATE SODIUM 100 MG CAPSULE. PO SCH ×2 (07:44→20:23)
[2016-09-03] MEDS: SENNOSIDES/DOCUSATE 8.6/50MG TABLET. PO SCH ×2 (07:44→20:23)
[2016-09-03] MEDS: HYDROcodone/APAP 7.5/325MG 1 TAB TABLET PO PRN ×4 (07:45→21:31)
[2016-09-03] MEDS: METOPROLOL TART IMMED RELEASE 25 MG TABLET. PO SCH (07:45)
[2016-09-03] MEDS: NICOTINE 21MG PATCH. TD SCH (07:45)
[2016-09-03] MEDS: MORPHINE SULFATE 2 MG/ML DISP.SYRIN. IV PRN ×4 (07:56→21:32)
--- NOTE | 2016-09-03 08:33 | PDOC ---
SUBJECTIVE ROS JUSTIN and ^ Abhilash OBJECTIVE Vital Signs Vital Signs Date Time Temp Pulse Resp B/P (MAP) Pulse Ox O2 Delivery O2 Flow Rate FiO2 09/03/16 07:56 97 Room Air 2.0 09/03/16 07:45 90 185/99 09/03/16 07:00 98.4 20 98.4 I & 0 Intake and Output 09/03/16 07:00 Intake Total 110 ml Output Total 1475 ml Balance -1365 ml Intake Oral 110 ml Output Urine Total 1475 ml PHYSICAL EXAM Physical Exam General Appearance: Awake Alert Oriented x 3 In no Distress Eyes: VIsion Unchanged Conjunctiva Normal EN: No EN Drainage Mucous Memb. moist Neck: no JVD min JVP Supple no Thyromegaly CVS: S1 S2 ? Murmur No Gallop No Rub + Edema on the Rt Resp: no Rales no Rhonchi no Acc. Muscle use GI: BAS +ve NO Bruit Non Tender Non Distended : no CVA tenderness; no Suprapubic Tenderness DIAGNOSIS/ASSESSMENT Assessment & Plan JUSTIN - dehydration - better now. ^ Abhilash - better - mayneed to keep off of HCTZ for now. PTH as OP if ^abhilash reccurs Low Na - Bettew ith IV NS HTN - add hydralazine will be available prn COMMENT/RELEVANT DATA Meds Current Medications Medications (Trade) Dose Ordered Sig/Lilliana Start Time Stop Time Status Last Admin Dose Admin Acetaminophen (Tylenol) 650 mg PRN Q4HRS PRN 08/29/16 20:30 08/30/16 20:29 DC Acetaminophen/ Hydrocodone Bitart (Lortab 7.5/325) 1 tab PRN Q4HRS PRN 08/30/16 07:07 09/03/16 07:45 1 TAB Amlodipine Besylate (Norvasc) 10 mg DAILY 08/30/16 16:30 09/03/16 07:43 10 MG Apixaban (Eliquis) 2.5 mg BID 08/30/16 21:00 09/03/16 07:43 2.5 MG Ceftriaxone Sodium 1 gm/ Sodium Chloride 50 ml @ 100 mls/hr Q24H 08/31/16 14:00 09/02/16 14:49 100 MLS/HR Ceftriaxone Sodium 50 ml @ As Directed STK-MED ONCE 08/31/16 14:20 08/31/16 14:21 DC Dexamethasone Sodium Phosphate (Decadron) 20 mg STK-MED ONCE 08/31/16 13:18 08/31/16 13:19 DC Docusate Sodium (Colace) 100 mg BID 09/02/16 21:00 09/03/16 07:44 100 MG Famotidine (Pepcid) 20 mg 1X ONCE 08/29/16 17:45 08/29/16 17:46 DC 08/29/16 18:10 20 MG Fentanyl Citrate (Fentanyl 2ml Vial) 100 mcg STK-MED ONCE 08/31/16 13:14 08/31/16 13:15 DC Hydromorphone HCl (Dilaudid) 0.5 mg PRN Q10MIN PRN 08/31/16 10:00 09/01/16 09:37 DC 08/31/16 16:26 0.5 MG Info (Anti-Coagulation Monitoring By Pharmacy) 1 each PRN DAILY PRN 08/31/16 13:45 09/02/16 07:35 1 EACH Levofloxacin/ Dextrose 50 ml @ 50 mls/hr Q24H 08/30/16 10:00 08/31/16 13:47 DC 08/30/16 10:13 50 MLS/HR Lidocaine HCl (Lidocaine Pf 2% Vial) 5 ml STK-MED ONCE 08/31/16 13:19 08/31/16 13:20 DC Lidocaine/ Epinephrine (Xylocaine 1%-Epi 1:100,000) 20 ml STK-MED ONCE 08/31/16 15:14 08/31/16 15:15 DC 08/31/16 15:18 20 ML Lorazepam (Ativan) 2 mg PRN Q4HRS PRN 09/01/16 11:30 09/03/16 00:44 2 MG Losartan Potassium (Cozaar) 100 mg DAILY 08/31/16 09:00 09/03/16 07:43 100 MG Magnesium Hydroxide (Milk Of Magnesia) 2,400 mg PRN Q12HR PRN 09/02/16 10:15 Magnesium Oxide (Magnesium Oxide) 400 mg TID 08/30/16 21:00 09/03/16 07:43 400 MG Magnesium Sulfate/ Dextrose 50 ml @ 25 mls/hr PRN DAILY PRN 09/02/16 14:30 Metoprolol Tartrate (Lopressor) 25 mg BID 08/30/16 10:00 09/03/16 07:45 25 MG Midazolam HCl (Versed) 2 mg STK-MED ONCE 08/31/16 13:14 08/31/16 13:15 DC Morphine Sulfate 2 mg PRN Q2HR PRN 09/01/16 11:30 09/03/16 07:56 2 MG Morphine Sulfate (Ms Contin) 30 mg Q12H 08/30/16 00:00 09/02/16 22:38 30 MG Morphine Sulfate (Roxanol Conc) 10 mg PRN Q2HRS PRN 08/29/16 23:45 09/03/16 00:41 10 MG Nicotine (Nicoderm Cq 21mg) 1 patch DAILY 08/30/16 09:00 09/03/16 07:45 1 PATCH Non-Formulary Medication 30 mg Q12HR 08/30/16 09:00 08/30/16 09:00 DC Ondansetron HCl (Zofran Odt) 4 mg PRN Q8HRS PRN 08/30/16 18:45 09/01/16 07:43 4 MG Ondansetron HCl (Zofran) 4 mg STK-MED ONCE 08/31/16 13:18 08/31/16 13:19 DC Pamidronate Disodium 60 mg/ Sodium Chloride 250 ml @ 83.333 mls/ hr 1X ONCE 08/29/16 19:30 08/29/16 22:29 DC 08/29/16 21:37 83.333 MLS/HR Pantoprazole Sodium (Protonix) 40 mg DAILYAC 08/31/16 07:30 09/03/16 07:43 40 MG Polyethylene Glycol (miraLAX PACKET) 17 gm DAILY 09/02/16 14:00 Prochlorperazine Edisylate (Compazine) 5 mg PACU PRN PRN 08/31/16 10:00 09/01/16 09:37 DC Prochlorperazine Maleate (Compazine) 10 mg PRN Q6HRS PRN 08/30/16 18:45 09/01/16 12:22 10 MG Propofol 20 ml @ As Directed STK-MED ONCE 08/31/16 13:18 08/31/16 13:19 DC Ringer's Solution 1,000 ml @ 30 mls/hr Q24H 08/31/16 09:48 08/31/16 21:47 DC 08/31/16 13:33 30 MLS/HR Senna/Docusate Sodium (Senna Plus) 1 tab BID 09/02/16 11:00 09/03/16 07:44 1 TAB Sevoflurane (Ultane) 60 ml STK-MED ONCE 08/31/16 13:14 08/31/16 13:15 DC Sodium Chloride 1,000 ml @ 100 mls/hr Q10H 08/29/16 19:30 09/03/16 00:48 100 MLS/HR Sodium Phosphate 40 mmol/Dextrose 263.3333 ml @ 64.167 m... 1X ONCE 09/02/16 14:30 09/02/16 18:36 DC 09/02/16 16:13 64.167 MLS/HR Lab Laboratory Tests Test 09/03/16 03:57 White Blood Count 22.4 x10^3/uL (4.0-11.0) Red Blood Count 2.71 x10^6/uL (3.50-5.40) Hemoglobin 8.2 g/dL (12.0-15.5) Hematocrit 25.0 % (36.0-47.0) Mean Corpuscular Volume 93 fL (79-100) Mean Corpuscular Hemoglobin 30 pg (25-35) Mean Corpuscular Hemoglobin Concent 33 g/dL (31-37) Red Cell Distribution Width 19.6 % (11.5-14.5) Platelet Count 204 x10^3/uL (140-400) Neutrophils (%) (Auto) 92 % (31-73) Lymphocytes (%) (Auto) 3 % (24-48) Monocytes (%) (Auto) 4 % (0-9) Eosinophils (%) (Auto) 0 % (0-3) Basophils (%) (Auto) 0 % (0-3) Neutrophils # (Auto) 20.7 x10^3uL (1.8-7.7) Lymphocytes # (Auto) 0.7 x10^3/uL (1.0-4.8) Monocytes # (Auto) 1.0 x10^3/uL (0.0-1.1) Eosinophils # (Auto) 0.0 x10^3/uL (0.0-0.7) Basophils # (Auto) 0.0 x10^3/uL (0.0-0.2) Sodium Level 131 mmol/L (136-145) Potassium Level 3.6 mmol/L (3.5-5.1) Chloride Level 93 mmol/L (98-107) Carbon Dioxide Level 27 mmol/L (21-32) Anion Gap 11 (6-14) Blood Urea Nitrogen 14 mg/dL (7-20) Creatinine 1.3 mg/dL (0.6-1.0) Estimated GFR (Cockcroft-Gault) 52.9 Glucose Level 89 mg/dL (70-99) Calcium Level 8.7 mg/dL (8.5-10.1) Magnesium Level 2.0 mg/dL (1.8-2.4) AVERY WILKS MD September 03, 2016 08:33
[2016-09-03] MEDS: POLYETHYLENE GLYCOL 3350 17 GM PACKET. PO SCH (09:00)
[2016-09-03 11:00] VITALS: BP 162/85
[2016-09-03] MEDS: MORPHINE ER 30 MG TABLET.ER PO SCH ×2 (11:24→23:49)
--- NOTE | 2016-09-03 11:42 | PDOC ---
PROGRESS NOTES Subjective Subjective Patient resting in bed, denies foot pain. Objective Objective Vital Signs Date Time Temp Pulse Resp B/P (MAP) Pulse Ox O2 Delivery O2 Flow Rate FiO2 09/03/16 11:24 97 Room Air 2.0 09/03/16 11:00 99.0 95 20 162/85 (110) 99.0 Intake and Output 09/03/16 07:00 Intake Total 110 ml Output Total 1475 ml Balance -1365 ml Intake Oral 110 ml Output Urine Total 1475 ml Physical Exam Physical Exam Gen - alert and oriented x3 Rt foot - wound clean, no drainage, no bleeding, no erythema Assessment Assessment Problems Medical Problems: (1) Metastatic squamous cell carcinoma Status: Acute (2) Renal insufficiency Status: Acute (3) Severe protein-calorie malnutrition Status: Acute Plan Plan of Care Vascular Surgery - POD#3 Right foot wound debridement Plan: 1. May discharge tomorrow per vascular 2. Continue daily dressing change with NS gauze, kerlex, erin wrap. No wound vac for concern for squamous cell cancer 3. Pain control 4. f/u Dr. Skelton at [facility], [facility] 09/07 at 8:45 Comment Review of Relevant I have reviewed the following items niki (where applicable) has been applied. Labs Laboratory Tests Test 09/02/16 07:40 09/03/16 03:57 White Blood Count 22.3 x10^3/uL (4.0-11.0) 22.4 x10^3/uL (4.0-11.0) Red Blood Count 2.59 x10^6/uL (3.50-5.40) 2.71 x10^6/uL (3.50-5.40) Hemoglobin 7.8 g/dL (12.0-15.5) 8.2 g/dL (12.0-15.5) Hematocrit 23.9 % (36.0-47.0) 25.0 % (36.0-47.0) Mean Corpuscular Volume 92 fL (79-100) 93 fL (79-100) Mean Corpuscular Hemoglobin 30 pg (25-35) 30 pg (25-35) Mean Corpuscular Hemoglobin Concent 33 g/dL (31-37) 33 g/dL (31-37) Red Cell Distribution Width 19.4 % (11.5-14.5) 19.6 % (11.5-14.5) Platelet Count 207 x10^3/uL (140-400) 204 x10^3/uL (140-400) Neutrophils (%) (Auto) 93 % (31-73) 92 % (31-73) Lymphocytes (%) (Auto) 3 % (24-48) 3 % (24-48) Monocytes (%) (Auto) 4 % (0-9) 4 % (0-9) Eosinophils (%) (Auto) 0 % (0-3) 0 % (0-3) Basophils (%) (Auto) 0 % (0-3) 0 % (0-3) Neutrophils # (Auto) 20.7 x10^3uL (1.8-7.7) 20.7 x10^3uL (1.8-7.7) Lymphocytes # (Auto) 0.7 x10^3/uL (1.0-4.8) 0.7 x10^3/uL (1.0-4.8) Monocytes # (Auto) 0.9 x10^3/uL (0.0-1.1) 1.0 x10^3/uL (0.0-1.1) Eosinophils # (Auto) 0.0 x10^3/uL (0.0-0.7) 0.0 x10^3/uL (0.0-0.7) Basophils # (Auto) 0.0 x10^3/uL (0.0-0.2) 0.0 x10^3/uL (0.0-0.2) Sodium Level 131 mmol/L (136-145) 131 mmol/L (136-145) Potassium Level 3.9 mmol/L (3.5-5.1) 3.6 mmol/L (3.5-5.1) Chloride Level 94 mmol/L (98-107) 93 mmol/L (98-107) Carbon Dioxide Level 26 mmol/L (21-32) 27 mmol/L (21-32) Anion Gap 11 (6-14) 11 (6-14) Blood Urea Nitrogen 14 mg/dL (7-20) 14 mg/dL (7-20) Creatinine 1.4 mg/dL (0.6-1.0) 1.3 mg/dL (0.6-1.0) Estimated GFR (Cockcroft-Gault) 48.6 52.9 Glucose Level 95 mg/dL (70-99) 89 mg/dL (70-99) Calcium Level 9.1 mg/dL (8.5-10.1) 8.7 mg/dL (8.5-10.1) Phosphorus Level 2.4 mg/dL (2.6-4.7) Magnesium Level 1.5 mg/dL (1.8-2.4) 2.0 mg/dL (1.8-2.4) Laboratory Tests Test 09/03/16 03:57 White Blood Count 22.4 x10^3/uL (4.0-11.0) Red Blood Count 2.71 x10^6/uL (3.50-5.40) Hemoglobin 8.2 g/dL (12.0-15.5) Hematocrit 25.0 % (36.0-47.0) Mean Corpuscular Volume 93 fL (79-100) Mean Corpuscular Hemoglobin 30 pg (25-35) Mean Corpuscular Hemoglobin Concent 33 g/dL (31-37) Red Cell Distribution Width 19.6 % (11.5-14.5) Platelet Count 204 x10^3/uL (140-400) Neutrophils (%) (Auto) 92 % (31-73) Lymphocytes (%) (Auto) 3 % (24-48) Monocytes (%) (Auto) 4 % (0-9) Eosinophils (%) (Auto) 0 % (0-3) Basophils (%) (Auto) 0 % (0-3) Neutrophils # (Auto) 20.7 x10^3uL (1.8-7.7) Lymphocytes # (Auto) 0.7 x10^3/uL (1.0-4.8) Monocytes # (Auto) 1.0 x10^3/uL (0.0-1.1) Eosinophils # (Auto) 0.0 x10^3/uL (0.0-0.7) Basophils # (Auto) 0.0 x10^3/uL (0.0-0.2) Sodium Level 131 mmol/L (136-145) Potassium Level 3.6 mmol/L (3.5-5.1) Chloride Level 93 mmol/L (98-107) Carbon Dioxide Level 27 mmol/L (21-32) Anion Gap 11 (6-14) Blood Urea Nitrogen 14 mg/dL (7-20) Creatinine 1.3 mg/dL (0.6-1.0) Estimated GFR (Cockcroft-Gault) 52.9 Glucose Level 89 mg/dL (70-99) Calcium Level 8.7 mg/dL (8.5-10.1) Magnesium Level 2.0 mg/dL (1.8-2.4) Microbiology 08/29/16 Urine Culture - Final, Complete 08/29/16 Urine Culture Result 1 (KEVIN) - Final, Complete 08/29/16 Antimicrobic Susceptibility - Final, Complete Medications Current Medications Hydromorphone HCl (Dilaudid) 1 mg PRN Q15MIN PRN IV/SQ PAIN GREATER THAN 3/10 Last administered on 08/29/16 21:47; Start 08/29/16 at 17:45; Stop 08/30/16 at 17:44; Status DC Sodium Chloride 1,000 ml @ 1,000 mls/hr Q1H IV Last administered on 08/29/16 18:09; Start 08/29/16 at 17:33; Stop 08/29/16 at 18:32; Status DC Ondansetron HCl (Zofran) 4 mg 1X ONCE IV Last administered on 08/29/16 18:09 ; Start 08/29/16 at 17:45; Stop 08/29/16 at 17:46; Status DC Famotidine (Pepcid) 20 mg 1X ONCE IVP Last administered on 08/29/16 18:10; Start 08/29/16 at 17:45; Stop 08/29/16 at 17:46; Status DC Pamidronate Disodium 60 mg/ Sodium Chloride 250 ml @ 83.333 mls/ hr 1X ONCE IV Last administered on 08/29/16 21:37; Start 08/29/16 at 19:30; Stop at 22:29; Status DC Sodium Chloride 1,000 ml @ 75 mls/hr [id number] IV Last administered on 10:36; Start 08/29/16 at 19:30 Ondansetron HCl (Zofran) 4 mg PRN Q8HRS PRN IV NAUSEA/VOMITING; Start 08/29/16 at 20:30; Stop 08/30/16 at 20:29; Status DC Acetaminophen (Tylenol) 650 mg PRN Q4HRS PRN PO FEVER; Start 08/29/16 at 20:30 ; Stop 08/30/16 at 20:29; Status DC Acetaminophen/ Hydrocodone Bitart (Lortab 7.5/325) 1 tab PRN Q6HRS PRN PO PAIN Last administered on 08/30/16 05:57; Start 08/29/16 at 23:45; Stop 08/30/16 at 07:08; Status DC Morphine Sulfate (Roxanol Conc) 10 mg PRN Q2HRS PRN SL MODERATE PAIN WHILE AWAKE Last administered on 09/03/16 11:24; Start 08/29/16 at 23:45 Morphine Sulfate (Ms Contin) 15 mg BID PO ; Start 08/30/16 at 09:00; Stop at 09:00; Status DC Non-Formulary Medication 30 mg Q12HR PO ; Start 08/30/16 at 09:00; Stop at 09:00; Status DC Morphine Sulfate (Ms Contin) 15 mg BID PO Last administered on 09/03/16 07:44 ; Start 08/30/16 at 00:00 Morphine Sulfate (Ms Contin) 30 mg Q12HR PO ; Start 08/30/16 at 00:00; Stop at 00:00; Status DC Morphine Sulfate (Ms Contin) 30 mg Q12H PO Last administered on 09/03/16 11:24 ; Start 08/30/16 at 00:00 Acetaminophen/ Hydrocodone Bitart (Lortab 7.5/325) 1 tab PRN Q4HRS PRN PO PAIN Last administered on 09/03/16 07:45; Start 08/30/16 at 07:07 Nicotine (Nicoderm Cq 21mg) 1 patch DAILY TD Last administered on 09/03/16 07: 45; Start 08/30/16 at 09:00 Levofloxacin/ Dextrose 50 ml @ 50 mls/hr Q24H IV Last administered on 10:13; Start 08/30/16 at 10:00; Stop 08/31/16 at 13:47; Status DC Metoprolol Tartrate (Lopressor) 25 mg BID PO Last administered on 09/03/16 07: 45; Start 08/30/16 at 10:00; Stop 09/03/16 at 10:07; Status DC Amlodipine Besylate (Norvasc) 10 mg DAILY PO Last administered on 09/03/16 07: 43; Start 08/30/16 at 16:30 Docusate Sodium (Colace) 100 mg DAILY PO ; Start 08/31/16 at 09:00; Stop at 09:00; Status DC Docusate Sodium (Colace) 100 mg DAILY PO Last administered on 09/02/16 08:17; Start 08/30/16 at 18:15; Stop 09/02/16 at 10:02; Status DC Apixaban (Eliquis) 2.5 mg BID PO Last administered on 09/03/16 07:43; Start at 21:00 Lorazepam (Ativan) 0.5 mg PRN Q6HRS PRN PO ANXIETY Last administered on 05:23; Start 08/30/16 at 18:45 Magnesium Oxide (Magnesium Oxide) 400 mg TID PO Last administered on 09/03/16 07:43; Start 08/30/16 at 21:00 Pantoprazole Sodium (Protonix) 40 mg DAILYAC PO Last administered on 09/03/16 07:43; Start 08/31/16 at 07:30 Ondansetron HCl (Zofran Odt) 4 mg PRN Q8HRS PRN PO NAUSEA/VOMITING Last administered on 09/01/16 07:43; Start 08/30/16 at 18:45 Prochlorperazine Maleate (Compazine) 10 mg PRN Q6HRS PRN PO NAUSEA Last administered on 09/01/16 12:22; Start 08/30/16 at 18:45 Losartan Potassium (Cozaar) 100 mg DAILY PO Last administered on 09/03/16 07: 43; Start 08/31/16 at 09:00 Fentanyl Citrate (Fentanyl 2ml Vial) 25 mcg PRN Q5MIN PRN IV MILD PAIN; Start 08/31/16 at 10:00; Stop 09/01/16 at 09:37; Status DC Fentanyl Citrate (Fentanyl 2ml Vial) 50 mcg PRN Q5MIN PRN IV MODERATE PAIN Last administered on 08/31/16 16:21; Start 08/31/16 at 10:00; Stop 09/01/16 at 09:37; Status DC Morphine Sulfate 1 mg PRN Q10MIN PRN IV SEVERE PAIN Last administered on 16:07; Start 08/31/16 at 10:00; Stop 09/01/16 at 09:37; Status DC Ringer's Solution 1,000 ml @ 30 mls/hr Q24H IV Last administered on 08/31/16 13:33; Start 08/31/16 at 09:48; Stop 08/31/16 at 21:47; Status DC Lidocaine HCl 2 ml PRN 1X PRN ID PRIOR TO IV START; Start 08/31/16 at 10:00; Stop 09/01/16 at 09:59; Status DC Hydromorphone HCl (Dilaudid) 0.5 mg PRN Q10MIN PRN IV SEV PAIN, Second choice Last administered on 08/31/16 16:26; Start 08/31/16 at 10:00; Stop 09/01/16 at 09:37; Status DC Prochlorperazine Edisylate (Compazine) 5 mg PACU PRN PRN IV NAUSEA, MRX1; Start 08/31/16 at 10:00; Stop 09/01/16 at 09:37; Status DC Sevoflurane (Ultane) 60 ml STK-MED ONCE IH ; Start 08/31/16 at 13:14; Stop 08/31 at 13:15; Status DC Midazolam HCl (Versed) 2 mg STK-MED ONCE .ROUTE ; Start 08/31/16 at 13:14; Stop 08/31/16 at 13:15; Status DC Fentanyl Citrate (Fentanyl 2ml Vial) 100 mcg STK-MED ONCE .ROUTE ; Start at 13:14; Stop 08/31/16 at 13:15; Status DC Propofol 20 ml @ As Directed STK-MED ONCE IV ; Start 08/31/16 at 13:18; Stop at 13:19; Status DC Ondansetron HCl (Zofran) 4 mg STK-MED ONCE .ROUTE ; Start 08/31/16 at 13:18; Stop 08/31/16 at 13:19; Status DC Dexamethasone Sodium Phosphate (Decadron) 20 mg STK-MED ONCE .ROUTE ; Start at 13:18; Stop 08/31/16 at 13:19; Status DC Lidocaine HCl (Lidocaine Pf 2% Vial) 5 ml STK-MED ONCE .ROUTE ; Start 08/31/16 at 13:19; Stop 08/31/16 at 13:20; Status DC Info (Anti-Coagulation Monitoring By Pharmacy) 1 each PRN DAILY PRN MC SEE COMMENTS Last administered on 09/02/16 07:35; Start 08/31/16 at 13:45 Ceftriaxone Sodium 1 gm/ Sodium Chloride 50 ml @ 100 mls/hr Q24H IV Last administered on 09/02/16 14:49; Start 08/31/16 at 14:00 Ceftriaxone Sodium 50 ml @ As Directed STK-MED ONCE IV ; Start 08/31/16 at 14:20 ; Stop 08/31/16 at 14:21; Status DC Lidocaine/ Epinephrine (Xylocaine 1%-Epi 1:100,000) 20 ml STK-MED ONCE .ROUTE Last administered on 08/31/16 15:18; Start 08/31/16 at 15:14; Stop 08/31/16 at 15:15; Status DC Magnesium Hydroxide (Milk Of Magnesia) 2,400 mg PRN DAILY PRN PO CONSTIPATION Last administered on 09/01/16 07:43; Start 09/01/16 at 07:30; Stop 09/02/16 at 12:48; Status DC Polyethylene Glycol (miraLAX PACKET) 17 gm PRN BID PRN PO CONSTIPATION Last administered on 09/01/16 07:43; Start 09/01/16 at 07:30 Docusate Sodium (Colace) 100 mg PRN DAILY PRN PO CONSTIPATION; Start 09/01/16 at 07:30 Morphine Sulfate 2 mg PRN Q2HR PRN IV PAIN Last administered on 09/03/16 07:56 ; Start 09/01/16 at 11:30; Stop 09/03/16 at 10:07; Status DC Lorazepam (Ativan) 2 mg PRN Q4HRS PRN IV ANXIETY / AGITATION Last administered on 09/03/16 00:44; Start 09/01/16 at 11:30 Magnesium Sulfate/ Dextrose 50 ml @ 25 mls/hr 1X ONCE IV Last administered on 09/02/16 11:21; Start 09/02/16 at 10:00; Stop 09/02/16 at 12:05; Status DC Senna/Docusate Sodium (Senna Plus) 1 tab BID PO Last administered on 09/03/16 07:44; Start 09/02/16 at 11:00 Docusate Sodium (Colace) 100 mg BID PO Last administered on 09/03/16 07:44; Start 09/02/16 at 21:00 Magnesium Hydroxide (Milk Of Magnesia) 2,400 mg PRN Q12HR PRN PO CONSTIPATION; Start 09/02/16 at 10:15 Polyethylene Glycol (miraLAX PACKET) 17 gm DAILY PO ; Start 09/02/16 at 14:00 Magnesium Sulfate/ Dextrose 50 ml @ 25 mls/hr PRN DAILY PRN IV for Mag < 1.7 on am labs; Start 09/02/16 at 14:30 Sodium Phosphate 40 mmol/Dextrose 263.3333 ml @ 64.167 m... 1X ONCE IV Last administered on 09/02/16 16:13; Start 09/02/16 at 14:30; Stop 09/02/16 at 18:36 ; Status DC Morphine Sulfate 2 mg PRN Q4HRS PRN IV PAIN; Start 09/03/16 at 11:30 Carvedilol (Coreg) 12.5 mg BIDWMEALS PO ; Start 09/03/16 at 17:00 Active Scripts Active Protonix (Pantoprazole Sodium) 40 Mg Tablet. 1 Tab PO DAILY Reported K-Tab ER (Potassium Chloride) 20 Meq Tablet.er 20 Meq PO DAILY Furosemide 40 Mg Tablet 40 Mg PO DAILY Ondansetron Hcl 8 Mg Tablet 8 Mg PO PRN Q8HRS PRN Lorazepam 0.5 Mg Tablet 1 Tab PO PRN Q6HRS PRN Prochlorperazine Maleate 10 Mg Tablet 10 Mg PO PRN Q6-8HRS PRN Magnesium Oxide 400 Mg Tablet 400 Mg PO TID Morphine Sulfate Er (Morphine Sulfate) 15 Mg Tablet.er 1 Tab PO BID Morphine Sulfate Er (Morphine Sulfate) 30 Mg Cap.er.pel 30 Mg PO Q12HR Morphine Sulfate 100 Mg/5 Ml Solution 10 Mg PO PRN Q2-4HRS PRN Eliquis (Apixaban) 2.5 Mg Tablet 2.5 Mg PO BIDAFTMEAL Hydrocodone-Apap 7.5-325 (Hydrocodone Bit/Acetaminophen) 1 Each Tablet 1 Tab PO PRN Q6HRS PRN Losartan-Hctz 100-25 Mg Tab (Losartan/Hydrochlorothiazide) 1 Each Tablet 1 Tab PO DAILY Docusate Sodium 100 Mg Capsule 1 Cap PO DAILY Vitals/I & O Vital Sign - Last 24 Hours 09/02/16 09/02/16 09/02/16 09/02/16 11:58 14:55 15:20 15:53 Temp 98.4 98.4 Pulse 95 Resp 20 B/P (MAP) 174/88 (116) Pulse Ox 96 96 96 O2 Delivery Room Air Room Air O2 Flow Rate 2.0 2.0 2.0 09/02/16 09/02/16 09/02/16 09/02/16 17:51 19:00 19:49 21:09 Temp 100.0 100.0 Pulse 94 Resp 18 20 B/P (MAP) 152/82 (105) Pulse Ox 96 97 O2 Delivery Room Air Room Air Room Air O2 Flow Rate 2.0 09/02/16 09/02/16 09/02/16 09/02/16 21:09 21:10 21:10 21:40 Pulse 94 Resp 20 20 20 B/P (MAP) 152/82 Pulse Ox 97 97 O2 Delivery Room Air Room Air O2 Flow Rate 2.0 09/02/16 09/02/16 09/02/16 09/02/16 22:10 22:38 22:39 23:00 Temp 99.3 99.3 Pulse 89 Resp 20 20 20 18 B/P (MAP) 161/83 (109) Pulse Ox 97 97 96 O2 Delivery Room Air Room Air Room Air 09/02/16 09/03/16 09/03/16 09/03/16 23:39 00:41 01:09 01:41 Resp 20 20 20 Pulse Ox 96 96 96 O2 Delivery Room Air Room Air Room Air 09/03/16 09/03/16 09/03/16 09/03/16 02:38 02:59 07:00 07:43 Temp 99.0 98.4 99.0 98.4 Pulse 90 94 90 Resp 20 18 20 B/P (MAP) 185/99 (127) 177/90 (119) 185/99 Pulse Ox 97 96 O2 Delivery Room Air Room Air Room Air 09/03/16 09/03/16 09/03/16 09/03/16 07:43 07:44 07:45 07:45 Pulse 90 90 B/P (MAP) 185/99 185/99 Pulse Ox 97 97 O2 Delivery Room Air Room Air O2 Flow Rate 2.0 2.0 09/03/16 09/03/16 09/03/16 09/03/16 07:56 08:00 08:26 08:45 Pulse Ox 97 97 97 O2 Delivery Room Air Room Air Room Air Room Air O2 Flow Rate 2.0 2.0 2.0 09/03/16 09/03/16 09/03/16 11:00 11:24 11:24 Temp 99.0 99.0 Pulse 95 Resp 20 B/P (MAP) 162/85 (110) Pulse Ox 97 97 97 O2 Delivery Room Air Room Air Room Air O2 Flow Rate 2.0 2.0 Intake and Output 09/02/16 09/02/16 09/03/16 15:00 23:00 07:00 Intake Total 110 ml Output Total 1100 ml 375 ml Balance -1100 ml -265 ml RADHA HUGHES MD September 03, 2016 11:42
--- NOTE | 2016-09-03 12:45 | PDOC ---
PROGRESS NOTES Chief Complaint Chief Complaint 1. 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 Hypercalcemia of malignancy 3. Hyponatremia 4. Anemia of CKD 5. Leukocytosis 6. GNR UTI 7. intractable back and hip , groin pain, 2/2 bone mets? 8. constipatin 9. hypolmagnesemia 10. uncontrolled HTN plan failed bone scan 2 times 2/2 cannot lie flat with back pain on morphine high dose, refuse to increase pain meds today since slightly better refuse to do bone scan again unless sedation cont ivf, decrease to 75cc/h labs tmr ptot fu with id, onco, vascular, local wound care add stool softner dvt ppx talked to pt about pain control again, pt said she is ok with current high dose morphine bid and prn, willing to go home. dc metoprolol since high bp, add coreg. History of Present Illness History of Present Illness back pain, bl hip, right groin pain started to be better today 09/16, in the past 3 days, / failed bone scan 2 times 2/2 pain and cannot lie flat constipation 6ds vomited 09/01, low Mag 09/02 , normal 09/03 after repletion high BP Vitals Vitals Vital Signs Date Time Temp Pulse Resp B/P (MAP) Pulse Ox O2 Delivery O2 Flow Rate FiO2 09/03/16 12:23 97 Room Air 2.0 09/03/16 11:00 99.0 95 20 162/85 (110) 99.0 Physical Exam General: Alert, Oriented X3 Heart: Normal S1, Normal S2 Lungs: Clear Abdomen: Normal bowel sounds, Soft, No tenderness Extremities: No edema, Other (RIGHT FOOT WOUND WITH DRESSING AND MINIMAL DRAINAGE) Skin: No rashes Labs LABS Laboratory Tests Test 09/03/16 03:57 White Blood Count 22.4 x10^3/uL (4.0-11.0) Red Blood Count 2.71 x10^6/uL (3.50-5.40) Hemoglobin 8.2 g/dL (12.0-15.5) Hematocrit 25.0 % (36.0-47.0) Mean Corpuscular Volume 93 fL (79-100) Mean Corpuscular Hemoglobin 30 pg (25-35) Mean Corpuscular Hemoglobin Concent 33 g/dL (31-37) Red Cell Distribution Width 19.6 % (11.5-14.5) Platelet Count 204 x10^3/uL (140-400) Neutrophils (%) (Auto) 92 % (31-73) Lymphocytes (%) (Auto) 3 % (24-48) Monocytes (%) (Auto) 4 % (0-9) Eosinophils (%) (Auto) 0 % (0-3) Basophils (%) (Auto) 0 % (0-3) Neutrophils # (Auto) 20.7 x10^3uL (1.8-7.7) Lymphocytes # (Auto) 0.7 x10^3/uL (1.0-4.8) Monocytes # (Auto) 1.0 x10^3/uL (0.0-1.1) Eosinophils # (Auto) 0.0 x10^3/uL (0.0-0.7) Basophils # (Auto) 0.0 x10^3/uL (0.0-0.2) Sodium Level 131 mmol/L (136-145) Potassium Level 3.6 mmol/L (3.5-5.1) Chloride Level 93 mmol/L (98-107) Carbon Dioxide Level 27 mmol/L (21-32) Anion Gap 11 (6-14) Blood Urea Nitrogen 14 mg/dL (7-20) Creatinine 1.3 mg/dL (0.6-1.0) Estimated GFR (Cockcroft-Gault) 52.9 Glucose Level 89 mg/dL (70-99) Calcium Level 8.7 mg/dL (8.5-10.1) Magnesium Level 2.0 mg/dL (1.8-2.4) Review of Systems Review of Systems no fever, chills, sob or chest pain Assessment and Plan Assessmemt and Plan Problems Medical Problems: (1) Metastatic squamous cell carcinoma Status: Acute (2) Renal insufficiency Status: Acute (3) Severe protein-calorie malnutrition Status: Acute Problems: Comment Review of Relevant I have reviewed the following items niki (where applicable) has been applied. Labs Laboratory Tests Test 09/02/16 07:40 09/03/16 03:57 White Blood Count 22.3 x10^3/uL (4.0-11.0) 22.4 x10^3/uL (4.0-11.0) Red Blood Count 2.59 x10^6/uL (3.50-5.40) 2.71 x10^6/uL (3.50-5.40) Hemoglobin 7.8 g/dL (12.0-15.5) 8.2 g/dL (12.0-15.5) Hematocrit 23.9 % (36.0-47.0) 25.0 % (36.0-47.0) Mean Corpuscular Volume 92 fL (79-100) 93 fL (79-100) Mean Corpuscular Hemoglobin 30 pg (25-35) 30 pg (25-35) Mean Corpuscular Hemoglobin Concent 33 g/dL (31-37) 33 g/dL (31-37) Red Cell Distribution Width 19.4 % (11.5-14.5) 19.6 % (11.5-14.5) Platelet Count 207 x10^3/uL (140-400) 204 x10^3/uL (140-400) Neutrophils (%) (Auto) 93 % (31-73) 92 % (31-73) Lymphocytes (%) (Auto) 3 % (24-48) 3 % (24-48) Monocytes (%) (Auto) 4 % (0-9) 4 % (0-9) Eosinophils (%) (Auto) 0 % (0-3) 0 % (0-3) Basophils (%) (Auto) 0 % (0-3) 0 % (0-3) Neutrophils # (Auto) 20.7 x10^3uL (1.8-7.7) 20.7 x10^3uL (1.8-7.7) Lymphocytes # (Auto) 0.7 x10^3/uL (1.0-4.8) 0.7 x10^3/uL (1.0-4.8) Monocytes # (Auto) 0.9 x10^3/uL (0.0-1.1) 1.0 x10^3/uL (0.0-1.1) Eosinophils # (Auto) 0.0 x10^3/uL (0.0-0.7) 0.0 x10^3/uL (0.0-0.7) Basophils # (Auto) 0.0 x10^3/uL (0.0-0.2) 0.0 x10^3/uL (0.0-0.2) Sodium Level 131 mmol/L (136-145) 131 mmol/L (136-145) Potassium Level 3.9 mmol/L (3.5-5.1) 3.6 mmol/L (3.5-5.1) Chloride Level 94 mmol/L (98-107) 93 mmol/L (98-107) Carbon Dioxide Level 26 mmol/L (21-32) 27 mmol/L (21-32) Anion Gap 11 (6-14) 11 (6-14) Blood Urea Nitrogen 14 mg/dL (7-20) 14 mg/dL (7-20) Creatinine 1.4 mg/dL (0.6-1.0) 1.3 mg/dL (0.6-1.0) Estimated GFR (Cockcroft-Gault) 48.6 52.9 Glucose Level 95 mg/dL (70-99) 89 mg/dL (70-99) Calcium Level 9.1 mg/dL (8.5-10.1) 8.7 mg/dL (8.5-10.1) Phosphorus Level 2.4 mg/dL (2.6-4.7) Magnesium Level 1.5 mg/dL (1.8-2.4) 2.0 mg/dL (1.8-2.4) Laboratory Tests Test 09/03/16 03:57 White Blood Count 22.4 x10^3/uL (4.0-11.0) Red Blood Count 2.71 x10^6/uL (3.50-5.40) Hemoglobin 8.2 g/dL (12.0-15.5) Hematocrit 25.0 % (36.0-47.0) Mean Corpuscular Volume 93 fL (79-100) Mean Corpuscular Hemoglobin 30 pg (25-35) Mean Corpuscular Hemoglobin Concent 33 g/dL (31-37) Red Cell Distribution Width 19.6 % (11.5-14.5) Platelet Count 204 x10^3/uL (140-400) Neutrophils (%) (Auto) 92 % (31-73) Lymphocytes (%) (Auto) 3 % (24-48) Monocytes (%) (Auto) 4 % (0-9) Eosinophils (%) (Auto) 0 % (0-3) Basophils (%) (Auto) 0 % (0-3) Neutrophils # (Auto) 20.7 x10^3uL (1.8-7.7) Lymphocytes # (Auto) 0.7 x10^3/uL (1.0-4.8) Monocytes # (Auto) 1.0 x10^3/uL (0.0-1.1) Eosinophils # (Auto) 0.0 x10^3/uL (0.0-0.7) Basophils # (Auto) 0.0 x10^3/uL (0.0-0.2) Sodium Level 131 mmol/L (136-145) Potassium Level 3.6 mmol/L (3.5-5.1) Chloride Level 93 mmol/L (98-107) Carbon Dioxide Level 27 mmol/L (21-32) Anion Gap 11 (6-14) Blood Urea Nitrogen 14 mg/dL (7-20) Creatinine 1.3 mg/dL (0.6-1.0) Estimated GFR (Cockcroft-Gault) 52.9 Glucose Level 89 mg/dL (70-99) Calcium Level 8.7 mg/dL (8.5-10.1) Magnesium Level 2.0 mg/dL (1.8-2.4) Microbiology 08/29/16 Urine Culture - Final, Complete 08/29/16 Urine Culture Result 1 (KEVIN) - Final, Complete 08/29/16 Antimicrobic Susceptibility - Final, Complete Medications Current Medications Hydromorphone HCl (Dilaudid) 1 mg PRN Q15MIN PRN IV/SQ PAIN GREATER THAN 3/10 Last administered on 08/29/16 21:47; Start 08/29/16 at 17:45; Stop 08/30/16 at 17:44; Status DC Sodium Chloride 1,000 ml @ 1,000 mls/hr Q1H IV Last administered on 08/29/16 18:09; Start 08/29/16 at 17:33; Stop 08/29/16 at 18:32; Status DC Ondansetron HCl (Zofran) 4 mg 1X ONCE IV Last administered on 08/29/16 18:09 ; Start 08/29/16 at 17:45; Stop 08/29/16 at 17:46; Status DC Famotidine (Pepcid) 20 mg 1X ONCE IVP Last administered on 08/29/16 18:10; Start 08/29/16 at 17:45; Stop 08/29/16 at 17:46; Status DC Pamidronate Disodium 60 mg/ Sodium Chloride 250 ml @ 83.333 mls/ hr 1X ONCE IV Last administered on 08/29/16 21:37; Start 08/29/16 at 19:30; Stop at 22:29; Status DC Sodium Chloride 1,000 ml @ 75 mls/hr [id number] IV Last administered on 10:36; Start 08/29/16 at 19:30 Ondansetron HCl (Zofran) 4 mg PRN Q8HRS PRN IV NAUSEA/VOMITING; Start 08/29/16 at 20:30; Stop 08/30/16 at 20:29; Status DC Acetaminophen (Tylenol) 650 mg PRN Q4HRS PRN PO FEVER; Start 08/29/16 at 20:30 ; Stop 08/30/16 at 20:29; Status DC Acetaminophen/ Hydrocodone Bitart (Lortab 7.5/325) 1 tab PRN Q6HRS PRN PO PAIN Last administered on 08/30/16 05:57; Start 08/29/16 at 23:45; Stop 08/30/16 at 07:08; Status DC Morphine Sulfate (Roxanol Conc) 10 mg PRN Q2HRS PRN SL MODERATE PAIN WHILE AWAKE Last administered on 09/03/16 11:24; Start 08/29/16 at 23:45 Morphine Sulfate (Ms Contin) 15 mg BID PO ; Start 08/30/16 at 09:00; Stop at 09:00; Status DC Non-Formulary Medication 30 mg Q12HR PO ; Start 08/30/16 at 09:00; Stop at 09:00; Status DC Morphine Sulfate (Ms Contin) 15 mg BID PO Last administered on 09/03/16 07:44 ; Start 08/30/16 at 00:00 Morphine Sulfate (Ms Contin) 30 mg Q12HR PO ; Start 08/30/16 at 00:00; Stop at 00:00; Status DC Morphine Sulfate (Ms Contin) 30 mg Q12H PO Last administered on 09/03/16 11:24 ; Start 08/30/16 at 00:00 Acetaminophen/ Hydrocodone Bitart (Lortab 7.5/325) 1 tab PRN Q4HRS PRN PO PAIN Last administered on 09/03/16 12:23; Start 08/30/16 at 07:07 Nicotine (Nicoderm Cq 21mg) 1 patch DAILY TD Last administered on 09/03/16 07: 45; Start 08/30/16 at 09:00 Levofloxacin/ Dextrose 50 ml @ 50 mls/hr Q24H IV Last administered on 10:13; Start 08/30/16 at 10:00; Stop 08/31/16 at 13:47; Status DC Metoprolol Tartrate (Lopressor) 25 mg BID PO Last administered on 09/03/16 07: 45; Start 08/30/16 at 10:00; Stop 09/03/16 at 10:07; Status DC Amlodipine Besylate (Norvasc) 10 mg DAILY PO Last administered on 09/03/16 07: 43; Start 08/30/16 at 16:30 Docusate Sodium (Colace) 100 mg DAILY PO ; Start 08/31/16 at 09:00; Stop at 09:00; Status DC Docusate Sodium (Colace) 100 mg DAILY PO Last administered on 09/02/16 08:17; Start 08/30/16 at 18:15; Stop 09/02/16 at 10:02; Status DC Apixaban (Eliquis) 2.5 mg BID PO Last administered on 09/03/16 07:43; Start at 21:00 Lorazepam (Ativan) 0.5 mg PRN Q6HRS PRN PO ANXIETY Last administered on 05:23; Start 08/30/16 at 18:45 Magnesium Oxide (Magnesium Oxide) 400 mg TID PO Last administered on 09/03/16 07:43; Start 08/30/16 at 21:00 Pantoprazole Sodium (Protonix) 40 mg DAILYAC PO Last administered on 09/03/16 07:43; Start 08/31/16 at 07:30 Ondansetron HCl (Zofran Odt) 4 mg PRN Q8HRS PRN PO NAUSEA/VOMITING Last administered on 09/01/16 07:43; Start 08/30/16 at 18:45 Prochlorperazine Maleate (Compazine) 10 mg PRN Q6HRS PRN PO NAUSEA Last administered on 09/01/16 12:22; Start 08/30/16 at 18:45 Losartan Potassium (Cozaar) 100 mg DAILY PO Last administered on 09/03/16 07: 43; Start 08/31/16 at 09:00 Fentanyl Citrate (Fentanyl 2ml Vial) 25 mcg PRN Q5MIN PRN IV MILD PAIN; Start 08/31/16 at 10:00; Stop 09/01/16 at 09:37; Status DC Fentanyl Citrate (Fentanyl 2ml Vial) 50 mcg PRN Q5MIN PRN IV MODERATE PAIN Last administered on 08/31/16 16:21; Start 08/31/16 at 10:00; Stop 09/01/16 at 09:37; Status DC Morphine Sulfate 1 mg PRN Q10MIN PRN IV SEVERE PAIN Last administered on 16:07; Start 08/31/16 at 10:00; Stop 09/01/16 at 09:37; Status DC Ringer's Solution 1,000 ml @ 30 mls/hr Q24H IV Last administered on 08/31/16 13:33; Start 08/31/16 at 09:48; Stop 08/31/16 at 21:47; Status DC Lidocaine HCl 2 ml PRN 1X PRN ID PRIOR TO IV START; Start 08/31/16 at 10:00; Stop 09/01/16 at 09:59; Status DC Hydromorphone HCl (Dilaudid) 0.5 mg PRN Q10MIN PRN IV SEV PAIN, Second choice Last administered on 08/31/16 16:26; Start 08/31/16 at 10:00; Stop 09/01/16 at 09:37; Status DC Prochlorperazine Edisylate (Compazine) 5 mg PACU PRN PRN IV NAUSEA, MRX1; Start 08/31/16 at 10:00; Stop 09/01/16 at 09:37; Status DC Sevoflurane (Ultane) 60 ml STK-MED ONCE IH ; Start 08/31/16 at 13:14; Stop 08/31 at 13:15; Status DC Midazolam HCl (Versed) 2 mg STK-MED ONCE .ROUTE ; Start 08/31/16 at 13:14; Stop 08/31/16 at 13:15; Status DC Fentanyl Citrate (Fentanyl 2ml Vial) 100 mcg STK-MED ONCE .ROUTE ; Start at 13:14; Stop 08/31/16 at 13:15; Status DC Propofol 20 ml @ As Directed STK-MED ONCE IV ; Start 08/31/16 at 13:18; Stop at 13:19; Status DC Ondansetron HCl (Zofran) 4 mg STK-MED ONCE .ROUTE ; Start 08/31/16 at 13:18; Stop 08/31/16 at 13:19; Status DC Dexamethasone Sodium Phosphate (Decadron) 20 mg STK-MED ONCE .ROUTE ; Start at 13:18; Stop 08/31/16 at 13:19; Status DC Lidocaine HCl (Lidocaine Pf 2% Vial) 5 ml STK-MED ONCE .ROUTE ; Start 08/31/16 at 13:19; Stop 08/31/16 at 13:20; Status DC Info (Anti-Coagulation Monitoring By Pharmacy) 1 each PRN DAILY PRN MC SEE COMMENTS Last administered on 09/02/16 07:35; Start 08/31/16 at 13:45 Ceftriaxone Sodium 1 gm/ Sodium Chloride 50 ml @ 100 mls/hr Q24H IV Last administered on 09/02/16 14:49; Start 08/31/16 at 14:00 Ceftriaxone Sodium 50 ml @ As Directed STK-MED ONCE IV ; Start 08/31/16 at 14:20 ; Stop 08/31/16 at 14:21; Status DC Lidocaine/ Epinephrine (Xylocaine 1%-Epi 1:100,000) 20 ml STK-MED ONCE .ROUTE Last administered on 08/31/16 15:18; Start 08/31/16 at 15:14; Stop 08/31/16 at 15:15; Status DC Magnesium Hydroxide (Milk Of Magnesia) 2,400 mg PRN DAILY PRN PO CONSTIPATION Last administered on 09/01/16 07:43; Start 09/01/16 at 07:30; Stop 09/02/16 at 12:48; Status DC Polyethylene Glycol (miraLAX PACKET) 17 gm PRN BID PRN PO CONSTIPATION Last administered on 09/01/16 07:43; Start 09/01/16 at 07:30 Docusate Sodium (Colace) 100 mg PRN DAILY PRN PO CONSTIPATION; Start 09/01/16 at 07:30 Morphine Sulfate 2 mg PRN Q2HR PRN IV PAIN Last administered on 09/03/16 07:56 ; Start 09/01/16 at 11:30; Stop 09/03/16 at 10:07; Status DC Lorazepam (Ativan) 2 mg PRN Q4HRS PRN IV ANXIETY / AGITATION Last administered on 09/03/16 00:44; Start 09/01/16 at 11:30 Magnesium Sulfate/ Dextrose 50 ml @ 25 mls/hr 1X ONCE IV Last administered on 09/02/16 11:21; Start 09/02/16 at 10:00; Stop 09/02/16 at 12:05; Status DC Senna/Docusate Sodium (Senna Plus) 1 tab BID PO Last administered on 09/03/16 07:44; Start 09/02/16 at 11:00 Docusate Sodium (Colace) 100 mg BID PO Last administered on 09/03/16 07:44; Start 09/02/16 at 21:00 Magnesium Hydroxide (Milk Of Magnesia) 2,400 mg PRN Q12HR PRN PO CONSTIPATION; Start 09/02/16 at 10:15 Polyethylene Glycol (miraLAX PACKET) 17 gm DAILY PO ; Start 09/02/16 at 14:00 Magnesium Sulfate/ Dextrose 50 ml @ 25 mls/hr PRN DAILY PRN IV for Mag < 1.7 on am labs; Start 09/02/16 at 14:30 Sodium Phosphate 40 mmol/Dextrose 263.3333 ml @ 64.167 m... 1X ONCE IV Last administered on 09/02/16 16:13; Start 09/02/16 at 14:30; Stop 09/02/16 at 18:36 ; Status DC Morphine Sulfate 2 mg PRN Q4HRS PRN IV PAIN Last administered on 09/03/16 12: 23; Start 09/03/16 at 11:30 Carvedilol (Coreg) 12.5 mg BIDWMEALS PO ; Start 09/03/16 at 17:00 Active Scripts Active Protonix (Pantoprazole Sodium) 40 Mg Tablet. 1 Tab PO DAILY Reported K-Tab ER (Potassium Chloride) 20 Meq Tablet.er 20 Meq PO DAILY Furosemide 40 Mg Tablet 40 Mg PO DAILY Ondansetron Hcl 8 Mg Tablet 8 Mg PO PRN Q8HRS PRN Lorazepam 0.5 Mg Tablet 1 Tab PO PRN Q6HRS PRN Prochlorperazine Maleate 10 Mg Tablet 10 Mg PO PRN Q6-8HRS PRN Magnesium Oxide 400 Mg Tablet 400 Mg PO TID Morphine Sulfate Er (Morphine Sulfate) 15 Mg Tablet.er 1 Tab PO BID Morphine Sulfate Er (Morphine Sulfate) 30 Mg Cap.er.pel 30 Mg PO Q12HR Morphine Sulfate 100 Mg/5 Ml Solution 10 Mg PO PRN Q2-4HRS PRN Eliquis (Apixaban) 2.5 Mg Tablet 2.5 Mg PO BIDAFTMEAL Hydrocodone-Apap 7.5-325 (Hydrocodone Bit/Acetaminophen) 1 Each Tablet 1 Tab PO PRN Q6HRS PRN Losartan-Hctz 100-25 Mg Tab (Losartan/Hydrochlorothiazide) 1 Each Tablet 1 Tab PO DAILY Docusate Sodium 100 Mg Capsule 1 Cap PO DAILY Vitals/I & O Vital Sign - Last 24 Hours 09/02/16 09/02/16 09/02/16 09/02/16 14:55 15:20 15:53 17:51 Temp 98.4 98.4 Pulse 95 Resp 20 B/P (MAP) 174/88 (116) Pulse Ox 96 96 96 96 O2 Delivery Room Air Room Air Room Air O2 Flow Rate 2.0 2.0 2.0 09/02/16 09/02/16 09/02/16 09/02/16 19:00 19:49 21:09 21:09 Temp 100.0 100.0 Pulse 94 94 Resp 18 20 B/P (MAP) 152/82 (105) 152/82 Pulse Ox 97 O2 Delivery Room Air Room Air 09/02/16 09/02/16 09/02/16 09/02/16 21:10 21:10 21:40 22:10 Resp 20 20 20 20 Pulse Ox 97 97 O2 Delivery Room Air Room Air O2 Flow Rate 2.0 09/02/16 09/02/16 09/02/16 09/02/16 22:38 22:39 23:00 23:39 Temp 99.3 99.3 Pulse 89 Resp 20 20 18 B/P (MAP) 161/83 (109) Pulse Ox 97 97 96 96 O2 Delivery Room Air Room Air Room Air 09/03/16 09/03/16 09/03/16 09/03/16 00:41 01:09 01:41 02:38 Resp 20 20 20 20 Pulse Ox 96 96 O2 Delivery Room Air Room Air Room Air Room Air 09/03/16 09/03/16 09/03/16 09/03/16 02:59 07:00 07:43 07:43 Temp 99.0 98.4 99.0 98.4 Pulse 90 94 90 90 Resp 18 20 B/P (MAP) 185/99 (127) 177/90 (119) 185/99 185/99 Pulse Ox 97 96 O2 Delivery Room Air Room Air 09/03/16 09/03/16 09/03/16 09/03/16 07:44 07:45 07:45 07:56 Pulse 90 B/P (MAP) 185/99 Pulse Ox 97 97 97 O2 Delivery Room Air Room Air Room Air O2 Flow Rate 2.0 2.0 2.0 09/03/16 09/03/16 09/03/16 09/03/16 08:00 08:26 08:45 11:00 Temp 99.0 99.0 Pulse 95 Resp 20 B/P (MAP) 162/85 (110) Pulse Ox 97 97 97 O2 Delivery Room Air Room Air Room Air Room Air O2 Flow Rate 2.0 2.0 09/03/16 09/03/16 09/03/16 09/03/16 11:24 11:24 12:23 12:23 Pulse Ox 97 97 97 97 O2 Delivery Room Air Room Air Room Air Room Air O2 Flow Rate 2.0 2.0 2.0 2.0 Intake and Output 09/02/16 09/02/16 09/03/16 14:59 22:59 06:59 Intake Total 110 ml Output Total 1100 ml 375 ml Balance -1100 ml -265 ml TAWANA BANSAL MD September 03, 2016 12:45
[2016-09-03 15:00] VITALS: BP 172/88
[2016-09-03] MEDS: CARVEDILOL 12.5 MG TABLET. PO SCH (17:18)
[2016-09-03 19:00] VITALS: BP 164/81
[2016-09-03] MEDS: LORazepam 0.5 MG TABLET PO PRN (21:30)
[2016-09-03 23:00] VITALS: BP 168/84
[2016-09-03] MEDS: ONDANSETRON ODT 4 MG TAB.RAPDIS. PO PRN (23:49)
[2016-09-04] MEDS: HYDROcodone/APAP 7.5/325MG 1 TAB TABLET PO PRN ×3 (01:43→10:07)
[2016-09-04] MEDS: PROCHLORPERAZINE 5 MG TABLET. PO PRN (01:48)
[2016-09-04] MEDS: MORPHINE SULFATE 2 MG/ML DISP.SYRIN. IV PRN ×3 (01:48→10:06)
[2016-09-04 03:00] VITALS: BP 162/89
[2016-09-04] MEDS: MORPHINE SULFATE 20 MG/ML CONC SOLUTION. SL PRN ×3 (04:45→09:07)
[2016-09-04] MEDS: LORazepam 0.5 MG TABLET PO PRN ×2 (04:46→08:32)
[2016-09-04] MEDS: IV NORMAL SALINE 1000ML BAG 1,000 ML IV SCH (04:47)
[2016-09-04 05:18] LABS: BASO % 0 % (0-3); EOS % 0 % (0-3); HEMATOCRIT 23.6 % (36.0-47.0); HEMOGLOBIN 7.8 g/dL (12.0-15.5); LYMPH # 0.6 x10^3/uL (1.0-4.8); LYMPH % 3 % (24-48); MEAN CORPUSCULAR HEMOGLOBIN 31 pg (25-35); MEAN CORPUSCULAR HGB CONC 33 g/dL (31-37); MEAN CORPUSCULAR VOLUME 93 fL (79-100); MONO % 4 % (0-9); NEUT % 93 % (31-73); PLATELET COUNT 188 x10^3/uL (140-400); RED BLOOD COUNT 2.55 x10^6/uL (3.50-5.40); WHITE BLOOD COUNT 22.2 x10^3/uL (4.0-11.0)
[2016-09-04 05:43] LABS: CALCIUM 8.6 mg/dL (8.5-10.1); CREATININE 1.3 mg/dL (0.6-1.0); GFR 52.9; POTASSIUM 3.8 mmol/L (3.5-5.1)
[2016-09-04 07:00] VITALS: BP 165/87
[2016-09-04] MEDS: MAGNESIUM OXIDE 400 MG TABLET PO SCH (08:28)
[2016-09-04] MEDS: DOCUSATE SODIUM 100 MG CAPSULE. PO SCH (08:28)
[2016-09-04] MEDS: MORPHINE ER 15 MG TABLET.ER PO SCH (08:28)
[2016-09-04] MEDS: SENNOSIDES/DOCUSATE 8.6/50MG TABLET. PO SCH (08:28)
[2016-09-04] MEDS: PANTOPRAZOLE 40 MG TABLET.DR. PO SCH (08:28)
[2016-09-04] MEDS: APIXABAN 2.5 MG TABLET. PO SCH (08:29)
[2016-09-04] MEDS: CARVEDILOL 12.5 MG TABLET. PO SCH (08:31)
[2016-09-04] MEDS: amLODIPine BESYLATE 10 MG TABLET PO SCH (08:31)
[2016-09-04] MEDS: NICOTINE 21MG PATCH. TD SCH (08:32)
[2016-09-04] MEDS: POLYETHYLENE GLYCOL 3350 17 GM PACKET. PO SCH (09:06)
[2016-09-04] MEDS: LOSARTAN POTASSIUM 50 MG TABLET. PO SCH (09:07)
[2016-09-04 11:00] VITALS: BP 187/98
[2016-09-04] MEDS ORDERED: HYDR-2762 PO (11:38)
--- NOTE | 2016-09-04 11:44 | PDOC3 ---
Discharge Summary Visit Information Date of Admission: August 29, 2016 Date of Discharge: September 04, 2016 Admitting Diagnosis: foot pain Final Diagnosis 1. 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 Hypercalcemia of malignancy 3. Hyponatremia 4. Anemia of CKD 5. Leukocytosis 6. GNR UTI 7. intractable back and hip , groin pain, possible bone mets 8. constipatin 9. hypolmagnesemia 10. uncontrolled HTN dc metoprolol since high bp, add coreg. History of Present IllnessProblems Medical Problems: (1) Metastatic squamous cell carcinoma Status: Acute (2) Renal insufficiency Status: Acute (3) Severe protein-calorie malnutrition Status: Acute Brief Hospital Course Allergies Allergies Coded Allergies Type Severity Reaction Last Updated Verified amoxicillin Adverse Reaction Intermediate Nausea 08/31/16 Yes clavulanic acid Adverse Reaction Intermediate Nausea 08/31/16 Yes Vital Signs Vital Signs Date Time Temp Pulse Resp B/P (MAP) Pulse Ox O2 Delivery O2 Flow Rate FiO2 09/04/16 11:10 95 Room Air 2.0 09/04/16 09:07 96 165/87 09/04/16 07:15 18 09/04/16 07:00 99.0 99.0 Lab Results Laboratory Tests Test 09/03/16 03:57 09/04/16 04:35 White Blood Count 22.4 x10^3/uL (4.0-11.0) 22.2 x10^3/uL (4.0-11.0) Red Blood Count 2.71 x10^6/uL (3.50-5.40) 2.55 x10^6/uL (3.50-5.40) Hemoglobin 8.2 g/dL (12.0-15.5) 7.8 g/dL (12.0-15.5) Hematocrit 25.0 % (36.0-47.0) 23.6 % (36.0-47.0) Mean Corpuscular Volume 93 fL (79-100) 93 fL (79-100) Mean Corpuscular Hemoglobin 30 pg (25-35) 31 pg (25-35) Mean Corpuscular Hemoglobin Concent 33 g/dL (31-37) 33 g/dL (31-37) Red Cell Distribution Width 19.6 % (11.5-14.5) 20.0 % (11.5-14.5) Platelet Count 204 x10^3/uL (140-400) 188 x10^3/uL (140-400) Neutrophils (%) (Auto) 92 % (31-73) 93 % (31-73) Lymphocytes (%) (Auto) 3 % (24-48) 3 % (24-48) Monocytes (%) (Auto) 4 % (0-9) 4 % (0-9) Eosinophils (%) (Auto) 0 % (0-3) 0 % (0-3) Basophils (%) (Auto) 0 % (0-3) 0 % (0-3) Neutrophils # (Auto) 20.7 x10^3uL (1.8-7.7) 20.7 x10^3uL (1.8-7.7) Lymphocytes # (Auto) 0.7 x10^3/uL (1.0-4.8) 0.6 x10^3/uL (1.0-4.8) Monocytes # (Auto) 1.0 x10^3/uL (0.0-1.1) 0.9 x10^3/uL (0.0-1.1) Eosinophils # (Auto) 0.0 x10^3/uL (0.0-0.7) 0.1 x10^3/uL (0.0-0.7) Basophils # (Auto) 0.0 x10^3/uL (0.0-0.2) 0.0 x10^3/uL (0.0-0.2) Sodium Level 131 mmol/L (136-145) 129 mmol/L (136-145) Potassium Level 3.6 mmol/L (3.5-5.1) 3.8 mmol/L (3.5-5.1) Chloride Level 93 mmol/L (98-107) 93 mmol/L (98-107) Carbon Dioxide Level 27 mmol/L (21-32) 27 mmol/L (21-32) Anion Gap 11 (6-14) 9 (6-14) Blood Urea Nitrogen 14 mg/dL (7-20) 15 mg/dL (7-20) Creatinine 1.3 mg/dL (0.6-1.0) 1.3 mg/dL (0.6-1.0) Estimated GFR (Cockcroft-Gault) 52.9 52.9 Glucose Level 89 mg/dL (70-99) 85 mg/dL (70-99) Calcium Level 8.7 mg/dL (8.5-10.1) 8.6 mg/dL (8.5-10.1) Magnesium Level 2.0 mg/dL (1.8-2.4) 2.0 mg/dL (1.8-2.4) Laboratory Tests Test 09/04/16 04:35 White Blood Count 22.2 x10^3/uL (4.0-11.0) Red Blood Count 2.55 x10^6/uL (3.50-5.40) Hemoglobin 7.8 g/dL (12.0-15.5) Hematocrit 23.6 % (36.0-47.0) Mean Corpuscular Volume 93 fL (79-100) Mean Corpuscular Hemoglobin 31 pg (25-35) Mean Corpuscular Hemoglobin Concent 33 g/dL (31-37) Red Cell Distribution Width 20.0 % (11.5-14.5) Platelet Count 188 x10^3/uL (140-400) Neutrophils (%) (Auto) 93 % (31-73) Lymphocytes (%) (Auto) 3 % (24-48) Monocytes (%) (Auto) 4 % (0-9) Eosinophils (%) (Auto) 0 % (0-3) Basophils (%) (Auto) 0 % (0-3) Neutrophils # (Auto) 20.7 x10^3uL (1.8-7.7) Lymphocytes # (Auto) 0.6 x10^3/uL (1.0-4.8) Monocytes # (Auto) 0.9 x10^3/uL (0.0-1.1) Eosinophils # (Auto) 0.1 x10^3/uL (0.0-0.7) Basophils # (Auto) 0.0 x10^3/uL (0.0-0.2) Sodium Level 129 mmol/L (136-145) Potassium Level 3.8 mmol/L (3.5-5.1) Chloride Level 93 mmol/L (98-107) Carbon Dioxide Level 27 mmol/L (21-32) Anion Gap 9 (6-14) Blood Urea Nitrogen 15 mg/dL (7-20) Creatinine 1.3 mg/dL (0.6-1.0) Estimated GFR (Cockcroft-Gault) 52.9 Glucose Level 85 mg/dL (70-99) Calcium Level 8.6 mg/dL (8.5-10.1) Magnesium Level 2.0 mg/dL (1.8-2.4) Brief Hospital Course Ms. Ronquillo is a 46 old admit with foot pain and groin pain taken to the OR 09/[address] Alicia, for full-thickness debridement of the right plantar wound measuring 5 x 15 cm, excisional subcutaneous only. failed bone scan 2 times / cannot lie flat with back pain on morphine high dose sched, , PRN lortab and roxanol ptot, pt OK with DC, has f/u with Dr. Skelton 09/07 Discharge Information Condition at Discharge: Improved Follow Up: Weeks Disposition/Orders: D/C to Home Scheduled Apixaban (Eliquis), 2.5 MG PO BIDAFTMEAL, (Reported) Docusate Sodium (Docusate Sodium), 1 CAP PO DAILY, (Reported) Furosemide (Furosemide), 40 MG PO DAILY, (Reported) Losartan/Hydrochlorothiazide (Losartan-Hctz 100-25 Mg Tab), 1 TAB PO DAILY, ( Reported) Magnesium Oxide (Magnesium Oxide), 400 MG PO TID, (Reported) Morphine Sulfate (Morphine Sulfate Er), 30 MG PO Q12HR, (Reported) Morphine Sulfate (Morphine Sulfate Er), 1 TAB PO BID, (Reported) Pantoprazole Sodium (Protonix), 1 TAB PO DAILY Potassium Chloride (K-Tab ER), 20 MEQ PO DAILY, (Reported) Scheduled PRN Hydrocodone Bit/Acetaminophen (Hydrocodone-Apap 7.5-325 ), 1 TAB PO PRN Q6HRS PRN for PAIN Lorazepam (Lorazepam), 1 TAB PO PRN Q6HRS PRN for ANXIETY, (Reported) Morphine Sulfate (Morphine Sulfate), 10 MG PO PRN Q2-4HRS PRN for MODERATE PAIN, (Reported) Ondansetron Hcl (Ondansetron Hcl), 8 MG PO PRN Q8HRS PRN for NAUSEA/VOMITING, ( Reported) Prochlorperazine Maleate (Prochlorperazine Maleate), 10 MG PO PRN Q6-8HRS PRN for NAUSEA, (Reported) Discontinued Medications Ondansetron Hcl (Ondansetron Hcl), 1 TAB PO PRN Q6HRS, (Reported) Discontinued Reason: Prescription changed Patient Instructions Patient Instructions time > 30min ANGE MARTINEZ MD September 04, 2016 11:44
[2016-09-04] MEDS: MORPHINE ER 30 MG TABLET.ER PO SCH (12:15)
[2016-09-04] MEDS ORDERED: HEPARIN PF 500 UNIT/5 ML DISP.SYRIN. IV ONE (12:30)
== END 2016-09-04 13:40 | disposition home or self-care (01) | DRG 829 ==
LOC: ER 16:58 → ED HOLD 19:30 → 5 NORTH 22:05
PROVIDERS: ADMIT Internal Medicine; ATTEND Internal Medicine
PROC: 0JBQ0ZZ Excision of Right Foot Subcutaneous Tissue and Fascia, Open Approach (ICD-10-PCS; principal; 2016-08-29)
DX: C76.51 Malignant neoplasm of right lower limb (principal); E43 Unspecified severe protein-calorie malnutrition; N17.9 Acute kidney failure, unspecified; E87.1 Hypo-osmolality and hyponatremia; N39.0 Urinary tract infection, site not specified; C77.4 Secondary and unspecified malignant neoplasm of inguinal and lower limb lymph nodes; Z68.41 Body mass index [BMI] 40.0-44.9, adult; I73.9 Peripheral vascular disease, unspecified; T14.8 Other injury of unspecified body region; E83.52 Hypercalcemia; D63.1 Anemia in chronic kidney disease; K21.9 Gastro-esophageal reflux disease without esophagitis; K59.00 Constipation, unspecified; N18.9 Chronic kidney disease, unspecified; I12.9 Hypertensive chronic kidney disease with stage 1 through stage 4 chronic kidney disease, or unspecified chronic kidney disease; B96.89 Other specified bacterial agents as the cause of diseases classified elsewhere; F41.9 Anxiety disorder, unspecified; M54.9 Dorsalgia, unspecified; N83.209 Unspecified ovarian cyst, unspecified side; S91.109A Unspecified open wound of unspecified toe(s) without damage to nail, initial encounter; E83.42 Hypomagnesemia; Z89.429 Acquired absence of other toe(s), unspecified side; Z92.3 Personal history of irradiation; Z83.3 Family history of diabetes mellitus; Z82.49 Family history of ischemic heart disease and other diseases of the circulatory system; Z79.899 Other long term (current) drug therapy; Z88.8 Allergy status to other drugs, medicaments and biological substances; Z88.1 Allergy status to other antibiotic agents; Z88.0 Allergy status to penicillin
CPT/HCPCS: 36415; 78306; 80048; 80053; 81001; 83735; 84100; 85007; 85027; 87086; 87186; 87641; 93005; 96365; 96374; 96375; 96376; A9503; J0690; J0696; J1100; J1170; J1956; J2060; J2250; J2270; J2405; J2430; J2704; J3010; J3490; J7030; J7050; J7060; J7120; Q0162; Q0164; S0028; 99285-25

== ENCOUNTER 2016-09-15 02:01 | Inpatient (IN) | payer MEDICARE, OTHER ==
[~2016-09-15] VITALS: Ht 162.6 cm; Wt 105.7 kg
[~2016-09-15 02:01] MED LIST changes: +FURO40TA4 PO; +ONDA8TAB14 PO; +POTA20TA84 PO
[2016-09-15 03:45] VITALS: BP 117/67
[2016-09-15] MEDS ORDERED: AMINO AC 3%/ELECTROLYTE/GLYCER 1,000 ML IV SCH (04:00)
[2016-09-15] MEDS: MORPHINE SULFATE 2 MG/ML DISP.SYRIN. IV PRN ×5 (04:58→19:08)
[2016-09-15] MEDS ORDERED: HYDR-2766 PO (05:12)
--- NOTE | 2016-09-15 05:17 | RAD ---
KUB portable at 0444: Reason for examination: NG tube placement. NG tube is present with the tip in the region of the gastric antrum. There is no gross organomegaly. There is elevation of the right hemidiaphragm. Bowel gas pattern is nonspecific with small intestinal air is seen in the mid left abdomen but no grossly dilated loops of bowel or obstruction are evident. No acute bony abnormalities are seen. IMPRESSION: NG tube present with the tip in the gastric antrum. Nonspecific bowel gas pattern with small intestinal air in the left midabdomen. Electronically signed by: Chata Moses MD (09/15/2016 5:13 AM)
[2016-09-15 06:37] LABS: INR 1.4 (0.8-1.1); PROTHROMBIN TIME PATIENT 16.7 SEC (11.7-14.0)
[2016-09-15 06:51] LABS: ALBUMIN 2.1 g/dL (3.4-5.0); CREATININE 1.9 mg/dL (0.6-1.0); DIRECT BILIRUBIN 0.3 mg/dL (0.0-0.2); GFR 34.1; POTASSIUM 3.9 mmol/L (3.5-5.1); TOTAL BILIRUBIN 0.6 mg/dL (0.2-1.0); TOTAL PROTEIN 5.9 g/dL (6.4-8.2)
[2016-09-15 06:52] LABS: CALCIUM 12.4 mg/dL (8.5-10.1)
[2016-09-15 06:53] LABS: BASO % 0 % (0-3); EOS % 0 % (0-3); HEMATOCRIT 23.4 % (36.0-47.0); LYMPH # 0.6 x10^3/uL (1.0-4.8); LYMPH % 4 % (24-48); MEAN CORPUSCULAR HEMOGLOBIN 32 pg (25-35); MEAN CORPUSCULAR HGB CONC 34 g/dL (31-37); MEAN CORPUSCULAR VOLUME 93 fL (79-100); MONO % 7 % (0-9); NEUT % 89 % (31-73); PLATELET COUNT 263 x10^3/uL (140-400); RED BLOOD COUNT 2.53 x10^6/uL (3.50-5.40); RED CELL DISTRIBUTION WIDTH 20.1 % (11.5-14.5); WHITE BLOOD COUNT 13.6 x10^3/uL (4.0-11.0)
[2016-09-15] MEDS ORDERED: IV NORMAL SALINE 1000ML BAG 1,000 ML IV ONE (07:00)
[2016-09-15 07:51] VITALS: BP 123/77
--- NOTE | 2016-09-15 08:13 | PDOC ---
Infectious Disease Note Vital Sign Vital Signs Vital Signs Date Time Temp Pulse Resp B/P (MAP) Pulse Ox O2 Delivery O2 Flow Rate FiO2 09/15/16 07:51 98.2 93 18 123/77 (92) 93 Room Air 98.2 09/15/16 05:28 95.0 Labs Lab Laboratory Tests Test 09/15/16 06:15 White Blood Count 13.6 x10^3/uL (4.0-11.0) Red Blood Count 2.53 x10^6/uL (3.50-5.40) Hemoglobin 8.0 g/dL (12.0-15.5) Hematocrit 23.4 % (36.0-47.0) Mean Corpuscular Volume 93 fL (79-100) Mean Corpuscular Hemoglobin 32 pg (25-35) Mean Corpuscular Hemoglobin Concent 34 g/dL (31-37) Red Cell Distribution Width 20.1 % (11.5-14.5) Platelet Count 263 x10^3/uL (140-400) Neutrophils (%) (Auto) 89 % (31-73) Lymphocytes (%) (Auto) 4 % (24-48) Monocytes (%) (Auto) 7 % (0-9) Eosinophils (%) (Auto) 0 % (0-3) Basophils (%) (Auto) 0 % (0-3) Neutrophils # (Auto) 12.0 x10^3uL (1.8-7.7) Lymphocytes # (Auto) 0.6 x10^3/uL (1.0-4.8) Monocytes # (Auto) 0.9 x10^3/uL (0.0-1.1) Eosinophils # (Auto) 0.0 x10^3/uL (0.0-0.7) Basophils # (Auto) 0.0 x10^3/uL (0.0-0.2) Prothrombin Time 16.7 SEC (11.7-14.0) Prothromb Time International Ratio 1.4 (0.8-1.1) Sodium Level 133 mmol/L (136-145) Potassium Level 3.9 mmol/L (3.5-5.1) Chloride Level 91 mmol/L (98-107) Carbon Dioxide Level 40 mmol/L (21-32) Anion Gap 2 (6-14) Blood Urea Nitrogen 38 mg/dL (7-20) Creatinine 1.9 mg/dL (0.6-1.0) Estimated GFR (Cockcroft-Gault) 34.1 Glucose Level 105 mg/dL (70-99) Calcium Level 12.4 mg/dL (8.5-10.1) Total Bilirubin 0.6 mg/dL (0.2-1.0) Direct Bilirubin 0.3 mg/dL (0.0-0.2) Aspartate Amino Transf (AST/SGOT) 16 U/L (15-37) Alanine Aminotransferase (ALT/SGPT) 14 U/L (14-59) Alkaline Phosphatase 104 U/L (46-116) Total Protein 5.9 g/dL (6.4-8.2) Albumin 2.1 g/dL (3.4-5.0) Objective Assessment Bowel obstruction likely from metastasis Squamous cell ca , stage IV with mets Rt foot non healing wound Hypercalcemia Ureteral obstruction Psoas mass and lung mass Plan Plan of Care fluids cefepime supportive care GAIL WILKS MD Sep 15, 2016 08:13
--- NOTE | 2016-09-15 09:03 | PDOC2 ---
JOSUE FIGUEROA RN SOCIAL SERVICES 09/15/16 0903: CONSULT Date of Consult Date of Consult DATE: 09/15/16 TIME: 08:52 Reason for Consult Reason for Consult: sbo Referring Physician Referring Physician: ER Identification/Chief Complaint Chief Complaint abdominal pain Source Source: Chart review, Patient History of Present Illness Reason for Visit: Admitted from [facility] ER, for abdominal pain, CT findings of sbo, psoas abscess Pt of Dr Corbin xlap, lymph node dissection for squamous cell carcinoma She complains of constipation for 2 weeks, loss of appetite, abdominal pain, right thigh pain--worsening over the last two weeks, + nausea and emesis Past Medical History Cardiovascular: HTN Pulmonary: No pertinent hx CENTRAL NERVOUS SYSTEM: Other GI: GERD Heme/Onc: No pertinent hx, Cancer Hepatobiliary: No pertinent hx Psych: Anxiety Musculoskeletal: Other Rheumatologic: No pertinent hx Infectious disease: No pertinent hx Renal/: No pertinent hx Endocrine: No pertinent hx Past Surgical History Past Surgical History: , Other (xalp, node dissection ) Family History Family History: Cancer, Diabetes, Hypertension Social History ALCOHOL: none Drugs: None Lives: with Family Current Medications Current Medications Current Medications Morphine Sulfate 2 mg PRN Q2HR PRN IV MODERATE PAIN Last administered on 04:58; Start 09/15/16 at 04:00 Morphine Sulfate 4 mg PRN Q2HR PRN IV SEVERE PAIN; Start 09/15/16 at 04:00 Ondansetron HCl (Zofran) 4 mg PRN Q6HRS PRN IV NAUSEA/VOMITING; Start 09/15/16 at 04:00 Amino Acids/ Glycerin/ Electrolytes 1,000 ml @ 80 mls/hr [id number] IV Last administered on 09/15/16 05:20; Start 09/15/16 at 04:00; Stop 09/15/16 at 07:02; Status DC Sodium Chloride 1,000 ml @ 125 mls/hr 1X ONCE IV Last administered on 08:14; Start 09/15/16 at 07:00; Stop 09/15/16 at 14:59 Cefepime HCl 1 gm/ Sodium Chloride 50 ml @ 100 mls/hr Q8HRS IV ; Start 09/15/16 at 09:00 Active Scripts Active Hydrocodone-Apap 7.5-325 (Hydrocodone Bit/Acetaminophen) 1 Each Tablet 1 Tab PO PRN Q6HRS PRN Protonix (Pantoprazole Sodium) 40 Mg Tablet. 1 Tab PO DAILY Reported Hydrocodone-Apap 10-325 (Hydrocodone Bit/Acetaminophen) 1 Each Tablet 1 Tab PO PRN Q4HRS PRN K-Tab ER (Potassium Chloride) 20 Meq Tablet.er 20 Meq PO DAILY Furosemide 40 Mg Tablet 40 Mg PO DAILY Ondansetron Hcl 8 Mg Tablet 8 Mg PO PRN Q8HRS PRN Lorazepam 0.5 Mg Tablet 1 Tab PO PRN Q6HRS PRN Prochlorperazine Maleate 10 Mg Tablet 10 Mg PO PRN Q6-8HRS PRN Magnesium Oxide 400 Mg Tablet 400 Mg PO TID Morphine Sulfate Er (Morphine Sulfate) 15 Mg Tablet.er 1 Tab PO BID Morphine Sulfate Er (Morphine Sulfate) 30 Mg Cap.er.pel 30 Mg PO Q12HR Morphine Sulfate 100 Mg/5 Ml Solution 10 Mg PO PRN Q2-4HRS PRN Eliquis (Apixaban) 2.5 Mg Tablet 2.5 Mg PO BIDAFTMEAL Losartan-Hctz 100-25 Mg Tab (Losartan/Hydrochlorothiazide) 1 Each Tablet 1 Tab PO DAILY Docusate Sodium 100 Mg Capsule 1 Cap PO DAILY Allergies Allergies: Coded Allergies: No Known Medication Allergies (Verified Allergy, Unknown, 09/15/16) amoxicillin (Verified Adverse Reaction, Intermediate, Nausea, 08/31/16) clavulanic acid (Verified Adverse Reaction, Intermediate, Nausea, 08/31/16) ROS General: No: Chills, Other (fevers) PSYCHOLOGICAL ROS: YES: Anxiety, No: Depression Eyes: No Blurry vision, No Double vision HEENT: YES: Sore Throat, No: Heacaches Hematological and Lymphatic: No: Bleeding Problems, Blood Clots Respiratory: YES: Shortness of breath, No: Cough Cardiovascular: No Chest Pain, No Palpitations Gastrointestinal: Yes Other (see hpi) Genitourinary: No Dysuria, No Hematuria Musculoskeletal: Yes Muscle Pain, No Joint Swelling Neurological: No Impaired Coord/balance, No Numbness/Tingling Skin: No Pruritus, No Rash Physical Exam General: Alert, Oriented X3, Cooperative, No acute distress HEENT: Atraumatic, Other (NG present bilious drainage ) Lungs: Clear to auscultation, Normal air movement Heart: Regular rate, Normal S1, Normal S2 Abdomen: Soft, Other (obese, tender diffusely, midly distended ) Extremities: No clubbing, No cyanosis Skin: No rashes, No breakdown Neuro: Normal speech, Sensation intact Psych/Mental Status: Mental status NL, Mood NL MUSCULOSKELETAL: Other (tenderness and pain to right thigh, no erythema or induration noted ) Vitals VITALS Vital Signs Date Time Temp Pulse Resp B/P (MAP) Pulse Ox O2 Delivery O2 Flow Rate FiO2 09/15/16 07:51 98.2 93 18 123/77 (92) 93 Room Air 98.2 09/15/16 05:28 95.0 Labs Labs Laboratory Tests Test 09/15/16 06:15 White Blood Count 13.6 x10^3/uL (4.0-11.0) Red Blood Count 2.53 x10^6/uL (3.50-5.40) Hemoglobin 8.0 g/dL (12.0-15.5) Hematocrit 23.4 % (36.0-47.0) Mean Corpuscular Volume 93 fL (79-100) Mean Corpuscular Hemoglobin 32 pg (25-35) Mean Corpuscular Hemoglobin Concent 34 g/dL (31-37) Red Cell Distribution Width 20.1 % (11.5-14.5) Platelet Count 263 x10^3/uL (140-400) Neutrophils (%) (Auto) 89 % (31-73) Lymphocytes (%) (Auto) 4 % (24-48) Monocytes (%) (Auto) 7 % (0-9) Eosinophils (%) (Auto) 0 % (0-3) Basophils (%) (Auto) 0 % (0-3) Neutrophils # (Auto) 12.0 x10^3uL (1.8-7.7) Lymphocytes # (Auto) 0.6 x10^3/uL (1.0-4.8) Monocytes # (Auto) 0.9 x10^3/uL (0.0-1.1) Eosinophils # (Auto) 0.0 x10^3/uL (0.0-0.7) Basophils # (Auto) 0.0 x10^3/uL (0.0-0.2) Prothrombin Time 16.7 SEC (11.7-14.0) Prothromb Time International Ratio 1.4 (0.8-1.1) Sodium Level 133 mmol/L (136-145) Potassium Level 3.9 mmol/L (3.5-5.1) Chloride Level 91 mmol/L (98-107) Carbon Dioxide Level 40 mmol/L (21-32) Anion Gap 2 (6-14) Blood Urea Nitrogen 38 mg/dL (7-20) Creatinine 1.9 mg/dL (0.6-1.0) Estimated GFR (Cockcroft-Gault) 34.1 Glucose Level 105 mg/dL (70-99) Calcium Level 12.4 mg/dL (8.5-10.1) Total Bilirubin 0.6 mg/dL (0.2-1.0) Direct Bilirubin 0.3 mg/dL (0.0-0.2) Aspartate Amino Transf (AST/SGOT) 16 U/L (15-37) Alanine Aminotransferase (ALT/SGPT) 14 U/L (14-59) Alkaline Phosphatase 104 U/L (46-116) Total Protein 5.9 g/dL (6.4-8.2) Albumin 2.1 g/dL (3.4-5.0) Laboratory Tests Test 09/15/16 06:15 White Blood Count 13.6 x10^3/uL (4.0-11.0) Red Blood Count 2.53 x10^6/uL (3.50-5.40) Hemoglobin 8.0 g/dL (12.0-15.5) Hematocrit 23.4 % (36.0-47.0) Mean Corpuscular Volume 93 fL (79-100) Mean Corpuscular Hemoglobin 32 pg (25-35) Mean Corpuscular Hemoglobin Concent 34 g/dL (31-37) Red Cell Distribution Width 20.1 % (11.5-14.5) Platelet Count 263 x10^3/uL (140-400) Neutrophils (%) (Auto) 89 % (31-73) Lymphocytes (%) (Auto) 4 % (24-48) Monocytes (%) (Auto) 7 % (0-9) Eosinophils (%) (Auto) 0 % (0-3) Basophils (%) (Auto) 0 % (0-3) Neutrophils # (Auto) 12.0 x10^3uL (1.8-7.7) Lymphocytes # (Auto) 0.6 x10^3/uL (1.0-4.8) Monocytes # (Auto) 0.9 x10^3/uL (0.0-1.1) Eosinophils # (Auto) 0.0 x10^3/uL (0.0-0.7) Basophils # (Auto) 0.0 x10^3/uL (0.0-0.2) Prothrombin Time 16.7 SEC (11.7-14.0) Prothromb Time International Ratio 1.4 (0.8-1.1) Sodium Level 133 mmol/L (136-145) Potassium Level 3.9 mmol/L (3.5-5.1) Chloride Level 91 mmol/L (98-107) Carbon Dioxide Level 40 mmol/L (21-32) Anion Gap 2 (6-14) Blood Urea Nitrogen 38 mg/dL (7-20) Creatinine 1.9 mg/dL (0.6-1.0) Estimated GFR (Cockcroft-Gault) 34.1 Glucose Level 105 mg/dL (70-99) Calcium Level 12.4 mg/dL (8.5-10.1) Total Bilirubin 0.6 mg/dL (0.2-1.0) Direct Bilirubin 0.3 mg/dL (0.0-0.2) Aspartate Amino Transf (AST/SGOT) 16 U/L (15-37) Alanine Aminotransferase (ALT/SGPT) 14 U/L (14-59) Alkaline Phosphatase 104 U/L (46-116) Total Protein 5.9 g/dL (6.4-8.2) Albumin 2.1 g/dL (3.4-5.0) Assessment/Plan Assessment/Plan squamous cell carcinoma CT findings of SBO, conservative measures with NG, hydration, bowel rest psoas abscess, more likely concern for tumor will consult rad onc and oncology JAYLEEN CORBIN MD 09/15/16 1239: CONSULT Allergies Allergies: Coded Allergies: No Known Medication Allergies (Verified Allergy, Unknown, 09/15/16) amoxicillin (Verified Adverse Reaction, Intermediate, Nausea, 08/31/16) clavulanic acid (Verified Adverse Reaction, Intermediate, Nausea, 08/31/16) Assessment/Plan Assessment/Plan Pt seen and examined. Agree with Ms. Figueroa's note Pt appears comfortable, some confusion, per family, with medications abd soft suspect metastatic disease, given previous history will consult oncology cont NGT and bowel rest d/w pt's family Thanks for consult! JOSUE FIGUEROA APRN Sep 15, 2016 09:03 JAYLEEN CORBIN MD Sep 15, 2016 12:39
[2016-09-15] MEDS: CEFEPIME HCL 1 GM in IV NORMAL SALINE 50ML 50 ML IV SCH ×3 (09:20→21:04)
[2016-09-15 10:20] VITALS: BP 116/74
--- NOTE | 2016-09-15 11:37 | RAD ---
Portable chest, 09/15/2016: History: Cough Comparison is made to a study from 04/25/2016. A right Port-A-Cath extends to the level of the atriocaval junction. An NG tube extends into the proximal aspect of the stomach, although its tip is not clearly defined. The heart size and pulmonary vascularity are normal. There is a nodular opacity projected along the inferior aspect of the left hilum. This may represent a mass or an unusual projection of the left pulmonary artery due to patient positioning. There is mild right basilar linear atelectasis and/or scarring. The upper lung vargas are clear. No definite pleural fluid is seen. A gas collection beneath the left hemidiaphragm is probably of gastric origin. IMPRESSION: 1. An NG tube and right Port-A-Cath are now in place as described above. 2. Mild right basilar linear atelectasis and/or scarring. 3. Possible left infrahilar nodule. Radiographic follow-up and/or CT scanning is suggested if clinically indicated.
[2016-09-15] MEDS ORDERED: PAMIDRONATE 90 MG in IV NORMAL SALINE 250ML 250 ML IV ONE ×2 (12:00→16:00)
--- NOTE | 2016-09-15 12:09 | PDOC ---
Provider Note Provider Note Med Onc consult- 1. Sq cell skin ca stage 4. Plan palliative chemo as outpatient. 2. Hypercalcemia - ordered pamidronate 3. Renal failure - consult nephrology 4. Obstructive uropathy - consult urology. see dictation [id number] GUILLAUME MORAN MD Sep 15, 2016 12:09
--- NOTE | 2016-09-15 12:44 | HP ---
ADMIT DATE: 09/15/2016 CHIEF COMPLAINT: Abdominal pain. HISTORY OF PRESENT ILLNESS: The patient is a pleasant middle-aged female who from the record, it appears to have metastatic squamous cell carcinoma stage 4. She presented to [facility] with tummy pain. She was transferred here. She apparently has a bowel obstruction. She has an NG in place. She may also have a psoas abscess according to one of the notes. Basically, she is admitted with consult with General Surgery and Infectious disease. PAST MEDICAL HISTORY: Stage 4 squamous cell carcinoma with mets, constipation, hypertension, edema, chronic pain, GERD, obesity. ALLERGIES: AMOXICILLIN. FAMILY HISTORY: Diabetes. SOCIAL HISTORY: She does not drink, smoke, or take drugs. MEDICATIONS: Reviewed, please refer to the MRAD. REVIEW OF SYSTEMS: GENERAL: No history of weight change, weakness or fevers. SKIN: No bruising, hair changes or rashes. EYES: No blurred, double or loss of vision. NOSE AND THROAT: No history of nosebleeds, hoarseness or sore throat. HEART: No history of palpitations, chest pain or shortness of breath on exertion. LUNGS: Denies cough, hemoptysis, wheezing or shortness of breath. GASTROINTESTINAL: Denies changes in appetite, nausea, vomiting, diarrhea or constipation. GENITOURINARY: No history of frequency, urgency, hesitancy or nocturia. NEUROLOGIC: Denies history of numbness, tingling, tremor or weakness. PSYCHIATRIC: No history of panic, anxiety or depression. ENDOCRINE: No history of heat or cold intolerance, polyuria or polydipsia. EXTREMITIES: Denies muscle weakness, joint pain, pain on walking or stiffness. PHYSICAL EXAMINATION: VITAL SIGNS: Temperature afebrile, pulse 92, respirations 18, blood pressure 144/90. GENERAL: She is sleeping; she awakens, she is pleasant. HEART: Distant S1, S2. LUNGS: Clear. ABDOMEN: Soft, tender. SKIN: No rashes. PSYCHIATRIC: She is a little depressed. VASCULAR: Good capillary refill. LABORATORY DATA: Reviewed. KUB has showed a nonspecific small bowel gas patten with the NG tube placed at the gastric antrum. ASSESSMENT AND PLAN: Bowel obstruction, probably related to her history of cancer. The patient has been admitted. We have consulted Gastrointestinal. Consult Infectious Disease. Consult Dr. Salmeron, Heme/Onc. Resume her home meds, frequent labs, IV hydration. PROGNOSIS: Guarded. DAVIDE WILLAMS DO DR: ELISSA/derek JOB#: [id number] / [id number]
[2016-09-15 14:47] VITALS: BP 124/68
--- NOTE | 2016-09-15 14:47 | PDOC ---
Provider Note Provider Note 46 yo woman with metastatic squamous cell carcinoma of right little toe with progressive inguinal and pelvic adenopathy, probable lung met and recurrent hypercalcemia. Now with recent nausea, vomiting abd pain and distention. NG tube placed for management of SBO. Currently has modest rt groin pain. Unable to ambulate at home due to leg pain when standing. Daughter helps her to commode. Recent effort to get bone scan failed as patient could not tolerate positioning despite premedication efforts. PE Alert in NAD. NG tube in place. No palpable cervical or supraclav adenopathy. Abd distended and mildly tender with no rebound. Rt foot bandaged less right leg edema noted than in the past. CT abd pelvis Dilated SB, progressive psoas mass contiguous with iliac and inguinal adenopathy. Rt hydronephrosis. Mass in post base of right lung c/w metastatic disease. Lab cbc hb 8.0, wbc 13.6 plat 263K chem Lytes ok. Cr 1.9 Ca 12.4 Impression Progressive squamous cell carcinoma from primary involving right toe. Now with recurrent hypercalcemia new hydronephrosis and renal insufficiency. Agree with pursing systemic treatment. Previous effort to treat with palliative radiation failed due to intolerance of positioning. Stent placement reasonable to preserve right kidney function. SBO currently better with NG suction. On CT this appears to be independent of progressive adenopathy. If not a candidate for systemic treatment then consider hospice care. DEV WILSON MD Sep 15, 2016 14:47
[2016-09-15 19:59] VITALS: BP 142/71
[2016-09-15] MEDS: NICOTINE 21MG PATCH. TD SCH (21:04)
[2016-09-15 23:49] VITALS: BP 136/77
--- NOTE | 2016-09-16 | PDOC2 ---
Consult: RENAL CONSULT / STEPHEN HALL; ARF. HISTORY OF PRESENT ILLNESS: The patient is a pleasant middle-aged female who from the record, it appears to have metastatic squamous cell carcinoma stage 4. She presented to [facility] with tummy pain. She was transferred here. She apparently has a bowel obstruction. She has an NG in place. She may also have a psoas abscess according to one of the notes. Basically, she is admitted with consult with General Surgery and Infectious disease. PAST MEDICAL HISTORY: Stage 4 squamous cell carcinoma with mets, constipation, hypertension, edema, chronic pain, GERD, obesity. ALLERGIES: AMOXICILLIN. FAMILY HISTORY: Diabetes. SOCIAL HISTORY: She does not drink, smoke, or take drugs. MEDICATIONS: Reviewed, please refer to the MRAD. REVIEW OF SYSTEMS: GENERAL: No history of weight change, weakness or fevers. SKIN: No bruising, hair changes or rashes. EYES: No blurred, double or loss of vision. NOSE AND THROAT: No history of nosebleeds, hoarseness or sore throat. HEART: No history of palpitations, chest pain or shortness of breath on exertion. LUNGS: Denies cough, hemoptysis, wheezing or shortness of breath. GASTROINTESTINAL: Denies changes in appetite, nausea, vomiting, diarrhea or constipation. GENITOURINARY: No history of frequency, urgency, hesitancy or nocturia. NEUROLOGIC: Denies history of numbness, tingling, tremor or weakness. PSYCHIATRIC: No history of panic, anxiety or depression. ENDOCRINE: No history of heat or cold intolerance, polyuria or polydipsia. EXTREMITIES: Denies muscle weakness, joint pain, pain on walking or stiffness. PHYSICAL EXAMINATION: VITAL SIGNS: Temperature afebrile, pulse 92, respirations 18, blood pressure 144/90. GENERAL: She is sleeping; she awakens, she is pleasant. HEART: Distant S1, S2. LUNGS: Clear. ABDOMEN: Soft, tender. SKIN: No rashes. PSYCHIATRIC: She is a little depressed. VASCULAR: Good capillary refill. LABORATORY DATA: Reviewed. KUB has showed a nonspecific small bowel gas patten with the NG tube placed at the gastric antrum. ASSESSMENT AND PLAN: ARF/ATN HYPERKALEMIA DEHYDRATION. SBO. NG tube IVF I/Os Labs Follow with you. Thank you DONALD MITCHELL MD Sep 16, 2016 00:00
[2016-09-16] MEDS: IV NORMAL SALINE 1000ML BAG 1,000 ML IV SCH ×2 (00:15→17:32)
[2016-09-16] MEDS: MORPHINE SULFATE 4 MG/ML DISP.SYRIN. IV PRN ×5 (00:37→09:43)
--- NOTE | 2016-09-16 01:35 | CONS ---
DATE OF CONSULTATION: 09/15/2016 REQUESTING PHYSICIAN: Dr. Ruiz. REASON FOR CONSULTATION: Bowel obstruction. HISTORY OF PRESENT ILLNESS: This is a 46-year-old -[place] female who has metastatic squamous cell cancer started from the right foot with multiple surgeries done on to the foot as well as metastases to the lymph node and now it appears to be metastases everywhere. The patient presented with a couple of days or 3 days history of nausea, vomiting and abdominal pain. The patient has not had bowel movement for more than a week. The patient has not had any fever. Denies any chest pain, denies any shortness of breath, denies any urinary symptoms. The patient had a CAT scan done at [facility], which showed a new 2.8 x 2.6 cm mass in the right lung base as well as a mass in the right psoas muscle encroaching to the right ureter causing obstructive uropathy and small-bowel obstruction. The patient has been transferred here for further management. The patient also had hypercalcemia, leukocytosis and renal insufficiency. PAST MEDICAL HISTORY: Positive for, as I mentioned, squamous cell cancer of the foot with now mets to right inguinal lymph nodes as well as into the distant metastases and is stage 4. The patient has completed chemoradiation. The patient also has had problems with hypercalcemia, also has hypertension, has had , right foot multiple surgeries done for resection with multiple toe amputations and still nonhealing wound and pelvic lymph node dissection. SOCIAL HISTORY: Negative for smoking, alcohol, illicit drug use. The patient lives at home. ALLERGIES: ALLERGIC TO AMOXICILLIN AND CLAVULANIC ACID. CURRENT MEDICATIONS: Reviewed. The patient is not on any antibiotics. PHYSICAL EXAMINATION: GENERAL: Alert and oriented female, not in distress. VITAL SIGNS: Stable, afebrile. HEENT: NAD. NECK: Supple, no JVP, no lymphadenopathy. LUNGS: Clear. HEART: S1, S2 regular. ABDOMEN: Benign. EXTREMITIES: Mild diffuse tenderness present. No rebound or guarding. No organomegaly appreciated. The patient does have NG tube in place. EXTREMITIES: Right lower extremity is swollen as well as nonhealing necrotic wound on to the right foot with amputated toes. NEUROLOGICAL: The patient is not able to use much of his right leg. LABORATORY DATA: White count is 13.6, hemoglobin 8, platelets are normal. BUN 38, creatinine 1.9, calcium is 12.4. IMPRESSION: 1. Small-bowel obstruction likely from metastasis. 2. Squamous cell, stage IV carcinoma. 3. Right foot nonhealing wound, necrotic. 4. Hypercalcemia. 5. Ureteral obstruction with renal insufficiency. 6. Psoas mass and lung mass. RECOMMENDATIONS: Fluids. I would start cefepime, supportive care and will continue to follow. Overall, prognosis is poor. Thank you very much, Dr. Ruiz, for giving me the opportunity to participate in this patient's care. GAIL WILKS MD DR: ALMA/derek JOB#: [id number] / [id number]
[2016-09-16 03:59] VITALS: BP 154/79
--- NOTE | 2016-09-16 05:12 | CONS ---
DATE OF CONSULTATION: 09/15/2016 REQUESTING PHYSICIAN: Dr. Matilda Lemus. REASON FOR CONSULTATION: Squamous cell carcinoma of the foot, and hypercalcemia, now admitted with small-bowel obstruction. 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 A CT scan on 08/08/2016 revealed progressive disease. Hence, further treatment with immunotherapy was planned, but however, it was not approved as her PD-L1 status was negative. The MSI status is also not favorable to receive immunotherapy. Hence, I discussed with her about palliative chemotherapy. She was supposed to follow up with me in my office, but she presented to the Emergency Room at [facility] on 09/14/2016 with abdominal pain. She had pain of 1-day duration along with nausea and vomiting. She underwent further workup with a CT scan of the abdomen and pelvis on 09/14/2016 which revealed a new 2.8-cm soft tissue process in the right lung base, which could be an infiltrate versus a mass. There is also evidence of soft tissue density along the distal right psoas muscle and lipopsoas muscle for a possibly representing abscess, but it has progressed from the previous examination and is now encroaching on the right ureter, causing obstructive uropathy at the right kidney. There is also evidence of small bowel dilation with obstruction down to the distal ileum. She was admitted to [facility] and she was n.p.o. due to obstruction. She was noted to have hypercalcemia with a calcium level of 12.4 on 09/15/2016. She has had previous episodes of hypercalcemia and she has received pamidronate in the past in 08/2016. PAST MEDICAL HISTORY: Hypertension, squamous cell carcinoma as described above. FAMILY HISTORY: Positive for diabetes and hypertension. SOCIAL HISTORY: No smoking or alcohol abuse. REVIEW OF SYSTEMS: A 12-point review of systems was performed. Pertinent positives are mentioned in the history of presenting illness. Rest of the system review is negative. PHYSICAL EXAMINATION: GENERAL APPEARANCE: The patient is a 46-year-old -[place] female, who is in no acute cardiorespiratory distress. VITAL SIGNS: Blood pressure 116/74, temperature 98.3. HEENT: Head - atraumatic, normocephalic. Eyes: No icterus. NECK: Supple. CHEST: Bilaterally symmetrical. HEART: S1, S2 normal. ABDOMEN: Soft, nontender. CENTRAL NERVOUS SYSTEM: No focal deficits. LYMPHATICS: No lymphadenopathy. SKIN: No rashes. PSYCHOLOGIC: Mood and affect are appropriate. LABORATORY DATA: WBC 13.6, hemoglobin 8.0, and platelet count 263. Creatinine 1.9, BUN 38, sodium 133, glucose 105, calcium 12.4, direct bilirubin 0.3, and total bilirubin 0.6, total protein 5.9, albumin 2.1, AST 16, ALT 14, and alkaline phosphatase 104. IMPRESSION AND PLAN: 1. 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 She has now presented with small-bowel obstruction, renal failure, and hypercalcemia. Once her condition improves, I will plan to initiate palliative chemotherapy. Chemotherapy will be done as an outpatient. 2. Hypercalcemia, worse. Calcium was 12.4 on 09/15/2016. She has already received IV fluids. I will start pamidronate 90 mg IV for management of hypercalcemia. 3. Renal failure. I will consult Nephrology. This is likely due to poor oral intake and dehydration. 4. Anemia due to malignancy. Monitor. 5. Leukocytosis, reactive. Appreciate Infectious Disease consultation for management of psoas abscess. 6. Obstructive uropathy due to progressive psoas abscess. I will consult Urology as she may need stent placement. I discussed with the registered nurse. GUILLAUME MORAN MD DR: ELOISE/derek JOB#: [id number] / [id number]
[2016-09-16] MEDS: CEFEPIME HCL 1 GM in IV NORMAL SALINE 50ML 50 ML IV SCH ×3 (05:27→21:07)
[2016-09-16] MEDS: ONDANSETRON PF 4 MG/2 ML VIAL. IV PRN (05:33)
[2016-09-16 05:55] LABS: ALBUMIN 1.9 g/dL (3.4-5.0); ALBUMIN/GLOBULIN RATIO 0.5 (1.0-1.7); CALCIUM 11.7 mg/dL (8.5-10.1); CREATININE 1.6 mg/dL (0.6-1.0); GFR 41.6; PHOSPHORUS 2.6 mg/dL (2.6-4.7); POTASSIUM 3.7 mmol/L (3.5-5.1); TOTAL BILIRUBIN 0.5 mg/dL (0.2-1.0); TOTAL PROTEIN 6.1 g/dL (6.4-8.2)
--- NOTE | 2016-09-16 06:26 | ACF ---
Admission Forms Criteria ABDOMINAL PAIN Clinical Indications for Admission to Inpatient Care (Place 'X' for any and all applicable criteria): Admission is indicated for ANY ONE of the following(1)(2)(3)(4)(5): [X]I. Inpatient admission required rather than observation care (Also use Abdominal Pain: Observation Care, as appropriate) because of ANY ONE of the following: [ ]a) Severe pain requiring acute inpatient management [X]b) Identification of etiology/finding that requires inpatient care (eg, aortic dissection, free air) [ ]c) Absent bowel sounds with complete ileus(6) [ ]d) Suspected toxic megacolon [ ]e) Severe electrolyte abnormalities requiring inpatient care [ ]f) High fever or infection requiring inpatient admission as indicated by ANY ONE of following(7)(8): [ ] i) Appropriate outpatient or observational care antimicrobial treatment unavailable, not effective, or not feasible [ ] ii) Documented bacteremia [ ] iii) Temperature > 104.9 degrees F (oral) [ ] iv) T >103.1 F (oral) or < 96.8 F(rectal) that does not respond to all emergency treatment measures [X]g) Signs of intestinal obstruction [B] [ ]h) Hemodynamic instability [ ]i) IV fluid to replace significant ongoing losses (greater than 3 L/m2 per day) (12)(13) [ ]j) Percutaneous or open drainage (eg, abscess, biliary tract ) procedures [ ]k) Parenteral nutrition regimen that must be implemented on inpatient basis [ ]l) Other condition,treatment or monitoring requiring inpatient admission. [ ]II. Peritoneal signs present [ ]III. Surgery needed that cannot be performed on an ambulatory basis. [ ]IV. Evaluation requires patient to not eat or drink for extended period ( eg, more than 24 hours). [ ]V. Contraindications and/or Inappropriate clinical situations for Observational Care in patients with abdominal pain, when ANY ONE of the following is required: [ ]a) Thorough evaluation is required to prevent catastrophic events due to delays in diagnosing (e.g.Mesenteric ischemia) 1,3 [ ]b) Patient with severe pathology or with chronic symptoms unlikely to improve in the ED stay (3) [ ]. General contraindications and/or Inappropriate clinical situations for Observational Care in patients with abdominal pain, when ANY ONE of the following is required: [ ]a) Prediction of prolongation of LOS based on ANY ONE of the following may be considered as a contraindication for observational care 2, 3, 4, 5, 6, 7, 8, 9, 10, 11 [ ]i) Age > 65 yrs. [ ]ii) Patient arriving by ambulance [ ]iii) Patient with high acuity [ ]iv) Patient requiring vital sign monitoring [ ]v) Patient on IV medication [ ]b) Systolic blood pressures 180mmHg 3,12 [ ]c) Patient with altered mental status including delirium and other alteration of consciousness, (3) [ ]d) Patient whose discharge disposition will be to a longterm home or rehabilitation home should not be managed in Emergency Department Observation Unit. CMS rule requires 3 days hospital stay before such placement.3,13 [ ]e) Patient with failure to thrive due to broad array of etiologies 3,16,17 [ ]f) Inability to ambulate 3,14 Extended stay beyond goal length of stay may be needed for(2)(3): [ ]a) Persistent abdominal pain with suspected intra-abdominal process [ ]b) Diagnosed condition requiring continued stay (e.g., pancreatitis, complicated diverticulitis) [ ]c) Surgery (e.g., colectomy) The original [facility] content created by [employer] has been revised. The portions of the content which have been revised are identified through the use of italic text or in bold, and [facility] has neither reviewed nor approved the modified material.All other unmodified content is copyright [employer]. Please see references footnoted in the original [facility] edition 2016 Admission Criteria Met?: Yes MANDA LAROSE Sep 16, 2016 06:26
[2016-09-16 07:00] VITALS: BP 145/84
[2016-09-16] MEDS: NICOTINE 21MG PATCH. TD SCH (09:41)
--- NOTE | 2016-09-16 10:03 | PDOC ---
JOSUE FIGUEROA MANAGER PA[employer]ROLL 09/16/16 1003: SURGICAL PROGRESS NOTE Subjective pain unchanged no stools Vital Signs Vital Signs Date Time Temp Pulse Resp B/P (MAP) Pulse Ox O2 Delivery O2 Flow Rate FiO2 09/16/16 09:43 Room Air 09/16/16 07:00 97.2 102 22 145/84 (104) 98 97.2 09/16/16 05:27 95.0 I&O Intake and Output 09/16/16 06:59 Intake Total 503 ml Output Total 5600 ml Balance -5097 ml Intake Oral 300 ml IV Total 203 ml Output Urine Total 1950 ml Gastric Drainage Total 3650 ml # Voids 3 General: Alert, Oriented X3, Cooperative, No acute distress HEENT: Other (ng bilious) Abdomen: Soft Labs Laboratory Tests Test 09/15/16 06:15 09/16/16 05:05 White Blood Count 13.6 x10^3/uL (4.0-11.0) Red Blood Count 2.53 x10^6/uL (3.50-5.40) Hemoglobin 8.0 g/dL (12.0-15.5) Hematocrit 23.4 % (36.0-47.0) Mean Corpuscular Volume 93 fL (79-100) Mean Corpuscular Hemoglobin 32 pg (25-35) Mean Corpuscular Hemoglobin Concent 34 g/dL (31-37) Red Cell Distribution Width 20.1 % (11.5-14.5) Platelet Count 263 x10^3/uL (140-400) Neutrophils (%) (Auto) 89 % (31-73) Lymphocytes (%) (Auto) 4 % (24-48) Monocytes (%) (Auto) 7 % (0-9) Eosinophils (%) (Auto) 0 % (0-3) Basophils (%) (Auto) 0 % (0-3) Neutrophils # (Auto) 12.0 x10^3uL (1.8-7.7) Lymphocytes # (Auto) 0.6 x10^3/uL (1.0-4.8) Monocytes # (Auto) 0.9 x10^3/uL (0.0-1.1) Eosinophils # (Auto) 0.0 x10^3/uL (0.0-0.7) Basophils # (Auto) 0.0 x10^3/uL (0.0-0.2) Prothrombin Time 16.7 SEC (11.7-14.0) Prothromb Time International Ratio 1.4 (0.8-1.1) Sodium Level 133 mmol/L (136-145) 137 mmol/L (136-145) Potassium Level 3.9 mmol/L (3.5-5.1) 3.7 mmol/L (3.5-5.1) Chloride Level 91 mmol/L (98-107) 96 mmol/L (98-107) Carbon Dioxide Level 40 mmol/L (21-32) 37 mmol/L (21-32) Anion Gap 2 (6-14) 4 (6-14) Blood Urea Nitrogen 38 mg/dL (7-20) 34 mg/dL (7-20) Creatinine 1.9 mg/dL (0.6-1.0) 1.6 mg/dL (0.6-1.0) Estimated GFR (Cockcroft-Gault) 34.1 41.6 Glucose Level 105 mg/dL (70-99) 90 mg/dL (70-99) Calcium Level 12.4 mg/dL (8.5-10.1) 11.7 mg/dL (8.5-10.1) Total Bilirubin 0.6 mg/dL (0.2-1.0) 0.5 mg/dL (0.2-1.0) Direct Bilirubin 0.3 mg/dL (0.0-0.2) Aspartate Amino Transf (AST/SGOT) 16 U/L (15-37) 13 U/L (15-37) Alanine Aminotransferase (ALT/SGPT) 14 U/L (14-59) 13 U/L (14-59) Alkaline Phosphatase 104 U/L (46-116) 111 U/L (46-116) Total Protein 5.9 g/dL (6.4-8.2) 6.1 g/dL (6.4-8.2) Albumin 2.1 g/dL (3.4-5.0) 1.9 g/dL (3.4-5.0) BUN/Creatinine Ratio 21 (6-20) Phosphorus Level 2.6 mg/dL (2.6-4.7) Albumin/Globulin Ratio 0.5 (1.0-1.7) Laboratory Tests Test 09/16/16 05:05 Sodium Level 137 mmol/L (136-145) Potassium Level 3.7 mmol/L (3.5-5.1) Chloride Level 96 mmol/L (98-107) Carbon Dioxide Level 37 mmol/L (21-32) Anion Gap 4 (6-14) Blood Urea Nitrogen 34 mg/dL (7-20) Creatinine 1.6 mg/dL (0.6-1.0) Estimated GFR (Cockcroft-Gault) 41.6 BUN/Creatinine Ratio 21 (6-20) Glucose Level 90 mg/dL (70-99) Calcium Level 11.7 mg/dL (8.5-10.1) Phosphorus Level 2.6 mg/dL (2.6-4.7) Total Bilirubin 0.5 mg/dL (0.2-1.0) Aspartate Amino Transf (AST/SGOT) 13 U/L (15-37) Alanine Aminotransferase (ALT/SGPT) 13 U/L (14-59) Alkaline Phosphatase 111 U/L (46-116) Total Protein 6.1 g/dL (6.4-8.2) Albumin 1.9 g/dL (3.4-5.0) Albumin/Globulin Ratio 0.5 (1.0-1.7) Problem List squamous cell carcinoma sbo continue NG today will check films in AM Problems: LINH BOUDREAUX MD 09/16/16 1429: SURGICAL PROGRESS NOTE Assessment/Plan Reviewed, agree with above Problems: JOSUE FIGUEROA APRN Sep 16, 2016 10:03 LINH BOUDREAUX MD Sep 16, 2016 14:29
--- NOTE | 2016-09-16 11:25 | PDOC ---
Infectious Disease Note Subjective Subjective c/o right-sided abdominal pain and nausea. No vomiting or diarrhea NPO. ROS ROS GEN: Denies fevers, chills, sweats CV: Denies chest pain RESP: Denies shortness of air, cough Vital Sign Vital Signs Vital Signs Date Time Temp Pulse Resp B/P (MAP) Pulse Ox O2 Delivery O2 Flow Rate FiO2 09/16/16 09:43 Room Air 09/16/16 07:00 97.2 102 22 145/84 (104) 98 97.2 09/16/16 05:27 95.0 Physical Exam PHYSICAL EXAM GENERAL: Propped up in bed, NAD HEENT: OC/OP pink, dry. NGT LUNGS: Clear HEART: S1S2, no gallop, no murmur ABD: Soft, NT, BS active EXT: No gross edema, no cyanosis. Right foot bandaged. EMISSIONS TESTING TECHNICIAN: Alert, oriented x 3, no focal neurologic deficit SKIN: No rash Port-a-cath. clean Labs Lab Laboratory Tests Test 09/16/16 05:05 Sodium Level 137 mmol/L (136-145) Potassium Level 3.7 mmol/L (3.5-5.1) Chloride Level 96 mmol/L (98-107) Carbon Dioxide Level 37 mmol/L (21-32) Anion Gap 4 (6-14) Blood Urea Nitrogen 34 mg/dL (7-20) Creatinine 1.6 mg/dL (0.6-1.0) Estimated GFR (Cockcroft-Gault) 41.6 BUN/Creatinine Ratio 21 (6-20) Glucose Level 90 mg/dL (70-99) Calcium Level 11.7 mg/dL (8.5-10.1) Phosphorus Level 2.6 mg/dL (2.6-4.7) Total Bilirubin 0.5 mg/dL (0.2-1.0) Aspartate Amino Transf (AST/SGOT) 13 U/L (15-37) Alanine Aminotransferase (ALT/SGPT) 13 U/L (14-59) Alkaline Phosphatase 111 U/L (46-116) Total Protein 6.1 g/dL (6.4-8.2) Albumin 1.9 g/dL (3.4-5.0) Albumin/Globulin Ratio 0.5 (1.0-1.7) Micro BLOOD CULTURE Preliminary NO GROWTH AFTER 1 DAY Objective Assessment Bowel obstruction likely from metastasis Squamous cell ca , stage IV with mets Right foot non healing wound Hypercalcemia Ureteral obstruction Psoas mass and lung mass Leukocytosis JUSTIN Plan Plan of Care Cefepime fluids Repeat CBC in am f/u cultures supportive care Poor prognosis D/w Dr. Davis Attending Co-Sign Attending Co-Sign The patient was seen and interviewed as well as examined at the bedside. The chart was reviewed. The case was discussed. Agree with the plan of care. SHELBI CAVAZOS APRN Sep 16, 2016 11:25 NANCY LOWERY MD Sep 16, 2016 14:16
[2016-09-16] MEDS: HYDROmorphone 2 MG/ML VIAL IV PRN ×5 (11:32→23:31)
[2016-09-16] MEDS: LIDOCAINE (700MG/PATCH) PATCH. TD SCH (11:33)
[2016-09-16 11:58] LABS: CALCIUM 11.9 mg/dL (8.5-10.1); CREATININE 1.6 mg/dL (0.6-1.0); GFR 41.6; POTASSIUM 3.5 mmol/L (3.5-5.1)
--- NOTE | 2016-09-16 13:41 | CONS ---
DATE OF CONSULTATION: 09/15/2016 REFERRING PHYSICIAN: Dr. Lemus. DIAGNOSIS: Progressive squamous cell carcinoma involving the right fifth toe, initially resected in February 2016. She then developed local recurrence as well as inguinal adenopathy and underwent resection in April and May 2016. In the past, she has had failed effort with inguinal and pelvic radiation receiving 32 Gy here through 07/2016 with treatment stopped due to intolerance of positioning. She is now admitted for new onset of small bowel obstruction, improved with conservative management with NG suction. We were asked to see her regarding the role for additional palliative radiation therapy. HISTORY OF PRESENT ILLNESS: The patient noted a right fifth toe lesion initially in 2012, ultimately underwent biopsy in the fall, which confirmed squamous cell carcinoma. In February 2016, she had ray resection of the fourth and fifth toes, resected with a close 0.1 cm margin. Following this, she was found to have right inguinal adenopathy and underwent right inguinal and pelvic lymph node dissection in 04/2016. She then developed relapse in the foot along the fourth toe and underwent a right third and fourth toe resection in 05/2016. Following this, we proceeded with pelvic and inguinal radiation therapy with cisplatin chemotherapy from 06/05/2016 through 07/13/2016. During which time, she did receive 32 Gy and 16 treatment days. Treatment was very difficult for the patient as she had poor tolerance of positioning and following this, we did do a CT scan, which did show progression of her adenopathy, despite treatment and at that time, further radiation was omitted and she did receive additional chemotherapy following that time under the care of Dr. Salmeron. At this time, under his care, she was being considered for Keytruda. She now has a recent onset of increasing abdominal distension, nausea and vomiting. She underwent a CT scan at the [facility], which showed dilated small bowel, progressive inguinal and ipsilateral right pelvic adenopathy extending continuously into a mass involving the right psoas muscle, all of which was compatible with progressive adenopathy. There was new right hydronephrosis and a mass in the posterior aspect of the base of her right lung compatible with metastatic disease. Since NG-tube placement, she has felt better with less abdominal pain. Her inguinal right leg pain is also well controlled at rest at this time. At home, she is unable to ambulate due to the right leg and groin pain and her daughter must move her to a commode when this is necessary. PAST MEDICAL HISTORY: Remarkable for hypertension. MEDICATIONS: See hospital list. SOCIAL HISTORY: Single, has 2 adult daughters and lives with one daughter smoked for 20 years, one half pack a day. No alcohol use. FAMILY HISTORY: Unremarkable for malignancy. PHYSICAL EXAMINATION: GENERAL: Revealed a pleasant articulate woman in no acute distress. NG tube was placed. She had no scleral icterus. LYMPH NODES: She had no cervical or supraclavicular adenopathy palpated. EXTREMITIES: Right leg was and age from recent debridement. Right leg distal edema was less than noted in the past. There was modest left pedal edema. ABDOMEN: Distended and mildly tender with no rebound. LABORATORY STUDIES: Hemoglobin 8.0, white count 13,600, platelet count 263,000. Chemistry panel revealed normal electrolytes, creatinine 1.9, calcium 12.4. In summary, my impression is that of progressive squamous cell carcinoma initially from the right fifth toe, now with progressive disease in the inguinal and pelvic region extending contiguously in the psoas muscle, progressive adenopathy associated with right hydronephrosis and recurrent hypercalcemic. At this time, her primary therapy will be systemic as previously discussed. We were unable to pursue additional palliative radiation therapy. Dr. Salmeron will direct her treatment for hypercalcemia, stent placement may be considered for her right hydronephrosis. Her small-bowel obstruction is thus far improved with conservative measures with NG suction alone. In the event, she is not a candidate for systemic treatment, we would then consider hospice care. I reviewed this in general with the patient. We will continue to monitor her with you. Thank you again for allowing us to participate in her reassessment. DEV WILSON MD DR: EDEN/derek JOB#: [id number] / [id number] ALMA Hastings MD, DOUGLAS DO RAJA, VINAY MD MTDD
--- NOTE | 2016-09-16 14:01 | PDOC ---
PROGRESS NOTES Chief Complaint Chief Complaint SBO ASSESSMENT AND PLAN: 1. SBO: NPO with NGT in place. appreciate surgical team's help w/ management. 2. Metastatic squamous cell carcinoma stage 4: current CT with "abn heterogeneous soft tissue density involving the distal right psoas muscle and ileopsoas muscle... now encroaching on the right ureter causing obstructive uropathy of the right kidney." (CT in 08/2016 with "IMPRESSION: New nodule, highly suspect for metastatic disease, at the right lung base. Marked adenopathy in the right upper pelvis, adjacent to the psoas muscle and incorporating same..Marked adenopathy in the right pelvis and groin with an associated obstructive component". rapidly progressive dz. Dr Salmeron following. plans for O/P chemo (when and if improvement from current situation). poor prognosis d/w family, pt sl sedated on IV morphine, not participating in discussion 3. Pain control: IV morphine or dilaudid PRN, lidocaine patch 4. Psoas abscess vs necrotic LAD: ID service following. on cefepime 5. Hypercalcemia: malignant. pamidronate given. monitor 6. Malignant uropathy: obstruction of R ureter by LAD: may need ureteral stent - urology consult 7. JUSTIN: 2/2 above, with contributions potentially due to poor fluid status/ dehydration. monitor 8. Anemia: 2/2 malignancy. monitor 9. Leukocytosis: reactive: SBO, malignancy...monitor 10. Prophylaxis: IV PPI, heparin History of Present Illness History of Present Illness requesting ativan, lidocaine patch. uncomfortable Vitals Vitals Vital Signs Date Time Temp Pulse Resp B/P (MAP) Pulse Ox O2 Delivery O2 Flow Rate FiO2 09/16/16 11:32 Room Air 09/16/16 07:00 97.2 102 22 145/84 (104) 98 97.2 09/16/16 05:27 95.0 Physical Exam General: mild distress, Other (lethargic) Heart: Regular rate Lungs: Clear Abdomen: Soft, Other (moderate TTP thoughout) Extremities: No clubbing, No cyanosis Skin: No rashes Labs LABS Laboratory Tests Test 09/16/16 05:05 09/16/16 11:30 Sodium Level 137 mmol/L (136-145) 137 mmol/L (136-145) Potassium Level 3.7 mmol/L (3.5-5.1) 3.5 mmol/L (3.5-5.1) Chloride Level 96 mmol/L (98-107) 98 mmol/L (98-107) Carbon Dioxide Level 37 mmol/L (21-32) 37 mmol/L (21-32) Anion Gap 4 (6-14) 2 (6-14) Blood Urea Nitrogen 34 mg/dL (7-20) 33 mg/dL (7-20) Creatinine 1.6 mg/dL (0.6-1.0) 1.6 mg/dL (0.6-1.0) Estimated GFR (Cockcroft-Gault) 41.6 41.6 BUN/Creatinine Ratio 21 (6-20) Glucose Level 90 mg/dL (70-99) 89 mg/dL (70-99) Calcium Level 11.7 mg/dL (8.5-10.1) 11.9 mg/dL (8.5-10.1) Phosphorus Level 2.6 mg/dL (2.6-4.7) Total Bilirubin 0.5 mg/dL (0.2-1.0) Aspartate Amino Transf (AST/SGOT) 13 U/L (15-37) Alanine Aminotransferase (ALT/SGPT) 13 U/L (14-59) Alkaline Phosphatase 111 U/L (46-116) Total Protein 6.1 g/dL (6.4-8.2) Albumin 1.9 g/dL (3.4-5.0) Albumin/Globulin Ratio 0.5 (1.0-1.7) COURTNEY BURRELL MD Sep 16, 2016 14:01
--- NOTE | 2016-09-16 14:05 | PDOC ---
PROGRESS NOTES Subjective Subjective SEEN IN FOLLOW UP OF ARF Objective Objective Vital Signs Date Time Temp Pulse Resp B/P (MAP) Pulse Ox O2 Delivery O2 Flow Rate FiO2 09/16/16 12:02 14 Room Air 09/16/16 07:00 97.2 102 145/84 (104) 98 97.2 09/16/16 05:27 95.0 Intake and Output 09/16/16 07:00 Intake Total 503 ml Output Total 5600 ml Balance -5097 ml Intake Oral 300 ml IV Total 203 ml Output Urine Total 1950 ml Gastric Drainage Total 3650 ml # Voids 3 Physical Exam Abdomen: Normal bowel sounds, Soft, No tenderness, No hepatosplenomegaly, No masses, Other (NG) Heart: Regular rate, Normal S1, Normal S2, No murmurs, Gallops Extremities: Other (EDEMA) Lungs: Clear to auscultation, Normal air movement Diagnosis RENAL FAILURE: Acute, Other (DEHYDRATION) Plan Plan of Care ARF IS BETTER. CONT IVF Comment Review of Relevant I have reviewed the following items niki (where applicable) has been applied. Labs Laboratory Tests Test 09/15/16 06:15 09/16/16 05:05 09/16/16 11:30 White Blood Count 13.6 x10^3/uL (4.0-11.0) Red Blood Count 2.53 x10^6/uL (3.50-5.40) Hemoglobin 8.0 g/dL (12.0-15.5) Hematocrit 23.4 % (36.0-47.0) Mean Corpuscular Volume 93 fL (79-100) Mean Corpuscular Hemoglobin 32 pg (25-35) Mean Corpuscular Hemoglobin Concent 34 g/dL (31-37) Red Cell Distribution Width 20.1 % (11.5-14.5) Platelet Count 263 x10^3/uL (140-400) Neutrophils (%) (Auto) 89 % (31-73) Lymphocytes (%) (Auto) 4 % (24-48) Monocytes (%) (Auto) 7 % (0-9) Eosinophils (%) (Auto) 0 % (0-3) Basophils (%) (Auto) 0 % (0-3) Neutrophils # (Auto) 12.0 x10^3uL (1.8-7.7) Lymphocytes # (Auto) 0.6 x10^3/uL (1.0-4.8) Monocytes # (Auto) 0.9 x10^3/uL (0.0-1.1) Eosinophils # (Auto) 0.0 x10^3/uL (0.0-0.7) Basophils # (Auto) 0.0 x10^3/uL (0.0-0.2) Prothrombin Time 16.7 SEC (11.7-14.0) Prothromb Time International Ratio 1.4 (0.8-1.1) Sodium Level 133 mmol/L (136-145) 137 mmol/L (136-145) 137 mmol/L (136-145) Potassium Level 3.9 mmol/L (3.5-5.1) 3.7 mmol/L (3.5-5.1) 3.5 mmol/L (3.5-5.1) Chloride Level 91 mmol/L (98-107) 96 mmol/L (98-107) 98 mmol/L (98-107) Carbon Dioxide Level 40 mmol/L (21-32) 37 mmol/L (21-32) 37 mmol/L (21-32) Anion Gap 2 (6-14) 4 (6-14) 2 (6-14) Blood Urea Nitrogen 38 mg/dL (7-20) 34 mg/dL (7-20) 33 mg/dL (7-20) Creatinine 1.9 mg/dL (0.6-1.0) 1.6 mg/dL (0.6-1.0) 1.6 mg/dL (0.6-1.0) Estimated GFR (Cockcroft-Gault) 34.1 41.6 41.6 Glucose Level 105 mg/dL (70-99) 90 mg/dL (70-99) 89 mg/dL (70-99) Calcium Level 12.4 mg/dL (8.5-10.1) 11.7 mg/dL (8.5-10.1) 11.9 mg/dL (8.5-10.1) Total Bilirubin 0.6 mg/dL (0.2-1.0) 0.5 mg/dL (0.2-1.0) Direct Bilirubin 0.3 mg/dL (0.0-0.2) Aspartate Amino Transf (AST/SGOT) 16 U/L (15-37) 13 U/L (15-37) Alanine Aminotransferase (ALT/SGPT) 14 U/L (14-59) 13 U/L (14-59) Alkaline Phosphatase 104 U/L (46-116) 111 U/L (46-116) Total Protein 5.9 g/dL (6.4-8.2) 6.1 g/dL (6.4-8.2) Albumin 2.1 g/dL (3.4-5.0) 1.9 g/dL (3.4-5.0) BUN/Creatinine Ratio 21 (6-20) Phosphorus Level 2.6 mg/dL (2.6-4.7) Albumin/Globulin Ratio 0.5 (1.0-1.7) Laboratory Tests Test 09/16/16 05:05 09/16/16 11:30 Sodium Level 137 mmol/L (136-145) 137 mmol/L (136-145) Potassium Level 3.7 mmol/L (3.5-5.1) 3.5 mmol/L (3.5-5.1) Chloride Level 96 mmol/L (98-107) 98 mmol/L (98-107) Carbon Dioxide Level 37 mmol/L (21-32) 37 mmol/L (21-32) Anion Gap 4 (6-14) 2 (6-14) Blood Urea Nitrogen 34 mg/dL (7-20) 33 mg/dL (7-20) Creatinine 1.6 mg/dL (0.6-1.0) 1.6 mg/dL (0.6-1.0) Estimated GFR (Cockcroft-Gault) 41.6 41.6 BUN/Creatinine Ratio 21 (6-20) Glucose Level 90 mg/dL (70-99) 89 mg/dL (70-99) Calcium Level 11.7 mg/dL (8.5-10.1) 11.9 mg/dL (8.5-10.1) Phosphorus Level 2.6 mg/dL (2.6-4.7) Total Bilirubin 0.5 mg/dL (0.2-1.0) Aspartate Amino Transf (AST/SGOT) 13 U/L (15-37) Alanine Aminotransferase (ALT/SGPT) 13 U/L (14-59) Alkaline Phosphatase 111 U/L (46-116) Total Protein 6.1 g/dL (6.4-8.2) Albumin 1.9 g/dL (3.4-5.0) Albumin/Globulin Ratio 0.5 (1.0-1.7) Microbiology 09/15/16 Blood Culture - Preliminary, Resulted NO GROWTH AFTER 1 DAY Medications Current Medications Morphine Sulfate 2 mg PRN Q2HR PRN IV MODERATE PAIN Last administered on 19:08; Start 09/15/16 at 04:00 Morphine Sulfate 4 mg PRN Q2HR PRN IV SEVERE PAIN Last administered on 09:43; Start 09/15/16 at 04:00 Ondansetron HCl (Zofran) 4 mg PRN Q6HRS PRN IV NAUSEA/VOMITING Last administered on 09/16/16 05:33; Start 09/15/16 at 04:00 Amino Acids/ Glycerin/ Electrolytes 1,000 ml @ 80 mls/hr [id number] IV Last administered on 09/15/16 05:20; Start 09/15/16 at 04:00; Stop 09/15/16 at 07:02; Status DC Sodium Chloride 1,000 ml @ 125 mls/hr 1X ONCE IV Last administered on 08:14; Start 09/15/16 at 07:00; Stop 09/15/16 at 14:59; Status DC Cefepime HCl 1 gm/ Sodium Chloride 50 ml @ 100 mls/hr Q8HRS IV Last administered on 09/16/16 05:27; Start 09/15/16 at 09:00 Pamidronate Disodium 90 mg/ Sodium Chloride 250 ml @ 83.333 mls/ hr 1X ONCE IV ; Start 09/15/16 at 12:00; Stop 09/15/16 at 14:59; Status Cancel Pamidronate Disodium 90 mg/ Sodium Chloride 250 ml @ 83.333 mls/ hr 1X ONCE IV Last administered on 09/15/16 18:27; Start 09/15/16 at 16:00; Stop 09/15/16 at 18:59; Status DC Nicotine (Nicoderm Cq 21mg) 1 patch DAILY TD Last administered on 09/16/16 09: 41; Start 09/15/16 at 20:30 Sodium Chloride 1,000 ml @ 50 mls/hr Q20H IV Last administered on 09/16/16 00 :15; Start 09/16/16 at 00:15 Hydromorphone HCl (Dilaudid) 2 mg PRN Q2HR PRN IV PAIN SEVERE Last administered on 09/16/16 11:32; Start 09/16/16 at 11:30 Lorazepam (Ativan) 0.5 mg PRN Q6HRS PRN IV Anxiety Last administered on 11:33; Start 09/16/16 at 11:30 Lidocaine (Lidoderm) 1 patch DAILY TD Last administered on 09/16/16 11:33; Start 09/16/16 at 11:30 Pantoprazole Sodium (Protonix Vial) 40 mg DAILYAC IVP ; Start 09/16/16 at 14:30 Enoxaparin Sodium (Lovenox 40mg Syringe) 40 mg Q24H SQ ; Start 09/16/16 at 15:00 ; Status Cancel Heparin Sodium (Porcine) (Heparin Sq) 5,000 unit Q8HRS SQ ; Start 09/16/16 at 14 :00 Active Scripts Active Hydrocodone-Apap 7.5-325 (Hydrocodone Bit/Acetaminophen) 1 Each Tablet 1 Tab PO PRN Q6HRS PRN Protonix (Pantoprazole Sodium) 40 Mg Tablet. 1 Tab PO DAILY Reported Hydrocodone-Apap 10-325 (Hydrocodone Bit/Acetaminophen) 1 Each Tablet 1 Tab PO PRN Q4HRS PRN K-Tab ER (Potassium Chloride) 20 Meq Tablet.er 20 Meq PO DAILY Furosemide 40 Mg Tablet 40 Mg PO DAILY Ondansetron Hcl 8 Mg Tablet 8 Mg PO PRN Q8HRS PRN Lorazepam 0.5 Mg Tablet 1 Tab PO PRN Q6HRS PRN Prochlorperazine Maleate 10 Mg Tablet 10 Mg PO PRN Q6-8HRS PRN Magnesium Oxide 400 Mg Tablet 400 Mg PO TID Morphine Sulfate Er (Morphine Sulfate) 15 Mg Tablet.er 1 Tab PO BID Morphine Sulfate Er (Morphine Sulfate) 30 Mg Cap.er.pel 30 Mg PO Q12HR Morphine Sulfate 100 Mg/5 Ml Solution 10 Mg PO PRN Q2-4HRS PRN Eliquis (Apixaban) 2.5 Mg Tablet 2.5 Mg PO BIDAFTMEAL Losartan-Hctz 100-25 Mg Tab (Losartan/Hydrochlorothiazide) 1 Each Tablet 1 Tab PO DAILY Docusate Sodium 100 Mg Capsule 1 Cap PO DAILY Vitals/I & O Vital Sign - Last 24 Hours 09/15/16 09/15/16 09/15/16 09/15/16 14:47 18:26 19:08 19:59 Temp 98.3 97.4 98.3 97.4 Pulse 101 100 Resp 18 18 B/P (MAP) 124/68 (86) 142/71 (94) Pulse Ox 91 90 O2 Delivery Room Air Room Air Room Air Room Air 09/15/16 09/15/16 09/16/16 09/16/16 20:00 23:49 00:37 01:07 Temp 97.6 97.6 Pulse 100 Resp 18 B/P (MAP) 136/77 (96) Pulse Ox 91 91 91 O2 Delivery Room Air Room Air Room Air O2 Flow Rate 95.0 95.0 09/16/16 09/16/16 09/16/16 09/16/16 02:38 03:59 05:27 07:00 Temp 97.9 97.2 97.9 97.2 Pulse 105 102 Resp 18 22 B/P (MAP) 154/79 (104) 145/84 (104) Pulse Ox 91 92 91 98 O2 Delivery Room Air Room Air Room Air Room Air O2 Flow Rate 95.0 95.0 09/16/16 09/16/16 09/16/16 09/16/16 07:45 09:43 10:13 11:32 O2 Delivery Room Air Room Air Room Air Room Air 09/16/16 12:02 Resp 14 O2 Delivery Room Air Intake and Output 09/15/16 09/15/16 09/16/16 15:00 23:00 07:00 Intake Total 203 ml 0 ml 300 ml Output Total 2100 ml 2100 ml 1400 ml Balance -1897 ml -2100 ml -1100 ml LEYDI CLAIRE MD Sep 16, 2016 14:05
[2016-09-16] MEDS: PANTOPRAZOLE IV PUSH 40 MG VIAL. IVP SCH (14:53)
[2016-09-16] MEDS: HEPARIN PF for SUB-Q USE 5,000 UNIT/0.5 ML VIAL. SQ SCH ×2 (14:57→21:15)
[2016-09-16 15:00] VITALS: BP 150/83
[2016-09-16] MEDS ORDERED: ENOXAPARIN 40 MG/0.4 ML SYRINGE. SQ SCH (15:00)
[2016-09-16 21:30] VITALS: BP 139/80
[2016-09-17] VITALS (9 sets, daily range): BP systolic 138–159; BP diastolic 61–94
--- NOTE | 2016-09-17 00:51 | PN ---
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 The patient reported no specific complaint other than needing her home meds, Ativan, at this time. No apparent discomfort. No fever or sweats, and no constipation. She has not had confusion, although did not remember Dr. Salmeron seeing her yesterday. PHYSICAL EXAMINATION: GENERAL: Reveals a pleasant, alert 46-year-old female, resting in bed. VITAL SIGNS: Temperature 97.2, pulse 102, respiratory rate 18-22, blood pressure 145/84, saturating 98% on room air. HEENT: Oropharynx is clear. NECK: Supple. PULMONARY: Respiration is nonlabored. ABDOMEN: Soft. SKIN: Without apparent lesions. NEUROLOGIC: She is alert, oriented and appropriate. LABORATORY AND IMAGING DATA: Her laboratory studies show calcium level had improved from 12.4 yesterday to 11.7 this morning. Her creatinine also slightly improved from 1.9 yesterday to 1.6 today. Chest x-ray yesterday shows NG tube in place, mild right basilar linear atelectasis or scarring and possible left infrahilar nodule. KUB from yesterday shows nonspecific bowel gas pattern and NG tube present with tip in the gastric antrum. ASSESSMENT: 1. Metastatic squamous cell carcinoma of the skin. 2. Hypercalcemia, received pamidronate yesterday with improvement of calcium. 3. Obstructive uropathy, slight improvement of creatinine today also. PLAN: 1. Continue , calcium level will likely continue to decrease in the next few days and expect normalization in the next few days. 2. Recheck chemistry profile daily. NICOLAS ROJAS MD DR: SIOBHAN/derek JOB#: [id number] / [id number]
[2016-09-17] MEDS: HYDROmorphone 2 MG/ML VIAL IV PRN ×6 (04:09→21:40)
[2016-09-17 05:43] LABS: PTH INTACT 9 pg/mL (15-65)
[2016-09-17 05:53] LABS: BASO % 0 % (0-3); EOS % 0 % (0-3); LYMPH # 0.7 x10^3/uL (1.0-4.8); LYMPH % 2 % (24-48); MEAN CORPUSCULAR HEMOGLOBIN 32 pg (25-35); MEAN CORPUSCULAR HGB CONC 33 g/dL (31-37); MEAN CORPUSCULAR VOLUME 95 fL (79-100); MONO % 4 % (0-9); NEUT % 94 % (31-73); PLATELET COUNT 268 x10^3/uL (140-400); RED CELL DISTRIBUTION WIDTH 20.4 % (11.5-14.5); WHITE BLOOD COUNT 33.1 x10^3/uL (4.0-11.0)
[2016-09-17] MEDS: CEFEPIME HCL 1 GM in IV NORMAL SALINE 50ML 50 ML IV SCH (05:59)
[2016-09-17 06:05] LABS: HEMATOCRIT 20.8 % (36.0-47.0); HEMOGLOBIN 6.9 g/dL (12.0-15.5)
[2016-09-17] MEDS: HEPARIN PF for SUB-Q USE 5,000 UNIT/0.5 ML VIAL. SQ SCH ×3 (06:06→20:27)
[2016-09-17 06:25] LABS: ALBUMIN 1.9 g/dL (3.4-5.0); ALBUMIN/GLOBULIN RATIO 0.5 (1.0-1.7); CALCIUM 11.3 mg/dL (8.5-10.1); CREATININE 1.5 mg/dL (0.6-1.0); GFR 44.8; POTASSIUM 3.6 mmol/L (3.5-5.1); TOTAL BILIRUBIN 0.5 mg/dL (0.2-1.0); TOTAL PROTEIN 5.6 g/dL (6.4-8.2)
[2016-09-17 07:35] LABS: PLT ESTIMATE ADEQUATE (ADEQUATE)
[2016-09-17 07:37] LABS: ANISOCYTOSIS PRESENT; POLYCHROMASIA PRESENT
[2016-09-17] MEDS: PANTOPRAZOLE IV PUSH 40 MG VIAL. IVP SCH (07:48)
[2016-09-17] MEDS: LIDOCAINE (700MG/PATCH) PATCH. TD SCH (07:50)
[2016-09-17] MEDS: NICOTINE 21MG PATCH. TD SCH (07:50)
--- NOTE | 2016-09-17 09:57 | PDOC ---
JOSUE FIGUEROA [employer] 09/17/16 0957: SURGICAL PROGRESS NOTE Subjective pain unchanged no bowel function Vital Signs Vital Signs Date Time Temp Pulse Resp B/P (MAP) Pulse Ox O2 Delivery O2 Flow Rate FiO2 09/17/16 08:18 12 Room Air 09/17/16 07:00 100.0 114 148/79 (102) 91 100.0 09/17/16 04:09 95.0 I&O Intake and Output 09/17/16 07:00 Intake Total 1070 ml Output Total 2155 ml Balance -1085 ml Intake Oral 1020 ml IV Total 50 ml Output Urine Total 1000 ml Gastric Drainage Total 1155 ml # Voids 1 General: Alert, Oriented X3, Cooperative, No acute distress HEENT: Other (ng bilious ) Abdomen: Soft, Other (mild tenderness lower abdomen ) Labs Laboratory Tests Test 09/16/16 05:05 09/16/16 11:30 09/17/16 04:25 Sodium Level 137 mmol/L (136-145) 137 mmol/L (136-145) 140 mmol/L (136-145) Potassium Level 3.7 mmol/L (3.5-5.1) 3.5 mmol/L (3.5-5.1) 3.6 mmol/L (3.5-5.1) Chloride Level 96 mmol/L (98-107) 98 mmol/L (98-107) 101 mmol/L (98-107) Carbon Dioxide Level 37 mmol/L (21-32) 37 mmol/L (21-32) 34 mmol/L (21-32) Anion Gap 4 (6-14) 2 (6-14) 5 (6-14) Blood Urea Nitrogen 34 mg/dL (7-20) 33 mg/dL (7-20) 31 mg/dL (7-20) Creatinine 1.6 mg/dL (0.6-1.0) 1.6 mg/dL (0.6-1.0) 1.5 mg/dL (0.6-1.0) Estimated GFR (Non- 44 (>59) Estimated GFR (Cockcroft-Gault) 41.6 41.6 44.8 BUN/Creatinine Ratio 21 (6-20) 21 (6-20) Glucose Level 90 mg/dL (70-99) 89 mg/dL (70-99) 71 mg/dL (70-99) Calcium Level 11.7 mg/dL (8.5-10.1) 11.9 mg/dL (8.5-10.1) 11.3 mg/dL (8.5-10.1) Phosphorus Level 2.6 mg/dL (2.6-4.7) Total Bilirubin 0.5 mg/dL (0.2-1.0) 0.5 mg/dL (0.2-1.0) Aspartate Amino Transf (AST/SGOT) 13 U/L (15-37) 12 U/L (15-37) Alanine Aminotransferase (ALT/SGPT) 13 U/L (14-59) 11 U/L (14-59) Alkaline Phosphatase 111 U/L (46-116) 111 U/L (46-116) Total Protein 6.1 g/dL (6.4-8.2) 5.6 g/dL (6.4-8.2) Albumin 1.9 g/dL (3.4-5.0) 1.9 g/dL (3.4-5.0) Albumin/Globulin Ratio 0.5 (1.0-1.7) 0.5 (1.0-1.7) EGFR 51 (>59) PTH (Intact) Specimen Description Comment (.) Parathyroid Hormone (Intact) 9 pg/mL (15-65) Calcium (PTH Intact) 11.8 mg/dL (8.7-10.2) Creatinine (PTH Intact) 1.41 mg/dL (0.57-1.00) Phosphorus (PTH Intact) 2.6 mg/dL (2.5-4.5) White Blood Count 33.1 x10^3/uL (4.0-11.0) Red Blood Count 2.20 x10^6/uL (3.50-5.40) Hemoglobin 6.9 g/dL (12.0-15.5) Hematocrit 20.8 % (36.0-47.0) Mean Corpuscular Volume 95 fL (79-100) Mean Corpuscular Hemoglobin 32 pg (25-35) Mean Corpuscular Hemoglobin Concent 33 g/dL (31-37) Red Cell Distribution Width 20.4 % (11.5-14.5) Platelet Count 268 x10^3/uL (140-400) Neutrophils (%) (Auto) 94 % (31-73) Lymphocytes (%) (Auto) 2 % (24-48) Monocytes (%) (Auto) 4 % (0-9) Eosinophils (%) (Auto) 0 % (0-3) Basophils (%) (Auto) 0 % (0-3) Neutrophils # (Auto) 31.0 x10^3uL (1.8-7.7) Lymphocytes # (Auto) 0.7 x10^3/uL (1.0-4.8) Monocytes # (Auto) 1.3 x10^3/uL (0.0-1.1) Eosinophils # (Auto) 0.0 x10^3/uL (0.0-0.7) Basophils # (Auto) 0.0 x10^3/uL (0.0-0.2) Segmented Neutrophils % 77 % (35-66) Band Neutrophils % 14 % (0-9) Lymphocytes % 1 % (24-48) Monocytes % 3 % (0-10) Metamyelocytes % 2 % (0-0) Myelocytes % 3 % (0-0) Platelet Estimate Adequate (ADEQUATE) Polychromasia Present Anisocytosis Present Laboratory Tests Test 09/16/16 11:30 09/17/16 04:25 Sodium Level 137 mmol/L (136-145) 140 mmol/L (136-145) Potassium Level 3.5 mmol/L (3.5-5.1) 3.6 mmol/L (3.5-5.1) Chloride Level 98 mmol/L (98-107) 101 mmol/L (98-107) Carbon Dioxide Level 37 mmol/L (21-32) 34 mmol/L (21-32) Anion Gap 2 (6-14) 5 (6-14) Blood Urea Nitrogen 33 mg/dL (7-20) 31 mg/dL (7-20) Creatinine 1.6 mg/dL (0.6-1.0) 1.5 mg/dL (0.6-1.0) Estimated GFR (Cockcroft-Gault) 41.6 44.8 Glucose Level 89 mg/dL (70-99) 71 mg/dL (70-99) Calcium Level 11.9 mg/dL (8.5-10.1) 11.3 mg/dL (8.5-10.1) White Blood Count 33.1 x10^3/uL (4.0-11.0) Red Blood Count 2.20 x10^6/uL (3.50-5.40) Hemoglobin 6.9 g/dL (12.0-15.5) Hematocrit 20.8 % (36.0-47.0) Mean Corpuscular Volume 95 fL (79-100) Mean Corpuscular Hemoglobin 32 pg (25-35) Mean Corpuscular Hemoglobin Concent 33 g/dL (31-37) Red Cell Distribution Width 20.4 % (11.5-14.5) Platelet Count 268 x10^3/uL (140-400) Neutrophils (%) (Auto) 94 % (31-73) Lymphocytes (%) (Auto) 2 % (24-48) Monocytes (%) (Auto) 4 % (0-9) Eosinophils (%) (Auto) 0 % (0-3) Basophils (%) (Auto) 0 % (0-3) Neutrophils # (Auto) 31.0 x10^3uL (1.8-7.7) Lymphocytes # (Auto) 0.7 x10^3/uL (1.0-4.8) Monocytes # (Auto) 1.3 x10^3/uL (0.0-1.1) Eosinophils # (Auto) 0.0 x10^3/uL (0.0-0.7) Basophils # (Auto) 0.0 x10^3/uL (0.0-0.2) Segmented Neutrophils % 77 % (35-66) Band Neutrophils % 14 % (0-9) Lymphocytes % 1 % (24-48) Monocytes % 3 % (0-10) Metamyelocytes % 2 % (0-0) Myelocytes % 3 % (0-0) Platelet Estimate Adequate (ADEQUATE) Polychromasia Present Anisocytosis Present BUN/Creatinine Ratio 21 (6-20) Total Bilirubin 0.5 mg/dL (0.2-1.0) Aspartate Amino Transf (AST/SGOT) 12 U/L (15-37) Alanine Aminotransferase (ALT/SGPT) 11 U/L (14-59) Alkaline Phosphatase 111 U/L (46-116) Total Protein 5.6 g/dL (6.4-8.2) Albumin 1.9 g/dL (3.4-5.0) Albumin/Globulin Ratio 0.5 (1.0-1.7) Assessment/Plan squamous cell carcinoma sbo continue NG today films pending Problems: LINH BOUDREAUX MD 09/18/16 0713: SURGICAL PROGRESS NOTE Assessment/Plan Agree with above Problems: JOSUE FIGUEROA APRN Sep 17, 2016 09:57 LINH BOUDREAUX MD Sep 18, 2016 07:13
--- NOTE | 2016-09-17 10:01 | PDOC ---
Infectious Disease Note Subjective Subjective Low-grade fever 100.0 Refused abdominal x-ray per RN Recent Dilaudid and Ativan No BM NPO. ROS ROS Unobtainable Vital Sign Vital Signs Vital Signs Date Time Temp Pulse Resp B/P (MAP) Pulse Ox O2 Delivery O2 Flow Rate FiO2 09/17/16 08:18 12 Room Air 09/17/16 07:00 100.0 114 148/79 (102) 91 100.0 09/17/16 04:09 95.0 Physical Exam PHYSICAL EXAM GENERAL: in bed, NAD HEENT: NGT LUNGS: Clear HEART: S1S2, no gallop, no murmur ABD: BS hypoactive, soft, grimacing to palpation EXT: No gross edema, no cyanosis. Right foot bandaged. SUPERVISOR HARDBOARD: Lethargic SKIN: No rash Port-a-cath. clean Labs Lab Laboratory Tests Test 09/16/16 11:30 09/17/16 04:25 Sodium Level 137 mmol/L (136-145) 140 mmol/L (136-145) Potassium Level 3.5 mmol/L (3.5-5.1) 3.6 mmol/L (3.5-5.1) Chloride Level 98 mmol/L (98-107) 101 mmol/L (98-107) Carbon Dioxide Level 37 mmol/L (21-32) 34 mmol/L (21-32) Anion Gap 2 (6-14) 5 (6-14) Blood Urea Nitrogen 33 mg/dL (7-20) 31 mg/dL (7-20) Creatinine 1.6 mg/dL (0.6-1.0) 1.5 mg/dL (0.6-1.0) Estimated GFR (Cockcroft-Gault) 41.6 44.8 Glucose Level 89 mg/dL (70-99) 71 mg/dL (70-99) Calcium Level 11.9 mg/dL (8.5-10.1) 11.3 mg/dL (8.5-10.1) White Blood Count 33.1 x10^3/uL (4.0-11.0) Red Blood Count 2.20 x10^6/uL (3.50-5.40) Hemoglobin 6.9 g/dL (12.0-15.5) Hematocrit 20.8 % (36.0-47.0) Mean Corpuscular Volume 95 fL (79-100) Mean Corpuscular Hemoglobin 32 pg (25-35) Mean Corpuscular Hemoglobin Concent 33 g/dL (31-37) Red Cell Distribution Width 20.4 % (11.5-14.5) Platelet Count 268 x10^3/uL (140-400) Neutrophils (%) (Auto) 94 % (31-73) Lymphocytes (%) (Auto) 2 % (24-48) Monocytes (%) (Auto) 4 % (0-9) Eosinophils (%) (Auto) 0 % (0-3) Basophils (%) (Auto) 0 % (0-3) Neutrophils # (Auto) 31.0 x10^3uL (1.8-7.7) Lymphocytes # (Auto) 0.7 x10^3/uL (1.0-4.8) Monocytes # (Auto) 1.3 x10^3/uL (0.0-1.1) Eosinophils # (Auto) 0.0 x10^3/uL (0.0-0.7) Basophils # (Auto) 0.0 x10^3/uL (0.0-0.2) Segmented Neutrophils % 77 % (35-66) Band Neutrophils % 14 % (0-9) Lymphocytes % 1 % (24-48) Monocytes % 3 % (0-10) Metamyelocytes % 2 % (0-0) Myelocytes % 3 % (0-0) Platelet Estimate Adequate (ADEQUATE) Polychromasia Present Anisocytosis Present BUN/Creatinine Ratio 21 (6-20) Total Bilirubin 0.5 mg/dL (0.2-1.0) Aspartate Amino Transf (AST/SGOT) 12 U/L (15-37) Alanine Aminotransferase (ALT/SGPT) 11 U/L (14-59) Alkaline Phosphatase 111 U/L (46-116) Total Protein 5.6 g/dL (6.4-8.2) Albumin 1.9 g/dL (3.4-5.0) Albumin/Globulin Ratio 0.5 (1.0-1.7) Micro BLOOD CULTURE Preliminary NO GROWTH AFTER 2 DAY Objective Assessment Fever Leukocytosis worse Anemia Hgb 6.9 Bowel obstruction likely from metastasis Squamous cell ca , stage IV with mets Right foot non healing wound Hypercalcemia Ureteral obstruction Psoas mass and lung mass JUSTIN Plan Plan of Care D/c Cefepime. Begin Meropenem/Fluconazole Repeat CBC in am Await urology eval Poor prognosis Attending Co-Sign Attending Co-Sign The patient was seen and interviewed as well as examined at the bedside. The chart was reviewed. The case was discussed. Agree with the plan of care. SHELBI CAVAZOS APRN Sep 17, 2016 10:01 NANCY LOWERY MD Sep 17, 2016 11:25
[2016-09-17] MEDS: FLUCONAZOLE 200MG/100ML PREMIX 100 ML IV SCH (12:52)
[2016-09-17] MEDS: MEROPENEM 500 MG in IV NORMAL SALINE 50ML 50 ML IV SCH ×2 (14:01→18:16)
[2016-09-17] MEDS: IV NORMAL SALINE 1000ML BAG 1,000 ML IV SCH (17:04)
--- NOTE | 2016-09-17 21:30 | PDOC ---
PROGRESS NOTES Chief Complaint Chief Complaint SBO ASSESSMENT AND PLAN: 1. SBO: NPO with NGT in place. appreciate surgical team's help w/ management. 2. Metastatic squamous cell carcinoma stage 4: current CT with "abn heterogeneous soft tissue density involving the distal right psoas muscle and ileopsoas muscle... now encroaching on the right ureter causing obstructive uropathy of the right kidney." (CT in 08/2016 with "IMPRESSION: New nodule, highly suspect for metastatic disease, at the right lung base. Marked adenopathy in the right upper pelvis, adjacent to the psoas muscle and incorporating same..Marked adenopathy in the right pelvis and groin with an associated obstructive component". rapidly progressive dz. Dr Salmeron following. plans for O/P chemo (when and if improvement from current situation). poor prognosis. daughters want to discuss anticipated course, but are not available til Sunday. 3. Pain control: IV morphine or dilaudid PRN, lidocaine patch 4. Psoas abscess vs necrotic LAD: ID service following. on IV Abx as pe Dr Rodriguez 5. Hypercalcemia: malignant. pamidronate given. monitor 6. 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 JUSTIN: 2/2 above, with contributions potentially due to poor fluid status/ dehydration. monitor 8. Anemia: 2/2 malignancy. transfuse PRBC x1 9. Leukocytosis: reactive: SBO, malignancy...monitor 10. Prophylaxis: IV PPI, heparin History of Present Illness History of Present Illness sleeping soundly Vitals Vitals Vital Signs Date Time Temp Pulse Resp B/P (MAP) Pulse Ox O2 Delivery O2 Flow Rate FiO2 09/17/16 19:55 99.5 111 20 159/94 (115) 95 Room Air 99.5 09/17/16 04:09 95.0 Physical Exam General: No acute distress, Other (sleeping) Heart: Regular rate, Normal S1, Normal S2, No murmurs, Gallops Lungs: Clear Abdomen: Soft, Other (wincing with mild pal [place] on right) Extremities: Other (EDEMA) Skin: No rashes Labs LABS Laboratory Tests Test 09/17/16 04:25 White Blood Count 33.1 x10^3/uL (4.0-11.0) Red Blood Count 2.20 x10^6/uL (3.50-5.40) Hemoglobin 6.9 g/dL (12.0-15.5) Hematocrit 20.8 % (36.0-47.0) Mean Corpuscular Volume 95 fL (79-100) Mean Corpuscular Hemoglobin 32 pg (25-35) Mean Corpuscular Hemoglobin Concent 33 g/dL (31-37) Red Cell Distribution Width 20.4 % (11.5-14.5) Platelet Count 268 x10^3/uL (140-400) Neutrophils (%) (Auto) 94 % (31-73) Lymphocytes (%) (Auto) 2 % (24-48) Monocytes (%) (Auto) 4 % (0-9) Eosinophils (%) (Auto) 0 % (0-3) Basophils (%) (Auto) 0 % (0-3) Neutrophils # (Auto) 31.0 x10^3uL (1.8-7.7) Lymphocytes # (Auto) 0.7 x10^3/uL (1.0-4.8) Monocytes # (Auto) 1.3 x10^3/uL (0.0-1.1) Eosinophils # (Auto) 0.0 x10^3/uL (0.0-0.7) Basophils # (Auto) 0.0 x10^3/uL (0.0-0.2) Segmented Neutrophils % 77 % (35-66) Band Neutrophils % 14 % (0-9) Lymphocytes % 1 % (24-48) Monocytes % 3 % (0-10) Metamyelocytes % 2 % (0-0) Myelocytes % 3 % (0-0) Platelet Estimate Adequate (ADEQUATE) Polychromasia Present Anisocytosis Present Sodium Level 140 mmol/L (136-145) Potassium Level 3.6 mmol/L (3.5-5.1) Chloride Level 101 mmol/L (98-107) Carbon Dioxide Level 34 mmol/L (21-32) Anion Gap 5 (6-14) Blood Urea Nitrogen 31 mg/dL (7-20) Creatinine 1.5 mg/dL (0.6-1.0) Estimated GFR (Cockcroft-Gault) 44.8 BUN/Creatinine Ratio 21 (6-20) Glucose Level 71 mg/dL (70-99) Calcium Level 11.3 mg/dL (8.5-10.1) Total Bilirubin 0.5 mg/dL (0.2-1.0) Aspartate Amino Transf (AST/SGOT) 12 U/L (15-37) Alanine Aminotransferase (ALT/SGPT) 11 U/L (14-59) Alkaline Phosphatase 111 U/L (46-116) Total Protein 5.6 g/dL (6.4-8.2) Albumin 1.9 g/dL (3.4-5.0) Albumin/Globulin Ratio 0.5 (1.0-1.7) COURTNEY BURRELL MD Sep 17, 2016 21:29
[2016-09-17] MEDS: ONDANSETRON PF 4 MG/2 ML VIAL. IV PRN (21:42)
--- NOTE | 2016-09-17 23:53 | PDOC ---
Provider Note Provider Note RENAL F/U : STEPHEN S : No new issues. VSS Alert. No distress. Lungs : Non labored. CVS : RRR ABD : Benign looking. Frail. Labs reviewed. Cr better Hb low stable. Transfuse per primary svc. IVF Labs I/Os Supportive care. Calcium improved with hydration. DONALD MITCHELL MD Sep 17, 2016 23:53
[2016-09-18] VITALS (9 sets, daily range): BP systolic 151–160; BP diastolic 87–93
--- NOTE | 2016-09-18 00:07 | PN ---
DATE: 09/17/2016 Follow up squamous cell carcinoma of the skin, stage IV and hypercalcemia. SUBJECTIVE: The patient was sleepy this morning, awake to voice. She indicated no new symptoms this morning. PHYSICAL EXAMINATION: VITAL SIGNS: T-max 100.0, current temperature 98.1, pulse 110, respiratory rate 20, blood pressure 150/74, satting 91% on room air. LUNGS: Respirations nonlabored. ABDOMEN: Soft. EXTREMITIES: No calf tenderness. LABORATORY DATA: Update to laboratory, this morning shows creatinine to improve slightly to 1.5, and calcium level continues to improve now 11.3. ASSESSMENT: 1. Stage IV squamous cell carcinoma of the skin. 2. Hypercalcemia, pamidronate given on Sunday. PLAN: Continue the same. Follow up CMP in the morning. . ____ to return tomorrow as well. NICOLAS ROJAS MD DR: SIOBHAN/derek JOB#: [id number] / [id number]
[2016-09-18] MEDS: HEPARIN PF for SUB-Q USE 5,000 UNIT/0.5 ML VIAL. SQ SCH ×3 (00:14→22:32)
[2016-09-18] MEDS: MEROPENEM 500 MG in IV NORMAL SALINE 50ML 50 ML IV SCH ×4 (00:37→20:16)
[2016-09-18] MEDS: HYDROmorphone 2 MG/ML VIAL IV PRN ×3 (00:38→17:48)
[2016-09-18 06:50] LABS: BASO % 0 % (0-3); EOS % 0 % (0-3); HEMATOCRIT 28.9 % (36.0-47.0); HEMOGLOBIN 9.4 g/dL (12.0-15.5); LYMPH # 0.6 x10^3/uL (1.0-4.8); LYMPH % 2 % (24-48); MEAN CORPUSCULAR HEMOGLOBIN 30 pg (25-35); MEAN CORPUSCULAR HGB CONC 33 g/dL (31-37); MEAN CORPUSCULAR VOLUME 93 fL (79-100); MONO % 3 % (0-9); NEUT % 95 % (31-73); PLATELET COUNT 231 x10^3/uL (140-400); RED BLOOD COUNT 3.12 x10^6/uL (3.50-5.40); RED CELL DISTRIBUTION WIDTH 19.5 % (11.5-14.5); WHITE BLOOD COUNT 32.7 x10^3/uL (4.0-11.0)
[2016-09-18 07:15] LABS: ALBUMIN 1.8 g/dL (3.4-5.0); ALBUMIN/GLOBULIN RATIO 0.4 (1.0-1.7); CALCIUM 11.6 mg/dL (8.5-10.1); CREATININE 1.5 mg/dL (0.6-1.0); GFR 44.8; POTASSIUM 3.3 mmol/L (3.5-5.1); TOTAL PROTEIN 6.2 g/dL (6.4-8.2)
--- NOTE | 2016-09-18 08:52 | RAD ---
EXAM: 1. Chest one view. 2. Abdomen one view. HISTORY: Small bowel obstruction. COMPARISON: 09/15/2016. FINDINGS: A right-sided port catheter has its tip in the superior cavoatrial junction. A nasogastric tube has its tip in the distal stomach. A nodule projecting along the left inferior hilum is less well seen. Mild opacities elsewhere in the bases suggest atelectasis and are increased. There may be a small right pleural effusion. There is no pneumothorax. The heart is not enlarged. The pelvis is not included. There are mildly prominent small bowel loops in the left abdomen. Is not entirely included, but no clear colonic gas is seen. IMPRESSION: 1. Left infrahilar nodule less well visualized. CT could further evaluate if the diagnosis is not already known. 2. Increased basilar atelectasis. Possible small right pleural effusion. 3. The pelvis is not visualized. Prominent small bowel loops in the left abdomen are mildly increased.
--- NOTE | 2016-09-18 08:55 | PDOC ---
PROGRESS NOTES Chief Complaint Chief Complaint SBO 1. SBO: NPO with NGT in place. 2. Metastatic squamous cell carcinoma stage 3. Pain control: IV morphine or dilaudid PRN, lidocaine patch 4. Psoas abscess vs necrotic LAD: ID service following. on IV Abx as pe Dr Rodriguez 5. Hypercalcemia: malignant. pamidronate given. monitor 6. 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 JUSTIN: 2/2 above, with contributions potentially due to poor fluid status/ dehydration. monitor 8. Anemia: 2/2 malignancy. transfuse PRBC x1 9. Leukocytosis: reactive: SBO, malignancy...monitor 10. Prophylaxis: IV PPI, heparin History of Present Illness History of Present Illness in pain, talkative confused at first, then had conversation with DR. gill will consider hospice plan discuss with family Vitals Vitals Vital Signs Date Time Temp Pulse Resp B/P (MAP) Pulse Ox O2 Delivery O2 Flow Rate FiO2 09/18/16 07:00 98.3 98 20 151/87 (108) 95 Room Air 98.3 Physical Exam General: No acute distress, Other Heart: Regular rate, Normal S1, Normal S2, No murmurs, Gallops Lungs: Clear Abdomen: Soft, Other Extremities: Other (EDEMA) Skin: No rashes Labs LABS Laboratory Tests Test 09/18/16 06:15 White Blood Count 32.7 x10^3/uL (4.0-11.0) Red Blood Count 3.12 x10^6/uL (3.50-5.40) Hemoglobin 9.4 g/dL (12.0-15.5) Hematocrit 28.9 % (36.0-47.0) Mean Corpuscular Volume 93 fL (79-100) Mean Corpuscular Hemoglobin 30 pg (25-35) Mean Corpuscular Hemoglobin Concent 33 g/dL (31-37) Red Cell Distribution Width 19.5 % (11.5-14.5) Platelet Count 231 x10^3/uL (140-400) Neutrophils (%) (Auto) 95 % (31-73) Lymphocytes (%) (Auto) 2 % (24-48) Monocytes (%) (Auto) 3 % (0-9) Eosinophils (%) (Auto) 0 % (0-3) Basophils (%) (Auto) 0 % (0-3) Neutrophils # (Auto) 31.0 x10^3uL (1.8-7.7) Lymphocytes # (Auto) 0.6 x10^3/uL (1.0-4.8) Monocytes # (Auto) 1.1 x10^3/uL (0.0-1.1) Eosinophils # (Auto) 0.0 x10^3/uL (0.0-0.7) Basophils # (Auto) 0.0 x10^3/uL (0.0-0.2) Sodium Level 141 mmol/L (136-145) Potassium Level 3.3 mmol/L (3.5-5.1) Chloride Level 104 mmol/L (98-107) Carbon Dioxide Level 30 mmol/L (21-32) Anion Gap 7 (6-14) Blood Urea Nitrogen 28 mg/dL (7-20) Creatinine 1.5 mg/dL (0.6-1.0) Estimated GFR (Cockcroft-Gault) 44.8 BUN/Creatinine Ratio 19 (6-20) Glucose Level 97 mg/dL (70-99) Calcium Level 11.6 mg/dL (8.5-10.1) Total Bilirubin 1.0 mg/dL (0.2-1.0) Aspartate Amino Transf (AST/SGOT) 13 U/L (15-37) Alanine Aminotransferase (ALT/SGPT) 11 U/L (14-59) Alkaline Phosphatase 125 U/L (46-116) Total Protein 6.2 g/dL (6.4-8.2) Albumin 1.8 g/dL (3.4-5.0) Albumin/Globulin Ratio 0.4 (1.0-1.7) Comment Review of Relevant I have reviewed the following items niki (where applicable) has been applied. Labs Laboratory Tests Test 09/16/16 11:30 09/17/16 04:25 09/18/16 06:15 Sodium Level 137 mmol/L (136-145) 140 mmol/L (136-145) 141 mmol/L (136-145) Potassium Level 3.5 mmol/L (3.5-5.1) 3.6 mmol/L (3.5-5.1) 3.3 mmol/L (3.5-5.1) Chloride Level 98 mmol/L (98-107) 101 mmol/L (98-107) 104 mmol/L (98-107) Carbon Dioxide Level 37 mmol/L (21-32) 34 mmol/L (21-32) 30 mmol/L (21-32) Anion Gap 2 (6-14) 5 (6-14) 7 (6-14) Blood Urea Nitrogen 33 mg/dL (7-20) 31 mg/dL (7-20) 28 mg/dL (7-20) Creatinine 1.6 mg/dL (0.6-1.0) 1.5 mg/dL (0.6-1.0) 1.5 mg/dL (0.6-1.0) Estimated GFR (Cockcroft-Gault) 41.6 44.8 44.8 Glucose Level 89 mg/dL (70-99) 71 mg/dL (70-99) 97 mg/dL (70-99) Calcium Level 11.9 mg/dL (8.5-10.1) 11.3 mg/dL (8.5-10.1) 11.6 mg/dL (8.5-10.1) White Blood Count 33.1 x10^3/uL (4.0-11.0) 32.7 x10^3/uL (4.0-11.0) Red Blood Count 2.20 x10^6/uL (3.50-5.40) 3.12 x10^6/uL (3.50-5.40) Hemoglobin 6.9 g/dL (12.0-15.5) 9.4 g/dL (12.0-15.5) Hematocrit 20.8 % (36.0-47.0) 28.9 % (36.0-47.0) Mean Corpuscular Volume 95 fL (79-100) 93 fL (79-100) Mean Corpuscular Hemoglobin 32 pg (25-35) 30 pg (25-35) Mean Corpuscular Hemoglobin Concent 33 g/dL (31-37) 33 g/dL (31-37) Red Cell Distribution Width 20.4 % (11.5-14.5) 19.5 % (11.5-14.5) Platelet Count 268 x10^3/uL (140-400) 231 x10^3/uL (140-400) Neutrophils (%) (Auto) 94 % (31-73) 95 % (31-73) Lymphocytes (%) (Auto) 2 % (24-48) 2 % (24-48) Monocytes (%) (Auto) 4 % (0-9) 3 % (0-9) Eosinophils (%) (Auto) 0 % (0-3) 0 % (0-3) Basophils (%) (Auto) 0 % (0-3) 0 % (0-3) Neutrophils # (Auto) 31.0 x10^3uL (1.8-7.7) 31.0 x10^3uL (1.8-7.7) Lymphocytes # (Auto) 0.7 x10^3/uL (1.0-4.8) 0.6 x10^3/uL (1.0-4.8) Monocytes # (Auto) 1.3 x10^3/uL (0.0-1.1) 1.1 x10^3/uL (0.0-1.1) Eosinophils # (Auto) 0.0 x10^3/uL (0.0-0.7) 0.0 x10^3/uL (0.0-0.7) Basophils # (Auto) 0.0 x10^3/uL (0.0-0.2) 0.0 x10^3/uL (0.0-0.2) Segmented Neutrophils % 77 % (35-66) Band Neutrophils % 14 % (0-9) Lymphocytes % 1 % (24-48) Monocytes % 3 % (0-10) Metamyelocytes % 2 % (0-0) Myelocytes % 3 % (0-0) Platelet Estimate Adequate (ADEQUATE) Polychromasia Present Anisocytosis Present BUN/Creatinine Ratio 21 (6-20) 19 (6-20) Total Bilirubin 0.5 mg/dL (0.2-1.0) 1.0 mg/dL (0.2-1.0) Aspartate Amino Transf (AST/SGOT) 12 U/L (15-37) 13 U/L (15-37) Alanine Aminotransferase (ALT/SGPT) 11 U/L (14-59) 11 U/L (14-59) Alkaline Phosphatase 111 U/L (46-116) 125 U/L (46-116) Total Protein 5.6 g/dL (6.4-8.2) 6.2 g/dL (6.4-8.2) Albumin 1.9 g/dL (3.4-5.0) 1.8 g/dL (3.4-5.0) Albumin/Globulin Ratio 0.5 (1.0-1.7) 0.4 (1.0-1.7) Laboratory Tests Test 09/18/16 06:15 White Blood Count 32.7 x10^3/uL (4.0-11.0) Red Blood Count 3.12 x10^6/uL (3.50-5.40) Hemoglobin 9.4 g/dL (12.0-15.5) Hematocrit 28.9 % (36.0-47.0) Mean Corpuscular Volume 93 fL (79-100) Mean Corpuscular Hemoglobin 30 pg (25-35) Mean Corpuscular Hemoglobin Concent 33 g/dL (31-37) Red Cell Distribution Width 19.5 % (11.5-14.5) Platelet Count 231 x10^3/uL (140-400) Neutrophils (%) (Auto) 95 % (31-73) Lymphocytes (%) (Auto) 2 % (24-48) Monocytes (%) (Auto) 3 % (0-9) Eosinophils (%) (Auto) 0 % (0-3) Basophils (%) (Auto) 0 % (0-3) Neutrophils # (Auto) 31.0 x10^3uL (1.8-7.7) Lymphocytes # (Auto) 0.6 x10^3/uL (1.0-4.8) Monocytes # (Auto) 1.1 x10^3/uL (0.0-1.1) Eosinophils # (Auto) 0.0 x10^3/uL (0.0-0.7) Basophils # (Auto) 0.0 x10^3/uL (0.0-0.2) Sodium Level 141 mmol/L (136-145) Potassium Level 3.3 mmol/L (3.5-5.1) Chloride Level 104 mmol/L (98-107) Carbon Dioxide Level 30 mmol/L (21-32) Anion Gap 7 (6-14) Blood Urea Nitrogen 28 mg/dL (7-20) Creatinine 1.5 mg/dL (0.6-1.0) Estimated GFR (Cockcroft-Gault) 44.8 BUN/Creatinine Ratio 19 (6-20) Glucose Level 97 mg/dL (70-99) Calcium Level 11.6 mg/dL (8.5-10.1) Total Bilirubin 1.0 mg/dL (0.2-1.0) Aspartate Amino Transf (AST/SGOT) 13 U/L (15-37) Alanine Aminotransferase (ALT/SGPT) 11 U/L (14-59) Alkaline Phosphatase 125 U/L (46-116) Total Protein 6.2 g/dL (6.4-8.2) Albumin 1.8 g/dL (3.4-5.0) Albumin/Globulin Ratio 0.4 (1.0-1.7) Microbiology 09/15/16 Blood Culture - Preliminary, Resulted NO GROWTH AFTER 2 DAYS Medications Current Medications Morphine Sulfate 2 mg PRN Q2HR PRN IV MODERATE PAIN Last administered on 19:08; Start 09/15/16 at 04:00 Morphine Sulfate 4 mg PRN Q2HR PRN IV SEVERE PAIN Last administered on 09:43; Start 09/15/16 at 04:00 Ondansetron HCl (Zofran) 4 mg PRN Q6HRS PRN IV NAUSEA/VOMITING Last administered on 09/17/16 21:42; Start 09/15/16 at 04:00 Amino Acids/ Glycerin/ Electrolytes 1,000 ml @ 80 mls/hr [id number] IV Last administered on 09/15/16 05:20; Start 09/15/16 at 04:00; Stop 09/15/16 at 07:02; Status DC Sodium Chloride 1,000 ml @ 125 mls/hr 1X ONCE IV Last administered on 08:14; Start 09/15/16 at 07:00; Stop 09/15/16 at 14:59; Status DC Cefepime HCl 1 gm/ Sodium Chloride 50 ml @ 100 mls/hr Q8HRS IV Last administered on 09/17/16 05:59; Start 09/15/16 at 09:00; Stop 09/17/16 at 11:25 ; Status DC Pamidronate Disodium 90 mg/ Sodium Chloride 250 ml @ 83.333 mls/ hr 1X ONCE IV ; Start 09/15/16 at 12:00; Stop 09/15/16 at 14:59; Status Cancel Pamidronate Disodium 90 mg/ Sodium Chloride 250 ml @ 83.333 mls/ hr 1X ONCE IV Last administered on 09/15/16 18:27; Start 09/15/16 at 16:00; Stop 09/15/16 at 18:59; Status DC Nicotine (Nicoderm Cq 21mg) 1 patch DAILY TD Last administered on 09/17/16 07: 50; Start 09/15/16 at 20:30 Sodium Chloride 1,000 ml @ 50 mls/hr Q20H IV Last administered on 09/17/16 17 :04; Start 09/16/16 at 00:15 Hydromorphone HCl (Dilaudid) 2 mg PRN Q2HR PRN IV PAIN SEVERE Last administered on 09/18/16 00:38; Start 09/16/16 at 11:30 Lorazepam (Ativan) 0.5 mg PRN Q6HRS PRN IV Anxiety Last administered on 03:45; Start 09/16/16 at 11:30 Lidocaine (Lidoderm) 1 patch DAILY TD Last administered on 09/17/16 07:50; Start 09/16/16 at 11:30 Pantoprazole Sodium (Protonix Vial) 40 mg DAILYAC IVP Last administered on 09/17 07:48; Start 09/16/16 at 14:30 Enoxaparin Sodium (Lovenox 40mg Syringe) 40 mg Q24H SQ ; Start 09/16/16 at 15:00 ; Status Cancel Heparin Sodium (Porcine) (Heparin Sq) 5,000 unit Q8HRS SQ Last administered on 09/17/16 06:06; Start 09/16/16 at 14:00 Meropenem 500 mg/ Sodium Chloride 50 ml @ 100 mls/hr Q6HRS IV Last administered on 09/18/16 05:59; Start 09/17/16 at 12:00 Fluconazole/ Sodium Chloride 100 ml @ 100 mls/hr Q24H IV Last administered on 09/17/16t 12:52; Start 09/17/16 at 11:30 Active Scripts Active Hydrocodone-Apap 7.5-325 (Hydrocodone Bit/Acetaminophen) 1 Each Tablet 1 Tab PO PRN Q6HRS PRN Protonix (Pantoprazole Sodium) 40 Mg Tablet. 1 Tab PO DAILY Reported Hydrocodone-Apap 10-325 (Hydrocodone Bit/Acetaminophen) 1 Each Tablet 1 Tab PO PRN Q4HRS PRN K-Tab ER (Potassium Chloride) 20 Meq Tablet.er 20 Meq PO DAILY Furosemide 40 Mg Tablet 40 Mg PO DAILY Ondansetron Hcl 8 Mg Tablet 8 Mg PO PRN Q8HRS PRN Lorazepam 0.5 Mg Tablet 1 Tab PO PRN Q6HRS PRN Prochlorperazine Maleate 10 Mg Tablet 10 Mg PO PRN Q6-8HRS PRN Magnesium Oxide 400 Mg Tablet 400 Mg PO TID Morphine Sulfate Er (Morphine Sulfate) 15 Mg Tablet.er 1 Tab PO BID Morphine Sulfate Er (Morphine Sulfate) 30 Mg Cap.er.pel 30 Mg PO Q12HR Morphine Sulfate 100 Mg/5 Ml Solution 10 Mg PO PRN Q2-4HRS PRN Eliquis (Apixaban) 2.5 Mg Tablet 2.5 Mg PO BIDAFTMEAL Losartan-Hctz 100-25 Mg Tab (Losartan/Hydrochlorothiazide) 1 Each Tablet 1 Tab PO DAILY Docusate Sodium 100 Mg Capsule 1 Cap PO DAILY Vitals/I & O Vital Sign - Last 24 Hours 09/17/16 09/17/16 09/17/16 09/17/16 10:35 11:02 12:49 15:08 Temp 98.1 98.7 98.1 98.7 Pulse 110 115 Resp 20 16 20 B/P (MAP) 150/74 (99) 138/81 (100) Pulse Ox 91 92 O2 Delivery Room Air Room Air Room Air Room Air 09/17/16 09/17/16 09/17/16 09/17/16 15:14 19:55 20:16 21:35 Temp 99.5 98.9 99.5 98.9 Pulse 111 110 Resp 20 18 B/P (MAP) 159/94 (115) 143/85 Pulse Ox 95 O2 Delivery Room Air Room Air Room Air 09/17/16 09/17/16 09/17/16/11/17 21:40 22:33 23:17 23:36 Temp 98.7 98.6 98.6 98.7 98.6 98.6 Pulse 109 106 107 Resp B/P (MAP) 154/88 145/90 (108) 155/89 Pulse Ox 95 100 O2 Delivery Room Air Room Air 09/18/16 09/18/16 09/18/16 09/18/16 00:38 01:14 01:47 02:05 Temp 98.1 99.0 98.1 99.0 Pulse 105 103 Resp 18 18 18 B/P (MAP) 155/89 155/90 Pulse Ox 95 95 O2 Delivery Room Air Room Air 09/18/16 09/18/16 09/18/16 09/18/16 03:00 03:05 04:04 04:10 Temp 98.9 99.2 98.9 99.2 Pulse 101 99 Resp B/P (MAP) 159/93 157/91 O2 Delivery Room Air Room Air 09/18/16 07:00 Temp 98.3 98.3 Pulse 98 Resp 20 B/P (MAP) 151/87 (108) Pulse Ox 95 O2 Delivery Room Air Intake and Output 09/17/16 09/17/16 09/18/16 14:59 22:59 06:59 Intake Total 420 ml 1700 ml Output Total 445 ml Balance -445 ml 420 ml 1700 ml ANGE MARTINEZ MD Sep 18, 2016 08:55
--- NOTE | 2016-09-18 09:59 | PDOC ---
Infectious Disease Note Subjective Subjective Alert but very confused. Wants water ROS ROS GEN: Denies fevers, chills, sweats HEENT: Denies blurred vision, sore throat CV: Denies chest pain RESP: Denies shortness of air, cough GI: Denies n/v/d. Some abd pain NEURO: Denies confusion, dizziness MSK: Denies weakness, joint pain/swelling. Does have generalized pain Vital Sign Vital Signs Vital Signs Date Time Temp Pulse Resp B/P (MAP) Pulse Ox O2 Delivery O2 Flow Rate FiO2 09/18/16 07:00 98.3 98 20 151/87 (108) 95 Room Air 98.3 Physical Exam PHYSICAL EXAM GENERAL: NAD, Alert, confused HEENT: PERRL, OC/OP - clear NECK: Supple, no JVD, no LN LUNGS: Clear HEART: S1S2, no gallop, no murmur ABD: Soft, NT, no organomegaly, no rebound, NGT out. Tender but no guard, obese EXT: 1 plus edema, no cyanosis. Foot dressed MATERIALS SCIENTIST: Alert, oriented to person but not place, no focal neurologic deficit SKIN: No rash IV: Port a cath - non tender Labs Lab Laboratory Tests Test 09/18/16 06:15 White Blood Count 32.7 x10^3/uL (4.0-11.0) Red Blood Count 3.12 x10^6/uL (3.50-5.40) Hemoglobin 9.4 g/dL (12.0-15.5) Hematocrit 28.9 % (36.0-47.0) Mean Corpuscular Volume 93 fL (79-100) Mean Corpuscular Hemoglobin 30 pg (25-35) Mean Corpuscular Hemoglobin Concent 33 g/dL (31-37) Red Cell Distribution Width 19.5 % (11.5-14.5) Platelet Count 231 x10^3/uL (140-400) Neutrophils (%) (Auto) 95 % (31-73) Lymphocytes (%) (Auto) 2 % (24-48) Monocytes (%) (Auto) 3 % (0-9) Eosinophils (%) (Auto) 0 % (0-3) Basophils (%) (Auto) 0 % (0-3) Neutrophils # (Auto) 31.0 x10^3uL (1.8-7.7) Lymphocytes # (Auto) 0.6 x10^3/uL (1.0-4.8) Monocytes # (Auto) 1.1 x10^3/uL (0.0-1.1) Eosinophils # (Auto) 0.0 x10^3/uL (0.0-0.7) Basophils # (Auto) 0.0 x10^3/uL (0.0-0.2) Sodium Level 141 mmol/L (136-145) Potassium Level 3.3 mmol/L (3.5-5.1) Chloride Level 104 mmol/L (98-107) Carbon Dioxide Level 30 mmol/L (21-32) Anion Gap 7 (6-14) Blood Urea Nitrogen 28 mg/dL (7-20) Creatinine 1.5 mg/dL (0.6-1.0) Estimated GFR (Cockcroft-Gault) 44.8 BUN/Creatinine Ratio 19 (6-20) Glucose Level 97 mg/dL (70-99) Calcium Level 11.6 mg/dL (8.5-10.1) Total Bilirubin 1.0 mg/dL (0.2-1.0) Aspartate Amino Transf (AST/SGOT) 13 U/L (15-37) Alanine Aminotransferase (ALT/SGPT) 11 U/L (14-59) Alkaline Phosphatase 125 U/L (46-116) Total Protein 6.2 g/dL (6.4-8.2) Albumin 1.8 g/dL (3.4-5.0) Albumin/Globulin Ratio 0.4 (1.0-1.7) Objective Assessment Fever - better Leukocytosis stable Anemia Hgb 6.9 - S/p PRBCs Bowel obstruction likely from metastasis Squamous cell ca , stage IV with mets Right foot non healing wound Hypercalcemia Ureteral obstruction Psoas mass and lung mass JUSTIN - stable Plan Plan of Care Cont Meropenem/Fluconazole F/u labs Await urology eval Poor prognosis NANCY LOWERY MD Sep 18, 2016 09:59
--- NOTE | 2016-09-18 11:25 | PDOC ---
Renal-Progress Notes Subjective Notes Notes NONE History of Present Illness Hx of present illness STABLE Vitals Vitals Vital Signs Date Time Temp Pulse Resp B/P (MAP) Pulse Ox O2 Delivery O2 Flow Rate FiO2 09/18/16 07:00 98.3 98 20 151/87 (108) 95 Room Air 98.3 Weight Weight [ ] I.O. Intake and Output Intake and Output 09/18/16 07:00 Intake Total 2120 ml Output Total 445 ml Balance 1675 ml Intake Oral 320 ml IV Total 600 ml Blood Product IV Normal Saline Flush 1200 ml Gastric Drainage Total 445 ml # Voids 1 Labs Labs Laboratory Tests Test 09/18/16 06:15 White Blood Count 32.7 x10^3/uL (4.0-11.0) Red Blood Count 3.12 x10^6/uL (3.50-5.40) Hemoglobin 9.4 g/dL (12.0-15.5) Hematocrit 28.9 % (36.0-47.0) Mean Corpuscular Volume 93 fL (79-100) Mean Corpuscular Hemoglobin 30 pg (25-35) Mean Corpuscular Hemoglobin Concent 33 g/dL (31-37) Red Cell Distribution Width 19.5 % (11.5-14.5) Platelet Count 231 x10^3/uL (140-400) Neutrophils (%) (Auto) 95 % (31-73) Lymphocytes (%) (Auto) 2 % (24-48) Monocytes (%) (Auto) 3 % (0-9) Eosinophils (%) (Auto) 0 % (0-3) Basophils (%) (Auto) 0 % (0-3) Neutrophils # (Auto) 31.0 x10^3uL (1.8-7.7) Lymphocytes # (Auto) 0.6 x10^3/uL (1.0-4.8) Monocytes # (Auto) 1.1 x10^3/uL (0.0-1.1) Eosinophils # (Auto) 0.0 x10^3/uL (0.0-0.7) Basophils # (Auto) 0.0 x10^3/uL (0.0-0.2) Sodium Level 141 mmol/L (136-145) Potassium Level 3.3 mmol/L (3.5-5.1) Chloride Level 104 mmol/L (98-107) Carbon Dioxide Level 30 mmol/L (21-32) Anion Gap 7 (6-14) Blood Urea Nitrogen 28 mg/dL (7-20) Creatinine 1.5 mg/dL (0.6-1.0) Estimated GFR (Cockcroft-Gault) 44.8 BUN/Creatinine Ratio 19 (6-20) Glucose Level 97 mg/dL (70-99) Calcium Level 11.6 mg/dL (8.5-10.1) Total Bilirubin 1.0 mg/dL (0.2-1.0) Aspartate Amino Transf (AST/SGOT) 13 U/L (15-37) Alanine Aminotransferase (ALT/SGPT) 11 U/L (14-59) Alkaline Phosphatase 125 U/L (46-116) Total Protein 6.2 g/dL (6.4-8.2) Albumin 1.8 g/dL (3.4-5.0) Albumin/Globulin Ratio 0.4 (1.0-1.7) Micro Micro Microbiology 09/15/16 Blood Culture - Preliminary, Resulted NO GROWTH AFTER 3 DAYS Review of Systems Constitutional: yes: no symptom reported, weakness Physical Exam General Appearance: no apparent distress Skin: warm Respiratory: decreased breath sounds Heart: S1S2, RRR Abdomen: soft, bowel sounds present Genitourinary: bladder flat Extremities: atrophy Neurology: alert Musculoskeletal: Other Assessment Assessment IMP JUSTIN BETTER WITH CR 1.9 TO 1.5 SBO DEHYDRATION MET SCCA OF THE RIGHT LE ANEMIA - BETTER PLAN CONT WITH PPN LABS IN BRYAN ANDREA MD Sep 18, 2016 11:25
[2016-09-18] MEDS: PANTOPRAZOLE IV PUSH 40 MG VIAL. IVP SCH (11:55)
[2016-09-18] MEDS: NICOTINE 21MG PATCH. TD SCH (11:56)
[2016-09-18] MEDS: LIDOCAINE (700MG/PATCH) PATCH. TD SCH (11:56)
[2016-09-18] MEDS: FLUCONAZOLE 200MG/100ML PREMIX 100 ML IV SCH (11:57)
--- NOTE | 2016-09-18 12:32 | PDOC ---
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 She has now presented with small-bowel obstruction, renal failure, and hypercalcemia. CT scan of the abdomen and pelvis on 09/14/2016 which revealed a new 2.8-cm soft tissue process in the right lung base, which could be an infiltrate versus a mass. There is also evidence of soft tissue density along the distal right psoas muscle and lipopsoas muscle for a possibly representing abscess, but it has progressed from the previous examination and is now encroaching on the right ureter, causing obstructive uropathy at the right kidney. She has progressively worsening malignancy. Her functional status has declined and she is bedbound.. Hence I would not recommend palliative chemotherapy and I d/w her regarding supportive care with hospice and she agrees. 2. Hypercalcemia, worse. Calcium was 12.4 on 09/15/2016. s/p pamidronate 90 mg IV on 09/15/16 for management of hypercalcemia. Ca now 11.6 3. Renal failure. This is likely due to poor oral intake and dehydration. 4. Anemia due to malignancy. Monitor. 5. Leukocytosis, reactive. Appreciate Infectious Disease consultation for management of psoas abscess. 6. Obstructive uropathy due to progressive psoas abscess. I discussed with Dr Bullock. Comment Review of Relevant I have reviewed the following items niki (where applicable) has been applied. Labs Laboratory Tests Test 09/17/16 04:25 09/18/16 06:15 White Blood Count 33.1 x10^3/uL (4.0-11.0) 32.7 x10^3/uL (4.0-11.0) Red Blood Count 2.20 x10^6/uL (3.50-5.40) 3.12 x10^6/uL (3.50-5.40) Hemoglobin 6.9 g/dL (12.0-15.5) 9.4 g/dL (12.0-15.5) Hematocrit 20.8 % (36.0-47.0) 28.9 % (36.0-47.0) Mean Corpuscular Volume 95 fL (79-100) 93 fL (79-100) Mean Corpuscular Hemoglobin 32 pg (25-35) 30 pg (25-35) Mean Corpuscular Hemoglobin Concent 33 g/dL (31-37) 33 g/dL (31-37) Red Cell Distribution Width 20.4 % (11.5-14.5) 19.5 % (11.5-14.5) Platelet Count 268 x10^3/uL (140-400) 231 x10^3/uL (140-400) Neutrophils (%) (Auto) 94 % (31-73) 95 % (31-73) Lymphocytes (%) (Auto) 2 % (24-48) 2 % (24-48) Monocytes (%) (Auto) 4 % (0-9) 3 % (0-9) Eosinophils (%) (Auto) 0 % (0-3) 0 % (0-3) Basophils (%) (Auto) 0 % (0-3) 0 % (0-3) Neutrophils # (Auto) 31.0 x10^3uL (1.8-7.7) 31.0 x10^3uL (1.8-7.7) Lymphocytes # (Auto) 0.7 x10^3/uL (1.0-4.8) 0.6 x10^3/uL (1.0-4.8) Monocytes # (Auto) 1.3 x10^3/uL (0.0-1.1) 1.1 x10^3/uL (0.0-1.1) Eosinophils # (Auto) 0.0 x10^3/uL (0.0-0.7) 0.0 x10^3/uL (0.0-0.7) Basophils # (Auto) 0.0 x10^3/uL (0.0-0.2) 0.0 x10^3/uL (0.0-0.2) Segmented Neutrophils % 77 % (35-66) Band Neutrophils % 14 % (0-9) Lymphocytes % 1 % (24-48) Monocytes % 3 % (0-10) Metamyelocytes % 2 % (0-0) Myelocytes % 3 % (0-0) Platelet Estimate Adequate (ADEQUATE) Polychromasia Present Anisocytosis Present Sodium Level 140 mmol/L (136-145) 141 mmol/L (136-145) Potassium Level 3.6 mmol/L (3.5-5.1) 3.3 mmol/L (3.5-5.1) Chloride Level 101 mmol/L (98-107) 104 mmol/L (98-107) Carbon Dioxide Level 34 mmol/L (21-32) 30 mmol/L (21-32) Anion Gap 5 (6-14) 7 (6-14) Blood Urea Nitrogen 31 mg/dL (7-20) 28 mg/dL (7-20) Creatinine 1.5 mg/dL (0.6-1.0) 1.5 mg/dL (0.6-1.0) Estimated GFR (Cockcroft-Gault) 44.8 44.8 BUN/Creatinine Ratio 21 (6-20) 19 (6-20) Glucose Level 71 mg/dL (70-99) 97 mg/dL (70-99) Calcium Level 11.3 mg/dL (8.5-10.1) 11.6 mg/dL (8.5-10.1) Total Bilirubin 0.5 mg/dL (0.2-1.0) 1.0 mg/dL (0.2-1.0) Aspartate Amino Transf (AST/SGOT) 12 U/L (15-37) 13 U/L (15-37) Alanine Aminotransferase (ALT/SGPT) 11 U/L (14-59) 11 U/L (14-59) Alkaline Phosphatase 111 U/L (46-116) 125 U/L (46-116) Total Protein 5.6 g/dL (6.4-8.2) 6.2 g/dL (6.4-8.2) Albumin 1.9 g/dL (3.4-5.0) 1.8 g/dL (3.4-5.0) Albumin/Globulin Ratio 0.5 (1.0-1.7) 0.4 (1.0-1.7) Laboratory Tests Test 09/18/16 06:15 White Blood Count 32.7 x10^3/uL (4.0-11.0) Red Blood Count 3.12 x10^6/uL (3.50-5.40) Hemoglobin 9.4 g/dL (12.0-15.5) Hematocrit 28.9 % (36.0-47.0) Mean Corpuscular Volume 93 fL (79-100) Mean Corpuscular Hemoglobin 30 pg (25-35) Mean Corpuscular Hemoglobin Concent 33 g/dL (31-37) Red Cell Distribution Width 19.5 % (11.5-14.5) Platelet Count 231 x10^3/uL (140-400) Neutrophils (%) (Auto) 95 % (31-73) Lymphocytes (%) (Auto) 2 % (24-48) Monocytes (%) (Auto) 3 % (0-9) Eosinophils (%) (Auto) 0 % (0-3) Basophils (%) (Auto) 0 % (0-3) Neutrophils # (Auto) 31.0 x10^3uL (1.8-7.7) Lymphocytes # (Auto) 0.6 x10^3/uL (1.0-4.8) Monocytes # (Auto) 1.1 x10^3/uL (0.0-1.1) Eosinophils # (Auto) 0.0 x10^3/uL (0.0-0.7) Basophils # (Auto) 0.0 x10^3/uL (0.0-0.2) Sodium Level 141 mmol/L (136-145) Potassium Level 3.3 mmol/L (3.5-5.1) Chloride Level 104 mmol/L (98-107) Carbon Dioxide Level 30 mmol/L (21-32) Anion Gap 7 (6-14) Blood Urea Nitrogen 28 mg/dL (7-20) Creatinine 1.5 mg/dL (0.6-1.0) Estimated GFR (Cockcroft-Gault) 44.8 BUN/Creatinine Ratio 19 (6-20) Glucose Level 97 mg/dL (70-99) Calcium Level 11.6 mg/dL (8.5-10.1) Total Bilirubin 1.0 mg/dL (0.2-1.0) Aspartate Amino Transf (AST/SGOT) 13 U/L (15-37) Alanine Aminotransferase (ALT/SGPT) 11 U/L (14-59) Alkaline Phosphatase 125 U/L (46-116) Total Protein 6.2 g/dL (6.4-8.2) Albumin 1.8 g/dL (3.4-5.0) Albumin/Globulin Ratio 0.4 (1.0-1.7) Microbiology 09/15/16 Blood Culture - Preliminary, Resulted NO GROWTH AFTER 3 DAYS Medications Current Medications Morphine Sulfate 2 mg PRN Q2HR PRN IV MODERATE PAIN Last administered on 19:08; Start 09/15/16 at 04:00 Morphine Sulfate 4 mg PRN Q2HR PRN IV SEVERE PAIN Last administered on 09:43; Start 09/15/16 at 04:00 Ondansetron HCl (Zofran) 4 mg PRN Q6HRS PRN IV NAUSEA/VOMITING Last administered on 09/17/16 21:42; Start 09/15/16 at 04:00 Amino Acids/ Glycerin/ Electrolytes 1,000 ml @ 80 mls/hr [id number] IV Last administered on 09/15/16 05:20; Start 09/15/16 at 04:00; Stop 09/15/16 at 07:02; Status DC Sodium Chloride 1,000 ml @ 125 mls/hr 1X ONCE IV Last administered on 08:14; Start 09/15/16 at 07:00; Stop 09/15/16 at 14:59; Status DC Cefepime HCl 1 gm/ Sodium Chloride 50 ml @ 100 mls/hr Q8HRS IV Last administered on 09/17/16 05:59; Start 09/15/16 at 09:00; Stop 09/17/16 at 11:25 ; Status DC Pamidronate Disodium 90 mg/ Sodium Chloride 250 ml @ 83.333 mls/ hr 1X ONCE IV ; Start 09/15/16 at 12:00; Stop 09/15/16 at 14:59; Status Cancel Pamidronate Disodium 90 mg/ Sodium Chloride 250 ml @ 83.333 mls/ hr 1X ONCE IV Last administered on 09/15/16 18:27; Start 09/15/16 at 16:00; Stop 09/15/16 at 18:59; Status DC Nicotine (Nicoderm Cq 21mg) 1 patch DAILY TD Last administered on 09/18/16 11: 56; Start 09/15/16 at 20:30 Sodium Chloride 1,000 ml @ 50 mls/hr Q20H IV Last administered on 09/17/16 17 :04; Start 09/16/16 at 00:15; Stop 09/18/16 at 08:54; Status DC Hydromorphone HCl (Dilaudid) 2 mg PRN Q2HR PRN IV PAIN SEVERE Last administered on 09/18/16 11:55; Start 09/16/16 at 11:30 Lorazepam (Ativan) 0.5 mg PRN Q6HRS PRN IV Anxiety Last administered on 03:45; Start 09/16/16 at 11:30 Lidocaine (Lidoderm) 1 patch DAILY TD Last administered on 09/18/16 11:56; Start 09/16/16 at 11:30 Pantoprazole Sodium (Protonix Vial) 40 mg DAILYAC IVP Last administered on 09/18 11:55; Start 09/16/16 at 14:30 Enoxaparin Sodium (Lovenox 40mg Syringe) 40 mg Q24H SQ ; Start 09/16/16 at 15:00 ; Status Cancel Heparin Sodium (Porcine) (Heparin Sq) 5,000 unit Q8HRS SQ Last administered on 09/17/16 06:06; Start 09/16/16 at 14:00 Meropenem 500 mg/ Sodium Chloride 50 ml @ 100 mls/hr Q6HRS IV Last administered on 09/18/16 05:59; Start 09/17/16 at 12:00 Fluconazole/ Sodium Chloride 100 ml @ 100 mls/hr Q24H IV Last administered on 6/12/17at 11:57; Start 09/17/16 at 11:30 Amino Acids/ Glycerin/ Electrolytes 1,000 ml @ 80 mls/hr [id number] IV ; Start 03/25 at 09:00 Active Scripts Active Hydrocodone-Apap 7.5-325 (Hydrocodone Bit/Acetaminophen) 1 Each Tablet 1 Tab PO PRN Q6HRS PRN Protonix (Pantoprazole Sodium) 40 Mg Tablet. 1 Tab PO DAILY Reported Hydrocodone-Apap 10-325 (Hydrocodone Bit/Acetaminophen) 1 Each Tablet 1 Tab PO PRN Q4HRS PRN K-Tab ER (Potassium Chloride) 20 Meq Tablet.er 20 Meq PO DAILY Furosemide 40 Mg Tablet 40 Mg PO DAILY Ondansetron Hcl 8 Mg Tablet 8 Mg PO PRN Q8HRS PRN Lorazepam 0.5 Mg Tablet 1 Tab PO PRN Q6HRS PRN Prochlorperazine Maleate 10 Mg Tablet 10 Mg PO PRN Q6-8HRS PRN Magnesium Oxide 400 Mg Tablet 400 Mg PO TID Morphine Sulfate Er (Morphine Sulfate) 15 Mg Tablet.er 1 Tab PO BID Morphine Sulfate Er (Morphine Sulfate) 30 Mg Cap.er.pel 30 Mg PO Q12HR Morphine Sulfate 100 Mg/5 Ml Solution 10 Mg PO PRN Q2-4HRS PRN Eliquis (Apixaban) 2.5 Mg Tablet 2.5 Mg PO BIDAFTMEAL Losartan-Hctz 100-25 Mg Tab (Losartan/Hydrochlorothiazide) 1 Each Tablet 1 Tab PO DAILY Docusate Sodium 100 Mg Capsule 1 Cap PO DAILY Vitals/I & O Vital Sign - Last 24 Hours 09/17/16 09/17/16 09/17/16 09/17/16 12:49 15:08 15:14 19:55 Temp 98.7 99.5 98.7 99.5 Pulse 115 111 Resp 16 20 20 B/P (MAP) 138/81 (100) 159/94 (115) Pulse Ox 92 95 O2 Delivery Room Air Room Air Room Air Room Air 09/17/16 09/17/16 09/17/16 09/17/16 20:16 21:35 21:40 22:33 Temp 98.9 98.7 98.9 98.7 Pulse 110 109 Resp 18 16 17 B/P (MAP) 143/85 154/88 Pulse Ox 95 O2 Delivery Room Air Room Air 09/17/16 09/17/16 09/18/16 09/18/16 23:17 23:36 00:38 01:14 Temp 98.6 98.6 98.6 98.6 Pulse 106 107 Resp 22 18 18 B/P (MAP) 145/90 (108) 155/89 Pulse Ox 100 95 95 O2 Delivery Room Air Room Air Room Air 09/18/16 09/18/16 09/18/16 09/18/16 01:47 02:05 03:00 03:05 Temp 98.1 99.0 98.9 98.1 99.0 98.9 Pulse 105 103 101 Resp 18 18 B/P (MAP) 155/89 155/90 159/93 O2 Delivery Room Air 09/18/16 09/18/16 09/18/16 09/18/16 04:04 04:10 07:00 11:00 Temp 99.2 98.3 98.5 99.2 98.3 98.5 Pulse 99 98 96 Resp 18 20 20 B/P (MAP) 157/91 151/87 (108) 151/89 (109) Pulse Ox 95 96 O2 Delivery Room Air Room Air Room Air 09/18/16 11:55 Resp 16 O2 Delivery Room Air Intake and Output 09/17/16 09/17/16 09/18/16 15:00 23:00 07:00 Intake Total 420 ml 1700 ml Output Total 445 ml Balance -445 ml 420 ml 1700 ml GUILLAUME MORAN MD Sep 18, 2016 12:32
--- NOTE | 2016-09-18 15:35 | RAD ---
EXAM: Abdomen one view. HISTORY: Nasogastric tube placement. COMPARISON: 09/17/2016. FINDINGS: A frontal view of the abdomen is obtained. There are limitations from rotation to the right. A nasogastric tube has its tip in the distal stomach. There are moderately distended loops of small bowel in the midabdomen. There is no clear gas distally. Surgical clips are noted in the right inguinal region. IMPRESSION: 1. Small bowel distention appears mildly increased.
--- NOTE | 2016-09-18 15:48 | PDOC ---
SURGICAL PROGRESS NOTE Subjective Pt appears comfortable, possible mild confusion Vital Signs Vital Signs Date Time Temp Pulse Resp B/P (MAP) Pulse Ox O2 Delivery O2 Flow Rate FiO2 09/18/16 15:00 98.9 92 18 159/91 (113) 94 Room Air 98.9 09/18/16 12:30 95.0 I&O Intake and Output 09/18/16 06:59 Intake Total 2120 ml Output Total 445 ml Balance 1675 ml Intake Oral 320 ml IV Total 600 ml Blood Product IV Normal Saline Flush 1200 ml Gastric Drainage Total 445 ml # Voids 1 General: Alert, Cooperative, No acute distress Abdomen: Soft Labs Laboratory Tests Test 09/17/16 04:25 09/18/16 06:15 White Blood Count 33.1 x10^3/uL (4.0-11.0) 32.7 x10^3/uL (4.0-11.0) Red Blood Count 2.20 x10^6/uL (3.50-5.40) 3.12 x10^6/uL (3.50-5.40) Hemoglobin 6.9 g/dL (12.0-15.5) 9.4 g/dL (12.0-15.5) Hematocrit 20.8 % (36.0-47.0) 28.9 % (36.0-47.0) Mean Corpuscular Volume 95 fL (79-100) 93 fL (79-100) Mean Corpuscular Hemoglobin 32 pg (25-35) 30 pg (25-35) Mean Corpuscular Hemoglobin Concent 33 g/dL (31-37) 33 g/dL (31-37) Red Cell Distribution Width 20.4 % (11.5-14.5) 19.5 % (11.5-14.5) Platelet Count 268 x10^3/uL (140-400) 231 x10^3/uL (140-400) Neutrophils (%) (Auto) 94 % (31-73) 95 % (31-73) Lymphocytes (%) (Auto) 2 % (24-48) 2 % (24-48) Monocytes (%) (Auto) 4 % (0-9) 3 % (0-9) Eosinophils (%) (Auto) 0 % (0-3) 0 % (0-3) Basophils (%) (Auto) 0 % (0-3) 0 % (0-3) Neutrophils # (Auto) 31.0 x10^3uL (1.8-7.7) 31.0 x10^3uL (1.8-7.7) Lymphocytes # (Auto) 0.7 x10^3/uL (1.0-4.8) 0.6 x10^3/uL (1.0-4.8) Monocytes # (Auto) 1.3 x10^3/uL (0.0-1.1) 1.1 x10^3/uL (0.0-1.1) Eosinophils # (Auto) 0.0 x10^3/uL (0.0-0.7) 0.0 x10^3/uL (0.0-0.7) Basophils # (Auto) 0.0 x10^3/uL (0.0-0.2) 0.0 x10^3/uL (0.0-0.2) Segmented Neutrophils % 77 % (35-66) Band Neutrophils % 14 % (0-9) Lymphocytes % 1 % (24-48) Monocytes % 3 % (0-10) Metamyelocytes % 2 % (0-0) Myelocytes % 3 % (0-0) Platelet Estimate Adequate (ADEQUATE) Polychromasia Present Anisocytosis Present Sodium Level 140 mmol/L (136-145) 141 mmol/L (136-145) Potassium Level 3.6 mmol/L (3.5-5.1) 3.3 mmol/L (3.5-5.1) Chloride Level 101 mmol/L (98-107) 104 mmol/L (98-107) Carbon Dioxide Level 34 mmol/L (21-32) 30 mmol/L (21-32) Anion Gap 5 (6-14) 7 (6-14) Blood Urea Nitrogen 31 mg/dL (7-20) 28 mg/dL (7-20) Creatinine 1.5 mg/dL (0.6-1.0) 1.5 mg/dL (0.6-1.0) Estimated GFR (Cockcroft-Gault) 44.8 44.8 BUN/Creatinine Ratio 21 (6-20) 19 (6-20) Glucose Level 71 mg/dL (70-99) 97 mg/dL (70-99) Calcium Level 11.3 mg/dL (8.5-10.1) 11.6 mg/dL (8.5-10.1) Total Bilirubin 0.5 mg/dL (0.2-1.0) 1.0 mg/dL (0.2-1.0) Aspartate Amino Transf (AST/SGOT) 12 U/L (15-37) 13 U/L (15-37) Alanine Aminotransferase (ALT/SGPT) 11 U/L (14-59) 11 U/L (14-59) Alkaline Phosphatase 111 U/L (46-116) 125 U/L (46-116) Total Protein 5.6 g/dL (6.4-8.2) 6.2 g/dL (6.4-8.2) Albumin 1.9 g/dL (3.4-5.0) 1.8 g/dL (3.4-5.0) Albumin/Globulin Ratio 0.5 (1.0-1.7) 0.4 (1.0-1.7) Laboratory Tests Test 09/18/16 06:15 White Blood Count 32.7 x10^3/uL (4.0-11.0) Red Blood Count 3.12 x10^6/uL (3.50-5.40) Hemoglobin 9.4 g/dL (12.0-15.5) Hematocrit 28.9 % (36.0-47.0) Mean Corpuscular Volume 93 fL (79-100) Mean Corpuscular Hemoglobin 30 pg (25-35) Mean Corpuscular Hemoglobin Concent 33 g/dL (31-37) Red Cell Distribution Width 19.5 % (11.5-14.5) Platelet Count 231 x10^3/uL (140-400) Neutrophils (%) (Auto) 95 % (31-73) Lymphocytes (%) (Auto) 2 % (24-48) Monocytes (%) (Auto) 3 % (0-9) Eosinophils (%) (Auto) 0 % (0-3) Basophils (%) (Auto) 0 % (0-3) Neutrophils # (Auto) 31.0 x10^3uL (1.8-7.7) Lymphocytes # (Auto) 0.6 x10^3/uL (1.0-4.8) Monocytes # (Auto) 1.1 x10^3/uL (0.0-1.1) Eosinophils # (Auto) 0.0 x10^3/uL (0.0-0.7) Basophils # (Auto) 0.0 x10^3/uL (0.0-0.2) Sodium Level 141 mmol/L (136-145) Potassium Level 3.3 mmol/L (3.5-5.1) Chloride Level 104 mmol/L (98-107) Carbon Dioxide Level 30 mmol/L (21-32) Anion Gap 7 (6-14) Blood Urea Nitrogen 28 mg/dL (7-20) Creatinine 1.5 mg/dL (0.6-1.0) Estimated GFR (Cockcroft-Gault) 44.8 BUN/Creatinine Ratio 19 (6-20) Glucose Level 97 mg/dL (70-99) Calcium Level 11.6 mg/dL (8.5-10.1) Total Bilirubin 1.0 mg/dL (0.2-1.0) Aspartate Amino Transf (AST/SGOT) 13 U/L (15-37) Alanine Aminotransferase (ALT/SGPT) 11 U/L (14-59) Alkaline Phosphatase 125 U/L (46-116) Total Protein 6.2 g/dL (6.4-8.2) Albumin 1.8 g/dL (3.4-5.0) Albumin/Globulin Ratio 0.4 (1.0-1.7) Assessment/Plan metastatic cancer, with associated SBO KUB shows slightly more distended will clamp NGT agree with plans for hospice Problems: JAYLEEN GILES MD Sep 18, 2016 15:47
--- NOTE | 2016-09-18 16:20 | PDOC ---
Provider Note Provider Note Comfortable at rest in bed. Not ambulatory due to pain in rt groin. NG tube in place. PE abd distended non-tender. rt leg edema improved during this admit as she remains in bed with leg elevation. Renal function improved overall with stable cr now of 1.5 Impression: Progressive squamous cell carcinoma from toe of rt foot. Progressive pelvic adenopathy with right ureteral compromise and right hydronephrosis. Cr improved since admit. SBO improved. NG now off suction. Agree with supportive care alone as discussed with Dr Salmeron with hospice support on dc. If she is non-ambulatory she may require NH placement if she cannot manage ADLs at home with daughter's assistance. DEV WILSON MD Sep 18, 2016 16:20
[2016-09-18] MEDS: AMINO AC 3%/ELECTROLYTE/GLYCER 1,000 ML IV SCH ×2 (17:49→21:30)
[2016-09-18] MEDS: MORPHINE SULFATE 2 MG/ML DISP.SYRIN. IV PRN ×2 (20:39→22:38)
[2016-09-19] MEDS: HYDROmorphone 2 MG/ML VIAL IV PRN ×5 (01:02→17:04)
[2016-09-19] MEDS: MEROPENEM 500 MG in IV NORMAL SALINE 50ML 50 ML IV SCH ×3 (01:03→11:31)
[2016-09-19] MEDS: ONDANSETRON PF 4 MG/2 ML VIAL. IV PRN (01:23)
[2016-09-19 03:00] VITALS: BP 159/93
[2016-09-19 03:44] LABS: CALCIUM 11.4 mg/dL (8.5-10.1); CREATININE 1.5 mg/dL (0.6-1.0); GFR 44.8; POTASSIUM 3.2 mmol/L (3.5-5.1)
[2016-09-19] MEDS: AMINO AC 3%/ELECTROLYTE/GLYCER 1,000 ML IV SCH (05:29)
[2016-09-19] MEDS: HEPARIN PF for SUB-Q USE 5,000 UNIT/0.5 ML VIAL. SQ SCH ×3 (06:24→13:42)
[2016-09-19 07:00] VITALS: BP 153/92
--- NOTE | 2016-09-19 09:01 | PDOC ---
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 ROS - c/o pain Objective Objective Vital Signs Date Time Temp Pulse Resp B/P (MAP) Pulse Ox O2 Delivery O2 Flow Rate FiO2 09/19/16 07:00 98.7 100 16 153/92 (112) 97 Room Air 98.7 09/18/16 18:20 95.0 Intake and Output 09/19/16 07:00 Intake Total 100 ml Balance 100 ml Intake Oral 100 ml # Voids 2 Physical Exam Abdomen: No tenderness Heart: Normal S1, Normal S2 Extremities: No clubbing General: Alert, Oriented X3 HEENT: Atraumatic, PERRLA Lungs: Clear to auscultation MUSCULOSKELETAL: No deformity Neck: Supple Neuro: Normal speech Psych/Mental Status: Mental status NL Skin: No rashes Assessment Assessment IMPRESSION AND PLAN: 1. 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 She has now presented with small-bowel obstruction, renal failure, and hypercalcemia. CT scan of the abdomen and pelvis on 09/14/2016 which revealed a new 2.8-cm soft tissue process in the right lung base, which could be an infiltrate versus a mass. There is also evidence of soft tissue density along the distal right psoas muscle and lipopsoas muscle for a possibly representing abscess, but it has progressed from the previous examination and is now encroaching on the right ureter, causing obstructive uropathy at the right kidney. She has progressively worsening malignancy. Her functional status has declined and she is bedbound.. Hence I would not recommend palliative chemotherapy and I d/w her regarding supportive care with hospice and she agrees. I had family meeting with pt and her daughters Francie and Ashwini, I reviewed poor prognosis and they agree with comfort care and hospice. They request for [facility]. 2. Hypercalcemia, worse. Calcium was 12.4 on 09/15/2016. s/p pamidronate 90 mg IV on 09/15/16 for management of hypercalcemia. Ca now 11.4 3. Renal failure. This is likely due to poor oral intake and dehydration. 4. Anemia due to malignancy. 5. Leukocytosis, reactive. Appreciate Infectious Disease consultation for management of psoas abscess. 6. Obstructive uropathy due to progressive psoas abscess. I discussed with Dr Han. Comment Review of Relevant I have reviewed the following items niki (where applicable) has been applied. Labs Laboratory Tests Test 09/18/16 06:15 09/19/16 02:45 White Blood Count 32.7 x10^3/uL (4.0-11.0) Red Blood Count 3.12 x10^6/uL (3.50-5.40) Hemoglobin 9.4 g/dL (12.0-15.5) Hematocrit 28.9 % (36.0-47.0) Mean Corpuscular Volume 93 fL (79-100) Mean Corpuscular Hemoglobin 30 pg (25-35) Mean Corpuscular Hemoglobin Concent 33 g/dL (31-37) Red Cell Distribution Width 19.5 % (11.5-14.5) Platelet Count 231 x10^3/uL (140-400) Neutrophils (%) (Auto) 95 % (31-73) Lymphocytes (%) (Auto) 2 % (24-48) Monocytes (%) (Auto) 3 % (0-9) Eosinophils (%) (Auto) 0 % (0-3) Basophils (%) (Auto) 0 % (0-3) Neutrophils # (Auto) 31.0 x10^3uL (1.8-7.7) Lymphocytes # (Auto) 0.6 x10^3/uL (1.0-4.8) Monocytes # (Auto) 1.1 x10^3/uL (0.0-1.1) Eosinophils # (Auto) 0.0 x10^3/uL (0.0-0.7) Basophils # (Auto) 0.0 x10^3/uL (0.0-0.2) Sodium Level 141 mmol/L (136-145) 141 mmol/L (136-145) Potassium Level 3.3 mmol/L (3.5-5.1) 3.2 mmol/L (3.5-5.1) Chloride Level 104 mmol/L (98-107) 103 mmol/L (98-107) Carbon Dioxide Level 30 mmol/L (21-32) 31 mmol/L (21-32) Anion Gap 7 (6-14) 7 (6-14) Blood Urea Nitrogen 28 mg/dL (7-20) 26 mg/dL (7-20) Creatinine 1.5 mg/dL (0.6-1.0) 1.5 mg/dL (0.6-1.0) Estimated GFR (Cockcroft-Gault) 44.8 44.8 BUN/Creatinine Ratio 19 (6-20) Glucose Level 97 mg/dL (70-99) 104 mg/dL (70-99) Calcium Level 11.6 mg/dL (8.5-10.1) 11.4 mg/dL (8.5-10.1) Total Bilirubin 1.0 mg/dL (0.2-1.0) Aspartate Amino Transf (AST/SGOT) 13 U/L (15-37) Alanine Aminotransferase (ALT/SGPT) 11 U/L (14-59) Alkaline Phosphatase 125 U/L (46-116) Total Protein 6.2 g/dL (6.4-8.2) Albumin 1.8 g/dL (3.4-5.0) Albumin/Globulin Ratio 0.4 (1.0-1.7) Laboratory Tests Test 09/19/16 02:45 Sodium Level 141 mmol/L (136-145) Potassium Level 3.2 mmol/L (3.5-5.1) Chloride Level 103 mmol/L (98-107) Carbon Dioxide Level 31 mmol/L (21-32) Anion Gap 7 (6-14) Blood Urea Nitrogen 26 mg/dL (7-20) Creatinine 1.5 mg/dL (0.6-1.0) Estimated GFR (Cockcroft-Gault) 44.8 Glucose Level 104 mg/dL (70-99) Calcium Level 11.4 mg/dL (8.5-10.1) Microbiology 09/15/16 Blood Culture - Preliminary, Resulted NO GROWTH AFTER 3 DAYS Medications Current Medications Morphine Sulfate 2 mg PRN Q2HR PRN IV MODERATE PAIN Last administered on 22:38; Start 09/15/16 at 04:00 Morphine Sulfate 4 mg PRN Q2HR PRN IV SEVERE PAIN Last administered on 09:43; Start 09/15/16 at 04:00 Ondansetron HCl (Zofran) 4 mg PRN Q6HRS PRN IV NAUSEA/VOMITING Last administered on 09/19/16 01:23; Start 09/15/16 at 04:00 Amino Acids/ Glycerin/ Electrolytes 1,000 ml @ 80 mls/hr [id number] IV Last administered on 09/15/16 05:20; Start 09/15/16 at 04:00; Stop 09/15/16 at 07:02; Status DC Sodium Chloride 1,000 ml @ 125 mls/hr 1X ONCE IV Last administered on 08:14; Start 09/15/16 at 07:00; Stop 09/15/16 at 14:59; Status DC Cefepime HCl 1 gm/ Sodium Chloride 50 ml @ 100 mls/hr Q8HRS IV Last administered on 09/17/16 05:59; Start 09/15/16 at 09:00; Stop 09/17/16 at 11:25 ; Status DC Pamidronate Disodium 90 mg/ Sodium Chloride 250 ml @ 83.333 mls/ hr 1X ONCE IV ; Start 09/15/16 at 12:00; Stop 09/15/16 at 14:59; Status Cancel Pamidronate Disodium 90 mg/ Sodium Chloride 250 ml @ 83.333 mls/ hr 1X ONCE IV Last administered on 09/15/16 18:27; Start 09/15/16 at 16:00; Stop 09/15/16 at 18:59; Status DC Nicotine (Nicoderm Cq 21mg) 1 patch DAILY TD Last administered on 09/18/16 11: 56; Start 09/15/16 at 20:30 Sodium Chloride 1,000 ml @ 50 mls/hr Q20H IV Last administered on 09/17/16 17 :04; Start 09/16/16 at 00:15; Stop 09/18/16 at 08:54; Status DC Hydromorphone HCl (Dilaudid) 2 mg PRN Q2HR PRN IV PAIN SEVERE Last administered on 09/19/16 01:02; Start 09/16/16 at 11:30 Lorazepam (Ativan) 0.5 mg PRN Q6HRS PRN IV Anxiety Last administered on 03:45; Start 09/16/16 at 11:30 Lidocaine (Lidoderm) 1 patch DAILY TD Last administered on 09/18/16 11:56; Start 09/16/16 at 11:30 Pantoprazole Sodium (Protonix Vial) 40 mg DAILYAC IVP Last administered on 09/18 11:55; Start 09/16/16 at 14:30 Enoxaparin Sodium (Lovenox 40mg Syringe) 40 mg Q24H SQ ; Start 09/16/16 at 15:00 ; Status Cancel Heparin Sodium (Porcine) (Heparin Sq) 5,000 unit Q8HRS SQ Last administered on 09/19/16 06:24; Start 09/16/16 at 14:00 Meropenem 500 mg/ Sodium Chloride 50 ml @ 100 mls/hr Q6HRS IV Last administered on 09/19/16 06:20; Start 09/17/16 at 12:00 Fluconazole/ Sodium Chloride 100 ml @ 100 mls/hr Q24H IV Last administered on 09/18/16 11:57; Start 09/17/16 at 11:30 Amino Acids/ Glycerin/ Electrolytes 1,000 ml @ 80 mls/hr [id number] IV Last administered on 09/19/16 05:29; Start 09/18/16 at 09:00 Active Scripts Active Hydrocodone-Apap 7.5-325 (Hydrocodone Bit/Acetaminophen) 1 Each Tablet 1 Tab PO PRN Q6HRS PRN Protonix (Pantoprazole Sodium) 40 Mg Tablet.dr 1 Tab PO DAILY Reported Hydrocodone-Apap 10-325 (Hydrocodone Bit/Acetaminophen) 1 Each Tablet 1 Tab PO PRN Q4HRS PRN K-Tab ER (Potassium Chloride) 20 Meq Tablet.er 20 Meq PO DAILY Furosemide 40 Mg Tablet 40 Mg PO DAILY Ondansetron Hcl 8 Mg Tablet 8 Mg PO PRN Q8HRS PRN Lorazepam 0.5 Mg Tablet 1 Tab PO PRN Q6HRS PRN Prochlorperazine Maleate 10 Mg Tablet 10 Mg PO PRN Q6-8HRS PRN Magnesium Oxide 400 Mg Tablet 400 Mg PO TID Morphine Sulfate Er (Morphine Sulfate) 15 Mg Tablet.er 1 Tab PO BID Morphine Sulfate Er (Morphine Sulfate) 30 Mg Cap.er.pel 30 Mg PO Q12HR Morphine Sulfate 100 Mg/5 Ml Solution 10 Mg PO PRN Q2-4HRS PRN Eliquis (Apixaban) 2.5 Mg Tablet 2.5 Mg PO BIDAFTMEAL Losartan-Hctz 100-25 Mg Tab (Losartan/Hydrochlorothiazide) 1 Each Tablet 1 Tab PO DAILY Docusate Sodium 100 Mg Capsule 1 Cap PO DAILY Vitals/I & O Vital Sign - Last 24 Hours 09/18/16 09/18/16 09/18/16 09/18/16 11:00 11:55 12:30 15:00 Temp 98.5 98.9 98.5 98.9 Pulse 96 92 Resp 20 16 18 18 B/P (MAP) 151/89 (109) 159/91 (113) Pulse Ox 96 94 O2 Delivery Room Air Room Air Room Air 09/18/16 09/18/16 09/18/16 09/18/16 17:48 18:20 19:00 20:39 Temp 99.1 99.1 Pulse 100 Resp 18 18 20 B/P (MAP) 156/91 (112) Pulse Ox 94 94 96 O2 Delivery Room Air Room Air Room Air O2 Flow Rate 95.0 95.0 09/18/16 09/18/16 09/19/16 09/19/16 22:38 23:00 01:02 03:00 Temp 97.6 98.7 97.6 98.7 Pulse 98 101 Resp 20 16 20 16 B/P (MAP) 160/91 (114) 159/93 (115) Pulse Ox 98 97 O2 Delivery Room Air 09/19/16 07:00 Temp 98.7 98.7 Pulse 100 Resp 16 B/P (MAP) 153/92 (112) Pulse Ox 97 O2 Delivery Room Air Intake and Output 09/18/16 09/18/16 09/19/16 15:00 23:00 07:00 Intake Total 100 ml Balance 100 ml GUILLAUME MORAN MD Sep 19, 2016 09:00
[2016-09-19] MEDS: PANTOPRAZOLE IV PUSH 40 MG VIAL. IVP SCH (09:11)
[2016-09-19] MEDS: NICOTINE 21MG PATCH. TD SCH (09:11)
[2016-09-19] MEDS: LIDOCAINE (700MG/PATCH) PATCH. TD SCH (09:12)
[2016-09-19 11:00] VITALS: BP 149/86
--- NOTE | 2016-09-19 11:09 | PDOC ---
Renal-Progress Notes Subjective Notes Notes NO NEW COMPLAINTS History of Present Illness Hx of present illness NO CHANGE Vitals Vitals Vital Signs Date Time Temp Pulse Resp B/P (MAP) Pulse Ox O2 Delivery O2 Flow Rate FiO2 09/19/16 11:00 94 16 149/86 (107) 96 Room Air 09/19/16 07:00 98.7 98.7 09/18/16 18:20 95.0 Weight Weight [ ] I.O. Intake and Output Intake and Output 09/19/16 07:00 Intake Total 100 ml Balance 100 ml Intake Oral 100 ml # Voids 2 Labs Labs Laboratory Tests Test 09/19/16 02:45 Sodium Level 141 mmol/L (136-145) Potassium Level 3.2 mmol/L (3.5-5.1) Chloride Level 103 mmol/L (98-107) Carbon Dioxide Level 31 mmol/L (21-32) Anion Gap 7 (6-14) Blood Urea Nitrogen 26 mg/dL (7-20) Creatinine 1.5 mg/dL (0.6-1.0) Estimated GFR (Cockcroft-Gault) 44.8 Glucose Level 104 mg/dL (70-99) Calcium Level 11.4 mg/dL (8.5-10.1) Micro Micro Microbiology 09/15/16 Blood Culture - Preliminary, Resulted NO GROWTH AFTER 4 DAYS Review of Systems Constitutional: yes: no symptom reported, weakness Physical Exam General Appearance: no apparent distress Skin: warm Respiratory: decreased breath sounds Heart: S1S2, RRR Abdomen: soft, bowel sounds present Genitourinary: bladder flat Extremities: atrophy Neurology: alert Musculoskeletal: Other Assessment Assessment IMP JUSTIN BETTER WITH CR 1.9 TO 1.5 SBO DEHYDRATION MET SCCA OF THE RIGHT LE ANEMIA - BETTER HYPERCALCEMIA OF MALIGNANCY LOW K PLAN CONT WITH PPN REPLACE K ISOTONIC SALINE IF CA INCREASE FURTHER WILL USE CALCITONIN LABS IN AM BRYAN ANDREA MD Sep 19, 2016 11:09
[2016-09-19] MEDS ORDERED: IV NORMAL SALINE 1000ML BAG 1,000 ML IV SCH (11:15)
[2016-09-19] MEDS ORDERED: MORP100S3 PO (11:23)
[2016-09-19] MEDS ORDERED: MORP30CA14 PO (11:23)
[2016-09-19] MEDS ORDERED: LORA-434 PO (11:23)
[2016-09-19] MEDS ORDERED: ONDA8TAB14 PO (11:23)
[2016-09-19] MEDS ORDERED: HYDR-2762 PO (11:23)
[2016-09-19] MEDS ORDERED: POTASSIUM CHLORIDE 20MEQ 50 ML IV ONE (11:30)
[2016-09-19] MEDS: FLUCONAZOLE 200MG/100ML PREMIX 100 ML IV SCH (12:23)
[2016-09-19 14:52] VITALS: BP 160/95
[2016-09-19] MEDS ORDERED: HEPARIN PF 500 UNIT/5 ML DISP.SYRIN. IV ONE (15:45)
== END 2016-09-19 17:47 | disposition hospice, home (50) | DRG 871 ==
LOC: 5 SOUTH 03:26
PROVIDERS: ADMIT Internal Medicine; ATTEND Internal Medicine
PROC: 30233N1 Transfusion of Nonautologous Red Blood Cells into Peripheral Vein, Percutaneous Approach (ICD-10-PCS; principal; 2016-09-17)
DX: A41.9 Sepsis, unspecified organism (principal); K68.12 Psoas muscle abscess; N17.0 Acute kidney failure with tubular necrosis; C49.9 Malignant neoplasm of connective and soft tissue, unspecified; K56.60 Unspecified intestinal obstruction; N13.30 Unspecified hydronephrosis; Z68.41 Body mass index [BMI] 40.0-44.9, adult; E87.5 Hyperkalemia; E83.52 Hypercalcemia; D63.0 Anemia in neoplastic disease; K21.9 Gastro-esophageal reflux disease without esophagitis; I10 Essential (primary) hypertension; C44.92 Squamous cell carcinoma of skin, unspecified; E86.0 Dehydration; N13.5 Crossing vessel and stricture of ureter without hydronephrosis; F41.9 Anxiety disorder, unspecified; G89.29 Other chronic pain; E66.9 Obesity, unspecified; Z88.1 Allergy status to other antibiotic agents; Z82.49 Family history of ischemic heart disease and other diseases of the circulatory system; Z83.3 Family history of diabetes mellitus; Z74.01 Bed confinement status; Z88.8 Allergy status to other drugs, medicaments and biological substances; Z79.899 Other long term (current) drug therapy; Z79.1 Long term (current) use of non-steroidal anti-inflammatories (NSAID); Z79.2 Long term (current) use of antibiotics; Z79.82 Long term (current) use of aspirin
CPT/HCPCS: 36415; 71010; 74000; 80048; 80053; 80076; 83970; 84100; 85007; 85027; 85610; 86850; 86900; 86901; 86920; 87040; C9113; J0692; J1170; J1450; J2060; J2185; J2270; J2405; J2430; J3480; J7030; J7050; P9016